=== PATIENT | female | born 1985 | race Hispanic/Latino ===

== ENCOUNTER 2022-05-10 23:03 | Emergency (ER) | payer MEDICAID ==
[~2022-05-10] VITALS: Ht 165.1 cm; Wt 64.4 kg
[2022-05-10] MEDS ORDERED: 0.9%NACL 1000ML 1,000 ML IV ONE (23:30)
[2022-05-10 23:43] LABS: BASOPHILS % (AUTO) 0.9 % (0.0-5.0); EOSINOPHILS % (AUTO) 2.5 % (0.0-8.0); HEMATOCRIT 32.8 % (36-48); MEAN CORPUSCULAR HEMOGLOBIN 28.2 pg (27.0-33.0); MEAN CORPUSCULAR HGB CONC 34.5 g/dL (32.0-36.0); MEAN CORPUSCULAR VOLUME 81.8 fL (79-99); MONOCYTES % (AUTO) 6.9 % (3.0-13.0); NEUTROPHILS % (AUTO) 70.9 % (40.0-77.0); PLATELET COUNT (AUTO) 268 K/uL (130-400); RED BLOOD CELL COUNT(AUTO) 4.01 MIL/uL (4.00-5.50); RED CELL DISTRIBUTION WIDTH 13.2 % (11.0-15.5)
[2022-05-10 23:56] LABS: POTASSIUM 3.9 mmol/L (3.5-5.1); TOTAL PROTEIN, SERUM 8.5 g/dL (6.0-8.3)
[2022-05-11 00:06] VITALS: BP 125/86
== END 2022-05-11 02:21 | disposition home or self-care (01) ==
LOC: EDH 23:03
DX: E86.0 Dehydration (principal); Z48.01 Encounter for change or removal of surgical wound dressing; E11.9 Type 2 diabetes mellitus without complications; Z88.6 Allergy status to analgesic agent; Z91.018 Allergy to other foods; Z98.890 Other specified postprocedural states
CPT/HCPCS: 99284; 80053; 85025; 86850; 86900; 86901; 87040 ×2; 83605; 36415; 51702; 96360; J7030

== ENCOUNTER 2022-05-30 22:03 | Emergency (ER) | payer MEDICAID ==
[~2022-05-30] VITALS: Ht 162.6 cm; Wt 69.4 kg
[2022-05-30] MEDS ORDERED: 0.9%NACL 1000ML 1,000 ML IV ONE (23:00)
[2022-05-30] MEDS ORDERED: INSULIN HUMULIN R 100 UNIT/ML 3ML IV ONE (23:00)
[2022-05-30 23:04] LABS: APPEARANCE,URINE TURBID (CLEAR); BILIRUBIN,URINE NEGATIVE (NEGATIVE); COLOR,URINE YELLOW (YELLOW); GLUCOSE, URINE (UA) 250 mg/dL (NEGATIVE); KETONES,URINE 5 mg/dL (NEGATIVE); LEUKOCYTE ESTERASE ,URINE SMALL (NEGATIVE); NITRATE,URINE POSITIVE (NEGATIVE); OCCULT BLOOD,URINE MODERATE (NEGATIVE); PH,URINE 5.5 (5.0-8.0); PROTEIN,URINE 100 mg/dL (NEGATIVE)
[2022-05-30 23:15] LABS: BACTERIA,URINE Moderate /HPF (None Seen); MUCUS,URINE Rare LPF (None Seen); SQUAMOUS EPITHELIAL CELL,UR Rare /HPF (0-2); YEAST,URINE BUDDING Many /HPF (None Seen)
[2022-05-30 23:16] LABS: AMORPHOUS SEDIMENT,UR Moderate /LPF (None Seen)
[2022-05-30 23:21] LABS: BASOPHILS % (AUTO) 0.9 % (0.0-5.0); EOSINOPHILS % (AUTO) 2.5 % (0.0-8.0); HEMATOCRIT 33.3 % (36-48); LYMPHOCYTES % (AUTO) 19.7 % (21.0-51.0); MEAN CORPUSCULAR HEMOGLOBIN 28.3 pg (27.0-33.0); MEAN CORPUSCULAR HGB CONC 34.8 g/dL (32.0-36.0); MEAN CORPUSCULAR VOLUME 81.2 fL (79-99); MONOCYTES % (AUTO) 6.3 % (3.0-13.0); NEUTROPHILS % (AUTO) 70.3 % (40.0-77.0); PLATELET COUNT (AUTO) 312 K/uL (130-400); WHITE BLOOD COUNT (AUTO) 9.2 K/uL (4.8-10.8)
[2022-05-30 23:29] LABS: CREATININE 1.1 mg/dL (0.5-1.5); POTASSIUM 4.2 mmol/L (3.5-5.1)
[2022-05-30] MEDS ORDERED: CEFTRIAXONE 1G VIAL IVP ONE (23:30)
[2022-05-30 23:34] LABS: ALBUMIN 2.3 g/dL (3.5-5.0); TOTAL PROTEIN, SERUM 10.3 g/dL (6.0-8.3)
[2022-05-30] MEDS ORDERED: CEPH500B PO (23:46)
[2022-05-31 00:47] VITALS: BP 120/82
== END 2022-05-31 00:48 | disposition home or self-care (01) ==
LOC: EDH 22:03
DX: T83.098A Other mechanical complication of other urinary catheter, initial encounter (principal); N39.0 Urinary tract infection, site not specified; E11.65 Type 2 diabetes mellitus with hyperglycemia; Z88.5 Allergy status to narcotic agent; Z89.511 Acquired absence of right leg below knee; Y84.8 Other medical procedures as the cause of abnormal reaction of the patient, or of later complication, without mention of misadventure at the time of the procedure; Y92.89 Other specified places as the place of occurrence of the external cause
CPT/HCPCS: 99284; 96374; 96361; 96375; 80053; 85025; 87077; 87088; 87186; 82948; 82010; 81001; 36415; J1815; J7030; J0696

== ENCOUNTER 2023-06-15 21:18 | Emergency (ER) | payer MEDICAID ==
[~2023-06-15] VITALS: Ht 162.6 cm; Wt 71.2 kg
[~2023-06-15 21:18] MED LIST: AMLO5TAB4 PO; Docusate Sodium 100 Mg Cap PO; INSLAN SQ
[2023-06-15 21:39] LABS: BASOPHILS # (AUTO) 0.14 K/uL (0.00-0.20); BASOPHILS % (AUTO) 1.4 % (0.0-5.0); EOSINOPHILS # (AUTO) 1.04 K/uL (0.00-0.70); EOSINOPHILS % (AUTO) 10.5 % (0.0-8.0); IMMATURE GRANULOCYTE ABSOLUTE 0.05 K/uL (0-1); LYMPHOCYTES # (AUTO) 2.4 K/uL (1.0-4.8); LYMPHOCYTES % (AUTO) 24.3 % (21.0-51.0); MEAN CORPUSCULAR HEMOGLOBIN 27.9 pg (27.0-33.0); MEAN CORPUSCULAR HGB CONC 34.1 g/dL (32.0-36.0); MEAN CORPUSCULAR VOLUME 81.8 fL (79-99); MONOCYTES # (AUTO) 0.6 K/uL (0.1-1.0); MONOCYTES % (AUTO) 5.5 % (3.0-13.0); NEUTROPHILS # (AUTO) 5.7 K/uL (1.8-7.7); NEUTROPHILS % (AUTO) 57.8 % (40.0-77.0); PLATELET COUNT (AUTO) 279 K/uL (130-400); RED BLOOD CELL COUNT(AUTO) 3.91 MIL/uL (4.00-5.50); RED CELL DISTRIBUTION WIDTH 13.4 % (11.0-15.5); WHITE BLOOD COUNT (AUTO) 9.9 K/uL (4.8-10.8)
[2023-06-15 21:46] LABS: CREATININE 2.5 mg/dL (0.5-1.5); POTASSIUM 4.4 mmol/L (3.5-5.1)
[2023-06-15 21:56] LABS: ALBUMIN 2.2 g/dL (3.5-5.0); BILIRUBIN,TOTAL 0.3 mg/dL (0.2-1.0); TOTAL PROTEIN, SERUM 7.3 g/dL (6.0-8.3)
[2023-06-15 22:06] LABS: HCG,QUALITATIVE URINE NEGATIVE (NEGATIVE)
[2023-06-15 22:12] LABS: AMPHET/METH SCREEN,URINE NEGATIVE (NEGATIVE); APPEARANCE,URINE CLOUDY (CLEAR); BARBITURATE SCREEN, URINE NEGATIVE (NEGATIVE); BENZODIAZEPINES SCREEN,URINE NEGATIVE (NEGATIVE); BILIRUBIN,URINE NEGATIVE (NEGATIVE); CANNABINOID SCREEN,URINE NEGATIVE (NEGATIVE); COCAINE SCREEN,URINE NEGATIVE (NEGATIVE); COLOR,URINE YELLOW (YELLOW); GLUCOSE, URINE (UA) 200 mg/dL (NEGATIVE); KETONES,URINE NEGATIVE (NEGATIVE); LEUKOCYTE ESTERASE ,URINE 75 Leu/uL (NEGATIVE); NITRATE,URINE 2+ (NEGATIVE); OCCULT BLOOD,URINE SMALL (NEGATIVE); OPIATE SCREEN,URINE NEGATIVE (NEGATIVE); PHENCYCLIDINE SCREEN,URINE NEGATIVE (NEGATIVE); PROTEIN,URINE 600 mg/dL (NEGATIVE); UROBILINOGEN,URINE 0.2 mg/dL (0.2-1.0)
[2023-06-15 22:13] LABS: ADD UA MICROSCOPIC YES; BACTERIA,URINE FEW /HPF (None Seen); MUCUS,URINE RARE LPF (None Seen); RBC,URINE 26-50 /HPF (0-1); SQUAMOUS EPITHELIAL CELL,UR MOD /HPF (0-2); WBC CLUMP FEW /HPF (0-1); WBC,URINE 26-50 /HPF (0-1); YEAST,URINE BUDDING FEW /HPF (None Seen)
[2023-06-15] MEDS ORDERED: 0.9%NACL 1000ML 1,000 ML IV ONE (22:30)
[2023-06-15 22:52] LABS: ALCOHOL, BLOOD < 3 mg/dL (0-10); CREATINE KINASE, TOTAL 73 U/L (21-232)
[2023-06-15] MEDS ORDERED: CEPH500B PO (23:27)
[2023-06-15] MEDS ORDERED: CEFTRIAXONE 2GM VIAL IVPB ONE (23:30)
[2023-06-15 23:41] VITALS: BP 132/74; PULSE 88; RESP 16; O2SAT 97
== END 2023-06-15 23:54 | disposition home or self-care (01) ==
LOC: EDH 21:18
DX: N39.0 Urinary tract infection, site not specified (principal); T67.5XXA Heat exhaustion, unspecified, initial encounter; E11.22 Type 2 diabetes mellitus with diabetic chronic kidney disease; I12.9 Hypertensive chronic kidney disease with stage 1 through stage 4 chronic kidney disease, or unspecified chronic kidney disease; N18.9 Chronic kidney disease, unspecified; M31.9 Necrotizing vasculopathy, unspecified; Z88.5 Allergy status to narcotic agent; Z91.018 Allergy to other foods; X58.XXXA Exposure to other specified factors, initial encounter; Y93.89 Activity, other specified; Y92.89 Other specified places as the place of occurrence of the external cause; Y99.8 Other external cause status
CPT/HCPCS: 99284; 96365; 96361; 82550; 84484; 80053; 80305; 84703; 85025; 87077; 87088; 87186; 83605; 81025; 36415; 93005; 81001; J7030; J0696

== ENCOUNTER 2023-07-06 13:41 | Emergency (ER) | payer MEDICAID ==
[~2023-07-06] VITALS: Ht 160 cm; Wt 71.2 kg
[~2023-07-06 13:41] MED LIST changes: +CEPH500B PO
[2023-07-06 17:36] VITALS: BP 153/92; PULSE 76; RESP 18; O2SAT 99
== END 2023-07-06 17:45 | disposition home or self-care (01) ==
LOC: EDH 13:41
DX: T83.098A Other mechanical complication of other urinary catheter, initial encounter (principal); E11.9 Type 2 diabetes mellitus without complications; I10 Essential (primary) hypertension; Z88.5 Allergy status to narcotic agent; Y83.8 Other surgical procedures as the cause of abnormal reaction of the patient, or of later complication, without mention of misadventure at the time of the procedure; Y92.89 Other specified places as the place of occurrence of the external cause
CPT/HCPCS: 51702; 99282

== ENCOUNTER 2024-09-13 07:09 | Emergency (ER) | payer SELFPAY ==
[~2024-09-13] VITALS: Ht 154.9 cm; Wt 89.8 kg
--- NOTE | 2024-09-13 07:30 | NUR ---
CHRONIC ROMANO INPLACE, BLADDER SCAN DONE, 750ML NOTED IN BLADDER, IRRIGATION WITH NS TOLERATED WELL, AFTER IRRIGATION NOTED URINE FLOWING
--- NOTE | 2024-09-13 07:44 | ERN ---
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 The catheter was last changed about one week ago at [facility]. The patient does not see a urologist but goes to the emergency department for catheter problems. She denies associated fever or chills and has not had nausea or vomiting. She is scheduled to see Dr. Fernandez this coming week for her chronic renal insufficiency. She is wheelchair-bound due to a right leg amputation. She lives at home with her brother who assists her with chronic care. She denies cigarettes, alcohol and recreational drugs Allergies: Coded Allergies: lidocaine (Unverified Allergy, Unknown, 09/13/24) morphine (Unverified Allergy, Unknown, 05/10/22) onion (Unverified Allergy, Unknown, 05/10/22) Home Meds Active Scripts Cephalexin Monohydrate (Keflex) 500 Mg Cap, 500 MG PO BID for 7 Days, #28 CAP 0 Refills Prov:PURA TOLEDO Sr., MD 06/15/23 Insulin Glargine,Hum.rec.anlog (Lantus) 100 Units/Ml Inj, 10 UNITS SQ HS, #1 VIAL 0 Refills Prov:MIL STONE 05/16/23 Amlodipine Besylate (Norvasc 5Mg Tab) 5 Mg Tablet, 5 MG PO Q24H, #30 TAB 0 Refills Prov:MIL STONE 05/16/23 [Docusate Sodium 100 Mg Cap] 100 MG CAPSULE No Conflict Check, 100 MG PO BID, #60 0 Refills Prov:MIL STONE 05/16/23 Past Medical History Past Medical History: Diabetes-Type II, Hypertension, Renal Disese Additional Past Medical Hx: 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 ENT: Negative except as documented in HPI. CARDIOVASCULAR: Negative except as documented in HPI. RESPIRATORY: Negative except as documented in HPI. GASTROINTESTINAL: Negative except as documented in HPI. GENITOURINARY: Negative except as documented in HPI. MUSCULOSKELETAL: Negative except as documented in HPI. SKIN: Negative except as documented in HPI. NEUROLOGIC: Negative except as documented in HPI. Initial Vital Sign VS Vital Signs Date Time Temp Pulse Resp B/P (MAP) Pulse Ox O2 Delivery O2 Flow Rate FiO2 09/13/24 07:11 98.2 109 18 141/96 99 Room Air 0 09/13/24 08:26 21 Physical Exam Dictation VITAL SIGNS: note is made of triage vital signs CONSTITUTIONAL: This is a moderately obese patient nontoxic appearing who is awake, alert, and appropriately interactive. HEAD: Normocephalic, Atraumatic. EYES: Periorbital areas with no swelling, redness, or edema. Lids and lashes are normal. Conjunctival injection is absent. Sclera anicteric. Pupils equal, round, reactive to light. ENT: No nasal discharge noted. Posterior pharynx is without exudate, redness, swelling, masses, or evidence of obstruction. Uvula midline. Mucous membranes moist. NECK: Trachea midline, no masses palpated, and no cervical lymphadenopathy. No swelling. Supple, full range of motion without nuchal rigidity. No vertebral point tenderness. No meningismus. CHEST/AXILLA: Normal chest wall appearance and motion. No tenderness. No crepitus. CV: Normal rate, regular rhythm. No murmur. No edema. RESPIRATORY:Respiratory rate is normal. Bilateral equal breath sounds with good airflow. Normal breath sounds are noted. No rales, rhonchi or wheezes noted. No increased work of breathing, no retractions. ABDOMEN: Inspection normal. No distention is appreciated. Bowel sounds are normal. No mass or organomegaly is appreciated. There is suprapubic tenderness. No rebound. No rigidity. No voluntary or involuntary guarding. BACK: Inspection is normal. No midline tenderness is appreciated. The patient appears comfortable when moving. : Romano catheter has some particulate matter in the drainage. There was diminished urine output initially but good return of urine after irrigation SKIN: Warm, dry, with normal turgor. Capillary refill less than 3 seconds. Normal color.No rash. No cellulitis or abscess. No evidence of acute injury. MS/Extremity: There is no calf tenderness. Baseline range of motion is noted in all 4 extremities. There is a right BKA NEURO: Awake and alert, lucid. Facies symmetric and speech is clear. Motor strength 5/5 in all extremities. Sensory grossly intact. PSYCH: Patient is appropriately attentive and cooperative without evidence of hallucination. Results (Laboratory/Radiology) Laboratory/Radiology Laboratory Tests Test 09/13/24 07:43 09/13/24 08:00 White Blood Count 8.9 K/uL (4.8-10.8) Red Blood Count 3.74 MIL/uL (4.00-5.50) L Hemoglobin 10.3 g/dL (12.0-16.0) L Hematocrit 32.8 % (36-48) L Mean Corpuscular Volume 87.7 fL (79-99) Mean Corpuscular Hemoglobin 27.5 pg (27.0-33.0) Mean Corpuscular Hemoglobin Concent 31.4 g/dL (32.0-36.0) L Red Cell Distribution Width 14.8 % (11.0-15.5) Platelet Count 224 K/uL (130-400) Mean Platelet Volume 9.0 fL (7.5-10.5) Immature Granulocyte % (Auto) 1.5 % (0-1) H Neutrophils (%) (Auto) 68.7 % (40.0-77.0) Lymphocytes (%) (Auto) 14.7 % (21.0-51.0) L Monocytes (%) (Auto) 4.5 % (3.0-13.0) Eosinophils (%) (Auto) 9.5 % (0.0-8.0) H Basophils (%) (Auto) 1.1 % (0.0-5.0) Neutrophils # (Auto) 6.1 K/uL (1.8-7.7) Lymphocytes # (Auto) 1.3 K/uL (1.0-4.8) Monocytes # (Auto) 0.4 K/uL (0.1-1.0) Eosinophils # (Auto) 0.85 K/uL (0.00-0.70) H Basophils # (Auto) 0.10 K/uL (0.00-0.20) Absolute Immature Granulocyte (auto 0.13 K/uL (0-1) Nucleated Red Blood Cells 0.0 % (0.0-0.19) Sodium Level 142 mmol/L (136-145) Potassium Level 5.4 mmol/L (3.5-5.1) H Chloride Level 108 mmol/L (101-111) Carbon Dioxide Level 25 mmol/L (21-32) Blood Urea Nitrogen 39 mg/dL (7-18) H Creatinine 4.6 mg/dL (0.5-1.0) H Glomerular Filtration Rate Calc 12 mL/min (>90) Random Glucose 224 mg/dL (70-105) H Total Calcium 8.0 mg/dL (8.5-10.1) L Urine Color YELLOW (YELLOW) Urine Appearance CLEAR (CLEAR) Urine pH 7.0 (5.0-8.0) Urine Specific [place] 1.020 (1.001-1.031) Urine Protein >=300 mg/dL (NEGATIVE) H Urine Glucose (UA) 250 mg/dL (NEGATIVE) H Urine Ketones NEGATIVE mg/dL (NEGATIVE) Urine Occult Blood SMALL (NEGATIVE) H Urine Nitrate POSITIVE (NEGATIVE) H Urine Bilirubin NEGATIVE mg/dL (NEGATIVE) Urine Urobilinogen 0.2 mg/dL (0.2-1.0) Urine Leukocyte Esterase NEGATIVE Sada/uL Urine RBC 2-5 /HPF (0-1) H Urine Red Cell Clumps None Seen /HPF (None) Urine WBC 6-10 /HPF (0-1) H Urine Squamous Epithelial Cells 2-5 /HPF (0-2) Urine Bacteria Few /HPF (None Seen) Urine Yeast Moderate /HPF (None Seen) H Urine Yeast with Hyphae Moderate /HPF (None Seen) H Labs Reviewed?: Yes Ultrasound Comment: Institution : [facility] Accession No. : [id number] Patient : CURT CHANEL Creator : Dictator : Beck Operator : [employer] Quality Technician : JAME EDUARDO Approver2 : Study : US RENAL SONOGRAM Study Date : 09/13/2024 08:17:08 Report Date : [facility] [address] [place] [address] IMAGING REPORT Signed PATIENT: DARÍO ELIAS MR#: [id number] : 1985 SEX: F AGE: 39 LOCATION: [facility] ORDER 2 STATUS: REG ER REPORT#: [id number] SERVICE REASON: pelvic pain, romano drainage problem ORDERING PHYSICIAN: GIOVANY AGUSTIN MD PROCEDURE: RENAL - US RENAL SONOGRAM ULTRASOUND RENAL COMPLETE INDICATION: Pelvic pain, Romano problems TECHNIQUE: Routine ultrasound of the kidneys and urinary bladder with grayscale and color Doppler imaging was performed in real-time, and subsequently made available for review. COMPARISON: 05/13/2023 FINDINGS: The echogenic right kidney measures 11.0 x 6.2 x 5.8 cm. No abnormal mass demonstrated. No evidence for hydronephrosis or shadowing stone. The echogenic left kidney measures 9.7 x 5.1 x 3.7 cm. No abnormal mass demonstrated. No evidence for hydronephrosis or shadowing stone. Romano catheter occupies the urinary bladder. Mild urinary bladder wall thickening. IMPRESSION: Mild urinary bladder wall thickening comment perhaps representing cystitis, and for which correlation with urine studies is recommended. Findings suggesting acute tubular necrosis or acute interstitial nephritis. DICTATED BY: JAME EDUARDO MD DATE: 09/13/2438 ELECTRONICALLY SIGNED BY: JAME EDUARDO MD DATE: 09/13/24 0843 ED Course ED Course Orders Procedure Category Date Status Time Urinalysis Profile LAB 09/13/24 Complete 07:31 Basic Metabolic Panel LAB 09/13/24 Complete 07:31 Cbc With Differential LAB 09/13/24 Complete 07:31 Acetaminophen 325 Tab PHA 09/13/24 Complete (Tylenol 325mg Tab 08:00 Us Renal Sonogram US 09/13/24 Resulted 07:40 Acetaminophen 325 Tab PHA 09/13/24 Complete (Tylenol 325mg Tab 07:44 Culture Urine SERAFIN 09/13/24 In Process 08:29 Current Medications Medications (Trade) Dose Ordered Sig/Deanna Route PRN Reason Start Time Stop Time Status Last Admin Dose Admin Acetaminophen (TYLenol 325MG TAB) 325 mg STK-MED ONCE .ROUTE 09/13/24 07:44 09/13/24 07:48 DC Acetaminophen (TYLenol 325MG TAB) 650 mg ONCE ONCE PO 09/13/24 08:00 09/13/24 08:01 DC 09/13/24 07:47 Vital Signs Date Time Temp Pulse Resp B/P (MAP) Pulse Ox O2 Delivery O2 Flow Rate FiO2 09/13/24 10:16 98 18 168/89 100 Room Air* 0 21 09/13/24 08:26 97.9 92 18 151/83 99 Room Air* 0 21 09/13/24 07:11 98.2 109 18 141/96 99 Room Air 0 Medical Decision Making MDM Initial history and physical concerning for possible obstruction of Romano catheter Contributing medical problems: Chronic indwelling Romano catheter with chronic renal insufficiency Contributing social issues: No urologist I have reviewed the triage nursing notes and vital signs. The patient is afebrile with acceptable oxygen saturation, heart rate and blood pressure. Initial plan: Irrigation of the Romano, this resulted in return of 750 cc. Patient was provided with some Tylenol for pain DATA REVIEW I have reviewed additional NN, repeat VS, and monitoring where indicated. She has remained afebrile with stable blood pressure and heart rate. Andrade diagnostic results: White count is 8.9 with no neutrophil predominance. There was mild anemia, potassium of 5.4, BUN 39 with a creatinine of 4.6 and glucose of 224. Ultrasound does not show obstruction. There is mild urinary bladder wall thickening. The urine has only a few white cells and bacteria. Without fever, vomiting or heavy white count in the urine plan is not to treat for UTI Other independent historian: none Review of external data: We had some previous laboratory evaluation a of kidney function from 2022 and the creatinine was quite a bit worse today. As result of lab abnormalities that are worsening I did discuss the case with the can stacker who follows this patient, . He is very familiar with her and stated that he saw her last week at [facility] and that her numbers are consistent. He states that so far she is refusing dialysis and then he is happy to see her in the office as planned next week. He states there was no intervention that would require admission at the present time. ED COURSE Interventions: Romano catheter was irrigated with good urine output. Patient received Tylenol for pain and feels better. Reassessment: She remains nontoxic DISPOSITION Final diagnostic impression: Urinary outlet obstruction due to particulate matter in the Romano catheter Multiple medical problems currently stable. No evidence of sepsis I discussed my findings, clinical impression and treatment recommendations with the patient. I have reviewed the social factors contributing to the patient's presentation and disposition planning. My final plan for disposition was made based upon clinical findings, response to treatment and discussion with the patient regarding management options. Hospitalization is not indicated due to low risk of short term progression, complication, morbidity or mortality related to the current diagnosis At the time of discharge, the vital signs are within acceptable limits. Repeat examination: Patient has lower abdomen is more comfortable Romano continues to drain well Patient has been able to take oral liquids. The discharge treatment plan includes a tendons at her follow up with Dr. Fernandez, with the results from today Patient is encouraged to continue her home medications and use Tylenol if needed for pain. Incidental findings discussed: none Questions were invited and answered in layman's terms. I have emphasized my follow-up recommendations and reviewed ED return precautions. I have answered any questions in layman's terms. The patient understands that they will have to arrange for out-patient follow-up for recheck of today's condition. The patient is stable and appropriate for discharge from the ED. This dictation was prepared using [employer] voice recognition software. Occasional voice recognition errors may occur. When identified, these errors have been corrected. While every attempt is made to correct errors during dictation, errors may still exist. DX & DISP Disposition: Discharge Decision to Admit Date: Sep 13, 2024 Decision to Admit Time: 09:30 Departure Impression: Primary Impression: Obstructed Romano catheter Condition: Stable Additional Instructions: Take the results from today and follow up with Dr. Fernandez as planned regarding your kidney function. Continue all your home medications and usual care. Return to the emergency department for fever, vomiting, or other worsening Referrals: MILVIA PITTS MD (PCP) Time of Disposition: 10:27 GIOVANY AGUSTIN MD Sep 13, 2024 07:44
[2024-09-13] MEDS: acetaMINOPHEN 325 MG TAB PO ONE (07:47)
[2024-09-13 07:49] LABS: BASOPHILS % (AUTO) 1.1 % (0.0-5.0); EOSINOPHILS # (AUTO) 0.85 K/uL (0.00-0.70); EOSINOPHILS % (AUTO) 9.5 % (0.0-8.0); HEMATOCRIT 32.8 % (36-48); IMMATURE GRANULOCYTE ABSOLUTE 0.13 K/uL (0-1); LYMPHOCYTES # (AUTO) 1.3 K/uL (1.0-4.8); LYMPHOCYTES % (AUTO) 14.7 % (21.0-51.0); MEAN CORPUSCULAR HEMOGLOBIN 27.5 pg (27.0-33.0); MEAN CORPUSCULAR HGB CONC 31.4 g/dL (32.0-36.0); MEAN CORPUSCULAR VOLUME 87.7 fL (79-99); MONOCYTES # (AUTO) 0.4 K/uL (0.1-1.0); MONOCYTES % (AUTO) 4.5 % (3.0-13.0); NEUTROPHILS # (AUTO) 6.1 K/uL (1.8-7.7); NEUTROPHILS % (AUTO) 68.7 % (40.0-77.0); PLATELET COUNT (AUTO) 224 K/uL (130-400); RED BLOOD CELL COUNT(AUTO) 3.74 MIL/uL (4.00-5.50); RED CELL DISTRIBUTION WIDTH 14.8 % (11.0-15.5); WHITE BLOOD COUNT (AUTO) 8.9 K/uL (4.8-10.8)
[2024-09-13 07:59] LABS: CREATININE 4.6 mg/dL (0.5-1.0); POTASSIUM 5.4 mmol/L (3.5-5.1)
--- NOTE | 2024-09-13 08:07 | NUR ---
800ML NOTED IN ROMANO BAG, PT STATES FEELING BETTER, PAIN AT 3/10
[2024-09-13] MEDS: acetaMINOPHEN 325 MG TAB ONE (08:09)
[2024-09-13 08:25] LABS: APPEARANCE,URINE CLEAR (CLEAR); BILIRUBIN,URINE NEGATIVE (NEGATIVE); COLOR,URINE YELLOW (YELLOW); GLUCOSE, URINE (UA) 250 mg/dL (NEGATIVE); KETONES,URINE NEGATIVE (NEGATIVE); LEUKOCYTE ESTERASE ,URINE NEGATIVE Leu/uL (NEGATIVE); NITRATE,URINE POSITIVE (NEGATIVE); OCCULT BLOOD,URINE SMALL (NEGATIVE); PROTEIN,URINE >=300 mg/dL (NEGATIVE); UROBILINOGEN,URINE 0.2 mg/dL (0.2-1.0)
[2024-09-13 08:26] VITALS: TEMP 97.8
[2024-09-13 08:28] LABS: ADD UA MICROSCOPIC YES
[2024-09-13 08:30] LABS: BACTERIA,URINE Few /HPF (None Seen); YEAST,URINE BUDDING Moderate /HPF (None Seen); YEAST,URINE HYPHAE Moderate /HPF (None Seen)
--- NOTE | 2024-09-13 08:43 | HMCIMG ---
ULTRASOUND RENAL COMPLETE INDICATION: Pelvic pain, Rivera problems TECHNIQUE: Routine ultrasound of the kidneys and urinary bladder with grayscale and color Doppler imaging was performed in real-time, and subsequently made available for review. COMPARISON: 05/13/2023 FINDINGS: The echogenic right kidney measures 11.0 x 6.2 x 5.8 cm. No abnormal mass demonstrated. No evidence for hydronephrosis or shadowing stone. The echogenic left kidney measures 9.7 x 5.1 x 3.7 cm. No abnormal mass demonstrated. No evidence for hydronephrosis or shadowing stone. Rivera catheter occupies the urinary bladder. Mild urinary bladder wall thickening. IMPRESSION: Mild urinary bladder wall thickening comment perhaps representing cystitis, and for which correlation with urine studies is recommended. Findings suggesting acute tubular necrosis or acute interstitial nephritis.
[2024-09-13 10:10] LABS: RED BLOOD CELL CLUMP None Seen /HPF
[2024-09-13 10:16] VITALS: BP 168/89; PULSE 98; RESP 18; O2SAT 100
== END 2024-09-13 10:55 | disposition home or self-care (01) ==
LOC: EDH 07:09
DX: T83.098A Other mechanical complication of other urinary catheter, initial encounter (principal); E11.9 Type 2 diabetes mellitus without complications; I10 Essential (primary) hypertension; Z88.5 Allergy status to narcotic agent; Z89.511 Acquired absence of right leg below knee; Y82.9 Unspecified medical devices associated with adverse incidents; Y92.89 Other specified places as the place of occurrence of the external cause
CPT/HCPCS: 36415; 76770; 80048; 81001; 85025; 87086; 99284

== ENCOUNTER 2024-11-04 23:54 | Emergency (ER) | payer SELFPAY ==
[~2024-11-04] VITALS: Ht 162.6 cm; Wt 89.8 kg
[~2024-11-04 23:54] MED LIST changes: +AMOX500C2 PO; -CEPH500B PO; -Docusate Sodium 100 Mg Cap PO; -INSLAN SQ; +SODI10PO2 PO
[2024-11-05 00:49] LABS: BASOPHILS # (AUTO) 0.08 K/uL (0.00-0.20); BASOPHILS % (AUTO) 0.8 % (0.0-5.0); EOSINOPHILS # (AUTO) 1.07 K/uL (0.00-0.70); EOSINOPHILS % (AUTO) 10.4 % (0.0-8.0); HEMATOCRIT 33.8 % (36-48); IMMATURE GRANULOCYTE ABSOLUTE 0.13 K/uL (0-1); LYMPHOCYTES # (AUTO) 1.9 K/uL (1.0-4.8); LYMPHOCYTES % (AUTO) 18.4 % (21.0-51.0); MEAN CORPUSCULAR HEMOGLOBIN 29.3 pg (27.0-33.0); MONOCYTES # (AUTO) 0.7 K/uL (0.1-1.0); MONOCYTES % (AUTO) 6.5 % (3.0-13.0); NEUTROPHILS # (AUTO) 6.5 K/uL (1.8-7.7); NEUTROPHILS % (AUTO) 62.6 % (40.0-77.0); PLATELET COUNT (AUTO) 219 K/uL (130-400); RED BLOOD CELL COUNT(AUTO) 3.93 MIL/uL (4.00-5.50); RED CELL DISTRIBUTION WIDTH 14.3 % (11.0-15.5); WHITE BLOOD COUNT (AUTO) 10.3 K/uL (4.8-10.8)
[2024-11-05 00:57] LABS: CREATININE 4.8 mg/dL (0.5-1.0); POTASSIUM 4.8 mmol/L (3.5-5.1)
[2024-11-05 01:02] LABS: BILIRUBIN,TOTAL 0.4 mg/dL (0.2-1.0); TOTAL PROTEIN, SERUM 6.4 g/dL (6.0-8.3)
[2024-11-05 01:03] LABS: HCG,QUALITATIVE URINE NEGATIVE (NEGATIVE)
[2024-11-05 01:13] LABS: APPEARANCE,URINE CLEAR (CLEAR); BILIRUBIN,URINE NEGATIVE (NEGATIVE); COLOR,URINE LIGHT-YELLOW (YELLOW); GLUCOSE, URINE (UA) 300 mg/dL (NEGATIVE); KETONES,URINE NEGATIVE (NEGATIVE); LEUKOCYTE ESTERASE ,URINE 75 Leu/uL (NEGATIVE); NITRATE,URINE NEGATIVE (NEGATIVE); OCCULT BLOOD,URINE SMALL (NEGATIVE); PH,URINE 6.5 (5.0-8.0); PROTEIN,URINE 300 mg/dL (NEGATIVE); UROBILINOGEN,URINE 0.2 mg/dL (0.2-1.0)
[2024-11-05 01:16] LABS: ADD UA MICROSCOPIC YES
[2024-11-05 01:22] LABS: BACTERIA,URINE FEW /HPF (None Seen); MUCUS,URINE RARE LPF (None Seen); SQUAMOUS EPITHELIAL CELL,UR MOD /HPF (0-2)
[2024-11-05 01:25] LABS: AMPHET/METH SCREEN,URINE NEGATIVE (NEGATIVE); BARBITURATE SCREEN, URINE NEGATIVE (NEGATIVE); BENZODIAZEPINES SCREEN,URINE NEGATIVE (NEGATIVE); CANNABINOID SCREEN,URINE NEGATIVE (NEGATIVE); COCAINE SCREEN,URINE NEGATIVE (NEGATIVE); OPIATE SCREEN,URINE NEGATIVE (NEGATIVE); PHENCYCLIDINE SCREEN,URINE NEGATIVE (NEGATIVE)
--- NOTE | 2024-11-05 01:53 | ERN ---
General Chief Complaint: Abdominal Pain Stated Complaint: LOWER ABDOMINAL PAIN, ROMANO ISSUES Time Seen by MD: 23:56 Source: patient History of Present Illness Initial Comments Patient is a 39-year-old female coming in to be evaluated for bilateral lower flank pain. Patient states that this pain began two days ago has been progressively getting worse. Patient does have a indwelling Romano that has had it for multiple months. Patient describes the pain as sharp. Allergies: Coded Allergies: lidocaine (Unverified Allergy, Unknown, 09/13/24) morphine (Unverified Allergy, Unknown, 05/10/22) onion (Unverified Allergy, Unknown, 05/10/22) Home Meds Active Scripts Amoxicillin (Amoxicillin) 500 Mg Capsule, 1 CAP PO DAILY for 4 Days, #4 CAP 0 Refills Prov:ABDIRAHMAN EDUARDO MD 10/30/24 Sodium Zirconium Cyclosilicate (Lokelma) 10 Gram Powd.pack, 1 PACKET PO DAILY for 5 Days, #5 PACKET 0 Refills Prov:ABDIRAHMAN EDUARDO MD 10/30/24 Amlodipine Besylate (Norvasc 5Mg Tab) 5 Mg Tablet, 5 MG PO Q24H, #30 TAB 0 Refills Prov:MIL STONE 05/16/23 Discontinued Scripts Insulin Glargine,Hum.rec.anlog (Lantus) 100 Units/Ml Inj, 10 UNITS SQ HS, #1 VIAL 0 Refills Prov:MIL STONE 05/16/23 [Docusate Sodium 100 Mg Cap] 100 MG CAPSULE No Conflict Check, 100 MG PO BID, #60 0 Refills Prov:MIL STONE 05/16/23 Past Medical History Past Medical History: Diabetes-Type II, Hypertension, Renal Failure Medical History Other: COMA, INTERNAL ABSCESSES Past Surgical History: Other Surgical History Other: BACK SURGERY, ABDOMINOPLASTY, ABSCESS I/D'S Family History Family History: Negative Social History Social History: Negative, Lives with family Female( History) History: Not Applicable ROS Dictation CONSTITUTIONAL: No chills, no fever, no weakness, no diaphoresis, no malaise. HEAD/FACE: No signs of trauma. EENT: No eye pain, no blurred vision, no tearing, no double vision, no ear pain, no ear discharge, no nose pain, no nasal congestion, no throat pain, no throat swelling, no mouth pain. RESPIRATORY: No cough, no orthopnea, no SOB, no stridor, no wheezing. CARDIOVASCULAR: No chest pain, no edema, no palpitations, no syncope. GASTROINTESTINAL/ABDOMINAL: abdominal pain, no constipation, no diarrhea, no nausea, no vomiting. GENITOURINARY: No abnormal discharge, no dysuria, no frequent urination, no hematuria. No complaints of pain in the genitals. MUSCULOSKELETAL: No back pain, no gout, no joint pain, no joint swelling, no muscle pain, no muscle stiffness, no neck pain. INTEGUMENTARY: No change in color, no change in hair/nails, no dryness, no lesion, no lumps, no rash. NEUROLOGICAL/PSYCH: No anxiety, not depressed, no emotional problem, no headache, no numbness, no pre-existing deficit, no history of seizures, no tremors, no weakness. HEMATOLOGIC/LYMPHATIC: Not anemic, no history of blood clots, no apparent bleeding, no bruising, glands not swollen. All Systems Negative, Except as Noted. Physical Exam Physical Exam Dictation VITAL SIGNS: Reviewed. GENERAL APPEARANCE: Alert, oriented x3, no acute distress, obese. HEAD AND FACE: Non-traumatic. EYES: PERRL, pink conjunctivas, eyelid no trauma, anterior chamber clear. EARS: Pinnas intact and no signs of trauma or erythema. Ear canals clear and no discharge. TMs no erythema. NOSE: No discharge, no bleeding. OROPHARYNX: Mouth normal, teeth no caries, tongue pink. Pharynx clear, no erythema. Tonsils no exudates, no abscesses noted. Mucous membrane moist. NECK: Supple, non-tender, no thyromegaly, no masses, no JVD, no bruits. BREAST: Deferred. CHEST: No tenderness, no crepitus, no paradoxical movement, no retractions. LUNGS: Clear, well-ventilated, symmetric, no rales, no wheezing, no rhonchi, no stridor, good breath sounds bilaterally. HEART: Regular rate, regular rhythm, no murmur, no gallops. VASCULAR: No peripheral edema. ABDOMEN: Soft, positive bowel sounds, nondistended, no guarding, suprapubic tenderness on palpation, no rebound, no masses no hepatomegaly, no splenomegaly, no Katz's sign, no hernias. RECTAL: Deferred. GENITAL: Deferred. NEUROLOGICAL: Normal speech, gross motor function intact, gross sensory function intact. MUSCULOSKELETAL: Neck nontender, full range of motion, back nontender, full range of motion. EXTREMITIES: Nontender, full range of motion. SKIN: Color pink, dry, no turgor, no rash, no lacerations, no abrasions, no contusions. LYMPHATICS: Deferred. Results Laboratory and Microbiology Lab and Micro Result Laboratory Tests Test 11/05/24 00:40 White Blood Count 10.3 K/uL (4.8-10.8) Red Blood Count 3.93 MIL/uL (4.00-5.50) L Hemoglobin 11.5 g/dL (12.0-16.0) L Hematocrit 33.8 % (36-48) L Mean Corpuscular Volume 86.0 fL (79-99) Mean Corpuscular Hemoglobin 29.3 pg (27.0-33.0) Mean Corpuscular Hemoglobin Concent 34.0 g/dL (32.0-36.0) Red Cell Distribution Width 14.3 % (11.0-15.5) Platelet Count 219 K/uL (130-400) Mean Platelet Volume 9.4 fL (7.5-10.5) Immature Granulocyte % (Auto) 1.3 % (0-1) H Neutrophils (%) (Auto) 62.6 % (40.0-77.0) Lymphocytes (%) (Auto) 18.4 % (21.0-51.0) L Monocytes (%) (Auto) 6.5 % (3.0-13.0) Eosinophils (%) (Auto) 10.4 % (0.0-8.0) H Basophils (%) (Auto) 0.8 % (0.0-5.0) Neutrophils # (Auto) 6.5 K/uL (1.8-7.7) Lymphocytes # (Auto) 1.9 K/uL (1.0-4.8) Monocytes # (Auto) 0.7 K/uL (0.1-1.0) Eosinophils # (Auto) 1.07 K/uL (0.00-0.70) H Basophils # (Auto) 0.08 K/uL (0.00-0.20) Absolute Immature Granulocyte (auto 0.13 K/uL (0-1) Nucleated Red Blood Cells 0.0 % (0.0-0.19) Urine Color LIGHT-YELLOW (YELLOW) Urine Appearance CLEAR (CLEAR) Urine pH 6.5 (5.0-8.0) Urine Specific [place] 1.009 (1.001-1.031) Urine Protein 300 mg/dL (NEGATIVE) H Urine Glucose (UA) 300 mg/dL (NEGATIVE) H Urine Ketones NEGATIVE mg/dL (NEGATIVE) Urine Occult Blood SMALL (NEGATIVE) H Urine Nitrate NEGATIVE (NEGATIVE) Urine Bilirubin NEGATIVE mg/dL (NEGATIVE) Urine Urobilinogen 0.2 mg/dL (0.2-1.0) Urine Leukocyte Esterase 75 Sada/uL (NEGATIVE) H Urine RBC 2-5 /HPF (0-1) H Urine WBC 11-25 /HPF (0-1) H Urine Squamous Epithelial Cells MOD /HPF (0-2) Urine Amorphous Crystals (Auto) RARE /LPF (None Seen) Urine Bacteria FEW /HPF (None Seen) Urine HCG, Qualitative NEGATIVE (NEGATIVE) Sodium Level 135 mmol/L (136-145) L Potassium Level 4.8 mmol/L (3.5-5.1) Chloride Level 106 mmol/L (101-111) Carbon Dioxide Level 22 mmol/L (21-32) Blood Urea Nitrogen 54 mg/dL (7-18) H Creatinine 4.8 mg/dL (0.5-1.0) H Glomerular Filtration Rate Calc 11 mL/min (>90) Random Glucose 262 mg/dL (70-105) H Total Calcium 7.4 mg/dL (8.5-10.1) L Total Bilirubin 0.4 mg/dL (0.2-1.0) Aspartate Amino Transf (AST/SGOT) 19 U/L (10-37) Alanine Aminotransferase (ALT/SGPT) 20 U/L (12-78) Alkaline Phosphatase 77 U/L (50-136) Total Creatine Kinase 127 U/L (21-232) # Total Protein 6.4 g/dL (6.0-8.3) Albumin 2.0 g/dL (3.5-5.0) L Urine Opiates Screen NEGATIVE (NEGATIVE) Urine Barbiturates Screen NEGATIVE (NEGATIVE) Urine Phencyclidine Screen NEGATIVE (NEGATIVE) Urine Amphetamines Screen NEGATIVE (NEGATIVE) Urine Benzodiazepines Screen NEGATIVE (NEGATIVE) Urine Cocaine Screen NEGATIVE (NEGATIVE) Urine Marijuana (THC) Screen NEGATIVE (NEGATIVE) Labs Reviewed?: Yes EKG/XRAY/US/CT/MRI CT Scan Comment CT abdomen and pelvis without contrast- Impression: No nephrolithiasis or obstructive uropathy, no hydronephrosis, Romano catheter terminates in the decompress urinary bladder, mild wall thickening of internal air correlates for UTI. Cholelithiasis. MDM MDM: Differential diagnosis: UTI, pyelonephritis, Patient is a 31-year-old female coming in to be evaluated for lower abdominal pain. On physical exam pain is present in the suprapubic region. Laboratory workup positive for urinary tract infection CT did not disclose acute findings. Patient will be discharged in stable condition. ED Course Orders Procedure Category Date Status Time Cbc With Differential LAB 11/05/24 Complete 00:35 Comprehensive LAB 11/05/24 Complete Metabolic Panel 00:35 ,Urine Test LAB 11/05/24 Complete 00:35 Urinalysis Profile LAB 11/05/24 Complete 00:35 Creatine Kinase, Total LAB 11/05/24 Complete 00:35 Drug Screen Urine LAB 11/05/24 Complete 00:35 Culture Urine SERAFIN 11/05/24 In Process 01:17 Ct Abdomen/Pelvis W/O CT 11/05/24 Taken Contrast 01:50 Orphenadrine Citrate PHA 11/05/24 Complete (Norflex) 02:00 Ketorolac PHA 11/05/24 Complete Tromethamine 30mg/Ml 02:00 Current Medications Medications (Trade) Dose Ordered Sig/Deanna Route PRN Reason Start Time Stop Time Status Last Admin Dose Admin Ketorolac Tromethamine (toRADol) 30 mg ONCE ONCE IM 11/05/24 02:00 11/05/24 02:01 DC 11/05/24 02:21 Orphenadrine Citrate (Norflex) 60 mg ONCE ONCE IM 11/05/24 02:00 11/05/24 02:01 DC 11/05/24 02:20 Vital Signs Date Time Temp Pulse Resp B/P (MAP) Pulse Ox O2 Delivery O2 Flow Rate FiO2 11/05/24 00:52 98.2 78 18 190/88 100 Room Air* 0 21 11/04/24 23:56 98.4 100 20 167/114 98 Room Air 0 DX & DISP Disposition: Discharge Departure Impression: Primary Impression: Acute UTI Condition: Stable Scripts Cephalexin Monohydrate (Keflex) 500 Mg Cap 1 CAP PO TID for 10 Days, #30 CAP 0 Refills Prov: WHITNEY DIAZ MD 11/05/24 Additional Instructions: FOLLOW-UP WITH PRIMARY CARE PROVIDER IN 1 TO 2 DAYS. TAKE MEDICATIONS DIRECTED HERE IN THE EMERGENCY ROOM. OKAY TO CONTINUE HOME MEDICATIONS UNLESS OTHERWISE DISCUSSED DURING YOUR VISIT IN THE EMERGENCY ROOM TODAY. RETURN TO YOUR NEAREST EMERGENCY ROOM IF SYMPTOMS WORSEN OR IF THERE IS NO IMPROVEMENT. CALL 911 IF YOU NEED IMMEDIATE ASSISTANCE. TAKE TYLENOL [id number] NEEDED AND IF NO CONTRAINDICATIONS ARE PRESENT. INCREASE ORAL HYDRATION. A WOUND CULTURE OR URINE CULTURE WAS ORDERED HERE IN THE EMERGENCY ROOM DEPARTMENT PLEASE FOLLOW-UP WITH PRIMARY CARE PROVIDER AND ADVISE THEM TO GET REPEAT PORTS FROM OUR FACILITY. IF YOU HAD ANY LOS WRAP/SPLINTS THAT WERE APPLIED HERE, PLEASE DO NOT REMOVE THEM UNTIL YOU SEE YOUR PRIMARY CARE OR SPECIALTY. Referrals: Referrals: MILVIA PITTS MD (PCP) Time of Disposition: 03:40 WHITNEY DIAZ MD Nov 05, 2024 01:53
[2024-11-05] MEDS: ORPHENADRINE 60MG/2ML IM ONE (02:20)
[2024-11-05] MEDS: ketOROlac 30MG VIAL (30MG/ML) IM ONE (02:21)
[2024-11-05] MEDS ORDERED: CEPH500B PO (03:40)
[2024-11-05 05:04] VITALS: BP 154/65; PULSE 77; RESP 18; TEMP 98.3; O2SAT 98
--- NOTE | 2024-11-05 08:27 | HMCIMG ---
CT ABDOMEN/PELVIS W/O CONTRAST REASON: lower abd pain / back pain COMPARISON: 10/26/2024 FINDINGS: Lung bases are clear. Mild hepatic steatosis.. The liver does not appear. Spleen and pancreas appear unremarkable. There are stones in an otherwise normal-appearing gallbladder. Right kidney appears unremarkable. Left kidney is smaller there is pelvicalyceal fullness. The left ureter is mildly dilated to the level of the ureterovesical junction, there is no evidence of obstructing stone. There is a Rivera catheter in a nondistended urinary bladder. The left pelvicalyceal system and ureter appearance is unchanged compared to prior study 10/26/2024. Bowel loops appear unremarkable. This includes normal appearance of the appendix There is no evidence of free fluid or intraperitoneal air. There are no focal fluid collections. Aorta and retroperitoneum appear normal as do pelvic soft tissue structures. The anterior abdominal wall is intact. Osseous structures appear unremarkable. IMPRESSION: 1. Borderline left hydronephrosis, mild left hydroureter to the urinary bladder, no evidence of stone and no obstructing etiology identified. 2. These findings are nonspecific, infection could cause this appearance, overall appearance is unchanged compared to prior study 10/26/2024. 3. Cholelithiasis without evidence of acute cholecystitis. 3. Mild hepatic steatosis. CT was performed with one or more following dose reduction techniques: automated exposure control, adjustment of the mA and kv according to patient's size, or use of a iterative reconstruction technique.
== END 2024-11-05 05:07 | disposition home or self-care (01) ==
LOC: EDH 23:54
DX: N39.0 Urinary tract infection, site not specified (principal); E11.9 Type 2 diabetes mellitus without complications; I10 Essential (primary) hypertension; Z88.5 Allergy status to narcotic agent; Z79.899 Other long term (current) drug therapy; Z98.890 Other specified postprocedural states
CPT/HCPCS: 99285; 82550; 80053; 80305; 85025; 87086 ×2; 87186; 81025; 36415; 81001; 74176; 96372 ×2; J1885; 51702; J2360

== ENCOUNTER 2024-11-27 23:37 | Emergency (ER) | payer MEDICAID, MEDICARE ==
[~2024-11-27] VITALS: Ht 162.6 cm; Wt 74.8 kg
[~2024-11-27 23:37] MED LIST changes: +CEPH500B PO
[2024-11-28 00:38] LABS: BASOPHILS # (AUTO) 0.08 K/uL (0.00-0.20); BASOPHILS % (AUTO) 1.2 % (0.0-5.0); EOSINOPHILS # (AUTO) 0.48 K/uL (0.00-0.70); EOSINOPHILS % (AUTO) 7.3 % (0.0-8.0); HEMATOCRIT 35.3 % (36-48); IMMATURE GRANULOCYTE ABSOLUTE 0.09 K/uL (0-1); LYMPHOCYTES # (AUTO) 1.8 K/uL (1.0-4.8); LYMPHOCYTES % (AUTO) 26.6 % (21.0-51.0); MEAN CORPUSCULAR HEMOGLOBIN 29.2 pg (27.0-33.0); MEAN CORPUSCULAR HGB CONC 33.4 g/dL (32.0-36.0); MEAN CORPUSCULAR VOLUME 87.4 fL (79-99); MONOCYTES # (AUTO) 0.5 K/uL (0.1-1.0); MONOCYTES % (AUTO) 7.6 % (3.0-13.0); NEUTROPHILS # (AUTO) 3.7 K/uL (1.8-7.7); NEUTROPHILS % (AUTO) 55.9 % (40.0-77.0); PLATELET COUNT (AUTO) 170 K/uL (130-400); RED BLOOD CELL COUNT(AUTO) 4.04 MIL/uL (4.00-5.50); RED CELL DISTRIBUTION WIDTH 13.6 % (11.0-15.5); WHITE BLOOD COUNT (AUTO) 6.6 K/uL (4.8-10.8)
[2024-11-28 00:39] LABS: CARBON DIOXIDE 22 mmol/L (21-32); CHLORIDE 106 mmol/L (101-111); CREATININE 5.1 mg/dL (0.5-1.0); GLOMERULAR FILTR. RATE CALC 10 mL/min (>90); GLUCOSE,RANDOM 217 mg/dL (70-105); POTASSIUM 4.6 mmol/L (3.5-5.1); SODIUM SERUM 136 mmol/L (136-145); UREA NITROGEN, BLOOD 45 mg/dL (7-18)
[2024-11-28] MEDS: ondanSETRON 4MG INJ IVP ONE (00:42)
[2024-11-28] MEDS: hydrALAZine 20MG/ML VIAL IV ONE (00:42)
[2024-11-28] MEDS: NITROGLYCERIN 1GM OINT 1 INCH/1GM TD ONE (00:42)
[2024-11-28] MEDS: PANTOPrazole 40 MG/VIAL IVP ONE (00:42)
[2024-11-28] MEDS: ASPIRIN 325MG TAB PO ONE (00:42)
[2024-11-28] MEDS: 0.9%NACL 1000ML 1,000 ML IV ONE (00:42)
[2024-11-28 00:43] LABS: ALANINE AMINOTRANSFERASE 22 U/L (12-78); ALBUMIN 2.2 g/dL (3.5-5.0); ASPARTATE AMINOTRANSFERASE 19 U/L (10-37); BILIRUBIN,DIRECT < 0.1 mg/dL (0.0-0.3); BILIRUBIN,TOTAL 0.3 mg/dL (0.2-1.0); CREATINE KINASE, TOTAL 118 U/L (21-232); TOTAL PROTEIN, SERUM 6.8 g/dL (6.0-8.3)
--- NOTE | 2024-11-28 00:46 | ERN ---
ED Note History of Present Illness Stated Complaint: BACK PAIN, CHEST TIGHTNESS Chief Complaint: Back Pain or Injury Time Seen by MD: 23:44 Time Seen by Midlevel: 23:44 Dictation: The patient is a 39-year-old female with a history of diabetes, hypertension, renal failure not on any dialysis, back surgery, chronic Rivera who presents to the emergency department with multiple complaints. Patient reports chest tightness that started around 3:00 p.m.. Reports intermediate. Patient also reports lower back pain onset 7:00 p.m.. Reports that last week she has been having upper respiratory symptoms like cough and runny nose. Reports some nausea. Patient reports she has not been taking any of her medications for over a month due to insurance problems. Allergies: Coded Allergies: lidocaine (Unverified Allergy, Unknown, 09/13/24) morphine (Unverified Allergy, Unknown, 05/10/22) onion (Unverified Allergy, Unknown, 05/10/22) Home Meds Active Scripts Cefpodoxime Proxetil (Cefpodoxime Proxetil) 100 Mg Tablet, 1 TAB PO DAILY for 7 Days, #7 TAB 0 Refills Prov:PAL CHILDS 11/28/24 Cephalexin Monohydrate (Keflex) 500 Mg Cap, 1 CAP PO TID for 10 Days, #30 CAP 0 Refills Prov:WHITNEY DIAZ MD 11/05/24 Amoxicillin (Amoxicillin) 500 Mg Capsule, 1 CAP PO DAILY for 4 Days, #4 CAP 0 Refills Prov:ABDIRAHMAN EDUARDO MD 10/30/24 Sodium Zirconium Cyclosilicate (Lokelma) 10 Gram Powd.pack, 1 PACKET PO DAILY for 5 Days, #5 PACKET 0 Refills Prov:ABDIRAHMAN EDUARDO MD 10/30/24 Amlodipine Besylate (Norvasc 5Mg Tab) 5 Mg Tablet, 5 MG PO Q24H, #30 TAB 0 Refills Prov:MIL STONE AGPCPÉREZ 05/16/23 Past Medical History Past Medical History: Diabetes-Type II, Hypertension, Renal Failure Additional Past Medical Hx: COMA, INTERNAL ABSCESSES Surgical History: Other Surgical History Other: BACK SURGERY, ABDOMINOPLASTY, ABSCESS I/D'S Family History: Negative Social History: Negative, Lives with family History: Not Applicable LMP: Nov 10, 2024 RN Note Reviewed/Agreed w/PFSH: Yes Review of System Dictation Constitutional: Negative for fever,chills, and weight loss Eyes: Negative for injury, pain,redness, and discharge ENT: Negative for injury,pain or swelling Cardiovascular: Negative for palpitations, and edema positive for chest pain Respiratory: Negative for shortness of breath, , and wheezing, positive for cough Abdomen/GI: Negative for abdominal pain, vomiting, diarrhea, and constipation positive for nausea Back: Negative for injury and pain : Negative for injury, bleeding and discharge MS/Extremity: Negative for injury and deformity positive for back pain Skin: Negative for rash, and discoloration Neuro: Negative for headache, weakness, numbness, tingling, and seizure Psych: Negative for suicide ideation, homicidal ideation, and hallucinations Initial Vital Sign VS Vital Signs Date Time Temp Pulse Resp B/P (MAP) Pulse Ox O2 Delivery O2 Flow Rate FiO2 11/27/24 23:39 98.4 104 16 210/110 100 Room Air* 0 21 Physical Exam Dictation Vital Signs reviewed General Appearance: Alert, oriented x 3, no acute distress, well developed, nourished. Head and Face: non-traumatic. Eyes: PERRL, pink conjunctivas, eyelid no trauma, anterior chamber with arcus senilis. Ears: Pinnas intact and no signs of trauma or erythema ear canals clear and no discharge TM no erythema Nose: No discharge, no bleeding. Oropharynx: Mouth normal, tongue pink. pharynx clear,no erythema, tonsils no exudates, no abscesses noted, mucous membrane moist Neck: Supple, non-tender, no thyromegaly, no masses, no JVD, no bruits Breast:Deferred Chest:No tenderness, no crepitus, no paradoxical movement, no retractions Lungs:Clear, well-ventilated, symmetric, no rales, no wheezing, no rhonchi, no stridor, good breath sounds bilaterally Heart: Regular rate, regular rhythm, no murmur, no gallops Vascular: no peripheral edema, Abdomen: Soft, positive bowel sounds, nondistended, no guarding, nontender, no rebound, no masses no hepatomegaly, no splenomegaly, no Katz's sign, no hernias. Rectal: Deferred Genital: Deferred Neurological: Normal speech, motor function intact, sensory function intact Musculoskeletal: Neck nontender, full range of motion, back nontender, full range of motion, tenderness to low back Extremities: nontender, full range of motion right below-knee amputation noted Skin: Color pink, dry, no turgor, no rash, no lacerations, no abrasions, no cont usions. Lymphatic: Deferred Results (Laboratory/Radiology) Laboratory/Radiology Laboratory Tests Test 11/28/24 00:09 11/28/24 00:20 11/28/24 00:39 11/28/24 01:45 White Blood Count 6.6 K/uL (4.8-10.8) Red Blood Count 4.04 MIL/uL (4.00-5.50) Hemoglobin 11.8 g/dL (12.0-16.0) L Hematocrit 35.3 % (36-48) L Mean Corpuscular Volume 87.4 fL (79-99) Mean Corpuscular Hemoglobin 29.2 pg (27.0-33.0) Mean Corpuscular Hemoglobin Concent 33.4 g/dL (32.0-36.0) Red Cell Distribution Width 13.6 % (11.0-15.5) Platelet Count 170 K/uL (130-400) Mean Platelet Volume 9.3 fL (7.5-10.5) Immature Granulocyte % (Auto) 1.4 % (0-1) H Neutrophils (%) (Auto) 55.9 % (40.0-77.0) Lymphocytes (%) (Auto) 26.6 % (21.0-51.0) Monocytes (%) (Auto) 7.6 % (3.0-13.0) Eosinophils (%) (Auto) 7.3 % (0.0-8.0) Basophils (%) (Auto) 1.2 % (0.0-5.0) Neutrophils # (Auto) 3.7 K/uL (1.8-7.7) Lymphocytes # (Auto) 1.8 K/uL (1.0-4.8) Monocytes # (Auto) 0.5 K/uL (0.1-1.0) Eosinophils # (Auto) 0.48 K/uL (0.00-0.70) Basophils # (Auto) 0.08 K/uL (0.00-0.20) Absolute Immature Granulocyte (auto 0.09 K/uL (0-1) Nucleated Red Blood Cells 0.0 % (0.0-0.19) Sodium Level 136 mmol/L (136-145) Potassium Level 4.6 mmol/L (3.5-5.1) Chloride Level 106 mmol/L (101-111) Carbon Dioxide Level 22 mmol/L (21-32) Blood Urea Nitrogen 45 mg/dL (7-18) H Creatinine 5.1 mg/dL (0.5-1.0) H Glomerular Filtration Rate Calc 10 mL/min (>90) Random Glucose 217 mg/dL (70-105) H Total Calcium 7.6 mg/dL (8.5-10.1) L Magnesium Level 1.70 mg/dL (1.80-2.40) L Total Bilirubin 0.3 mg/dL (0.2-1.0) Direct Bilirubin < 0.1 mg/dL (0.0-0.3) Aspartate Amino Transf (AST/SGOT) 19 U/L (10-37) Alanine Aminotransferase (ALT/SGPT) 22 U/L (12-78) Alkaline Phosphatase 103 U/L (50-136) Total Creatine Kinase 118 U/L (21-232) Troponin I High Sensitivity 29 ng/L (4-50) 29 ng/L (4-50) B-Type Natriuretic Peptide 118 pg/mL (0-100) H Total Protein 6.8 g/dL (6.0-8.3) Albumin 2.2 g/dL (3.5-5.0) L Lipase 85 U/L (16-77) H Urine Color LIGHT-ORANGE (YELLOW) Urine Appearance TURBID (CLEAR) Urine pH 7.0 (5.0-8.0) Urine Specific [place] 1.011 (1.001-1.031) Urine Protein 600 mg/dL (NEGATIVE) H Urine Glucose (UA) 200 mg/dL (NEGATIVE) H Urine Ketones 5 mg/dL (NEGATIVE) H Urine Occult Blood SMALL (NEGATIVE) H Urine Nitrate NEGATIVE (NEGATIVE) Urine Bilirubin NEGATIVE mg/dL (NEGATIVE) Urine Urobilinogen 0.2 mg/dL (0.2-1.0) Urine Leukocyte Esterase 250 Sada/uL (NEGATIVE) H Urine RBC None /HPF (0-1) Urine WBC 26-50 /HPF (0-1) H Urine WBC Clumps (Auto) MANY /HPF (0-1) Urine Squamous Epithelial Cells MOD /HPF (0-2) Urine Amorphous Crystals (Auto) RARE /LPF (None Seen) Urine Bacteria MANY /HPF (None Seen) Urine Opiates Screen NEGATIVE (NEGATIVE) Urine Barbiturates Screen NEGATIVE (NEGATIVE) Urine Phencyclidine Screen NEGATIVE (NEGATIVE) Urine Amphetamines Screen NEGATIVE (NEGATIVE) Urine Benzodiazepines Screen NEGATIVE (NEGATIVE) Urine Cocaine Screen NEGATIVE (NEGATIVE) Urine Marijuana (THC) Screen NEGATIVE (NEGATIVE) Urine HCG, Qualitative NEGATIVE (NEGATIVE) Influenza Type A Antigen Negative For Type A Influenza Type B Antigen Negative For Type B SARS-CoV-2 Antigen (Rapid) PRESUMPTIVE NEGATIVE Labs Reviewed?: Yes EKG: (+) rhythm (Sinus tachycardia) EKG Comment: Date:11/28/2024 Time:4 Ventricular rate:103 MI interval:140 QRS duration:83 QT/QTc:357 EKG interpretation: Sinus tachycardia Reviewed by ED Attending no STEMI ED Course ED Course Orders Procedure Category Date Status Time Cbc With Differential LAB 11/27/24 Complete 23:56 B-Type Natriuretic LAB 11/27/24 Complete Peptide 23:56 Chest 1vw RAD 11/27/24 Taken 23:56 12 Lead Ekg Tracing- EKG 11/27/24 Logged Technical 23:56 0.9%Nacl 1000ml (Ns PHA 11/28/24 Complete 1000ml) 00:00 Magnesium LAB 11/27/24 Complete 23:56 Creatine Kinase, Total LAB 11/27/24 Complete 23:56 Troponin I High LAB 11/27/24 Complete Sensitivity 23:56 Aspirin 325mg Tab PHA 11/28/24 Complete (Aspirin 325mg Tab) 00:00 Urinalysis Profile LAB 11/27/24 Complete 23:56 Basic Metabolic Panel LAB 11/27/24 Complete 23:56 Ondansetron 4mg Inj PHA 11/28/24 Complete (Zofran 4mg Inj) 00:00 Drug Screen Urine LAB 11/27/24 Complete 23:56 Hepatic Function Panel LAB 11/27/24 Complete 23:56 Lipase LAB 11/27/24 Complete 23:56 Covid19 (Sars Antigen LAB 11/27/24 Complete Rapid) 23:56 Influenza Type A & B, LAB 11/27/24 Complete Rapid 23:56 Pantoprazole 40mg Inj PHA 11/28/24 Complete (Protonix 40mg Inj 00:00 Nitroglycerin 1gm PHA 11/28/24 Complete Oint (Nitroglycerin 1g 00:00 ,Urine Test LAB 11/28/24 Complete 00:02 Hydralazine 20mg Inj PHA 11/28/24 Complete (Apresoline 20mg In 00:30 Troponin I High LAB 11/28/24 Complete Sensitivity 01:17 Cyclobenzaprine Hcl PHA 11/28/24 Complete (Cyclobenzaprine Hcl 02:00 Ct Abdomen/Pelvis W/O CT 11/28/24 Taken Contrast 01:46 Culture Urine SERAFIN 11/28/24 In Process 02:28 Ceftriaxone 1g Vial PHA 11/28/24 Complete (Rocephine 1g Inj) 03:30 Current Medications Medications (Trade) Dose Ordered Sig/Deanna Route PRN Reason Start Time Stop Time Status Last Admin Dose Admin Aspirin (Aspirin 325mg Tab) 325 mg ONCE ONCE PO 11/28/24 00:00 11/28/24 00:01 DC 11/28/24 00:42 Ceftriaxone Sodium (ROCEphine 1G INJ) 1 gm ONCE ONCE IVPB 11/28/24 03:30 11/28/24 03:31 DC 11/28/24 03:22 Cyclobenzaprine HCl (Cyclobenzaprine HCl) 10 mg ONCE ONCE PO 11/28/24 02:00 11/28/24 02:01 DC 11/28/24 02:05 Hydralazine HCl (APRESOLine 20MG INJ) 10 mg ONCE ONCE IV 11/28/24 00:30 11/28/24 00:31 DC 11/28/24 00:42 Nitroglycerin (Nitroglycerin 1gm Oint) 1 inch ONCE ONCE TD 11/28/24 00:00 11/28/24 00:01 DC 11/28/24 00:42 Ondansetron HCl (zoFRAN 4MG INJ) 4 mg ONCE ONCE IVP 11/28/24 00:00 11/28/24 00:01 DC 11/28/24 00:42 Pantoprazole Sodium (PROTonix 40MG INJ) 40 mg ONCE ONCE IVP 11/28/24 00:00 11/28/24 00:01 DC 11/28/24 00:42 Sodium Chloride 1,000 ml @ 125 mls/hr ONCE ONCE IV 11/28/24 00:00 11/28/24 00:55 DC 11/28/24 00:42 Vital Signs Date Time Temp Pulse Resp B/P (MAP) Pulse Ox O2 Delivery O2 Flow Rate FiO2 11/28/24 03:35 98.2 100 18 165/95 99 Room Air* 0 11/28/24 02:06 18 176/98 98 Room Air* 0 11/28/24 01:54 102 18 170/102 97 Room Air* 0 11/28/24 00:55 100 18 207/112 100 Room Air* 0 11/28/24 00:35 98.4 99 18 200/119 100 Room Air* 0 11/27/24 23:40 98.4 104 16 210/110 100 Room Air 0 11/27/24 23:39 98.4 104 16 210/110 100 Room Air* 0 21 HEART Score Response (Comments) Value History: Moderate suspicion (+1) 1 EKG: Normal 0 Age: < 45yrs (0) 0 Risk Factors: 1-2 risk factors (+1) 1 Initial Troponin: Normal limit (0) 0 Total 2 Medical Decision Making MDM The patient is a 39-year-old female with a history of diabetes, hypertension, renal failure not on any dialysis, back surgery, chronic Rivera who presents to the emergency department with multiple complaints. Patient reports chest tightness that started around 3:00 p.m.. Reports intermediate. Patient also reports lower back pain onset 7:00 p.m.. Reports that last week she has been having upper respiratory symptoms like cough and runny nose. Reports some nausea. Patient reports she has not been taking any of her medications for over a month due to insurance problems. CBC showed no leukocytosis, mild normocytic anemia, chemistry showed GFR of 10, creatinine 5.1. Patient already known to be in renal failure. Blood glucose of 217. Negative troponin x2. lipase of 85. Leukocyte esterase on urinalysis. Patient will be treated with the antibiotics. CT imaging reviewed by Dr. Umanzor with no acute pathology. Patient blood pressure improved. Continues in no distress, talking on phone. Imaging and labs discussed with the patient who agrees to be discharged. Differential diagnosis: ACS, upper respiratory infection, pneumonia, UTI, dehydration Need for hospitalization: Patient does not meet criteria for hospitalization. There are no social concerns with this patient. DX & DISP Disposition: Discharge Departure Impression: Primary Impression: UTI (urinary tract infection) Additional Impressions: Chest pain, Uncontrolled hypertension, Noncompliance with medication regimen, Uncontrolled diabetes mellitus with hyperglycemia Condition: Stable Scripts Cefpodoxime Proxetil (Cefpodoxime Proxetil) 100 Mg Tablet 1 TAB PO DAILY for 7 Days, #7 TAB 0 Refills Prov: PAL CHILDS 11/28/24 Additional Instructions: Please follow up with your primary doctor in 1-2 days. Take your medications as prescribed. Please follow up with your medical staff specialist for management of renal failure. If symptoms worsen please return to ER. FOLLOW-UP WITH PRIMARY CARE PROVIDER IN 1 TO 2 DAYS. TAKE MEDICATIONS DIRECTED HERE IN THE EMERGENCY ROOM. OKAY TO CONTINUE HOME MEDICATIONS UNLESS OTHERWISE DISCUSSED DURING YOUR VISIT IN THE EMERGENCY ROOM TODAY. RETURN TO YOUR NEAREST EMERGENCY ROOM IF SYMPTOMS WORSEN OR IF THERE IS NO IMPROVEMENT. CALL 911 IF YOU NEED IMMEDIATE ASSISTANCE. TAKE TYLENOL OR MOTRIN [id number] NEEDED AND IF NO CONTRAINDICATIONS ARE PRESENT. INCREASE ORAL HYDRATION. A WOUND CULTURE OR URINE CULTURE WAS ORDERED HERE IN THE EMERGENCY ROOM DEPARTMENT PLEASE FOLLOW-UP WITH PRIMARY CARE PROVIDER AND ADVISE THEM TO GET REPEAT PORTS FROM OUR FACILITY. IF YOU HAD ANY LOS WRAP/SPLINTS THAT WERE APPLIED HERE, PLEASE DO NOT REMOVE THEM UNTIL YOU SEE YOUR PRIMARY CARE OR SPECIALTY. Referrals: MILVIA PITTS MD (PCP) Time of Disposition: 03:16 I have reviewed the case, and I agree with, Diagnosis and Plan I performed a substantive portion of the visit. I have reviewed and personally made and approve the management plan that is documented in the notes by myself with MELINDA/resident. I acknowledged full responsibility for the patient's management plan. PAL CHILDS Nov 28, 2024 00:46 RULA UMANZOR DO Nov 28, 2024 03:47
[2024-11-28 01:05] LABS: B-TYPE NATRIURETIC PEPTIDE 118 pg/mL (0-100)
[2024-11-28 01:08] LABS: COVID19 (SARS ANTIGEN RAPID) PRESUMPTIVE NEGATIVE (NEGATIVE)
[2024-11-28 01:09] LABS: INFLUENZA TYPE A Negative For Type A (NEGATIVE); INFLUENZA TYPE B Negative For Type B (NEGATIVE)
[2024-11-28] MEDS: CYCLOBENZAPRINE HCL 10 MG TABLET PO ONE (02:05)
[2024-11-28 02:27] LABS: APPEARANCE,URINE TURBID (CLEAR); BILIRUBIN,URINE NEGATIVE (NEGATIVE); COLOR,URINE LIGHT-ORANGE (YELLOW); GLUCOSE, URINE (UA) 200 mg/dL (NEGATIVE); KETONES,URINE 5 mg/dL (NEGATIVE); LEUKOCYTE ESTERASE ,URINE 250 Leu/uL (NEGATIVE); NITRATE,URINE NEGATIVE (NEGATIVE); OCCULT BLOOD,URINE SMALL (NEGATIVE); PROTEIN,URINE 600 mg/dL (NEGATIVE); UROBILINOGEN,URINE 0.2 mg/dL (0.2-1.0)
[2024-11-28 02:28] LABS: ADD UA MICROSCOPIC YES
[2024-11-28 02:30] LABS: BACTERIA,URINE MANY /HPF (None Seen); MUCUS,URINE MANY LPF (None Seen); SQUAMOUS EPITHELIAL CELL,UR MOD /HPF (0-2); WBC CLUMP MANY /HPF (0-1); WBC,URINE 26-50 /HPF (0-1)
--- NOTE | 2024-11-28 02:49 | NUR ---
PATIENT BACK FROM CT SCAN.
[2024-11-28 03:00] LABS: AMPHET/METH SCREEN,URINE NEGATIVE (NEGATIVE); BARBITURATE SCREEN, URINE NEGATIVE (NEGATIVE); BENZODIAZEPINES SCREEN,URINE NEGATIVE (NEGATIVE); CANNABINOID SCREEN,URINE NEGATIVE (NEGATIVE); COCAINE SCREEN,URINE NEGATIVE (NEGATIVE); PHENCYCLIDINE SCREEN,URINE NEGATIVE (NEGATIVE)
[2024-11-28 03:09] LABS: OPIATE SCREEN,URINE NEGATIVE (NEGATIVE)
[2024-11-28] MEDS: cefTRIAXone 1G VIAL IVPB ONE (03:22)
[2024-11-28] MEDS ORDERED: CEFP100T9 PO (03:23)
[2024-11-28 03:35] VITALS: BP 165/95; PULSE 100; RESP 18; TEMP 98.2; O2SAT 99
--- NOTE | 2024-11-28 03:57 | NUR ---
PATIENT WAITING FOR HER RIDE, CALLING HER SISTER, DAUGHTER PRESENT AT BEDSIDE.
--- NOTE | 2024-11-28 05:28 | NUR ---
STILL WAITING ON RIDE WITH DAUGHTER AT SIDE.
--- NOTE | 2024-11-28 06:37 | EKG ---
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
--- NOTE | 2024-11-28 08:38 | HMCIMG ---
CT ABDOMEN/PELVIS W/O CONTRAST REASON: bilateralflankpain COMPARISON: 11/05/2024 FINDINGS: Lung bases are clear. There are no focal liver lesions. Liver is not enlarged.. Spleen and pancreas appear unremarkable. There are stones present in the gallbladder. There is no wall thickening or edema, the gallbladder is not distended. There is mild pelvicalyceal fullness and ureteral fullness on the left, to the level of the urinary bladder, this is unchanged compared with prior exam. There is no evidence of ureteral stone. There is a Rivera catheter in a nondistended urinary bladder. Right kidney and ureter appear unremarkable. There is no evidence of mass or stone in either kidney. Bowel loops appear unremarkable. There is no CT evidence of acute appendicitis. There is no evidence of free fluid or intraperitoneal air. There are no focal fluid collections. Aorta and retroperitoneum appear normal as do pelvic soft tissue structures. The anterior abdominal wall is intact. Osseous structures appear unremarkable. IMPRESSION: 1. Mild left hydronephrosis and hydroureter to the level of the urinary bladder, this is unchanged compared to previous exam 11/05/2024, no evidence of a ureteral stone. 2. Otherwise normal-appearing kidneys, there is a Rivera catheter in a nondistended urinary bladder. 3. Cholelithiasis without evidence of acute cholecystitis. CT was performed with one or more following dose reduction techniques: automated exposure control, adjustment of the mA and kv according to patient's size, or use of a iterative reconstruction technique.
--- NOTE | 2024-11-28 08:54 | HMCIMG ---
CHEST 1VW REASON: cp COMPARISON: 10/26/2024 FINDINGS: Single view of the chest was obtained. Lungs are clear. Heart size is normal. There is no pulmonary vascular congestion. Mediastinum and bony thorax appear unremarkable. IMPRESSION: 1. Normal single view chest x-ray.
== END 2024-11-28 06:24 | disposition home or self-care (01) ==
LOC: EDH 23:37
DX: N39.0 Urinary tract infection, site not specified (principal); R07.89 Other chest pain; E11.65 Type 2 diabetes mellitus with hyperglycemia; I10 Essential (primary) hypertension; I21.9 Acute myocardial infarction, unspecified; Z88.5 Allergy status to narcotic agent; Z91.148 Patient's other noncompliance with medication regimen for other reason; Z20.822 Contact with and (suspected) exposure to COVID-19
CPT/HCPCS: 99285; 71045; 87426; 82550; 80076; 83735; 84484 ×2; 80048; 83880; 80305; 83690; 85025; 87086; 87804 ×2; 81025; 36415; 93005; 81001; 96374; 96375; J7030; J0360; J0696; J2405; J2470

== ENCOUNTER 2024-12-03 17:25 | Inpatient (IN) | payer MEDICAID ==
[~2024-12-03] VITALS: Ht 162.6 cm; Wt 87.6 kg
[~2024-12-03 17:25] MED LIST changes: +CEFP100T9 PO
--- NOTE | 2024-12-03 17:56 | ERN ---
ED Note History of Present Illness Stated Complaint: ABD PAIN Chief Complaint: Abdominal Pain Time Seen by MD: 17:30 Time Seen by Midlevel: 17:30 Dictation: The patient is a 39-year-old female with a history of diabetes, hypertension, renal failure not on any dialysis, back surgery, chronic Rivera who presents to the emergency department with complaints of suprapubic abdominal pain radiating to lower back onset today. Patient reports nausea but no vomiting. Reports no fevers, constipation or diarrhea. Allergies: Coded Allergies: lidocaine (Unverified Allergy, Unknown, 09/13/24) morphine (Unverified Allergy, Unknown, 05/10/22) onion (Unverified Allergy, Unknown, 05/10/22) Home Meds Active Scripts Cefpodoxime Proxetil (Cefpodoxime Proxetil) 100 Mg Tablet, 1 TAB PO DAILY for 7 Days, #7 TAB 0 Refills Prov:PAL CHILDS PUBLIC SERVICES LIBRARIAN 11/28/24 Cephalexin Monohydrate (Keflex) 500 Mg Cap, 1 CAP PO TID for 10 Days, #30 CAP 0 Refills Prov:WHITNEY DIAZ MD 11/05/24 Amoxicillin (Amoxicillin) 500 Mg Capsule, 1 CAP PO DAILY for 4 Days, #4 CAP 0 Refills Prov:ABDIRAHMAN EDUARDO MD 10/30/24 Sodium Zirconium Cyclosilicate (Lokelma) 10 Gram Powd.pack, 1 PACKET PO DAILY for 5 Days, #5 PACKET 0 Refills Prov:ABDIRAHMAN EDUARDO MD 10/30/24 Amlodipine Besylate (Norvasc 5Mg Tab) 5 Mg Tablet, 5 MG PO Q24H, #30 TAB 0 Refills Prov:MIL STONE 05/16/23 Past Medical History Past Medical History: Diabetes-Type II, Hypertension, Renal Failure Additional Past Medical Hx: COMA, INTERNAL ABSCESSES Surgical History: Other Surgical History Other: BACK SURGERY, ABDOMINOPLASTY, ABSCESS I/D'S Family History: Negative Social History: Negative, Lives with family History: Not Applicable LMP: Nov 15, 2024 RN Note Reviewed/Agreed w/PFSH: Yes Review of System Dictation Constitutional: Negative for fever,chills, and weight loss Eyes: Negative for injury, pain,redness, and discharge ENT: Negative for injury,pain or swelling Cardiovascular: Negative for chest pain, palpitations, and edema Respiratory: Negative for shortness of breath, cough, and wheezing, Abdomen/GI: Negative for abdominal pain, nausea, vomiting, diarrhea, and constipation Back: Negative for injury and pain : Negative for injury, bleeding and discharge MS/Extremity: Negative for injury and deformity Skin: Negative for rash, and discoloration Neuro: Negative for headache, weakness, numbness, tingling, and seizure Psych: Negative for suicide ideation, homicidal ideation, and hallucinations Initial Vital Sign VS Vital Signs Date Time Temp Pulse Resp B/P (MAP) Pulse Ox O2 Delivery O2 Flow Rate FiO2 12/03/24 17:32 98.4 105 17 109/48 100 Room Air 12/03/24 18:54 0 21 Physical Exam Dictation Vital Signs reviewed General Appearance: Alert, oriented x 3, no acute distress, well developed, nourished. Head and Face: non-traumatic. Eyes: PERRL, pink conjunctivas, eyelid no trauma, anterior chamber with arcus senilis. Ears: Pinnas intact and no signs of trauma or erythema ear canals clear and no discharge TM no erythema Nose: No discharge, no bleeding. Oropharynx: Mouth normal, tongue pink. pharynx clear,no erythema, tonsils no exudates, no abscesses noted, mucous membrane moist Neck: Supple, non-tender, no thyromegaly, no masses, no JVD, no bruits Breast:Deferred Chest:No tenderness, no crepitus, no paradoxical movement, no retractions Lungs:Clear, well-ventilated, symmetric, no rales, no wheezing, no rhonchi, no stridor, good breath sounds bilaterally Heart: Regular rate, regular rhythm, no murmur, no gallops Vascular: no peripheral edema, Abdomen: Soft, positive bowel sounds, nondistended, no guarding, Suprapubic tenderness, no rebound, no masses no hepatomegaly, no splenomegaly, no Katz's sign, no hernias. Rectal: Deferred Genital: Deferred Neurological: Normal speech, motor function intact, sensory function intact Musculoskeletal: Neck nontender, full range of motion, back nontender, full range of motion, Extremities: nontender, full range of motion Skin: Color pink, dry, no turgor, no rash, no lacerations, no abrasions, no contusions. Lymphatic: Deferred Results (Laboratory/Radiology) Laboratory/Radiology Laboratory Tests Test 12/03/24 18:00 12/03/24 18:37 White Blood Count 9.2 K/uL (4.8-10.8) Red Blood Count 4.02 MIL/uL (4.00-5.50) Hemoglobin 11.7 g/dL (12.0-16.0) L Hematocrit 34.0 % (36-48) L Mean Corpuscular Volume 84.6 fL (79-99) Mean Corpuscular Hemoglobin 29.1 pg (27.0-33.0) Mean Corpuscular Hemoglobin Concent 34.4 g/dL (32.0-36.0) Red Cell Distribution Width 13.4 % (11.0-15.5) Platelet Count 192 K/uL (130-400) Mean Platelet Volume 9.3 fL (7.5-10.5) Immature Granulocyte % (Auto) 1.1 % (0-1) H Neutrophils (%) (Auto) 61.2 % (40.0-77.0) Lymphocytes (%) (Auto) 20.5 % (21.0-51.0) L Monocytes (%) (Auto) 5.7 % (3.0-13.0) Eosinophils (%) (Auto) 10.7 % (0.0-8.0) H Basophils (%) (Auto) 0.8 % (0.0-5.0) Neutrophils # (Auto) 5.7 K/uL (1.8-7.7) Lymphocytes # (Auto) 1.9 K/uL (1.0-4.8) Monocytes # (Auto) 0.5 K/uL (0.1-1.0) Eosinophils # (Auto) 0.99 K/uL (0.00-0.70) H Basophils # (Auto) 0.07 K/uL (0.00-0.20) Absolute Immature Granulocyte (auto 0.10 K/uL (0-1) Nucleated Red Blood Cells 0.0 % (0.0-0.19) Sodium Level 134 mmol/L (136-145) L Potassium Level 5.6 mmol/L (3.5-5.1) H Chloride Level 106 mmol/L (101-111) Carbon Dioxide Level 20 mmol/L (21-32) L Blood Urea Nitrogen 52 mg/dL (7-18) H Creatinine 5.5 mg/dL (0.5-1.0) H Glomerular Filtration Rate Calc 10 mL/min (>90) Random Glucose 190 mg/dL (70-105) H Total Calcium 7.7 mg/dL (8.5-10.1) L Troponin I High Sensitivity 34 ng/L (4-50) Serum Test, Qualitative NEGATIVE (NEGATIVE) Urine Color LIGHT-YELLOW (YELLOW) Urine Appearance CLOUDY (CLEAR) H Urine pH 6.5 (5.0-8.0) Urine Specific [place] 1.009 (1.001-1.031) Urine Protein 300 mg/dL (NEGATIVE) H Urine Glucose (UA) 500 mg/dL (NEGATIVE) H Urine Ketones NEGATIVE mg/dL (NEGATIVE) Urine Occult Blood +- (TRACE) (NEGATIVE) H Urine Nitrate NEGATIVE (NEGATIVE) Urine Bilirubin NEGATIVE mg/dL (NEGATIVE) Urine Urobilinogen 0.2 mg/dL (0.2-1.0) Urine Leukocyte Esterase NEGATIVE Sada/uL Urine RBC 26-50 /HPF (0-1) H Urine WBC 2-5 /HPF (0-1) H Urine Squamous Epithelial Cells RARE /HPF (0-2) Urine Other Crystals (Auto) 2 /HPF (None Seen) Urine Bacteria RARE /HPF (None Seen) Urine Yeast MOD /HPF (None Seen) Urine Yeast with Hyphae FEW /HPF (None Seen) REASON: lower abd pain ORDERING PHYSICIAN: PAL CHILDS PUBLIC SERVICES LIBRARIAN PROCEDURE: ABD PEL WO - CT ABDOMEN/PELVIS W/O CONTRAST CT ABDOMEN/PELVIS W/O CONTRAST HISTORY: Right lower abdominal pain COMPARISON: None TECHNIQUE: Multiple sequential axial images of the abdomen and pelvis were obtained from the dome of the diaphragm through symphysis pubis. Patient was not given contrast through intravenous route. Oral contrast was not given. FINDINGS: No pleural effusion is seen bilaterally. There is no evidence of parenchymal disease or pulmonary nodule of the visualized lower lungs. Degenerative changes of the thoracolumbar spine are present. The heart is not enlarged. Liver is enlarged with fatty changes measuring 18 cm. Gallstones are seen in the gallbladder. There are bilateral perinephric fat stranding may be related to pyelonephritis. Urinalysis correlation may be helpful. The liver, spleen, adrenal glands and pancreas are unremarkable. There is no evidence of hydronephrosis bilaterally. No evidence of renal stone is seen. Fecal material is seen in the colon. There are normal size retroperitoneal and mesenteric lymph nodes. No ascites is seen. Appendix is not well seen limiting evaluation. Clinical correlation is recommended. Pelvic sidewalls are symmetric bilaterally. Bladder is poorly distended with Rivera catheter. IMPRESSION: 1. Gallstones are seen in the gallbladder. There are bilateral perinephric fat stranding may be related to pyelonephritis. Urinalysis correlation may be helpful. CT was performed with one or more following dose reduction techniques: automated exposure control, adjustment of the mA and kv according to patient's size, or use of a iterative reconstruction technique. Labs Reviewed?: Yes EKG: (+) rhythm (Sinus tachycardia) EKG Comment: Date:12/03/2024 Time:1811 Ventricular rate:100 VT interval:138 QRS duration:85 QT/QTc:356 EKG interpretation: Sinus tachycardia Reviewed by ED Attending no STEMI ED Course ED Course Orders Procedure Category Date Status Time Cbc With Differential LAB 12/03/24 Complete 17:50 Urinalysis Profile LAB 12/03/24 Complete 17:50 Ondansetron 4mg Inj PHA 12/03/24 Complete (Zofran 4mg Inj) 18:00 Basic Metabolic Panel LAB 12/03/24 Complete 17:50 Testing, LAB 12/03/24 Complete Serum Hcg 17:50 12 Lead Ekg Tracing- EKG 12/03/24 Logged Technical 17:56 Troponin I High LAB 12/03/24 Complete Sensitivity 17:56 Hydromorphone 0.5mg PHA 12/03/24 Complete Syg (Dilaudid 0.5mg 18:00 Ct Abdomen/Pelvis W/O CT 12/03/24 Resulted Contrast 18:55 Na Zircon PHA 12/03/24 Complete Cyclosil-Lokelma 10g 19:00 Calcium Gluc 1gm PHA 12/03/24 In Process (Calcium Gluc 1gm 20:30 Current Medications Medications (Trade) Dose Ordered Sig/Deanna Route PRN Reason Start Time Stop Time Status Last Admin Dose Admin Calcium Gluconate 1 gm/Sodium Chloride 110 ml @ 110 mls/hr ONCE ONCE IV 12/03/24 20:30 12/03/24 21:29 Hydromorphone HCl (DiLAUDid 0.5MG INJ) 0.5 mg ONCE ONCE IVP 12/03/24 18:00 12/03/24 18:01 DC 12/03/24 18:10 Ondansetron HCl (zoFRAN 4MG INJ) 4 mg ONCE ONCE IVP 12/03/24 18:00 12/03/24 18:01 DC 12/03/24 18:07 Sodium Zirconium Cyclosilicate (Lokelma 10gm Powder) 10 gm ONCE ONCE PO 12/03/24 19:00 12/03/24 19:02 DC 12/03/24 19:40 Vital Signs Date Time Temp Pulse Resp B/P (MAP) Pulse Ox O2 Delivery O2 Flow Rate FiO2 12/03/24 18:54 92 16 147/96 99 Room Air* 0 21 12/03/24 17:32 98.4 105 17 109/48 100 Room Air Medical Decision Making MDM MDM: The patient is a 39-year-old female with a history of diabetes, hypertension, renal failure not on any dialysis, back surgery, chronic Rivera who presents to the emergency department with complaints of suprapubic abdominal pain radiating to lower back onset today. Patient reports nausea but no vomiting. Reports no fevers, constipation or diarrhea. CBC showed no leukocytosis, mild normocytic anemia, chemistry showed mild hypochloremia, GFR is 10, creatinine of 5.5, potassium of 5.6 patient received Lokelma and caused him gluconate, troponin 34, urinalysis negative for leukocyte esterase, negative for nitrites, CT abdomen and pelvis revealed gallstones. Patient with lower abdominal pain, bilateral pinnae pharynx fat stranding that is seen on previous CTs. Patient will be admitted for further evaluation and treatment. Differential diagnosis: Appendicitis, UTI, pyelonephritis, dehydration, Comorbidities: Stage renal disease not on dialysis, diabetes, hypertension, back surgery, chronic Rivera use Tests considered and not ordered secondary to shared decision making include: none Previous outside records reviewed: none Risk of complication and/or morbidity or mortality of patient management: The patient meets criteria for admission. Need for emergency major/minor surgery: No There are no social concerns with this patient. I independently interpreted the tests I ordered (labs, urinalysis, etc.). I discussed the case with the hospitalist for admission. [facility] who accepts admission I discussed the case with the following specialists: none. Historian: pateint. I independently interpreted imaging studies and EKGs that I ordered (US, CT, XR, EKG, etc.). External chart review: none. Medical management and examination interpretation discussions were had by me with other qualified healthcare professionals as indicated for the patient's care. DX & DISP Disposition: Inpatient Decision to Admit Date: Dec 03, 2024 Decision to Admit Time: 21:09 Departure Impression: Primary Impression: Hyperkalemia Additional Impressions: ESRD (end stage renal disease), Anemia, Hyponatremia, Abdominal pain, Cholelithiasis Condition: Stable Referrals: MILVIA PITTS MD (PCP) I have reviewed the case, and I agree with, Diagnosis and Plan PAL CHILDS Dec 03, 2024 17:56
[2024-12-03] MEDS: ondanSETRON 4MG INJ IVP ONE (18:07)
[2024-12-03] MEDS: hydroMORPHone 0.5 MG SYG (0.5MG/0.5ML) IVP ONE (18:10)
[2024-12-03 18:11] LABS: BASOPHILS # (AUTO) 0.07 K/uL (0.00-0.20); BASOPHILS % (AUTO) 0.8 % (0.0-5.0); EOSINOPHILS # (AUTO) 0.99 K/uL (0.00-0.70); EOSINOPHILS % (AUTO) 10.7 % (0.0-8.0); LYMPHOCYTES # (AUTO) 1.9 K/uL (1.0-4.8); LYMPHOCYTES % (AUTO) 20.5 % (21.0-51.0); MEAN CORPUSCULAR HEMOGLOBIN 29.1 pg (27.0-33.0); MEAN CORPUSCULAR HGB CONC 34.4 g/dL (32.0-36.0); MEAN CORPUSCULAR VOLUME 84.6 fL (79-99); MONOCYTES # (AUTO) 0.5 K/uL (0.1-1.0); MONOCYTES % (AUTO) 5.7 % (3.0-13.0); NEUTROPHILS # (AUTO) 5.7 K/uL (1.8-7.7); NEUTROPHILS % (AUTO) 61.2 % (40.0-77.0); PLATELET COUNT (AUTO) 192 K/uL (130-400); RED BLOOD CELL COUNT(AUTO) 4.02 MIL/uL (4.00-5.50); RED CELL DISTRIBUTION WIDTH 13.4 % (11.0-15.5); WHITE BLOOD COUNT (AUTO) 9.2 K/uL (4.8-10.8)
[2024-12-03 18:22] LABS: CREATININE 5.5 mg/dL (0.5-1.0); POTASSIUM 5.6 mmol/L (3.5-5.1)
--- NOTE | 2024-12-03 18:47 | NUR ---
PTS ROMANO WAS FLUSHED AND ASPIRATED, COPIOUS AMOUNTS OF SEDIMENT NOTED. PT HAS REPORTED THAT SHE FELT THOUGH SHE WAS UNABLE TO PASS URINE. STATES THE LAST TIME SHE NOTED FRESHE URINE OUT OF HER ROMANO WAS THIS MORNING. SHORTLY AFTER FLUSHING ROMANO, PT STATES RELIEF OF PAIN. PT NOW REPORTS IMPROVEMENT. URINE WAS COLLECTED FROM ROMANO AT END OF DRAINAGE
[2024-12-03 18:53] LABS: APPEARANCE,URINE CLOUDY (CLEAR); BILIRUBIN,URINE NEGATIVE (NEGATIVE); COLOR,URINE LIGHT-YELLOW (YELLOW); GLUCOSE, URINE (UA) 500 mg/dL (NEGATIVE); KETONES,URINE NEGATIVE (NEGATIVE); LEUKOCYTE ESTERASE ,URINE NEGATIVE Leu/uL (NEGATIVE); NITRATE,URINE NEGATIVE (NEGATIVE); PH,URINE 6.5 (5.0-8.0); PROTEIN,URINE 300 mg/dL (NEGATIVE); UROBILINOGEN,URINE 0.2 mg/dL (0.2-1.0)
[2024-12-03 18:54] LABS: ADD UA MICROSCOPIC YES
[2024-12-03 19:39] LABS: BACTERIA,URINE RARE /HPF (None Seen); RBC,URINE 26-50 /HPF (0-1); SQUAMOUS EPITHELIAL CELL,UR RARE /HPF (0-2); UNCLASSIFIED CRYSTAL 2 /HPF (None Seen); YEAST,URINE BUDDING MOD /HPF (None Seen); YEAST,URINE HYPHAE FEW /HPF (None Seen)
[2024-12-03] MEDS: NA ZIRCON CYCLOSIL(LOKELMA 10GM) PO ONE (19:40)
--- NOTE | 2024-12-03 20:42 | HMCIMG ---
CT ABDOMEN/PELVIS W/O CONTRAST HISTORY: Right lower abdominal pain COMPARISON: None TECHNIQUE: Multiple sequential axial images of the abdomen and pelvis were obtained from the dome of the diaphragm through symphysis pubis. Patient was not given contrast through intravenous route. Oral contrast was not given. FINDINGS: No pleural effusion is seen bilaterally. There is no evidence of parenchymal disease or pulmonary nodule of the visualized lower lungs. Degenerative changes of the thoracolumbar spine are present. The heart is not enlarged. Liver is enlarged with fatty changes measuring 18 cm. Gallstones are seen in the gallbladder. There are bilateral perinephric fat stranding may be related to pyelonephritis. Urinalysis correlation may be helpful. The liver, spleen, adrenal glands and pancreas are unremarkable. There is no evidence of hydronephrosis bilaterally. No evidence of renal stone is seen. Fecal material is seen in the colon. There are normal size retroperitoneal and mesenteric lymph nodes. No ascites is seen. Appendix is not well seen limiting evaluation. Clinical correlation is recommended. Pelvic sidewalls are symmetric bilaterally. Bladder is poorly distended with Rivera catheter. IMPRESSION: 1. Gallstones are seen in the gallbladder. There are bilateral perinephric fat stranding may be related to pyelonephritis. Urinalysis correlation may be helpful. CT was performed with one or more following dose reduction techniques: automated exposure control, adjustment of the mA and kv according to patient's size, or use of a iterative reconstruction technique.
--- NOTE | 2024-12-03 21:09 | HP ---
[facility] PHYS[facility] Date of Service: Dec 03, 2024 Time of Service: 21:09 PCP: Robert Levin HISTORY OF PRESENT ILLNESS: This is a 39-year-old female with past medical history of diabetes, neurogenic bladder requiring chronic Rivera catheter use, chronic kidney disease not on hemodialysis, UTI who was brought by EMS to the ED for complaints of suprapubic pain which radiates to her right lower back started today around 2:00 p.m. patient also reports having nausea but no vomiting. Patient states she has a c hronic Rivera catheter has been changed in this facility five days ago. Seen and examined patient in the ER awake alert and coherent appears uncomfortable. Patient denies fever, chills, vomiting, chest pain, palpitation and shortness of breaths. Latest vital signs temperature 98.4, heart rate 92, blood pressure 147/96, saturation 99% on room air. Labs: Hemoglobin 11.7, hematocrit 34 platelet count 192. Chemistry sodium 134, potassium 5.6, carbon dioxide 20, BUN 52 creatinine 5.5 GFR 10 glucose 190 total calcium 7.7 troponin 34 serum test negative. Urinalysis remarkable for protein, glucose, occult blood, urine RBC 26-50 urine WBC 2-[address] abdomen and pelvis without contrast result revealed gallstones are seen in the gallbladder. There are bilateral perinephric fat stranding may be related to pyelonephritis. . While in the ER patient received calcium gluconate, Lokelma 10 g p.o., Zofran 4 mg IV and Dilaudid 0.5 mg IV. ER called and recommended to admit the patient. REVIEW OF SYSTEMS CONSTITUTIONAL: Denies fevers, chills, or night sweats. No unintentional weight loss reported. NEUROLOGICAL: Denies headache, amaurosis fugax, motor weakness, sensory deficit, vertigo/spinning sensation, gait abnormalities, or tremors. ENT: No hearing loss, otalgia, otorrhea, rhinitis, rhinorrhea, hoarseness, or sore throat. CARDIOVASCULAR: Denies any exertional angina, dyspnea on exertion, orthopnea, paroxysmal nocturnal dyspnea, palpitations, life-threatening arrhythmias, claudication. PULMONARY: Denies any shortness of breath, cough, phlegm/sputum, hemoptysis, pleuritic chest pain. SLEEP: Denies morning headaches, daytime somnolence or napping. Denies difficulty falling asleep, staying asleep, waking from sleep. Denies knowledge of snoring. GASTROINTESTINAL: Denies any type of dysphagia to either liquids or solids. Denies nausea, vomiting, pyrosis, early satiety, abdominal pain, diarrhea, constipation, or changes in stool consistency or caliber. Denies coffee-ground emesis, hematemesis, hematochezia, or melanotic stools. GENITOURINARY: suprapubic pain which radiates to the right lower back Denies frequency, urgency, nocturia, hematuria or incontinence (Storage/Irritative symptoms.) Low urinary stream, straining to void, urinary intermittency or hesitancy, splitting of the voiding stream, terminal dribbling. ENDOCRINOLOGIC: Denies polyuria, polydipsia, polyphagia or heat/cold intolerances. HEMATOLOGIC: Denies thrombophilia/previous clots, or coagulopathy/bleeding disorders. ONCOLOGIC: Denies personal history of malignancy. DERMATOLOGIC: Denies rashes or pruritus. PSYCHIATRIC: Denies any suicidal or homicidal ideation. Denies hallucinations. PAST MEDICAL HISTORY: [Diabetes, neurogenic bladder requiring chronic Rivera catheter use, UTI, greatest vision of bilateral eyes, prolonged hospitalization in [facility] for sepsis uncomplicated cellulitis and abscess of lower abdomen/perineum in 2021 ] PAST SURGICAL HISTORY: [ Right BKA, back surgery in 2018, patient reports having surgeries in [place] during her prolonged hospitalization at [facility] in 2021 i ncluding abdominal surgeries and possible skin grafting ] PAST SOCIAL HISTORY: [Patient lives with family. Patient denies alcohol tobacco and recreational drug use ] FAMILY HISTORY: [ Noncontributory ] Coded Allergies: lidocaine (Unverified Allergy, Unknown, 09/13/24) morphine (Unverified Allergy, Unknown, 05/10/22) onion (Unverified Allergy, Unknown, 05/10/22) PHYSICAL EXAM GENERAL APPEARANCE: The patient is awake, alert, and oriented, in no acute cardiopulmonary distress. NEUROLOGICAL: Cranial nerves II-XII grossly intact. Motor is 5/5 in bilateral upper and lower extremities proximal to distal. No sensory deficits. HEENT: Face is symmetric. Pupils are equal and reactive. Extraocular movements are intact. NECK: Supple. No JVD. No thyromegaly. No submental, submandibular, pre- /postauricular, occipital or supraclavicular lymphadenopathy. CHEST: Normal chest expansion. No Telemetry. LUNGS: Absence of any rales, rhonchi or any wheezing. CARDIOVASCULAR: Regular. S1 and S2 normal. No appreciable rubs, murmurs or gallops. ABDOMEN: Soft, nontender, and nondistended. There is no rebound, voluntary guarding, or rigidity. : Deferred. +Rivera. EXTREMITIES: Right BKA Non-edematous and not cyanotic. No clubbing. Good capillary refill. SKIN: No skin breakdown. Vital Sign (Last 24 Hours) 12/03/24 12/03/24 17:32 18:54 Temp 98.4 Pulse 92 Resp 16 B/P (MAP) 147/96 Pulse Ox 99 O2 Delivery Room Air* O2 Flow Rate 0 FiO2 21 LABS: Laboratory: Test 12/03/24 18:37 12/03/24 18:00 Range/Units Urine Color LIGHT-YELLOW YELLOW Urine Appearance CLOUDY H CLEAR Urine pH 6.5 5.0-8.0 Urine Specific [place] 1.009 1.001-1.031 Urine Protein 300 H NEGATIVE mg/dL Urine Glucose (UA) 500 H NEGATIVE mg/dL Urine Ketones NEGATIVE NEGATIVE mg/dL Urine Occult Blood +- (TRACE) H NEGATIVE Urine Nitrate NEGATIVE NEGATIVE Urine Bilirubin NEGATIVE NEGATIVE mg/dL Urine Urobilinogen 0.2 0.2-1.0 mg/dL Urine Leukocyte Esterase NEGATIVE NEGATIVE Sada/uL Urine RBC 26-50 H 0-1 /HPF Urine WBC 2-5 H 0-1 /HPF Urine Squamous Epithelial Cells RARE 0-2 /HPF Urine Other Crystals (Auto) 2 None Seen /HPF Urine Bacteria RARE None Seen /HPF Urine Yeast MOD None Seen /HPF Urine Yeast with Hyphae FEW None Seen /HPF White Blood Count 9.2 4.8-10.8 K/uL Red Blood Count 4.02 4.00-5.50 MIL/uL Hemoglobin 11.7 L 12.0-16.0 g/dL Hematocrit 34.0 L 36-48 % Mean Corpuscular Volume 84.6 79-99 fL Mean Corpuscular Hemoglobin 29.1 27.0-33.0 pg Mean Corpuscular Hemoglobin Concent 34.4 32.0-36.0 g/dL Red Cell Distribution Width 13.4 11.0-15.5 % Platelet Count 192 130-400 K/uL Mean Platelet Volume 9.3 7.5-10.5 fL Immature Granulocyte % (Auto) 1.1 H 0-1 % Neutrophils (%) (Auto) 61.2 40.0-77.0 % Lymphocytes (%) (Auto) 20.5 L 21.0-51.0 % Monocytes (%) (Auto) 5.7 3.0-13.0 % Eosinophils (%) (Auto) 10.7 H 0.0-8.0 % Basophils (%) (Auto) 0.8 0.0-5.0 % Neutrophils # (Auto) 5.7 1.8-7.7 K/uL Lymphocytes # (Auto) 1.9 1.0-4.8 K/uL Monocytes # (Auto) 0.5 0.1-1.0 K/uL Eosinophils # (Auto) 0.99 H 0.00-0.70 K/uL Basophils # (Auto) 0.07 0.00-0.20 K/uL Absolute Immature Granulocyte (auto 0.10 0-1 K/uL Nucleated Red Blood Cells 0.0 0.0-0.19 % Sodium Level 134 L 136-145 mmol/L Potassium Level 5.6 H 3.5-5.1 mmol/L Chloride Level 106 101-111 mmol/L Carbon Dioxide Level 20 L 21-32 mmol/L Blood Urea Nitrogen 52 H 7-18 mg/dL Creatinine 5.5 H 0.5-1.0 mg/dL Glomerular Filtration Rate Calc 10 >90 mL/min Random Glucose 190 H 70-105 mg/dL Total Calcium 7.7 L 8.5-10.1 mg/dL Troponin I High Sensitivity 34 4-50 ng/L Serum Test, Qualitative NEGATIVE NEGATIVE DIAGNOSTICS / RADIOLOGY: [ ] ASSESSMENT: Acute pyelonephritis POA Acute on chronic kidney disease POA Hyperkalemia POA Acute normocytic normochromic anemia Hypertension POA Uncontrolled diabetes POA Chronic Rivera use POA PLAN: We will admit patient in medical telemetry We will start on renal nondialysis diet We will start patient on Rocephin 1 g IV daily for empiric coverage We will start on Famotidine 20 mg q.48h POA for GI prophylaxis We will start on insulin sliding scale AC & HS with hypoglycemia protocol We will add prn medication for fever,pain,cough, nausea and vomiting We will reconcile home meds once medlist available We will seek Nephrology consultation We will request labs in am Further orders to follow depending on above results Case discussed with attending physician and came up with above treatment and plan of care. ADVANCED CARE PLANNING 1. Which of the following were discussed? Hospice Care - No Therapeutic options - Yes Advance Directives - No Other discussions - 2. Discussed with who? Patient 3. Voluntary nature of this service was explained to the patient? Yes 4. Amount of time spent - ___22____ 5. Reviewed by Physician? (if this service was performed by NPP) Yes Patient seen and examined by me. Agree with note by DATABASE ANALYST SEE ADDITIONAL ORDERS PER CHART DISCUSSED WITH NURSING STAFF LENA FIGUEROA Dec 03, 2024 21:09
[2024-12-03] MEDS: CALCIUM GLUC 1GM 1 GM in 0.9%NACL 100ML 100 ML IV ONE (21:15)
[2024-12-03] MEDS ORDERED: acetaMINOPHEN 325 MG TAB PO PRN ×2 (21:30)
[2024-12-03] MEDS ORDERED: DEXTROSE 50%-WATER 50 ML DISP.SYRIN IV PRN (21:30)
[2024-12-03] MEDS ORDERED: GLUCAGON 1MG KIT 1 MG ML IM PRN (21:30)
[2024-12-03] MEDS: cefTRIAXone 1G VIAL IV SCH (23:11)
[2024-12-03] MEDS: FAMOTIDINE 20MG TAB PO SCH (23:11)
[2024-12-03] MEDS: HYDROcodone/APAP 5/325 1 TAB TABLET PO PRN (23:51)
--- NOTE | 2024-12-04 01:21 | NUR ---
CARE ASSUMED AT THIS TIME
[2024-12-04] MEDS: hydroMORPHone 0.5 MG SYG (0.5MG/0.5ML) IVP ONE ×2 (04:57→13:16)
[2024-12-04] MEDS: ondanSETRON 4MG INJ IV PRN (06:13)
--- NOTE | 2024-12-04 06:46 | EKG ---
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
[2024-12-04 07:54] LABS: BASOPHILS # (AUTO) 0.09 K/uL (0.00-0.20); BASOPHILS % (AUTO) 1.1 % (0.0-5.0); EOSINOPHILS # (AUTO) 1.05 K/uL (0.00-0.70); EOSINOPHILS % (AUTO) 12.3 % (0.0-8.0); HEMATOCRIT 31.9 % (36-48); IMMATURE GRANULOCYTE ABSOLUTE 0.08 K/uL (0-1); LYMPHOCYTES % (AUTO) 23.7 % (21.0-51.0); MEAN CORPUSCULAR HEMOGLOBIN 28.5 pg (27.0-33.0); MEAN CORPUSCULAR HGB CONC 32.9 g/dL (32.0-36.0); MEAN CORPUSCULAR VOLUME 86.4 fL (79-99); MONOCYTES # (AUTO) 0.6 K/uL (0.1-1.0); MONOCYTES % (AUTO) 6.9 % (3.0-13.0); NEUTROPHILS # (AUTO) 4.7 K/uL (1.8-7.7); NEUTROPHILS % (AUTO) 55.1 % (40.0-77.0); PLATELET COUNT (AUTO) 185 K/uL (130-400); RED BLOOD CELL COUNT(AUTO) 3.69 MIL/uL (4.00-5.50); RED CELL DISTRIBUTION WIDTH 13.7 % (11.0-15.5); WHITE BLOOD COUNT (AUTO) 8.6 K/uL (4.8-10.8)
[2024-12-04 08:19] LABS: BILIRUBIN,TOTAL 0.3 mg/dL (0.2-1.0); CREATININE 5.5 mg/dL (0.5-1.0); MAGNESIUM 1.6 mg/dL (1.80-2.40); THYROID STIMULATING HORMONE 5.44 uIU/mL (0.36-3.74); TOTAL PROTEIN, SERUM 6.5 g/dL (6.0-8.3)
[2024-12-04 08:22] LABS: POTASSIUM 6.5 mmol/L (3.5-5.1)
[2024-12-04 08:25] LABS: HEMOGLOBIN A1C 6.7 % (4.0-6.0)
--- NOTE | 2024-12-04 10:30 | PN ---
[facility] PROGRESS NOTE Date of Service: Dec 04, 2024 Time of Service: 10:30 SUBJECTIVE: This is a 39-year-old female with past medical history of diabetes, neurogenic bladder requiring chronic Rivera catheter use, chronic kidney disease not on hemodialysis, UTI who was brought by EMS to the ED for complaints of suprapubic pain which radiates to her right lower back started today around 2:00 p.m. patient also reports having nausea but no vomiting. Patient states she has a chronic Rivera catheter has been changed in this facility five days ago. Seen and examined patient in the ER awake alert and coherent appears uncomfortable. Patient denies fever, chills, vomiting, chest pain, palpitation and shortness of breaths. Latest vital signs temperature 98.4, heart rate 92, blood pressure 147/96, saturation 99% on room air. Labs: Hemoglobin 11.7, hematocrit 34 platelet count 192. Chemistry sodium 134, potassium 5.6, carbon dioxide 20, BUN 52 creatinine 5.5 GFR 10 glucose 190 total calcium 7.7 troponin 34 serum test negative. Urinalysis remarkable for protein, glucose, occult blood, urine RBC 26-50 urine WBC 2-[address] abdomen and pelvis without contrast result revealed gallstones are seen in the gallbladder. There are bilateral perinephric fat stranding may be related to pyelonephritis. . While in the ER patient received calcium gluconate, Lokelma 10 g p.o., Zofran 4 mg IV and Dilaudid 0.5 mg IV. ER called and recommended to admit the patient. REVIEW OF SYSTEMS CONSTITUTIONAL: Denies fevers, chills, or night sweats. No unintentional weight loss reported. NEUROLOGICAL: Denies headache, amaurosis fugax, motor weakness, sensory deficit, vertigo/spinning sensation, gait abnormalities, or tremors. ENT: No hearing loss, otalgia, otorrhea, rhinitis, rhinorrhea, hoarseness, or sore throat. CARDIOVASCULAR: Denies any exertional angina, dyspnea on exertion, orthopnea, paroxysmal nocturnal dyspnea, palpitations, life-threatening arrhythmias, claudication. PULMONARY: Denies any shortness of breath, cough, phlegm/sputum, hemoptysis, pleuritic chest pain. SLEEP: Denies morning headaches, daytime somnolence or napping. Denies difficulty falling asleep, staying asleep, waking from sleep. Denies knowledge of snoring. GASTROINTESTINAL: Denies any type of dysphagia to either liquids or solids. Denies nausea, vomiting, pyrosis, early satiety, abdominal pain, diarrhea, constipation, or changes in stool consistency or caliber. Denies coffee-ground emesis, hematemesis, hematochezia, or melanotic stools. GENITOURINARY: suprapubic pain which radiates to the right lower back Denies frequency, urgency, nocturia, hematuria or incontinence (Storage/Irritative symptoms.) Low urinary stream, straining to void, urinary intermittency or hesitancy, splitting of the voiding stream, terminal dribbling. ENDOCRINOLOGIC: Denies polyuria, polydipsia, polyphagia or heat/cold intolerances. HEMATOLOGIC: Denies thrombophilia/previous clots, or coagulopathy/bleeding disorders. ONCOLOGIC: Denies personal history of malignancy. DERMATOLOGIC: Denies rashes or pruritus. PSYCHIATRIC: Denies any suicidal or homicidal ideation. Denies hallucinations. PHYSICAL EXAM GENERAL APPEARANCE: The patient is awake, alert, and oriented, in no acute cardiopulmonary distress. NEUROLOGICAL: Cranial nerves II-XII grossly intact. Motor is 5/5 in bilateral upper and lower extremities proximal to distal. No sensory deficits. HEENT: Face is symmetric. Pupils are equal and reactive. Extraocular movements are intact. NECK: Supple. No JVD. No thyromegaly. No submental, submandibular, pre- /postauricular, occipital or supraclavicular lymphadenopathy. CHEST: Normal chest expansion. No Telemetry. LUNGS: Absence of any rales, rhonchi or any wheezing. CARDIOVASCULAR: Regular. S1 and S2 normal. No appreciable rubs, murmurs or gallops. ABDOMEN: Soft, nontender, and nondistended. There is no rebound, voluntary guarding, or rigidity. : Deferred. +Rivera. EXTREMITIES: Right BKA Non-edematous and not cyanotic. No clubbing. Good capillary refill. SKIN: No skin breakdown. Vital Signs (last 8hr) Date Time Temp Pulse Resp B/P (MAP) Pulse Ox O2 Delivery O2 Flow Rate FiO2 12/04/24 09:55 98.1 87 18 134/79 100 Room Air* 0 21 12/04/24 05:51 98.4 88 16 126/67 98 Room Air* 0 21 12/04/24 04:20 98.4 86 16 138/70 96 Room Air* 0 21 LABS: Laboratory: Test 12/04/24 07:33 12/03/24 18:37 12/03/24 18:00 Range/Units White Blood Count 8.6 4.8-10.8 K/uL Red Blood Count 3.69 L 4.00-5.50 MIL/uL Hemoglobin 10.5 L 12.0-16.0 g/dL Hematocrit 31.9 L 36-48 % Mean Corpuscular Volume 86.4 79-99 fL Mean Corpuscular Hemoglobin 28.5 27.0-33.0 pg Mean Corpuscular Hemoglobin Concent 32.9 32.0-36.0 g/dL Red Cell Distribution Width 13.7 11.0-15.5 % Platelet Count 185 130-400 K/uL Mean Platelet Volume 9.5 7.5-10.5 fL Immature Granulocyte % (Auto) 0.9 0-1 % Neutrophils (%) (Auto) 55.1 40.0-77.0 % Lymphocytes (%) (Auto) 23.7 21.0-51.0 % Monocytes (%) (Auto) 6.9 3.0-13.0 % Eosinophils (%) (Auto) 12.3 H 0.0-8.0 % Basophils (%) (Auto) 1.1 0.0-5.0 % Neutrophils # (Auto) 4.7 1.8-7.7 K/uL Lymphocytes # (Auto) 2.0 1.0-4.8 K/uL Monocytes # (Auto) 0.6 0.1-1.0 K/uL Eosinophils # (Auto) 1.05 H 0.00-0.70 K/uL Basophils # (Auto) 0.09 0.00-0.20 K/uL Absolute Immature Granulocyte (auto 0.08 0-1 K/uL Nucleated Red Blood Cells 0.0 0.0-0.19 % Sodium Level 135 L 136-145 mmol/L Potassium Level 6.5 *H 3.5-5.1 mmol/L Chloride Level 107 101-111 mmol/L Carbon Dioxide Level 22 21-32 mmol/L Blood Urea Nitrogen 52 H 7-18 mg/dL Creatinine 5.5 H 0.5-1.0 mg/dL Glomerular Filtration Rate Calc 10 >90 mL/min Random Glucose 112 H 70-105 mg/dL Hemoglobin A1c 6.7 H 4.0-6.0 % Estimated Average Glucose (eAG) 146 H 70-126 mg/dL Total Calcium 7.9 L 8.5-10.1 mg/dL Magnesium Level 1.60 L 1.80-2.40 mg/dL Iron Level 82 50-170 mcg/dL Total Iron Binding Capacity 195 L 250-450 mcg/dL Percent Iron Saturation 42.0 22-44 % Total Bilirubin 0.3 0.2-1.0 mg/dL Aspartate Amino Transf (AST/SGOT) 16 10-37 U/L Alanine Aminotransferase (ALT/SGPT) 15 12-78 U/L Alkaline Phosphatase 71 50-136 U/L Total Protein 6.5 6.0-8.3 g/dL Albumin 2.0 L 3.5-5.0 g/dL Triglycerides Level 160 30-200 mg/dL Cholesterol Level 205 H <200 mg/dL LDL Cholesterol 135 H 0-99 mg/dL HDL Cholesterol 52 35-85 mg/dL Thyroid Stimulating Hormone (TSH) 5.44 H 0.36-3.74 uIU/mL Urine Color LIGHT-YELLOW YELLOW Urine Appearance CLOUDY H CLEAR Urine pH 6.5 5.0-8.0 Urine Specific [place] 1.009 1.001-1.031 Urine Protein 300 H NEGATIVE mg/dL Urine Glucose (UA) 500 H NEGATIVE mg/dL Urine Ketones NEGATIVE NEGATIVE mg/dL Urine Occult Blood +- (TRACE) H NEGATIVE Urine Nitrate NEGATIVE NEGATIVE Urine Bilirubin NEGATIVE NEGATIVE mg/dL Urine Urobilinogen 0.2 0.2-1.0 mg/dL Urine Leukocyte Esterase NEGATIVE NEGATIVE Sada/uL Urine RBC 26-50 H 0-1 /HPF Urine WBC 2-5 H 0-1 /HPF Urine Squamous Epithelial Cells RARE 0-2 /HPF Urine Other Crystals (Auto) 2 None Seen /HPF Urine Bacteria RARE None Seen /HPF Urine Yeast MOD None Seen /HPF Urine Yeast with Hyphae FEW None Seen /HPF Troponin I High Sensitivity 34 4-50 ng/L Serum Test, Qualitative NEGATIVE NEGATIVE Current Medications Medications (Trade) Dose Ordered Sig/Deanna Route PRN Reason Start Time Stop Time Status Last Admin Dose Admin Acetaminophen (TYLenol 325MG TAB) 650 mg Q4H PRN PO MILD PAIN (1-3) 12/03/24 21:30 01/02/25 21:29 Acetaminophen (TYLenol 325MG TAB) 650 mg Q6H PRN PO TEMPERATURE GREATER THAN 101.5 12/03/24 21:30 01/02/25 21:29 Acetaminophen/ Hydrocodone Bitart (NORco 5/325MG) 1 tab Q6H PRN PO MODERATE PAIN (4-6) 12/03/24 23:30 12/08/24 23:29 12/03/24 23:51 1 TAB Ceftriaxone Sodium (ROCEphine 1G INJ) 1 gm Q24H IV 12/03/24 21:30 12/13/24 21:29 12/03/24 23:11 1 GM Dextrose (D50w) 50 ml AD PRN IV HYPOGLYCEMIA PROTOCOL 12/03/24 21:30 01/02/25 21:29 Famotidine (Pepcid 20mg Tab) 20 mg Q48H PO 12/03/24 23:00 01/02/25 22:59 12/03/24 23:11 20 MG Glucagon (Glucagon 1mg Kit) 1 mg AD PRN IM HYPOGLYCEMIA PROTOCOL 12/03/24 21:30 01/02/25 21:29 Insulin Human Regular (humuLIN R 100 UNIT/ML 3ML) INSULIN SLIDING SCAL... ACHS SQ 12/04/24 07:30 01/03/25 07:29 Ondansetron HCl (zoFRAN 4MG INJ) 4 mg Q6H PRN IV NAUSEA/VOMITING 12/03/24 21:30 01/02/25 21:29 12/04/24 06:13 4 MG DIAGNOSTICS / RADIOLOGY: [ ] CT ABDOMEN/PELVIS W/O CONTRAST HISTORY: Right lower abdominal pain COMPARISON: None TECHNIQUE: Multiple sequential axial images of the abdomen and pelvis were obtained from the dome of the diaphragm through symphysis pubis. Patient was not given contrast through intravenous route. Oral contrast was not given. FINDINGS: No pleural effusion is seen bilaterally. There is no evidence of parenchymal disease or pulmonary nodule of the visualized lower lungs. Degenerative changes of the thoracolumbar spine are present. The heart is not enlarged. Liver is enlarged with fatty changes measuring 18 cm. Gallstones are seen in the gallbladder. There are bilateral perinephric fat stranding may be related to pyelonephritis. Urinalysis correlation may be helpful. The liver, spleen, adrenal glands and pancreas are unremarkable. There is no evidence of hydronephrosis bilaterally. No evidence of renal stone is seen. Fecal material is seen in the colon. There are normal size retroperitoneal and mesenteric lymph nodes. No ascites is seen. Appendix is not well seen limiting evaluation. Clinical correlation is recommended. Pelvic sidewalls are symmetric bilaterally. Bladder is poorly distended with Rivera catheter. IMPRESSION: 1. Gallstones are seen in the gallbladder. There are bilateral perinephric fat stranding may be related to pyelonephritis. Urinalysis correlation may be helpful. ASSESSMENT: Acute pyelonephritis POA Acute on chronic kidney disease POA Hyperkalemia POA Acute normocytic normochromic anemia Hypertension POA Uncontrolled diabetes POA Chronic Rivera use POA PLAN: We will admit patient in medical telemetry We will start on renal nondialysis diet We will start patient on Rocephin 1 g IV daily for empiric coverage We will start on Famotidine 20 mg q.48h POA for GI prophylaxis We will start on insulin sliding scale AC & HS with hypoglycemia protocol We will add prn medication for fever,pain,cough, nausea and vomiting We will reconcile home meds once medlist available We will seek Nephrology consultation We will request labs in am Further orders to follow depending on above results Case discussed with attending physician and came up with above treatment and plan of care. ATTESTATION BY PHYSICIAN I have seen and examined the patient. I reviewed the documentation, medical decision making, and treatment plan as noted by the resident above. I agree with the findings and plan of care. Adria Garcia MD, RAGHAVA R MD Dec 04, 2024 10:30
[2024-12-04] MEDS: INSULIN humuLIN R 100 UNIT/ML 3ML SQ SCH (10:42)
[2024-12-04] MEDS: SODIUM ZIRCONIUM CYCLOSILICATE 5 GM POWD.PACK PO ONE ×2 (11:00→12:15)
[2024-12-04] MEDS: CALCIUM GLUC 1GM 1 GM in 0.9%NACL 100ML 100 ML IV ONE (12:16)
[2024-12-04] MEDS: NA ZIRCON CYCLOSIL(LOKELMA 10GM) PO ONE ×2 (14:22→23:50)
--- NOTE | 2024-12-04 14:49 | CONS ---
NEPHROLOGY CONSULTATION NOTE Date/Time Patient Seen: Dec 04, 2024 0995 Reason for Consultation: Suprapubic pain, nausea, renal failure HISTORY OF PRESENT ILLNESS: This is a 39-year-old female with underlying history of hypertension, CKD, type 2 diabetes mellitus, history of neurogenic bladder with history of chronic Rivera catheter placement, prior history of abdominal and perineal infection status post multiple surgeries in [place], 2021 She presented to the ER for further evaluation of significant suprapubic discomfort. Patient states that her Rivera catheter was exchanged a few days ago. In the Emergency Room, the patient was found with Hyperkalemia and worsening renal failure CT abdomen showed bilateral perinephric fat stranding may be related to pyelonephritis We have been consulted for renal failure and hyperkalemia Renal function remains elevated Electrolytes show potassium of 6.5 mmol/L. She was seen in the emergency room, in no acute distress No family at the bedside Prognosis remains guarded REVIEW OF SYSTEMS: GENERAL: Positive for suprapubic pain NEUROLOGIC: Negative for any blurry vision, blind spots, double vision, facial asymmetry, dysphagia, dysarthria, hemiparesis, hemisensory deficits, vertigo, ataxia. HEENT: Negative for any head trauma, neck trauma, neck stiffness, photophobia, phonophobia, sinusitis, rhinitis. CARDIAC: Negative for any chest pain, dyspnea on exertion, paroxysmal nocturnal dyspnea, peripheral edema. PULMONARY: Negative for any shortness of breath, wheezing, COPD, or TB exposure. GASTROINTESTINAL: Negative for any abdominal pain, nausea, vomiting, bright red blood per rectum, melena. GENITOURINARY: Negative for any dysuria, hematuria, incontinence. INTEGUMENTARY: Negative for any rashes, cuts, insect bites. RHEUMATOLOGIC: Negative for any joint pains, photosensitive rashes, history of vasculitis or kidney problems. HEMATOLOGIC: Negative for any abnormal bruising, frequent infections or bleeding. PAST MEDICAL HISTORY: Hypertension, CKD, type 2 diabetes mellitus, history of neurogenic bladder with history of chronic Rivera catheter placement, prior history of abdominal and perineal infection status post multiple surgeries in [place], 2021 PAST SURGICAL HISTORY: Right BKA, back surgery in 2018, patient reports having surgeries in [place] during her prolonged hospitalization at [facility] in 2021 including abdominal surgeries and possible skin grafting PAST SOCIAL HISTORY: Denies use of alcohol, tobacco illicit FAMILY HISTORY: Noncontributory PHYSICAL EXAM: GENERAL: Alert and oriented x 3. No acute distress. Well-nourished. EYES: EOMI. Anicteric. HENT: Moist mucous membranes. No scleral icterus. No cervical lymphadenopathy. LUNGS: Clear to auscultation bilaterally. No accessory muscle use. CARDIOVASCULAR: Regular rate and rhythm. No murmur. No JVD. ABDOMEN: Soft, non-tender and non-distended. No palpable masses. : Rivera catheter in place EXTREMITIES: No edema. Non-tender. SKIN: No rashes or lesions. Warm. NEUROLOGIC: No focal neurological deficits. CN II-XII grossly intact, but not individually tested. PSYCHIATRIC: Cooperative. Appropriate mood and affect. MEDICATIONS: [ ] Current Medications Medications (Trade) Dose Ordered Sig/Deanna Route PRN Reason Start Time Stop Time Status Last Admin Dose Admin Acetaminophen (TYLenol 325MG TAB) 650 mg Q4H PRN PO MILD PAIN (1-3) 12/03/24 21:30 01/02/25 21:29 Acetaminophen (TYLenol 325MG TAB) 650 mg Q6H PRN PO TEMPERATURE GREATER THAN 101.5 12/03/24 21:30 01/02/25 21:29 Acetaminophen/ Hydrocodone Bitart (NORco 5/325MG) 1 tab Q6H PRN PO MODERATE PAIN (4-6) 12/03/24 23:30 12/08/24 23:29 12/04/24 11:11 1 TAB Ceftriaxone Sodium (ROCEphine 1G INJ) 1 gm Q24H IV 12/03/24 21:30 12/13/24 21:29 12/03/24 23:11 1 GM Dextrose (D50w) 50 ml AD PRN IV HYPOGLYCEMIA PROTOCOL 12/03/24 21:30 01/02/25 21:29 Famotidine (Pepcid 20mg Tab) 20 mg Q48H PO 12/03/24 23:00 01/02/25 22:59 12/03/24 23:11 20 MG Glucagon (Glucagon 1mg Kit) 1 mg AD PRN IM HYPOGLYCEMIA PROTOCOL 12/03/24 21:30 01/02/25 21:29 Hydromorphone HCl (DiLAUDid 0.5MG INJ) 0.2 mg Q6H IVP 12/04/24 19:30 12/08/24 19:29 Insulin Human Regular (humuLIN R 100 UNIT/ML 3ML) INSULIN SLIDING SCAL... ACHS SQ 12/04/24 07:30 01/03/25 07:29 Ondansetron HCl (zoFRAN 4MG INJ) 4 mg Q6H PRN IV NAUSEA/VOMITING 12/03/24 21:30 01/02/25 21:29 12/04/24 12:59 4 MG Vitamin B Complex/ Vit C/Folic Acid (Nephrovite Tablet) 1 cap DAILY PO 12/05/24 09:00 01/04/25 08:59 Vital Signs (last 8hr) Date Time Temp Pulse Resp B/P (MAP) Pulse Ox O2 Delivery O2 Flow Rate FiO2 12/04/24 09:55 98.1 87 18 134/79 100 Room Air* 0 21 DIAGNOSTICS / RADIOLOGY: REASON: lower abd pain ORDERING PHYSICIAN: PAL CHILDS PROCEDURE: ABD PEL WO - CT ABDOMEN/PELVIS W/O CONTRAST CT ABDOMEN/PELVIS W/O CONTRAST HISTORY: Right lower abdominal pain COMPARISON: None TECHNIQUE: Multiple sequential axial images of the abdomen and pelvis were obtained from the dome of the diaphragm through symphysis pubis. Patient was not given contrast through intravenous route. Oral contrast was not given. FINDINGS: No pleural effusion is seen bilaterally. There is no evidence of parenchymal disease or pulmonary nodule of the visualized lower lungs. Degenerative changes of the thoracolumbar spine are present. The heart is not enlarged. Liver is enlarged with fatty changes measuring 18 cm. Gallstones are seen in the gallbladder. There are bilateral perinephric fat stranding may be related to pyelonephritis. Urinalysis correlation may be helpful. The liver, spleen, adrenal glands and pancreas are unremarkable. There is no evidence of hydronephrosis bilaterally. No evidence of renal stone is seen. Fecal material is seen in the colon. There are normal size retroperitoneal and mesenteric lymph nodes. No ascites is seen. Appendix is not well seen limiting evaluation. Clinical correlation is recommended. Pelvic sidewalls are symmetric bilaterally. Bladder is poorly distended with Rivera catheter. IMPRESSION: 1. Gallstones are seen in the gallbladder. There are bilateral perinephric fat stranding may be related to pyelonephritis. Urinalysis correlation may be helpful. CT was performed with one or more following dose reduction techniques: automated exposure control, adjustment of the mA and kv according to patient's size, or use of a iterative reconstruction technique. DICTATED BY: ZAY ZARAGOZA MD DATE: 12/03/242037 LABORATORY: [ ] Hematology Labs: Test 12/04/24 07:33 Range/Units White Blood Count 8.6 4.8-10.8 K/uL Red Blood Count 3.69 L 4.00-5.50 MIL/uL Hemoglobin 10.5 L 12.0-16.0 g/dL Hematocrit 31.9 L 36-48 % Mean Corpuscular Volume 86.4 79-99 fL Mean Corpuscular Hemoglobin 28.5 27.0-33.0 pg Mean Corpuscular Hemoglobin Concent 32.9 32.0-36.0 g/dL Red Cell Distribution Width 13.7 11.0-15.5 % Platelet Count 185 130-400 K/uL Mean Platelet Volume 9.5 7.5-10.5 fL Immature Granulocyte % (Auto) 0.9 0-1 % Neutrophils (%) (Auto) 55.1 40.0-77.0 % Lymphocytes (%) (Auto) 23.7 21.0-51.0 % Monocytes (%) (Auto) 6.9 3.0-13.0 % Eosinophils (%) (Auto) 12.3 H 0.0-8.0 % Basophils (%) (Auto) 1.1 0.0-5.0 % Neutrophils # (Auto) 4.7 1.8-7.7 K/uL Lymphocytes # (Auto) 2.0 1.0-4.8 K/uL Monocytes # (Auto) 0.6 0.1-1.0 K/uL Eosinophils # (Auto) 1.05 H 0.00-0.70 K/uL Basophils # (Auto) 0.09 0.00-0.20 K/uL Absolute Immature Granulocyte (auto 0.08 0-1 K/uL Nucleated Red Blood Cells 0.0 0.0-0.19 % Chemistry Labs: Test 12/04/24 11:14 12/04/24 07:33 12/03/24 18:00 Range/Units Whole Blood Glucose 118 H 70-110 MG/DL Sodium Level 135 L 136-145 mmol/L Potassium Level 6.5 *H 3.5-5.1 mmol/L Chloride Level 107 101-111 mmol/L Carbon Dioxide Level 22 21-32 mmol/L Blood Urea Nitrogen 52 H 7-18 mg/dL Creatinine 5.5 H 0.5-1.0 mg/dL Glomerular Filtration Rate Calc 10 >90 mL/min Random Glucose 112 H 70-105 mg/dL Hemoglobin A1c 6.7 H 4.0-6.0 % Estimated Average Glucose (eAG) 146 H 70-126 mg/dL Total Calcium 7.9 L 8.5-10.1 mg/dL Magnesium Level 1.60 L 1.80-2.40 mg/dL Iron Level 82 50-170 mcg/dL Total Iron Binding Capacity 195 L 250-450 mcg/dL Percent Iron Saturation 42.0 22-44 % Total Bilirubin 0.3 0.2-1.0 mg/dL Aspartate Amino Transf (AST/SGOT) 16 10-37 U/L Alanine Aminotransferase (ALT/SGPT) 15 12-78 U/L Alkaline Phosphatase 71 50-136 U/L Total Protein 6.5 6.0-8.3 g/dL Albumin 2.0 L 3.5-5.0 g/dL Triglycerides Level 160 30-200 mg/dL Cholesterol Level 205 H <200 mg/dL LDL Cholesterol 135 H 0-99 mg/dL HDL Cholesterol 52 35-85 mg/dL Thyroid Stimulating Hormone (TSH) 5.44 H 0.36-3.74 uIU/mL Troponin I High Sensitivity 34 4-50 ng/L Serum Test, Qualitative NEGATIVE NEGATIVE ASSESSMENT: Hyperkalemia Acute on chronic renal failure Anemia Acute pyelonephritis Uncontrolled diabetes mellitus type 2 Diabetic nephropathy. Pyelonephritis with cystitis Uncontrolled hypertension History of neurogenic bladder requiring chronic Rivera catheterization History of poor visual acuity of bilateral eyes PLAN: Labs, diagnostic, radiologic exams reviewed and interpreted by myself and supervising physician. We have reviewed external records in detail Order one dose of Lokelma 10 g p.o. Lokelma and IV calcium may be used for hyperkalemia Patient is not ready to start renal replacement therapy at this time. Require close monitoring of renal function and electrolytes Order CBC, CMP, uric acid, TSH and electrolytes in am Continue with antibiotics Start Nephro-Rachele daily Telemetry monitoring Renal diabetic diet 1.5 L fluid restriction BiPAP as necessary, for respiratory distress Monitor blood pressure adjust medication doses as needed Avoid hypotensive episodes May use Dilaudid 0.5 mg IV every 6 hours as needed for severe pain Monitor blood sugars Strict intake, output, and daily weight should be monitored Please renally adjust medications Avoid nephrotoxic and nonsteroidal drugs Avoid contrast if possible Will continue to monitor renal function, anemia, electrolytes Treatment plan discussed with patient Questions were answered We have discussed with the other team physicians in detail about the care plan We will continue to monitor the patient closely Thank you for allowing us to participate in the care of this patient ATTESTATION BY PHYSICIAN I have seen and examined the patient. I reviewed the documentation, medical decision making, and treatment plan as noted by the mid-level provider above. I agree with the findings and plan of care. GISELLE VALENTIN MD, [facility] Dec 04, 2024 14:49 GISELLE VALENTIN MD Dec 04, 2024 19:56
--- NOTE | 2024-12-04 17:50 | PN ---
[facility] PROGRESS NOTE Date of Service: Dec 04, 2024 Time of Service: 17:42 SUBJECTIVE: This is a 39-year-old female with past medical history of diabetes, neurogenic bladder requiring chronic Rivera catheter use, chronic kidney disease not on hemodialysis, UTI who was brought by EMS to the ED for complaints of suprapubic pain which radiates to her right lower back started today around 2:00 p.m. patient also reports having nausea but no vomiting. Patient states she has a chronic Rivera catheter has been changed in this facility five days ago. Seen and examined patient in the ER awake alert and coherent appears uncomfortable. Patient denies fever, chills, vomiting, chest pain, palpitation and shortness of breaths. Latest vital signs temperature 98.4, heart rate 92, blood pressure 147/96, saturation 99% on room air. Labs: Hemoglobin 11.7, hematocrit 34 platelet count 192. Chemistry sodium 134, potassium 5.6, carbon dioxide 20, BUN 52 creatinine 5.5 GFR 10 glucose 190 total calcium 7.7 troponin 34 serum test negative. Urinalysis remarkable for protein, glucose, occult blood, urine RBC 26-50 urine WBC 2-[address] abdomen and pelvis without contrast result revealed gallstones are seen in the gallbladder. There are bilateral perinephric fat stranding may be related to pyelonephritis. . While in the ER patient received calcium gluconate, Lokelma 10 g p.o., Zofran 4 mg IV and Dilaudid 0.5 mg IV. ER called and recommended to admit the patient. December 04, 2024 While in the ER, I have examined the patient at bedside. Discuss the case with RN. She found to have hyperkalemia potassium of 6.5, worsening renal failure BUN and creatinine of 5.5, and bilateral perinephric stranding on CT abdomen suggestive of pyelonephritis. Nephrology was consulted for renal failure and hyperkalemia management. Rivera catheter is now draining and is now functional after being flushed at bedside. Patient remains in significant discomfort due to back pain. Nephrology assess the patient and determined that patient is hesitant to start renal replacement therapy. Prognosis remains guarded. REVIEW OF SYSTEMS CONSTITUTIONAL: Denies fevers, chills, or night sweats. No unintentional weight loss reported. NEUROLOGICAL: Denies headache, amaurosis fugax, motor weakness, sensory deficit, vertigo/spinning sensation, gait abnormalities, or tremors. ENT: No hearing loss, otalgia, otorrhea, rhinitis, rhinorrhea, hoarseness, or sore throat. CARDIOVASCULAR: Denies any exertional angina, dyspnea on exertion, orthopnea, paroxysmal nocturnal dyspnea, palpitations, life-threatening arrhythmias, claudication. PULMONARY: Denies any shortness of breath, cough, phlegm/sputum, hemoptysis, pleuritic chest pain. SLEEP: Denies morning headaches, daytime somnolence or napping. Denies difficulty falling asleep, staying asleep, waking from sleep. Denies knowledge of snoring. GASTROINTESTINAL: Denies any type of dysphagia to either liquids or solids. Denies nausea, vomiting, pyrosis, early satiety, abdominal pain, diarrhea, constipation, or changes in stool consistency or caliber. Denies coffee-ground emesis, hematemesis, hematochezia, or melanotic stools. GENITOURINARY: suprapubic pain which radiates to the right lower back Denies frequency, urgency, nocturia, hematuria or incontinence (Storage/Irritative symptoms.) Low urinary stream, straining to void, urinary intermittency or hesitancy, splitting of the voiding stream, terminal dribbling. ENDOCRINOLOGIC: Denies polyuria, polydipsia, polyphagia or heat/cold intolerances. HEMATOLOGIC: Denies thrombophilia/previous clots, or coagulopathy/bleeding disorders. ONCOLOGIC: Denies personal history of malignancy. DERMATOLOGIC: Denies rashes or pruritus. PSYCHIATRIC: Denies any suicidal or homicidal ideation. Denies hallucinations. PHYSICAL EXAM GENERAL APPEARANCE: The patient is awake, alert, and oriented, in no acute cardiopulmonary distress. NEUROLOGICAL: Cranial nerves II-XII grossly intact. Motor is 5/5 in bilateral upper and lower extremities proximal to distal. No sensory deficits. HEENT: Face is symmetric. Pupils are equal and reactive. Extraocular movements are intact. NECK: Supple. No JVD. No thyromegaly. No submental, submandibular, pre- /postauricular, occipital or supraclavicular lymphadenopathy. CHEST: Normal chest expansion. No Telemetry. LUNGS: Absence of any rales, rhonchi or any wheezing. CARDIOVASCULAR: Regular. S1 and S2 normal. No appreciable rubs, murmurs or gallops. ABDOMEN: Soft, nontender, and nondistended. There is no rebound, voluntary guarding, or rigidity. : Deferred. +Rivera. EXTREMITIES: Right BKA Non-edematous and not cyanotic. No clubbing. Good capillary refill. SKIN: No skin breakdown. Vital Signs (last 8hr) Date Time Temp Pulse Resp B/P (MAP) Pulse Ox O2 Delivery O2 Flow Rate FiO2 12/04/24 14:44 97.5 84 17 133/86 100 Room Air* 0 21 12/04/24 09:55 98.1 87 18 134/79 100 Room Air* 0 21 LABS: Laboratory: Test 12/04/24 11:14 12/04/24 07:33 12/03/24 18:37 12/03/24 18:00 Range/Units Whole Blood Glucose 118 H 70-110 MG/DL White Blood Count 8.6 4.8-10.8 K/uL Red Blood Count 3.69 L 4.00-5.50 MIL/uL Hemoglobin 10.5 L 12.0-16.0 g/dL Hematocrit 31.9 L 36-48 % Mean Corpuscular Volume 86.4 79-99 fL Mean Corpuscular Hemoglobin 28.5 27.0-33.0 pg Mean Corpuscular Hemoglobin Concent 32.9 32.0-36.0 g/dL Red Cell Distribution Width 13.7 11.0-15.5 % Platelet Count 185 130-400 K/uL Mean Platelet Volume 9.5 7.5-10.5 fL Immature Granulocyte % (Auto) 0.9 0-1 % Neutrophils (%) (Auto) 55.1 40.0-77.0 % Lymphocytes (%) (Auto) 23.7 21.0-51.0 % Monocytes (%) (Auto) 6.9 3.0-13.0 % Eosinophils (%) (Auto) 12.3 H 0.0-8.0 % Basophils (%) (Auto) 1.1 0.0-5.0 % Neutrophils # (Auto) 4.7 1.8-7.7 K/uL Lymphocytes # (Auto) 2.0 1.0-4.8 K/uL Monocytes # (Auto) 0.6 0.1-1.0 K/uL Eosinophils # (Auto) 1.05 H 0.00-0.70 K/uL Basophils # (Auto) 0.09 0.00-0.20 K/uL Absolute Immature Granulocyte (auto 0.08 0-1 K/uL Nucleated Red Blood Cells 0.0 0.0-0.19 % Sodium Level 135 L 136-145 mmol/L Potassium Level 6.5 *H 3.5-5.1 mmol/L Chloride Level 107 101-111 mmol/L Carbon Dioxide Level 22 21-32 mmol/L Blood Urea Nitrogen 52 H 7-18 mg/dL Creatinine 5.5 H 0.5-1.0 mg/dL Glomerular Filtration Rate Calc 10 >90 mL/min Random Glucose 112 H 70-105 mg/dL Hemoglobin A1c 6.7 H 4.0-6.0 % Estimated Average Glucose (eAG) 146 H 70-126 mg/dL Total Calcium 7.9 L 8.5-10.1 mg/dL Magnesium Level 1.60 L 1.80-2.40 mg/dL Iron Level 82 50-170 mcg/dL Total Iron Binding Capacity 195 L 250-450 mcg/dL Percent Iron Saturation 42.0 22-44 % Total Bilirubin 0.3 0.2-1.0 mg/dL Aspartate Amino Transf (AST/SGOT) 16 10-37 U/L Alanine Aminotransferase (ALT/SGPT) 15 12-78 U/L Alkaline Phosphatase 71 50-136 U/L Total Protein 6.5 6.0-8.3 g/dL Albumin 2.0 L 3.5-5.0 g/dL Triglycerides Level 160 30-200 mg/dL Cholesterol Level 205 H <200 mg/dL LDL Cholesterol 135 H 0-99 mg/dL HDL Cholesterol 52 35-85 mg/dL Thyroid Stimulating Hormone (TSH) 5.44 H 0.36-3.74 uIU/mL Urine Color LIGHT-YELLOW YELLOW Urine Appearance CLOUDY H CLEAR Urine pH 6.5 5.0-8.0 Urine Specific Irene 1.009 1.001-1.031 Urine Protein 300 H NEGATIVE mg/dL Urine Glucose (UA) 500 H NEGATIVE mg/dL Urine Ketones NEGATIVE NEGATIVE mg/dL Urine Occult Blood +- (TRACE) H NEGATIVE Urine Nitrate NEGATIVE NEGATIVE Urine Bilirubin NEGATIVE NEGATIVE mg/dL Urine Urobilinogen 0.2 0.2-1.0 mg/dL Urine Leukocyte Esterase NEGATIVE NEGATIVE Sada/uL Urine RBC 26-50 H 0-1 /HPF Urine WBC 2-5 H 0-1 /HPF Urine Squamous Epithelial Cells RARE 0-2 /HPF Urine Other Crystals (Auto) 2 None Seen /HPF Urine Bacteria RARE None Seen /HPF Urine Yeast MOD None Seen /HPF Urine Yeast with Hyphae FEW None Seen /HPF Troponin I High Sensitivity 34 4-50 ng/L Serum Test, Qualitative NEGATIVE NEGATIVE Current Medications Medications (Trade) Dose Ordered Sig/Deanna Route PRN Reason Start Time Stop Time Status Last Admin Dose Admin Acetaminophen (TYLenol 325MG TAB) 650 mg Q4H PRN PO MILD PAIN (1-3) 12/03/24 21:30 01/02/25 21:29 Acetaminophen (TYLenol 325MG TAB) 650 mg Q6H PRN PO TEMPERATURE GREATER THAN 101.5 12/03/24 21:30 01/02/25 21:29 Acetaminophen/ Hydrocodone Bitart (NORco 5/325MG) 1 tab Q6H PRN PO MODERATE PAIN (4-6) 12/03/24 23:30 12/08/24 23:29 12/04/24 11:11 1 TAB Ceftriaxone Sodium (ROCEphine 1G INJ) 1 gm Q24H IV 12/03/24 21:30 12/13/24 21:29 12/03/24 23:11 1 GM Dextrose (D50w) 50 ml AD PRN IV HYPOGLYCEMIA PROTOCOL 12/03/24 21:30 01/02/25 21:29 Famotidine (Pepcid 20mg Tab) 20 mg Q48H PO 12/03/24 23:00 01/02/25 22:59 12/03/24 23:11 20 MG Glucagon (Glucagon 1mg Kit) 1 mg AD PRN IM HYPOGLYCEMIA PROTOCOL 12/03/24 21:30 01/02/25 21:29 Hydromorphone HCl (DiLAUDid 0.5MG INJ) 0.2 mg Q6H IVP 12/04/24 19:30 12/08/24 19:29 Insulin Human Regular (humuLIN R 100 UNIT/ML 3ML) INSULIN SLIDING SCAL... ACHS SQ 12/04/24 07:30 01/03/25 07:29 Ondansetron HCl (zoFRAN 4MG INJ) 4 mg Q6H PRN IV NAUSEA/VOMITING 12/03/24 21:30 01/02/25 21:29 12/04/24 12:59 4 MG Vitamin B Complex/ Vit C/Folic Acid (Nephrovite Tablet) 1 cap DAILY PO 12/05/24 09:00 01/04/25 08:59 DIAGNOSTICS / RADIOLOGY: [ ] PATIENT: DARÍO ELIAS MR#: [id number] : 1985 SEX: F AGE: 39 LOCATION: [facility] ORDER 57 STATUS: REG ER REPORT#: [id number] SERVICE 54 REASON: lower abd pain ORDERING PHYSICIAN: PAL CHILDS PROCEDURE: ABD PEL WO - CT ABDOMEN/PELVIS W/O CONTRAST CT ABDOMEN/PELVIS W/O CONTRAST HISTORY: Right lower abdominal pain COMPARISON: None TECHNIQUE: Multiple sequential axial images of the abdomen and pelvis were obtained from the dome of the diaphragm through symphysis pubis. Patient was not given contrast through intravenous route. Oral contrast was not given. FINDINGS: No pleural effusion is seen bilaterally. There is no evidence of parenchymal disease or pulmonary nodule of the visualized lower lungs. Degenerative changes of the thoracolumbar spine are present. The heart is not enlarged. Liver is enlarged with fatty changes measuring 18 cm. Gallstones are seen in the gallbladder. There are bilateral perinephric fat stranding may be related to pyelonephritis. Urinalysis correlation may be helpful. The liver, spleen, adrenal glands and pancreas are unremarkable. There is no evidence of hydronephrosis bilaterally. No evidence of renal stone is seen. Fecal material is seen in the colon. There are normal size retroperitoneal and mesenteric lymph nodes. No ascites is seen. Appendix is not well seen limiting evaluation. Clinical correlation is recommended. Pelvic sidewalls are symmetric bilaterally. Bladder is poorly distended with Rivera catheter. IMPRESSION: 1. Gallstones are seen in the gallbladder. There are bilateral perinephric fat stranding may be related to pyelonephritis. Urinalysis correlation may be helpful. CT was performed with one or more following dose reduction techniques: automated exposure control, adjustment of the mA and kv according to patient's size, or use of a iterative reconstruction technique. DICTATED BY: ZAY ZARAGOZA MD DATE: 12/03/242037 ELECTRONICALLY SIGNED BY: ZAY ZARAGOZA MD DATE: 12/03/242041 ASSESSMENT: Acute pyelonephritis POA Acute on chronic kidney disease stage 5 not on hemodialysis POA Hyperkalemia POA Acute normocytic normochromic anemia Hypertension POA Uncontrolled diabetes POA Chronic Rivera use POA PLAN: Pyelonephritis with bilateral perinephric fat stranding Continue ceftriaxone1 g IV Q 24 H. Await urine culture results. Maintain Rivera catheter care. Hydration to optimize renal function. Chronic kidney disease stage 5 not on dialysis We will admit patient in medical telemetry We will start on renal nondialysis diet Nephrology consult active Monitor renal function electrolytes daily with CBC, CMP, uric acid, TSH, electrolytes 1.5 L fluid restriction For hyperkalemia equal to greater than 6.5 Give calcium gluconate once, Lokelma 10 g p.o. once Monitor EKG for arrhythmia Strict I/O monitoring Daily weights SCDs for DVT prophylaxis. Hypertension Monitor BP closely Adjust antihypertensive therapy if needed Prophylaxis and supportive care We will start on Famotidine 20 mg q.48h POA for GI prophylaxis We will start on insulin sliding scale AC & HS with hypoglycemia protocol We will add prn medication for fever,pain,cough, nausea and vomiting We will reconcile home meds once medlist available We will request labs in am Further orders to follow depending on above results Case discussed with attending physician and came up with above treatment and plan of care. ATTESTATION BY PHYSICIAN I have seen and examined the patient. I reviewed the documentation, medical decision making, and treatment plan as noted by the resident above. I agree with the findings and plan of care. Adria Garcia MD, RAGHAVA R MD Dec 04, 2024 17:50
[2024-12-04] MEDS ORDERED: PoTASSium chloRIDE 20MEQ/100ML 100 ML IV PRN (18:00)
[2024-12-04] MEDS: MAGNESIUM 2GM PREMIX 50ML 50 ML IV ONE (18:05)
[2024-12-04] MEDS: hydroMORPHone 0.5 MG SYG (0.5MG/0.5ML) IVP SCH (19:36)
[2024-12-04 22:22] VITALS: BP 162/101; PULSE 84; RESP 16; TEMP 98.1
[2024-12-04] MEDS: hydrALAZine 20MG/ML VIAL IV PRN (23:50)
[2024-12-05] VITALS (8 sets, daily range): BP systolic 112–166; BP diastolic 63–91; PULSE 92–100; RESP 18–20; TEMP 97.9–98.5; O2SAT 97
[2024-12-05 05:30] LABS: HEMATOCRIT 26.5 % (36-48); MEAN CORPUSCULAR HEMOGLOBIN 28.8 pg (27.0-33.0); MEAN CORPUSCULAR VOLUME 84.7 fL (79-99); PLATELET COUNT (AUTO) 175 K/uL (130-400); RED BLOOD CELL COUNT(AUTO) 3.13 MIL/uL (4.00-5.50); RED CELL DISTRIBUTION WIDTH 13.8 % (11.0-15.5); WHITE BLOOD COUNT (AUTO) 8.7 K/uL (4.8-10.8)
[2024-12-05 05:47] LABS: ALBUMIN 1.8 g/dL (3.5-5.0); BILIRUBIN,TOTAL 0.3 mg/dL (0.2-1.0); CREATININE 5.8 mg/dL (0.5-1.0); MAGNESIUM 1.9 mg/dL (1.80-2.40); PHOSPHORUS 6.3 mg/dL (2.5-4.9); POTASSIUM 4.6 mmol/L (3.5-5.1); TOTAL PROTEIN, SERUM 5.7 g/dL (6.0-8.3)
[2024-12-05 06:24] LABS: BAND NEUTROPHILS % (MANUAL) 1 % (0-2); BASOPHILS % (MANUAL) 1 % (0-2); EOSINOPHILS % (MANUAL) 8 % (1-6); LYMPHOCYTES % (MANUAL) 29 % (22-44); MONOCYTES % (MANUAL) 4 % (2-9); REACTIVE LYMPHOCYTES 4 % (0-0); SEGMENTED NEUTROPHILS % 53 % (40-70); TOTAL CELLS COUNTED 100
[2024-12-05 06:25] LABS: MAN.DIFF COMMENT-IMPRESSION MANUAL DIFFERENTIAL; PLATELET MORPHOLOGY COMMENT ADEQUATE; WBC MORPHOLOGY REACTIVE LYMPHS 1+
--- NOTE | 2024-12-05 07:46 | NUR ---
DCP: HOME Pt lives in an apt with her 2 daughters and her brother Yuniel [place] [phone]. Pt reports she lost her provider services 6 months because she did not complete re certification as required. Pt working to get services re instated. Daughters assist pt as needed with ADLS, home management and meal prep. Pt uses a w/c, no HH or HD. Pt states she has not seen her PCP Izabela Jones in 6 months related to no transportation. Uses [facility] in [place] for rx. Denies dc needs and will return home with family Addendum: 12/05/24 at 0750 by NATIVIDAD GARZA Amended: Links added.
[2024-12-05] MEDS: Vitamin B Complex/Vit C/Folic Acid PO SCH (08:15)
--- NOTE | 2024-12-05 13:34 | PN ---
NEPHROLOGY PROGRESS NOTE Date/Time Patient Seen: Dec 05, 2024 SUBJECTIVE: This is a 39-year-old female with underlying history of hypertension, CKD, type 2 diabetes mellitus, history of neurogenic bladder with history of chronic Rivera catheter placement, prior history of abdominal and perineal infection status post multiple surgeries in [place], 2021 She presented to the ER for further evaluation of significant suprapubic discomfort. Patient states that her Rivera catheter was exchanged a few days ago. In the Emergency Room, the patient was found with Hyperkalemia and worsening renal failure CT abdomen showed bilateral perinephric fat stranding may be related to pyelon ephritis We have been consulted for renal failure and hyperkalemia Renal function remains elevated Electrolytes are stable. She was seen in the medical floor, in no acute distress No family at the bedside Prognosis remains guarded REVIEW OF SYSTEMS: GENERAL: Positive for suprapubic pain NEUROLOGIC: Negative for any blurry vision, blind spots, double vision, facial asymmetry, dysphagia, dysarthria, hemiparesis, hemisensory deficits, vertigo, ataxia. HEENT: Negative for any head trauma, neck trauma, neck stiffness, photophobia, phonophobia, sinusitis, rhinitis. CARDIAC: Negative for any chest pain, dyspnea on exertion, paroxysmal nocturnal dyspnea, peripheral edema. PULMONARY: Negative for any shortness of breath, wheezing, COPD, or TB exposure. GASTROINTESTINAL: Negative for any abdominal pain, nausea, vomiting, bright red blood per rectum, melena. GENITOURINARY: Negative for any dysuria, hematuria, incontinence. INTEGUMENTARY: Negative for any rashes, cuts, insect bites. RHEUMATOLOGIC: Negative for any joint pains, photosensitive rashes, history of vasculitis or kidney problems. HEMATOLOGIC: Negative for any abnormal bruising, frequent infections or bleeding. PHYSICAL EXAM: GENERAL: Alert and oriented x 3. No acute distress. Well-nourished. EYES: EOMI. Anicteric. HENT: Moist mucous membranes. No scleral icterus. No cervical lymphadenopathy. LUNGS: Clear to auscultation bilaterally. No accessory muscle use. CARDIOVASCULAR: Regular rate and rhythm. No murmur. No JVD. ABDOMEN: Soft, non-tender and non-distended. No palpable masses. : Rivera catheter in place EXTREMITIES: No edema. Non-tender. SKIN: No rashes or lesions. Warm. NEUROLOGIC: No focal neurological deficits. CN II-XII grossly intact, but not individually tested. PSYCHIATRIC: Cooperative. Appropriate mood and affect. LABORATORY: [ ] Hematology Labs: Test 12/05/24 05:18 12/04/24 07:33 Range/Units White Blood Count 8.7 4.8-10.8 K/uL Red Blood Count 3.13 L 4.00-5.50 MIL/uL Hemoglobin 9.0 L 12.0-16.0 g/dL Hematocrit 26.5 L 36-48 % Mean Corpuscular Volume 84.7 79-99 fL Mean Corpuscular Hemoglobin 28.8 27.0-33.0 pg Mean Corpuscular Hemoglobin Concent 34.0 32.0-36.0 g/dL Red Cell Distribution Width 13.8 11.0-15.5 % Platelet Count 175 130-400 K/uL Mean Platelet Volume 9.4 7.5-10.5 fL Segmented Neutrophils % 53 40-70 % Band Neutrophils % 1 0-2 % Lymphocytes % (Manual) 29 22-44 % Monocytes % (Manual) 4 2-9 % Eosinophils % (Manual) 8 H 1-6 % Basophils % (Manual) 1 0-2 % Nucleated Red Blood Cells 0.0 0.0-0.19 % Differential Comment MANUAL DIFFERENTIAL Reactive Lymphocytes 4 H 0-0 % White Cell Morphology Comment REACTIVE LYMPHS 1+ Platelet Morphology Comment ADEQUATE Red Blood Cell Morphology See comments Immature Granulocyte % (Auto) 0.9 0-1 % Neutrophils (%) (Auto) 55.1 40.0-77.0 % Lymphocytes (%) (Auto) 23.7 21.0-51.0 % Monocytes (%) (Auto) 6.9 3.0-13.0 % Eosinophils (%) (Auto) 12.3 H 0.0-8.0 % Basophils (%) (Auto) 1.1 0.0-5.0 % Neutrophils # (Auto) 4.7 1.8-7.7 K/uL Lymphocytes # (Auto) 2.0 1.0-4.8 K/uL Monocytes # (Auto) 0.6 0.1-1.0 K/uL Eosinophils # (Auto) 1.05 H 0.00-0.70 K/uL Basophils # (Auto) 0.09 0.00-0.20 K/uL Absolute Immature Granulocyte (auto 0.08 0-1 K/uL Chemistry Labs: Test 12/05/24 10:53 12/05/24 05:18 12/04/24 19:07 12/04/24 07:33 Range/Units Whole Blood Glucose 160 H 70-110 MG/DL Sodium Level 137 136-145 mmol/L Potassium Level 4.6 3.5-5.1 mmol/L Chloride Level 108 101-111 mmol/L Carbon Dioxide Level 22 21-32 mmol/L Blood Urea Nitrogen 56 H 7-18 mg/dL Creatinine 5.8 H 0.5-1.0 mg/dL Glomerular Filtration Rate Calc 9 >90 mL/min Random Glucose 136 H 70-105 mg/dL Total Calcium 7.8 L 8.5-10.1 mg/dL Phosphorus Level 6.3 H 2.5-4.9 mg/dL Magnesium Level 1.90 1.80-2.40 mg/dL Total Bilirubin 0.3 0.2-1.0 mg/dL Aspartate Amino Transf (AST/SGOT) 14 10-37 U/L Alanine Aminotransferase (ALT/SGPT) 12 12-78 U/L Alkaline Phosphatase 62 50-136 U/L Total Protein 5.7 L 6.0-8.3 g/dL Albumin 1.8 L 3.5-5.0 g/dL Free Thyroxine (T4) Direct 0.87 0.76-1.46 ng/dL Free Triiodothyronine (T3) pg/mL 1.71 L 2.18-3.98 pg/mL Hemoglobin A1c 6.7 H 4.0-6.0 % Estimated Average Glucose (eAG) 146 H 70-126 mg/dL Iron Level 82 50-170 mcg/dL Total Iron Binding Capacity 195 L 250-450 mcg/dL Percent Iron Saturation 42.0 22-44 % Triglycerides Level 160 30-200 mg/dL Cholesterol Level 205 H <200 mg/dL LDL Cholesterol 135 H 0-99 mg/dL HDL Cholesterol 52 35-85 mg/dL Thyroid Stimulating Hormone (TSH) 5.44 H 0.36-3.74 uIU/mL Test 12/03/24 18:00 Range/Units Troponin I High Sensitivity 34 4-50 ng/L Serum Test, Qualitative NEGATIVE NEGATIVE DIAGNOSTICS / RADIOLOGY: REASON: lower abd pain ORDERING PHYSICIAN: PAL CHILDS [employer]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 Patient was not given contrast through intravenous route. Oral contrast was not given. FINDINGS: No pleural effusion is seen bilaterally. There is no evidence of parenchymal disease or pulmonary nodule of the visualized lower lungs. Degenerative changes of the thoracolumbar spine are present. The heart is not enlarged. Liver is enlarged with fatty changes measuring 18 cm. Gallstones are seen in the gallbladder. There are bilateral perinephric fat stranding may be related to pyelonephritis. Urinalysis correlation may be helpful. The liver, spleen, adrenal glands and pancreas are unremarkable. There is no evidence of hydronephrosis bilaterally. No evidence of renal stone is seen. Fecal material is seen in the colon. There are normal size retroperitoneal and mesenteric lymph nodes. No ascites is seen. Appendix is not well seen limiting evaluation. Clinical correlation is recommended. Pelvic sidewalls are symmetric bilaterally. Bladder is poorly distended with Rivera catheter. IMPRESSION: 1. Gallstones are seen in the gallbladder. There are bilateral perinephric fat stranding may be related to pyelonephritis. Urinalysis correlation may be helpful. CT was performed with one or more following dose reduction techniques: automated exposure control, adjustment of the mA and kv according to patient's size, or use of a iterative reconstruction technique. DICTATED BY: ZAY ZARAGOZA MD DATE: 12/03/242037 ASSESSMENT: Hyperkalemia Acute on chronic renal failure Anemia Acute pyelonephritis Uncontrolled diabetes mellitus type 2 Diabetic nephropathy. Pyelonephritis with cystitis Uncontrolled hypertension History of neurogenic bladder requiring chronic Rivera catheterization History of poor visual acuity of bilateral eyes PLAN: Labs, diagnostic, radiologic exams reviewed and interpreted by myself and supervising physician. We have reviewed external records in detail From a renal standpoint, the function continues to decline and electrolytes remain unbalanced. The patient has remained hemodynamically stable and therefore we will recommend dialysis intervention to correct electrolytes as well as BUN and Creatinine. Risk and complications of renal replacement therapy, vascular access, and modalities were explained in great detail to the patient. Patient has questions regarding transportation to dialysis, case management consult has been ordered. Plan for PermCath placement Sunday, if renal function continues to decline Preserve nondominant arm Require close monitoring of renal function and electrolytes Order CBC, CMP, u and electrolytes in am Continue with antibiotics Renal diabetic diet 1.5 L fluid restriction BiPAP as necessary, for respiratory distress Monitor blood pressure adjust medication doses as needed Avoid hypotensive episodes May use Dilaudid 0.5 mg IV every 6 hours as needed for severe pain Monitor blood sugars Strict intake, output, and daily weight should be monitored Please renally adjust medications Avoid nephrotoxic and nonsteroidal drugs Avoid contrast if possible Will continue to monitor renal function, anemia, electrolytes Treatment plan discussed with patient Questions were answered We have discussed with the other team physicians in detail about the care plan We will continue to monitor the patient closely ATTESTATION BY PHYSICIAN I have seen and examined the patient. I reviewed the documentation, medical decision making, and treatment plan as noted by the mid-level provider above. I agree with the findings and plan of care. GISELLE VALENTIN MD, [facility] Dec 05, 2024 13:34
[2024-12-06] VITALS (7 sets, daily range): BP systolic 130–185; BP diastolic 82–108; PULSE 81–93; RESP 16–20; TEMP 97.9–98.6; O2SAT 97–98
[2024-12-06 04:19] LABS: BASOPHILS # (AUTO) 0.05 K/uL (0.00-0.20); BASOPHILS % (AUTO) 0.7 % (0.0-5.0); EOSINOPHILS # (AUTO) 0.74 K/uL (0.00-0.70); HEMATOCRIT 26.2 % (36-48); IMMATURE GRANULOCYTE ABSOLUTE 0.04 K/uL (0-1); LYMPHOCYTES # (AUTO) 1.9 K/uL (1.0-4.8); LYMPHOCYTES % (AUTO) 28.6 % (21.0-51.0); MEAN CORPUSCULAR HEMOGLOBIN 29.3 pg (27.0-33.0); MEAN CORPUSCULAR VOLUME 86.2 fL (79-99); MONOCYTES # (AUTO) 0.6 K/uL (0.1-1.0); MONOCYTES % (AUTO) 8.1 % (3.0-13.0); NEUTROPHILS # (AUTO) 3.4 K/uL (1.8-7.7); PLATELET COUNT (AUTO) 167 K/uL (130-400); RED BLOOD CELL COUNT(AUTO) 3.04 MIL/uL (4.00-5.50); RED CELL DISTRIBUTION WIDTH 13.4 % (11.0-15.5); WHITE BLOOD COUNT (AUTO) 6.8 K/uL (4.8-10.8)
[2024-12-06 04:37] LABS: ALBUMIN 1.8 g/dL (3.5-5.0); BILIRUBIN,TOTAL 0.3 mg/dL (0.2-1.0); CREATININE 6.2 mg/dL (0.5-1.0); MAGNESIUM 1.7 mg/dL (1.80-2.40); PHOSPHORUS 6.8 mg/dL (2.5-4.9); POTASSIUM 4.5 mmol/L (3.5-5.1); TOTAL PROTEIN, SERUM 5.7 g/dL (6.0-8.3)
--- NOTE | 2024-12-06 08:45 | NUR ---
Patient complaining of bladder pain unrelieved by pain medications offered. Patient requesting to have muir catheter replaced. Called Dr. Nichole Randall and obtained order to replace muir to help with pain.
[2024-12-06] MEDS: sevELAMer HCL 800 MG TABLET PO SCH (12:18)
[2024-12-06] MEDS: fluCONazole 100 MG TAB PO ONE (12:18)
[2024-12-06] MEDS ORDERED: hydroMORPHone 0.5 MG SYG (0.5MG/0.5ML) IVP SCH (13:30)
[2024-12-06] MEDS: hydroMORPHone 0.5 MG SYG (0.5MG/0.5ML) IVP SCH (14:27)
--- NOTE | 2024-12-06 16:54 | PN ---
[facility] PROGRESS NOTE Date of Service: 12/05/24 Time of Service: 16:53 SUBJECTIVE: This is a 39-year-old female with past medical history of diabetes, neurogenic bladder requiring chronic Rivera catheter use, chronic kidney disease not on hemodialysis, UTI who was brought by EMS to the ED for complaints of suprapubic pain which radiates to her right lower back started today around 2:00 p.m. patient also reports having nausea but no vomiting. Patient states she has a chronic Rivera catheter has been changed in this facility five days ago. Seen and examined patient in the ER awake alert and coherent appears uncomfortable. Patient denies fever, chills, vomiting, chest pain, palpitation and shortness of breaths. Latest vital signs temperature 98.4, heart rate 92, blood pressure 147/96, saturation 99% on room air. Labs: Hemoglobin 11.7, hematocrit 34 platelet count 192. Chemistry sodium 134, potassium 5.6, carbon dioxide 20, BUN 52 creatinine 5.5 GFR 10 glucose 190 total calcium 7.7 troponin 34 serum test negative. Urinalysis remarkable for protein, glucose, occult blood, urine RBC 26-50 urine WBC 2-[address] abdomen and pelvis without contrast result revealed gallstones are seen in the gallbladder. There are bilateral perinephric fat stranding may be related to pyelonephritis. . While in the ER patient received calcium gluconate, Lokelma 10 g p.o., Zofran 4 mg IV and Dilaudid 0.5 mg IV. ER called and recommended to admit the patient. December 04, 2024 While in the ER, I have examined the patient at bedside. Discuss the case with RN. She found to have hyperkalemia potassium of 6.5, worsening renal failure BU N and creatinine of 5.5, and bilateral perinephric stranding on CT abdomen suggestive of pyelonephritis. Nephrology was consulted for renal failure and hyperkalemia management. Rivera catheter is now draining and is now functional after being flushed at bedside. Patient remains in significant discomfort due to back pain. Nephrology assess the patient and determined that patient is hesitant to start renal replacement therapy. Prognosis remains guarded. 12/05/24 patient was seen and examined. Denies any fever or chills. She does have some mild lower abdominal pain 12/06/24 patient was seen and examined at significant bladder pain despite being on Dilaudid. Examination showed that there is a lot of sediment the Rivera. This was exchanged with significant amount of urine output and resolution of pain. She was doing better now and denies nausea vomiting fever chills REVIEW OF SYSTEMS CONSTITUTIONAL: Denies fevers, chills, or night sweats. No unintentional weight loss reported. NEUROLOGICAL: Denies headache, amaurosis fugax, motor weakness, sensory deficit, vertigo/spinning sensation, gait abnormalities, or tremors. ENT: No hearing loss, otalgia, otorrhea, rhinitis, rhinorrhea, hoarseness, or sore throat. CARDIOVASCULAR: Denies any exertional angina, dyspnea on exertion, orthopnea, paroxysmal nocturnal dyspnea, palpitations, life-threatening arrhythmias, claudication. PULMONARY: Denies any shortness of breath, cough, phlegm/sputum, hemoptysis, pleuritic chest pain. SLEEP: Denies morning headaches, daytime somnolence or napping. Denies difficulty falling asleep, staying asleep, waking from sleep. Denies knowledge of snoring. GASTROINTESTINAL: Denies any type of dysphagia to either liquids or solids. Denies nausea, vomiting, pyrosis, early satiety, abdominal pain, diarrhea, constipation, or changes in stool consistency or caliber. Denies coffee-ground emesis, hematemesis, hematochezia, or melanotic stools. GENITOURINARY: suprapubic pain which radiates to the right lower back Denies frequency, urgency, nocturia, hematuria or incontinence (Storage/Irritative symptoms.) Low urinary stream, straining to void, urinary intermittency or hesitancy, splitting of the voiding stream, terminal dribbling. ENDOCRINOLOGIC: Denies polyuria, polydipsia, polyphagia or heat/cold intolerances. HEMATOLOGIC: Denies thrombophilia/previous clots, or coagulopathy/bleeding disorders. ONCOLOGIC: Denies personal history of malignancy. DERMATOLOGIC: Denies rashes or pruritus. PSYCHIATRIC: Denies any suicidal or homicidal ideation. Denies hallucinations. PHYSICAL EXAM GENERAL APPEARANCE: The patient is awake, alert, and oriented, in no acute cardiopulmonary distress. NEUROLOGICAL: Cranial nerves II-XII grossly intact. Motor is 5/5 in bilateral upper and lower extremities proximal to distal. No sensory deficits. HEENT: Face is symmetric. Pupils are equal and reactive. Extraocular movements are intact. NECK: Supple. No JVD. No thyromegaly. No submental, submandibular, pre- /postauricular, occipital or supraclavicular lymphadenopathy. CHEST: Normal chest expansion. No Telemetry. LUNGS: Absence of any rales, rhonchi or any wheezing. CARDIOVASCULAR: Regular. S1 and S2 normal. No appreciable rubs, murmurs or gallops. ABDOMEN: Soft, nontender, and nondistended. There is no rebound, voluntary guarding, or rigidity. : Deferred. +Rivera. EXTREMITIES: Right BKA Non-edematous and not cyanotic. No clubbing. Good capillary refill. SKIN: No skin breakdown. Vital Signs (last 8hr) Date Time Temp Pulse Resp B/P (MAP) Pulse Ox O2 Delivery O2 Flow Rate FiO2 12/06/24 16:43 98.6 93 16 163/95 97 Room Air 12/06/24 12:29 98.6 91 20 160/93 99 Room Air LABS: Laboratory: Test 12/06/24 15:36 12/06/24 04:02 12/05/24 05:18 12/04/24 19:07 Range/Units Whole Blood Glucose 148 H 70-110 MG/DL Bedside Glucose Comment Notified Nurse White Blood Count 6.8 4.8-10.8 K/uL Red Blood Count 3.04 L 4.00-5.50 MIL/uL Hemoglobin 8.9 L 12.0-16.0 g/dL Hematocrit 26.2 L 36-48 % Mean Corpuscular Volume 86.2 79-99 fL Mean Corpuscular Hemoglobin 29.3 27.0-33.0 pg Mean Corpuscular Hemoglobin Concent 34.0 32.0-36.0 g/dL Red Cell Distribution Width 13.4 11.0-15.5 % Platelet Count 167 130-400 K/uL Mean Platelet Volume 9.7 7.5-10.5 fL Immature Granulocyte % (Auto) 0.6 0-1 % Neutrophils (%) (Auto) 51.0 40.0-77.0 % Lymphocytes (%) (Auto) 28.6 21.0-51.0 % Monocytes (%) (Auto) 8.1 3.0-13.0 % Eosinophils (%) (Auto) 11.0 H 0.0-8.0 % Basophils (%) (Auto) 0.7 0.0-5.0 % Neutrophils # (Auto) 3.4 1.8-7.7 K/uL Lymphocytes # (Auto) 1.9 1.0-4.8 K/uL Monocytes # (Auto) 0.6 0.1-1.0 K/uL Eosinophils # (Auto) 0.74 H 0.00-0.70 K/uL Basophils # (Auto) 0.05 0.00-0.20 K/uL Absolute Immature Granulocyte (auto 0.04 0-1 K/uL Nucleated Red Blood Cells 0.0 0.0-0.19 % Sodium Level 139 136-145 mmol/L Potassium Level 4.5 3.5-5.1 mmol/L Chloride Level 108 101-111 mmol/L Carbon Dioxide Level 21 21-32 mmol/L Blood Urea Nitrogen 56 H 7-18 mg/dL Creatinine 6.2 H 0.5-1.0 mg/dL Glomerular Filtration Rate Calc 8 >90 mL/min Random Glucose 131 H 70-105 mg/dL Total Calcium 7.3 L 8.5-10.1 mg/dL Phosphorus Level 6.8 H 2.5-4.9 mg/dL Magnesium Level 1.70 L 1.80-2.40 mg/dL Total Bilirubin 0.3 0.2-1.0 mg/dL Aspartate Amino Transf (AST/SGOT) 16 10-37 U/L Alanine Aminotransferase (ALT/SGPT) 15 # 12-78 U/L Alkaline Phosphatase 68 50-136 U/L Total Protein 5.7 L 6.0-8.3 g/dL Albumin 1.8 L 3.5-5.0 g/dL Segmented Neutrophils % 53 40-70 % Band Neutrophils % 1 0-2 % Lymphocytes % (Manual) 29 22-44 % Monocytes % (Manual) 4 2-9 % Eosinophils % (Manual) 8 H 1-6 % Basophils % (Manual) 1 0-2 % Differential Comment MANUAL DIFFERENTIAL Reactive Lymphocytes 4 H 0-0 % White Cell Morphology Comment REACTIVE LYMPHS 1+ Platelet Morphology Comment ADEQUATE Red Blood Cell Morphology See comments Free Thyroxine (T4) Direct 0.87 0.76-1.46 ng/dL Free Triiodothyronine (T3) pg/mL 1.71 L 2.18-3.98 pg/mL Current Medications Medications (Trade) Dose Ordered Sig/Deanna Route PRN Reason Start Time Stop Time Status Last Admin Dose Admin Acetaminophen (TYLenol 325MG TAB) 650 mg Q4H PRN PO MILD PAIN (1-3) 12/03/24 21:30 01/02/25 21:29 Acetaminophen (TYLenol 325MG TAB) 650 mg Q6H PRN PO TEMPERATURE GREATER THAN 101.5 12/03/24 21:30 01/02/25 21:29 Acetaminophen/ Hydrocodone Bitart (NORco 5/325MG) 1 tab Q6H PRN PO MODERATE PAIN (4-6) 12/03/24 23:30 12/08/24 23:29 12/06/24 16:38 1 TAB Ceftriaxone Sodium (ROCEphine 1G INJ) 1 gm Q24H IV 12/03/24 21:30 12/13/24 21:29 12/05/24 20:19 1 GM Dextrose (D50w) 50 ml AD PRN IV HYPOGLYCEMIA PROTOCOL 12/03/24 21:30 01/02/25 21:29 Famotidine (Pepcid 20mg Tab) 20 mg Q48H PO 12/03/24 23:00 01/02/25 22:59 12/05/24 23:25 20 MG Glucagon (Glucagon 1mg Kit) 1 mg AD PRN IM HYPOGLYCEMIA PROTOCOL 12/03/24 21:30 01/02/25 21:29 Hydralazine HCl (APRESOLine 20MG INJ) 10 mg Q6H PRN IV ADMINISTER FOR SBP > 160 12/04/24 23:30 01/03/25 23:29 12/04/24 23:50 10 MG Hydromorphone HCl (DiLAUDid 0.5MG INJ) 0.2 mg Q6H IVP 12/04/24 19:30 12/06/24 11:05 DC 12/06/24 06:43 0.2 MG Hydromorphone HCl (DiLAUDid 0.5MG INJ) 0.2 mg Q6H IVP 12/06/24 13:30 12/11/24 13:29 12/06/24 14:27 0.2 MG Hydromorphone HCl (DiLAUDid 0.5MG INJ) 0.5 mg Q6H IVP 12/06/24 13:30 12/06/24 11:15 DC Insulin Human Regular (humuLIN R 100 UNIT/ML 3ML) INSULIN SLIDING SCAL... ACHS SQ 12/04/24 07:30 01/03/25 07:29 12/06/24 12:23 2 UNIT Magnesium Sulfate 50 ml @ 0 mls/hr PROTOCOL PRN IV CKD 12/04/24 18:00 01/03/25 17:59 Ondansetron HCl (zoFRAN 4MG INJ) 4 mg Q6H PRN IV NAUSEA/VOMITING 12/03/24 21:30 01/02/25 21:29 12/04/24 12:59 4 MG Potassium Chloride 100 ml @ 50 mls/hr AD PRN IV POTASSIUM PROTOCOL 12/04/24 18:00 01/03/25 17:59 Sevelamer HCl (RENAgel 800 MG TAB) 800 mg TIDMEALS PO 12/06/24 12:00 01/05/25 11:59 12/06/24 12:18 800 MG Vitamin B Complex/ Vit C/Folic Acid (Nephrovite Tablet) 1 cap DAILY PO 12/05/24 09:00 01/04/25 08:59 12/06/24 08:27 1 CAP DIAGNOSTICS / RADIOLOGY: [ ] ASSESSMENT: Acute pyelonephritis POA Acute on chronic kidney disease stage 5 not on hemodialysis POA Hyperkalemia POA Acute normocytic normochromic anemia Hypertension POA Uncontrolled diabetes POA Chronic Rivera use POA PLAN: Pyelonephritis with bilateral perinephric fat stranding Continue ceftriaxone1 g IV Q 24 H. Await urine culture results. Maintain Rivera catheter care. Hydration to optimize renal function. Chronic kidney disease stage 5 not on dialysis We will admit patient in medical telemetry We will start on renal nondialysis diet Nephrology consult active Monitor renal function electrolytes daily with CBC, CMP, uric acid, TSH, electrolytes 1.5 L fluid restriction For hyperkalemia equal to greater than 6.5 Give calcium gluconate once, Lokelma 10 g p.o. once Monitor EKG for arrhythmia Strict I/O monitoring Daily weights SCDs for DVT prophylaxis. Hypertension Monitor BP closely Adjust antihypertensive therapy if needed Prophylaxis and supportive care We will start on Famotidine 20 mg q.48h POA for GI prophylaxis We will start on insulin sliding scale AC & HS with hypoglycemia protocol We will add prn medication for fever,pain,cough, nausea and vomiting We will reconcile home meds once medlist available We will request labs in am Further orders to follow depending on above results Case discussed with attending physician and came up with above treatment and plan of care. SHELLY HARTLEY MD Dec 06, 2024 16:54
--- NOTE | 2024-12-06 19:42 | PN ---
FOLLOWUP PROGRESS NOTE SUBJECTIVE: A 39-year-old female with a history of diabetes mellitus and hypertension. She has a history of neurogenic bladder, status post Rivera catheter placement. The patient admitted to the hospital and found to have urinary tract infection. The patient's Rivera catheter was exchanged. She does have advanced renal dysfunction with an elevated BUN and creatinine, and the patient is being seen for all the above. She remains on the antibiotics. REVIEW OF SYSTEMS: CONSTITUTIONAL: She is feeling improved since admission. HEENT: No change in vision. No change in hearing. CARDIOVASCULAR: There is no current chest pain or palpitations. PULMONARY: Denies any shortness of breath. GASTROINTESTINAL: She is tolerating a diet. MUSCULOSKELETAL: Complains of weakness. PHYSICAL EXAMINATION: VITAL SIGNS: Blood pressure is 130/98, pulse in the 80s. GENERAL: Chronically ill female, much older than appearing. HEENT: Head is atraumatic. Pupils equal, roving to light. Oropharynx is without exudate. Nares clear. NECK: There is no JVP. There is no thyromegaly, no mass. CARDIOVASCULAR: Regular. There is no S3, S4 gallop. LUNGS: Coarse with equal thoracic movement. ABDOMEN: Soft, nondistended, nontender. EXTREMITIES: Reveal no clubbing, no cyanosis. NEUROLOGIC: She is awake. She is alert. LABORATORY DATA: Sodium 139, potassium 4.5, BUN 56, creatinine 6. Hemoglobin 8.9, hematocrit 26. Urine culture is noted. IMPRESSION: * Acute on chronic renal dysfunction. * History of urinary tract infection. * Neurogenic bladder. * Hyperphosphatemia. PLAN: The patient does have advanced renal dysfunction. There is no acute need for any form of renal replacement therapy at this time. The patient will be given a one-time dose of Diflucan for the underlying yeast infection. The patient will be started on Renvela for the hyperphosphatemia. All labs can be repeated in the morning. The patient with multiple questions, all of which were answered. TID: [id number] RECEIPT: [id number]
[2024-12-07] VITALS (7 sets, daily range): BP systolic 146–179; BP diastolic 85–98; PULSE 85–93; RESP 18–20; TEMP 97.8–98.9; O2SAT 97
[2024-12-07 04:17] LABS: BASOPHILS # (AUTO) 0.07 K/uL (0.00-0.20); BASOPHILS % (AUTO) 0.8 % (0.0-5.0); EOSINOPHILS # (AUTO) 0.77 K/uL (0.00-0.70); EOSINOPHILS % (AUTO) 9.3 % (0.0-8.0); HEMATOCRIT 28.6 % (36-48); IMMATURE GRANULOCYTE ABSOLUTE 0.05 K/uL (0-1); LYMPHOCYTES % (AUTO) 23.6 % (21.0-51.0); MEAN CORPUSCULAR HEMOGLOBIN 28.5 pg (27.0-33.0); MEAN CORPUSCULAR HGB CONC 33.2 g/dL (32.0-36.0); MEAN CORPUSCULAR VOLUME 85.9 fL (79-99); MONOCYTES # (AUTO) 0.6 K/uL (0.1-1.0); MONOCYTES % (AUTO) 6.9 % (3.0-13.0); NEUTROPHILS # (AUTO) 4.9 K/uL (1.8-7.7); NEUTROPHILS % (AUTO) 58.8 % (40.0-77.0); PLATELET COUNT (AUTO) 183 K/uL (130-400); RED BLOOD CELL COUNT(AUTO) 3.33 MIL/uL (4.00-5.50); RED CELL DISTRIBUTION WIDTH 13.4 % (11.0-15.5); WHITE BLOOD COUNT (AUTO) 8.3 K/uL (4.8-10.8)
[2024-12-07 04:46] LABS: ALBUMIN 1.9 g/dL (3.5-5.0); BILIRUBIN,TOTAL 0.3 mg/dL (0.2-1.0); MAGNESIUM 1.7 mg/dL (1.80-2.40); POTASSIUM 4.5 mmol/L (3.5-5.1); TOTAL PROTEIN, SERUM 6.2 g/dL (6.0-8.3)
--- NOTE | 2024-12-07 16:10 | PN ---
[facility] PROGRESS NOTE Date of Service: Dec 07, 2024 Time of Service: 16:09 SUBJECTIVE: This is a 39-year-old female with past medical history of diabetes, neurogenic bladder requiring chronic Rivera catheter use, chronic kidney disease not on hemodialysis, UTI who was brought by EMS to the ED for complaints of suprapubic pain which radiates to her right lower back started today around 2:00 p.m. patient also reports having nausea but no vomiting. Patient states she has a chronic Rivera catheter has been changed in this facility five days ago. Seen and examined patient in the ER awake alert and coherent appears uncomfortable. Patient denies fever, chills, vomiting, chest pain, palpitation and shortness of breaths. Latest vital signs temperature 98.4, heart rate 92, blood pressure 147/96, saturation 99% on room air. Labs: Hemoglobin 11.7, hematocrit 34 platelet count 192. Chemistry sodium 134, potassium 5.6, carbon dioxide 20, BUN 52 creatinine 5.5 GFR 10 glucose 190 total calcium 7.7 troponin 34 serum test negative. Urinalysis remarkable for protein, glucose, occult blood, urine RBC 26-50 urine WBC 2-[address] abdomen and pelvis without contrast result revealed gallstones are seen in the gallbladder. There are bilateral perinephric fat stranding may be related to pyelonephritis. . While in the ER patient received calcium gluconate, Lokelma 10 g p.o., Zofran 4 mg IV and Dilaudid 0.5 mg IV. ER called and recommended to admit the patient. December 04, 2024 While in the ER, I have examined the patient at bedside. Discuss the case with RN. She found to have hyperkalemia potassium of 6.5, worsening renal failure BUN and creatinine of 5.5, and bilateral perinephric stranding on CT abdomen suggestive of pyelonephritis. Nephrology was consulted for renal failure and hyperkalemia management. Rivera catheter is now draining and is now functional after being flushed at bedside. Patient remains in significant discomfort due to back pain. Nephrology assess the patient and determined that patient is hesitant to start renal replacement therapy. Prognosis remains guarded. 12/05/24 patient was seen and examined. Denies any fever or chills. She does have some mild lower abdominal pain 12/06/24 patient was seen and examined at significant bladder pain despite being on Dilaudid. Examination showed that there is a lot of sediment the Rivera. This was exchanged with significant amount of urine output and resolution of pain. She was doing better now and denies nausea vomiting fever chills 12/07/24 patient was seen and examined. No more bladder pain. Appreciate Nephrology help. We will recheck labs in a.m. and await their final plan REVIEW OF SYSTEMS CONSTITUTIONAL: Denies fevers, chills, or night sweats. No unintentional weight loss reported. NEUROLOGICAL: Denies headache, amaurosis fugax, motor weakness, sensory deficit, vertigo/spinning sensation, gait abnormalities, or tremors. ENT: No hearing loss, otalgia, otorrhea, rhinitis, rhinorrhea, hoarseness, or sore throat. CARDIOVASCULAR: Denies any exertional angina, dyspnea on exertion, orthopnea, paroxysmal nocturnal dyspnea, palpitations, life-threatening arrhythmias, claudication. PULMONARY: Denies any shortness of breath, cough, phlegm/sputum, hemoptysis, pleuritic chest pain. SLEEP: Denies morning headaches, daytime somnolence or napping. Denies difficulty falling asleep, staying asleep, waking from sleep. Denies knowledge of snoring. GASTROINTESTINAL: Denies any type of dysphagia to either liquids or solids. Denies nausea, vomiting, pyrosis, early satiety, abdominal pain, diarrhea, constipation, or changes in stool consistency or caliber. Denies coffee-ground emesis, hematemesis, hematochezia, or melanotic stools. GENITOURINARY: suprapubic pain which radiates to the right lower back Denies frequency, urgency, nocturia, hematuria or incontinence (Storage/Irritative symptoms.) Low urinary stream, straining to void, urinary intermittency or hesitancy, splitting of the voiding stream, terminal dribbling. ENDOCRINOLOGIC: Denies polyuria, polydipsia, polyphagia or heat/cold intolerances. HEMATOLOGIC: Denies thrombophilia/previous clots, or coagulopathy/bleeding disorders. ONCOLOGIC: Denies personal history of malignancy. DERMATOLOGIC: Denies rashes or pruritus. PSYCHIATRIC: Denies any suicidal or homicidal ideation. Denies hallucinations. PHYSICAL EXAM GENERAL APPEARANCE: The patient is awake, alert, and oriented, in no acute cardiopulmonary distress. NEUROLOGICAL: Cranial nerves II-XII grossly intact. Motor is 5/5 in bilateral upper and lower extremities proximal to distal. No sensory deficits. HEENT: Face is symmetric. Pupils are equal and reactive. Extraocular movements are intact. NECK: Supple. No JVD. No thyromegaly. No submental, submandibular, pre-/postauricular, occipital or supraclavicular lymphadenopathy. CHEST: Normal chest expansion. No Telemetry. LUNGS: Absence of any rales, rhonchi or any wheezing. CARDIOVASCULAR: Regular. S1 and S2 normal. No appreciable rubs, murmurs or gallops. ABDOMEN: Soft, nontender, and nondistended. There is no rebound, voluntary guarding, or rigidity. : Deferred. +Rivera. EXTREMITIES: Right BKA Non-edematous and not cyanotic. No clubbing. Good capillary refill. SKIN: No skin breakdown. Vital Signs (last 8hr) Date Time Temp Pulse Resp B/P (MAP) Pulse Ox O2 Delivery O2 Flow Rate FiO2 12/07/24 12:00 98.8 93 18 146/85 99 Room Air LABS: Laboratory: Test 12/07/24 11:27 12/07/24 03:50 12/06/24 15:36 Range/Units Whole Blood Glucose 136 H 70-110 MG/DL White Blood Count 8.3 4.8-10.8 K/uL Red Blood Count 3.33 L 4.00-5.50 MIL/uL Hemoglobin 9.5 L 12.0-16.0 g/dL Hematocrit 28.6 L 36-48 % Mean Corpuscular Volume 85.9 79-99 fL Mean Corpuscular Hemoglobin 28.5 27.0-33.0 pg Mean Corpuscular Hemoglobin Concent 33.2 32.0-36.0 g/dL Red Cell Distribution Width 13.4 11.0-15.5 % Platelet Count 183 130-400 K/uL Mean Platelet Volume 9.8 7.5-10.5 fL Immature Granulocyte % (Auto) 0.6 0-1 % Neutrophils (%) (Auto) 58.8 40.0-77.0 % Lymphocytes (%) (Auto) 23.6 21.0-51.0 % Monocytes (%) (Auto) 6.9 3.0-13.0 % Eosinophils (%) (Auto) 9.3 H 0.0-8.0 % Basophils (%) (Auto) 0.8 0.0-5.0 % Neutrophils # (Auto) 4.9 1.8-7.7 K/uL Lymphocytes # (Auto) 2.0 1.0-4.8 K/uL Monocytes # (Auto) 0.6 0.1-1.0 K/uL Eosinophils # (Auto) 0.77 H 0.00-0.70 K/uL Basophils # (Auto) 0.07 0.00-0.20 K/uL Absolute Immature Granulocyte (auto 0.05 0-1 K/uL Nucleated Red Blood Cells 0.0 0.0-0.19 % Sodium Level 137 136-145 mmol/L Potassium Level 4.5 3.5-5.1 mmol/L Chloride Level 106 101-111 mmol/L Carbon Dioxide Level 21 21-32 mmol/L Blood Urea Nitrogen 55 H 7-18 mg/dL Creatinine 6.0 H 0.5-1.0 mg/dL Glomerular Filtration Rate Calc 9 >90 mL/min Random Glucose 109 H 70-105 mg/dL Total Calcium 7.4 L 8.5-10.1 mg/dL Phosphorus Level 6.0 H 2.5-4.9 mg/dL Magnesium Level 1.70 L 1.80-2.40 mg/dL Total Bilirubin 0.3 0.2-1.0 mg/dL Aspartate Amino Transf (AST/SGOT) 17 10-37 U/L Alanine Aminotransferase (ALT/SGPT) 14 12-78 U/L Alkaline Phosphatase 65 50-136 U/L Total Protein 6.2 6.0-8.3 g/dL Albumin 1.9 L 3.5-5.0 g/dL Bedside Glucose Comment Notified Nurse Current Medications Medications (Trade) Dose Ordered Sig/Deanna Route PRN Reason Start Time Stop Time Status Last Admin Dose Admin Acetaminophen (TYLenol 325MG TAB) 650 mg Q4H PRN PO MILD PAIN (1-3) 12/03/24 21:30 01/02/25 21:29 Acetaminophen (TYLenol 325MG TAB) 650 mg Q6H PRN PO TEMPERATURE GREATER THAN 101.5 12/03/24 21:30 01/02/25 21:29 Acetaminophen/ Hydrocodone Bitart (NORco 5/325MG) 1 tab Q6H PRN PO MODERATE PAIN (4-6) 12/03/24 23:30 12/08/24 23:29 12/07/24 13:24 1 TAB Ceftriaxone Sodium (ROCEphine 1G INJ) 1 gm Q24H IV 12/03/24 21:30 12/13/24 21:29 12/06/24 20:49 1 GM Dextrose (D50w) 50 ml AD PRN IV HYPOGLYCEMIA PROTOCOL 12/03/24 21:30 01/02/25 21:29 Famotidine (Pepcid 20mg Tab) 20 mg Q48H PO 12/03/24 23:00 01/02/25 22:59 12/05/24 23:25 20 MG Glucagon (Glucagon 1mg Kit) 1 mg AD PRN IM HYPOGLYCEMIA PROTOCOL 12/03/24 21:30 01/02/25 21:29 Hydralazine HCl (APRESOLine 20MG INJ) 10 mg Q6H PRN IV ADMINISTER FOR SBP > 160 12/04/24 23:30 01/03/25 23:29 12/06/24 20:02 10 MG Hydromorphone HCl (DiLAUDid 0.5MG INJ) 0.2 mg Q6H IVP 12/04/24 19:30 12/06/24 11:05 DC 12/06/24 06:43 0.2 MG Hydromorphone HCl (DiLAUDid 0.5MG INJ) 0.2 mg Q6H IVP 12/06/24 13:30 12/11/24 13:29 12/07/24 09:19 0.2 MG Hydromorphone HCl (DiLAUDid 0.5MG INJ) 0.5 mg Q6H IVP 12/06/24 13:30 12/06/24 11:15 DC Insulin Human Regular (humuLIN R 100 UNIT/ML 3ML) INSULIN SLIDING SCAL... ACHS SQ 12/04/24 07:30 01/03/25 07:29 12/06/24 12:23 2 UNIT Magnesium Sulfate 50 ml @ 0 mls/hr PROTOCOL PRN IV CKD 12/04/24 18:00 01/03/25 17:59 Ondansetron HCl (zoFRAN 4MG INJ) 4 mg Q6H PRN IV NAUSEA/VOMITING 12/03/24 21:30 01/02/25 21:29 12/07/24 09:29 4 MG Potassium Chloride 100 ml @ 50 mls/hr AD PRN IV POTASSIUM PROTOCOL 12/04/24 18:00 01/03/25 17:59 Sevelamer HCl (RENAgel 800 MG TAB) 800 mg TIDMEALS PO 12/06/24 12:00 01/05/25 11:59 12/07/24 13:20 800 MG Vitamin B Complex/ Vit C/Folic Acid (Nephrovite Tablet) 1 cap DAILY PO 12/05/24 09:00 01/04/25 08:59 12/07/24 09:19 1 CAP DIAGNOSTICS / RADIOLOGY: [ ] ASSESSMENT: Acute pyelonephritis POA Acute on chronic kidney disease stage 5 not on hemodialysis POA Hyperkalemia POA Acute normocytic normochromic anemia Hypertension POA Uncontrolled diabetes POA Chronic Rivera use POA PLAN: Pyelonephritis with bilateral perinephric fat stranding Continue ceftriaxone1 g IV Q 24 H. Await urine culture results. Maintain Rivera catheter care. Hydration to optimize renal function. Chronic kidney disease stage 5 not on dialysis We will admit patient in medical telemetry We will start on renal nondialysis diet Nephrology consult active Monitor renal function electrolytes daily with CBC, CMP, uric acid, TSH, electrolytes 1.5 L fluid restriction For hyperkalemia equal to greater than 6.5 Give calcium gluconate once, Lokelma 10 g p.o. once Monitor EKG for arrhythmia Strict I/O monitoring Daily weights SCDs for DVT prophylaxis. Hypertension Monitor BP closely Adjust antihypertensive therapy if needed Prophylaxis and supportive care We will start on Famotidine 20 mg q.48h POA for GI prophylaxis We will start on insulin sliding scale AC & HS with hypoglycemia protocol We will add prn medication for fever,pain,cough, nausea and vomiting We will reconcile home meds once medlist available We will request labs in am Further orders to follow depending on above results Case discussed with attending physician and came up with above treatment and plan of care. SHELLY HARTLEY MD Dec 07, 2024 16:10
--- NOTE | 2024-12-07 19:37 | PN ---
FOLLOWUP PROGRESS NOTE SUBJECTIVE: A 39-year-old female has a history of known advanced renal dysfunction. She has a history of a neurogenic bladder with a Rivera catheter in place. The patient initially presented, found to have acute on chronic renal failure, as well as urinary tract infection. The patient remains on the antibiotics. The patient's urine output did improve overnight. She is being seen as a followup visit for all of the above. REVIEW OF SYSTEMS: GENERAL: She is feeling somewhat improved. HEENT: No change in vision. No change in hearing. CARDIOVASCULAR: There is no current chest pain or palpitations. PULMONARY: There is no shortness of breath. GASTROINTESTINAL: The patient is tolerating a diet. MUSCULOSKELETAL: Complains of weakness. PHYSICAL EXAMINATION: VITAL SIGNS: Blood pressure 148/95, pulse 80s. GENERAL: Chronically ill female lying in bed on the medical floor. HEENT: Head is atraumatic. Pupils equal, roving to light. Oropharynx is without exudate. Nares clear. NECK: There is no JVP. There is no thyromegaly, no mass. CARDIOVASCULAR: Regular. There is no S3, S4 gallop. LUNGS: Coarse with equal thoracic movement. ABDOMEN: Soft, nondistended, nontender. EXTREMITIES: Reveal no clubbing, no cyanosis. NEUROLOGIC: She is awake. She is alert. LABORATORY DATA: Hemoglobin 9.5, hematocrit 28, white cell count 8000. BUN 55, creatinine 6. IMPRESSION: * Acute on chronic renal failure. * Neurogenic bladder. * Diabetes mellitus. * Hypertension. PLAN: The patient's creatinine did somewhat stabilize overnight. She does have advanced renal dysfunction. The patient remains on the antibiotics as prescribed. There is no acute need for renal replacement therapy at this time. We will continue to follow the chemistries closely. The patient with multiple questions, all of which were answered. TID: [id number] RECEIPT: [id number]
[2024-12-08] VITALS (8 sets, daily range): BP systolic 127–194; BP diastolic 77–99; PULSE 84–98; RESP 18–20; TEMP 98.3–98.8; O2SAT 96
--- NOTE | 2024-12-08 09:35 | PN ---
[facility] PROGRESS NOTE Date of Service: Dec 08, 2024 Time of Service: 09:35 SUBJECTIVE: This is a 39-year-old female with past medical history of diabetes, neurogenic bladder requiring chronic Rivera catheter use, chronic kidney disease not on hemodialysis, UTI who was brought by EMS to the ED for complaints of suprapubic pain which radiates to her right lower back started today around 2:00 p.m. patient also reports having nausea but no vomiting. Patient states she has a chronic Rivera catheter has been changed in this facility five days ago. Seen and examined patient in the ER awake alert and coherent appears uncomfortable. Patient denies fever, chills, vomiting, chest pain, palpitation and shortness of breaths. Latest vital signs temperature 98.4, heart rate 92, blood pressure 147/96, saturation 99% on room air. Labs: Hemoglobin 11.7, hematocrit 34 platelet count 192. Chemistry sodium 134, potassium 5.6, carbon dioxide 20, BUN 52 creatinine 5.5 GFR 10 glucose 190 total calcium 7.7 troponin 34 serum test negative. Urinalysis remarkable for protein, glucose, occult blood, urine RBC 26-50 urine WBC 2-[address] abdomen and pelvis without contrast result revealed gallstones are seen in the gallbladder. There are bilateral perinephric fat stranding may be related to pyelonephritis. . While in the ER patient received calcium gluconate, Lokelma 10 g p.o., Zofran 4 mg IV and Dilaudid 0.5 mg IV. ER called and recommended to admit the patient. December 04, 2024 While in the ER, I have examined the patient at bedside. Discuss the case with RN. She found to have hyperkalemia potassium of 6.5, worsening renal failure BUN and creatinine of 5.5, and bilateral perinephric stranding on CT abdomen suggestive of pyelonephritis. Nephrology was consulted for renal failure and hyperkalemia management. Rivera catheter is now draining and is now functional after being flushed at bedside. Patient remains in significant discomfort due to back pain. Nephrology assess the patient and determined that patient is hesitant to start renal replacement therapy. Prognosis remains guarded. 12/05/24 patient was seen and examined. Denies any fever or chills. She does have some mild lower abdominal pain 12/06/24 patient was seen and examined at significant bladder pain despite being on Dilaudid. Examination showed that there is a lot of sediment the Rivera. This was exchanged with significant amount of urine output and resolution of pain. She was doing better now and denies nausea vomiting fever chills 12/07/24 patient was seen and examined. No more bladder pain. Appreciate Nephrology help. We will recheck labs in a.m. and await their final plan REVIEW OF SYSTEMS CONSTITUTIONAL: Denies fevers, chills, or night sweats. No unintentional weight loss reported. NEUROLOGICAL: Denies headache, amaurosis fugax, motor weakness, sensory deficit, vertigo/spinning sensation, gait abnormalities, or tremors. ENT: No hearing loss, otalgia, otorrhea, rhinitis, rhinorrhea, hoarseness, or sore throat. CARDIOVASCULAR: Denies any exertional angina, dyspnea on exertion, orthopnea, paroxysmal nocturnal dyspnea, palpitations, life-threatening arrhythmias, claudication. PULMONARY: Denies any shortness of breath, cough, phlegm/sputum, hemoptysis, pleuritic chest pain. SLEEP: Denies morning headaches, daytime somnolence or napping. Denies difficulty falling asleep, staying asleep, waking from sleep. Denies knowledge of snoring. GASTROINTESTINAL: Denies any type of dysphagia to either liquids or solids. Denies nausea, vomiting, pyrosis, early satiety, abdominal pain, diarrhea, constipation, or changes in stool consistency or caliber. Denies coffee-ground emesis, hematemesis, hematochezia, or melanotic stools. GENITOURINARY: suprapubic pain which radiates to the right lower back Denies frequency, urgency, nocturia, hematuria or incontinence (Storage/Irritative symptoms.) Low urinary stream, straining to void, urinary intermittency or hesitancy, splitting of the voiding stream, terminal dribbling. ENDOCRINOLOGIC: Denies polyuria, polydipsia, polyphagia or heat/cold intolerances. HEMATOLOGIC: Denies thrombophilia/previous clots, or coagulopathy/bleeding disorders. ONCOLOGIC: Denies personal history of malignancy. DERMATOLOGIC: Denies rashes or pruritus. PSYCHIATRIC: Denies any suicidal or homicidal ideation. Denies hallucinations. PHYSICAL EXAM GENERAL APPEARANCE: The patient is awake, alert, and oriented, in no acute cardiopulmonary distress. NEUROLOGICAL: Cranial nerves II-XII grossly intact. Motor is 5/5 in bilateral upper and lower extremities proximal to distal. No sensory deficits. HEENT: Face is symmetric. Pupils are equal and reactive. Extraocular movements are intact. NECK: Supple. No JVD. No thyromegaly. No submental, submandibular, pre-/postauricular, occipital or supraclavicular lymphadenopathy. CHEST: Normal chest expansion. No Telemetry. LUNGS: Absence of any rales, rhonchi or any wheezing. CARDIOVASCULAR: Regular. S1 and S2 normal. No appreciable rubs, murmurs or gallops. ABDOMEN: Soft, nontender, and nondistended. There is no rebound, voluntary guarding, or rigidity. : Deferred. +Rivera. EXTREMITIES: Right BKA Non-edematous and not cyanotic. No clubbing. Good capillary refill. SKIN: No skin breakdown. Vital Signs (last 8hr) Date Time Temp Pulse Resp B/P (MAP) Pulse Ox O2 Delivery O2 Flow Rate FiO2 12/08/24 08:00 98.8 98 18 149/80 96 Room Air 12/08/24 06:23 91 152/82 12/08/24 04:00 98.8 91 18 194/99 99 Room Air 21 LABS: Laboratory: Test 12/08/24 05:43 12/07/24 03:50 12/06/24 15:36 Range/Units Whole Blood Glucose 109 70-110 MG/DL White Blood Count 8.3 4.8-10.8 K/uL Red Blood Count 3.33 L 4.00-5.50 MIL/uL Hemoglobin 9.5 L 12.0-16.0 g/dL Hematocrit 28.6 L 36-48 % Mean Corpuscular Volume 85.9 79-99 fL Mean Corpuscular Hemoglobin 28.5 27.0-33.0 pg Mean Corpuscular Hemoglobin Concent 33.2 32.0-36.0 g/dL Red Cell Distribution Width 13.4 11.0-15.5 % Platelet Count 183 130-400 K/uL Mean Platelet Volume 9.8 7.5-10.5 fL Immature Granulocyte % (Auto) 0.6 0-1 % Neutrophils (%) (Auto) 58.8 40.0-77.0 % Lymphocytes (%) (Auto) 23.6 21.0-51.0 % Monocytes (%) (Auto) 6.9 3.0-13.0 % Eosinophils (%) (Auto) 9.3 H 0.0-8.0 % Basophils (%) (Auto) 0.8 0.0-5.0 % Neutrophils # (Auto) 4.9 1.8-7.7 K/uL Lymphocytes # (Auto) 2.0 1.0-4.8 K/uL Monocytes # (Auto) 0.6 0.1-1.0 K/uL Eosinophils # (Auto) 0.77 H 0.00-0.70 K/uL Basophils # (Auto) 0.07 0.00-0.20 K/uL Absolute Immature Granulocyte (auto 0.05 0-1 K/uL Nucleated Red Blood Cells 0.0 0.0-0.19 % Sodium Level 137 136-145 mmol/L Potassium Level 4.5 3.5-5.1 mmol/L Chloride Level 106 101-111 mmol/L Carbon Dioxide Level 21 21-32 mmol/L Blood Urea Nitrogen 55 H 7-18 mg/dL Creatinine 6.0 H 0.5-1.0 mg/dL Glomerular Filtration Rate Calc 9 >90 mL/min Random Glucose 109 H 70-105 mg/dL Total Calcium 7.4 L 8.5-10.1 mg/dL Phosphorus Level 6.0 H 2.5-4.9 mg/dL Magnesium Level 1.70 L 1.80-2.40 mg/dL Total Bilirubin 0.3 0.2-1.0 mg/dL Aspartate Amino Transf (AST/SGOT) 17 10-37 U/L Alanine Aminotransferase (ALT/SGPT) 14 12-78 U/L Alkaline Phosphatase 65 50-136 U/L Total Protein 6.2 6.0-8.3 g/dL Albumin 1.9 L 3.5-5.0 g/dL Bedside Glucose Comment Notified Nurse Current Medications Medications (Trade) Dose Ordered Sig/Deanna Route PRN Reason Start Time Stop Time Status Last Admin Dose Admin Acetaminophen (TYLenol 325MG TAB) 650 mg Q4H PRN PO MILD PAIN (1-3) 12/03/24 21:30 01/02/25 21:29 Acetaminophen (TYLenol 325MG TAB) 650 mg Q6H PRN PO TEMPERATURE GREATER THAN 101.5 12/03/24 21:30 01/02/25 21:29 Acetaminophen/ Hydrocodone Bitart (NORco 5/325MG) 1 tab Q6H PRN PO MODERATE PAIN (4-6) 12/03/24 23:30 12/08/24 23:29 12/08/24 09:13 1 TAB Ceftriaxone Sodium (ROCEphine 1G INJ) 1 gm Q24H IV 12/03/24 21:30 12/13/24 21:29 12/07/24 21:00 1 GM Dextrose (D50w) 50 ml AD PRN IV HYPOGLYCEMIA PROTOCOL 12/03/24 21:30 01/02/25 21:29 Famotidine (Pepcid 20mg Tab) 20 mg Q48H PO 12/03/24 23:00 01/02/25 22:59 12/07/24 22:21 20 MG Glucagon (Glucagon 1mg Kit) 1 mg AD PRN IM HYPOGLYCEMIA PROTOCOL 12/03/24 21:30 01/02/25 21:29 Hydralazine HCl (APRESOLine 20MG INJ) 10 mg Q6H PRN IV ADMINISTER FOR SBP > 160 12/04/24 23:30 01/03/25 23:29 12/08/24 05:08 10 MG Hydromorphone HCl (DiLAUDid 0.5MG INJ) 0.2 mg Q6H IVP 12/04/24 19:30 12/06/24 11:05 DC 12/06/24 06:43 0.2 MG Hydromorphone HCl (DiLAUDid 0.5MG INJ) 0.2 mg Q6H IVP 12/06/24 13:30 12/11/24 13:29 12/08/24 03:43 0.2 MG Hydromorphone HCl (DiLAUDid 0.5MG INJ) 0.5 mg Q6H IVP 12/06/24 13:30 12/06/24 11:15 DC Insulin Human Regular (humuLIN R 100 UNIT/ML 3ML) INSULIN SLIDING SCAL... ACHS SQ 12/04/24 07:30 01/03/25 07:29 12/06/24 12:23 2 UNIT Magnesium Sulfate 50 ml @ 0 mls/hr PROTOCOL PRN IV CKD 12/04/24 18:00 01/03/25 17:59 Ondansetron HCl (zoFRAN 4MG INJ) 4 mg Q6H PRN IV NAUSEA/VOMITING 12/03/24 21:30 01/02/25 21:29 12/08/24 09:11 4 MG Potassium Chloride 100 ml @ 50 mls/hr AD PRN IV POTASSIUM PROTOCOL 12/04/24 18:00 01/03/25 17:59 Sevelamer HCl (RENAgel 800 MG TAB) 800 mg TIDMEALS PO 12/06/24 12:00 01/05/25 11:59 12/08/24 09:02 800 MG Vitamin B Complex/ Vit C/Folic Acid (Nephrovite Tablet) 1 cap DAILY PO 12/05/24 09:00 01/04/25 08:59 12/08/24 09:02 1 CAP DIAGNOSTICS / RADIOLOGY: [ ] ASSESSMENT: Acute pyelonephritis POA Acute on chronic kidney disease stage 5 not on hemodialysis POA Hyperkalemia POA Acute normocytic normochromic anemia Hypertension POA Uncontrolled diabetes POA Chronic Rivera use POA PLAN: Pyelonephritis with bilateral perinephric fat stranding Continue ceftriaxone1 g IV Q 24 H. Await urine culture results. Maintain Rivera catheter care. Hydration to optimize renal function. Chronic kidney disease stage 5 not on dialysis We will admit patient in medical telemetry We will start on renal nondialysis diet Nephrology consult active Monitor renal function electrolytes daily with CBC, CMP, uric acid, TSH, electrolytes 1.5 L fluid restriction For hyperkalemia equal to greater than 6.5 Give calcium gluconate once, Lokelma 10 g p.o. once Monitor EKG for arrhythmia Strict I/O monitoring Daily weights SCDs for DVT prophylaxis. Hypertension Monitor BP closely Adjust antihypertensive therapy if needed Prophylaxis and supportive care We will start on Famotidine 20 mg q.48h POA for GI prophylaxis We will start on insulin sliding scale AC & HS with hypoglycemia protocol We will add prn medication for fever,pain,cough, nausea and vomiting We will reconcile home meds once medlist available We will request labs in am Further orders to follow depending on above results Case discussed with attending physician and came up with above treatment and plan of care. FATOU AN MD Dec 08, 2024 09:35
[2024-12-08] MEDS ORDERED: MAGNESIUM 2GM PREMIX 50ML 50 ML IV PRN (15:30)
--- NOTE | 2024-12-08 15:34 | PN ---
[facility] PROGRESS NOTE Date of Service: Dec 08, 2024 Time of Service: 15:30 SUBJECTIVE: This is a 39-year-old female with past medical history of diabetes, neurogenic bladder requiring chronic Rivera catheter use, chronic kidney disease not on hemodialysis, UTI who was brought by EMS to the ED for complaints of suprapubic pain which radiates to her right lower back started today around 2:00 p.m. patient also reports having nausea but no vomiting. Patient states she has a chronic Rivera catheter has been changed in this facility five days ago. Seen and examined patient in the ER awake alert and coherent appears uncomfortable. Patient denies fever, chills, vomiting, chest pain, palpitation and shortness of breaths. Latest vital signs temperature 98.4, heart rate 92, blood pressure 147/96, saturation 99% on room air. Labs: Hemoglobin 11.7, hematocrit 34 platelet count 192. Chemistry sodium 134, potassium 5.6, carbon dioxide 20, BUN 52 creatinine 5.5 GFR 10 glucose 190 total calcium 7.7 troponin 34 serum test negative. Urinalysis remarkable for protein, glucose, occult blood, urine RBC 26-50 urine WBC 2-[address] abdomen and pelvis without contrast result revealed gallstones are seen in the gallbladder. There are bilateral perinephric fat stranding may be related to pyelonephritis. . While in the ER patient received calcium gluconate, Lokelma 10 g p.o., Zofran 4 mg IV and Dilaudid 0.5 mg IV. ER called and recommended to admit the patient. December 04, 2024 While in the ER, I have examined the patient at bedside. Discuss the case with RN. She found to have hyperkalemia potassium of 6.5, worsening renal failure BUN and creatinine of 5.5, and bilateral perinephric stranding on CT abdomen suggestive of pyelonephritis. Nephrology was consulted for renal failure and hyperkalemia management. Rivera catheter is now draining and is now functional after being flushed at bedside. Patient remains in significant discomfort due to back pain. Nephrology assess the patient and determined that patient is hesitant to start renal replacement therapy. Prognosis remains guarded. 12/05/24 patient was seen and examined. Denies any fever or chills. She does have some mild lower abdominal pain 12/06/24 patient was seen and examined at significant bladder pain despite being on Dilaudid. Examination showed that there is a lot of sediment the Rivera. This was exchanged with significant amount of urine output and resolution of pain. She was doing better now and denies nausea vomiting fever chills 12/07/24 patient was seen and examined. No more bladder pain. Appreciate Nephrology help. We will recheck labs in a.m. and await their final plan 12/08/24 Patient remains hospitalized for management of CKD stage 5, urinary tract infection and pending decision on hemodialysis initiation. Urine culture is positive for Enterococcus faecalis. She has spoken with Nephrology and is pending approval for hemodialysis. The plan is to initiate hemodialysis in the hospital and place an AV fistula in the left arm for long-term dialysis access. However, the patient is hesitant to start hemodialysis due to transportation concerns for outpatient sessions. Case management is working up with her insurance to arrange transport for outpatient dialysis. Other than this, she is doing well and her overall condition remained stable. REVIEW OF SYSTEMS CONSTITUTIONAL: Denies fevers, chills, or night sweats. No unintentional weight loss reported. NEUROLOGICAL: Denies headache, amaurosis fugax, motor weakness, sensory deficit, vertigo/spinning sensation, gait abnormalities, or tremors. ENT: No hearing loss, otalgia, otorrhea, rhinitis, rhinorrhea, hoarseness, or sore throat. CARDIOVASCULAR: Denies any exertional angina, dyspnea on exertion, orthopnea, paroxysmal nocturnal dyspnea, palpitations, life-threatening arrhythmias, claudication. PULMONARY: Denies any shortness of breath, cough, phlegm/sputum, hemoptysis, pleuritic chest pain. SLEEP: Denies morning headaches, daytime somnolence or napping. Denies difficulty falling asleep, staying asleep, waking from sleep. Denies knowledge of snoring. GASTROINTESTINAL: Denies any type of dysphagia to either liquids or solids. Denies nausea, vomiting, pyrosis, early satiety, abdominal pain, diarrhea, constipation, or changes in stool consistency or caliber. Denies coffee-ground emesis, hematemesis, hematochezia, or melanotic stools. GENITOURINARY: suprapubic pain which radiates to the right lower back Denies frequency, urgency, nocturia, hematuria or incontinence (Storage/Irritative symptoms.) Low urinary stream, straining to void, urinary intermittency or hesitancy, splitting of the voiding stream, terminal dribbling. ENDOCRINOLOGIC: Denies polyuria, polydipsia, polyphagia or heat/cold intolerances. HEMATOLOGIC: Denies thrombophilia/previous clots, or coagulopathy/bleeding disorders. ONCOLOGIC: Denies personal history of malignancy. DERMATOLOGIC: Denies rashes or pruritus. PSYCHIATRIC: Denies any suicidal or homicidal ideation. Denies hallucinations. PHYSICAL EXAM GENERAL APPEARANCE: The patient is awake, alert, and oriented, in no acute cardiopulmonary distress. NEUROLOGICAL: Cranial nerves II-XII grossly intact. Motor is 5/5 in bilateral upper and lower extremities proximal to distal. No sensory deficits. HEENT: Face is symmetric. Pupils are equal and reactive. Extraocular movements are intact. NECK: Supple. No JVD. No thyromegaly. No submental, submandibular, pre- /postauricular, occipital or supraclavicular lymphadenopathy. CHEST: Normal chest expansion. No Telemetry. LUNGS: Absence of any rales, rhonchi or any wheezing. CARDIOVASCULAR: Regular. S1 and S2 normal. No appreciable rubs, murmurs or gallops. ABDOMEN: Soft, nontender, and nondistended. There is no rebound, voluntary guarding, or rigidity. : Deferred. +Rivera. EXTREMITIES: Right BKA Non-edematous and not cyanotic. No clubbing. Good capillary refill. SKIN: No skin breakdown. Vital Signs (last 8hr) Date Time Temp Pulse Resp B/P (MAP) Pulse Ox O2 Delivery O2 Flow Rate FiO2 12/08/24 12:00 98.2 93 18 127/78 98 Room Air 12/08/24 08:00 98.8 98 18 149/80 96 Room Air LABS: Laboratory: Test 12/08/24 11:08 12/07/24 03:50 12/06/24 15:36 Range/Units Whole Blood Glucose 137 H 70-110 MG/DL White Blood Count 8.3 4.8-10.8 K/uL Red Blood Count 3.33 L 4.00-5.50 MIL/uL Hemoglobin 9.5 L 12.0-16.0 g/dL Hematocrit 28.6 L 36-48 % Mean Corpuscular Volume 85.9 79-99 fL Mean Corpuscular Hemoglobin 28.5 27.0-33.0 pg Mean Corpuscular Hemoglobin Concent 33.2 32.0-36.0 g/dL Red Cell Distribution Width 13.4 11.0-15.5 % Platelet Count 183 130-400 K/uL Mean Platelet Volume 9.8 7.5-10.5 fL Immature Granulocyte % (Auto) 0.6 0-1 % Neutrophils (%) (Auto) 58.8 40.0-77.0 % Lymphocytes (%) (Auto) 23.6 21.0-51.0 % Monocytes (%) (Auto) 6.9 3.0-13.0 % Eosinophils (%) (Auto) 9.3 H 0.0-8.0 % Basophils (%) (Auto) 0.8 0.0-5.0 % Neutrophils # (Auto) 4.9 1.8-7.7 K/uL Lymphocytes # (Auto) 2.0 1.0-4.8 K/uL Monocytes # (Auto) 0.6 0.1-1.0 K/uL Eosinophils # (Auto) 0.77 H 0.00-0.70 K/uL Basophils # (Auto) 0.07 0.00-0.20 K/uL Absolute Immature Granulocyte (auto 0.05 0-1 K/uL Nucleated Red Blood Cells 0.0 0.0-0.19 % Sodium Level 137 136-145 mmol/L Potassium Level 4.5 3.5-5.1 mmol/L Chloride Level 106 101-111 mmol/L Carbon Dioxide Level 21 21-32 mmol/L Blood Urea Nitrogen 55 H 7-18 mg/dL Creatinine 6.0 H 0.5-1.0 mg/dL Glomerular Filtration Rate Calc 9 >90 mL/min Random Glucose 109 H 70-105 mg/dL Total Calcium 7.4 L 8.5-10.1 mg/dL Phosphorus Level 6.0 H 2.5-4.9 mg/dL Magnesium Level 1.70 L 1.80-2.40 mg/dL Total Bilirubin 0.3 0.2-1.0 mg/dL Aspartate Amino Transf (AST/SGOT) 17 10-37 U/L Alanine Aminotransferase (ALT/SGPT) 14 12-78 U/L Alkaline Phosphatase 65 50-136 U/L Total Protein 6.2 6.0-8.3 g/dL Albumin 1.9 L 3.5-5.0 g/dL Bedside Glucose Comment Notified Nurse Current Medications Medications (Trade) Dose Ordered Sig/Deanna Route PRN Reason Start Time Stop Time Status Last Admin Dose Admin Acetaminophen (TYLenol 325MG TAB) 650 mg Q4H PRN PO MILD PAIN (1-3) 12/03/24 21:30 01/02/25 21:29 Acetaminophen (TYLenol 325MG TAB) 650 mg Q6H PRN PO TEMPERATURE GREATER THAN 101.5 12/03/24 21:30 01/02/25 21:29 Acetaminophen/ Hydrocodone Bitart (NORco 5/325MG) 1 tab Q6H PRN PO MODERATE PAIN (4-6) 12/03/24 23:30 12/08/24 23:12/08/24 09:13 1 TAB Ceftriaxone Sodium (ROCEphine 1G INJ) 1 gm Q24H IV 12/03/24 21:30 12/13/24 21:29 12/07/24 21:00 1 GM Dextrose (D50w) 50 ml AD PRN IV HYPOGLYCEMIA PROTOCOL 12/03/24 21:30 01/02/25 21:29 Famotidine (Pepcid 20mg Tab) 20 mg Q48H PO 12/03/24 23:00 01/02/25 22:59 12/07/24 22:21 20 MG Glucagon (Glucagon 1mg Kit) 1 mg AD PRN IM HYPOGLYCEMIA PROTOCOL 12/03/24 21:30 01/02/25 21:29 Hydralazine HCl (APRESOLine 20MG INJ) 10 mg Q6H PRN IV ADMINISTER FOR SBP > 160 12/04/24 23:30 01/03/25 23:29 12/08/24 05:08 10 MG Hydromorphone HCl (DiLAUDid 0.5MG INJ) 0.2 mg Q6H IVP 12/04/24 19:30 12/06/24 11:05 DC 12/06/24 06:43 0.2 MG Hydromorphone HCl (DiLAUDid 0.5MG INJ) 0.2 mg Q6H IVP 12/06/24 13:30 12/11/24 13:29 12/08/24 14:11 0.2 MG Hydromorphone HCl (DiLAUDid 0.5MG INJ) 0.5 mg Q6H IVP 12/06/24 13:30 12/06/24 11:15 DC Insulin Human Regular (humuLIN R 100 UNIT/ML 3ML) INSULIN SLIDING SCAL... ACHS SQ 12/04/24 07:30 01/03/25 07:29 12/06/24 12:23 2 UNIT Magnesium Sulfate 50 ml @ 0 mls/hr PROTOCOL PRN IV CKD 12/04/24 18:00 01/03/25 17:59 Ondansetron HCl (zoFRAN 4MG INJ) 4 mg Q6H PRN IV NAUSEA/VOMITING 12/03/24 21:30 01/02/25 21:29 12/08/24 09:11 4 MG Potassium Chloride 100 ml @ 50 mls/hr AD PRN IV POTASSIUM PROTOCOL 12/04/24 18:00 01/03/25 17:59 Sevelamer HCl (RENAgel 800 MG TAB) 800 mg TIDMEALS PO 12/06/24 12:00 01/05/25 11:59 12/08/24 11:56 800 MG Vitamin B Complex/ Vit C/Folic Acid (Nephrovite Tablet) 1 cap DAILY PO 12/05/24 09:00 01/04/25 08:59 12/08/24 09:02 1 CAP DIAGNOSTICS / RADIOLOGY: [ ] PATIENT: DARÍO ELIAS MR#: [id number] : 1985 SEX: F AGE: 39 LOCATION: ED ORDER 57 STATUS: [facility] REPORT#: [id number] SERVICE 54 REASON: lower abd pain ORDERING PHYSICIAN: PAL CHILDS PROCEDURE: ABD PEL WO - CT ABDOMEN/PELVIS W/O CONTRAST CT ABDOMEN/PELVIS W/O CONTRAST HISTORY: Right lower abdominal pain COMPARISON: None TECHNIQUE: Multiple sequential axial images of the abdomen and pelvis were obtained from the dome of the diaphragm through symphysis pubis. Patient was not given contrast through intravenous route. Oral contrast was not given. FINDINGS: No pleural effusion is seen bilaterally. There is no evidence of parenchymal disease or pulmonary nodule of the visualized lower lungs. Degenerative changes of the thoracolumbar spine are present. The heart is not enlarged. Liver is enlarged with fatty changes measuring 18 cm. Gallstones are seen in the gallbladder. There are bilateral perinephric fat stranding may be related to pyelonephritis. Urinalysis correlation may be helpful. The liver, spleen, adrenal glands and pancreas are unremarkable. There is no evidence of hydronephrosis bilaterally. No evidence of renal stone is seen. Fecal material is seen in the colon. There are normal size retroperitoneal and mesenteric lymph nodes. No ascites is seen. Appendix is not well seen limiting evaluation. Clinical correlation is recommended. Pelvic sidewalls are symmetric bilaterally. Bladder is poorly distended with Rivera catheter. IMPRESSION: 1. Gallstones are seen in the gallbladder. There are bilateral perinephric fat stranding may be related to pyelonephritis. Urinalysis correlation may be helpful. CT was performed with one or more following dose reduction techniques: automated exposure control, adjustment of the mA and kv according to patient's size, or use of a iterative reconstruction technique. DICTATED BY: ZAY ZARAGOZA MD DATE: 12/03/242037 ELECTRONICALLY SIGNED BY: ZAY ZARAGOZA MD DATE: 12/03/242041 ASSESSMENT: Acute pyelonephritis POA Acute on chronic kidney disease stage 5 not on hemodialysis POA Hyperkalemia POA UTI, POA Acute normocytic normochromic anemia Hypertension POA Uncontrolled diabetes POA Chronic Rivera use POA PLAN: Pyelonephritis with bilateral perinephric fat stranding Continue ceftriaxone1 g IV Q 24 H. Await urine culture results. Maintain Rivera catheter care. Hydration to optimize renal function. Chronic kidney disease stage 5 not on dialysis We will admit patient in medical telemetry We will start on renal nondialysis diet Nephrology consult active Monitor renal function electrolytes daily with CBC, CMP, uric acid, TSH, electrolytes 1.5 L fluid restriction For hyperkalemia equal to greater than 6.5 Give calcium gluconate once, Lokelma 10 g p.o. once Monitor EKG for arrhythmia Strict I/O monitoring Daily weights SEVELAMER 800 MG POTASSIUM protocol Condition protocol Vitamin-B, C, folic acid complex SCDs for DVT prophylaxis. Hypertension Monitor BP closely Adjust antihypertensive therapy if needed Prophylaxis and supportive care We will start on Famotidine 20 mg q.48h POA for GI prophylaxis We will start on insulin sliding scale AC & HS with hypoglycemia protocol We will add prn medication for fever,pain,cough, nausea and vomiting We will reconcile home meds once medlist available We will request labs in am DVT prophylaxis with SCDs in place Further orders to follow depending on above results Case discussed with attending physician and came up with above treatment and plan of care. ATTESTATION BY PHYSICIAN I have seen and examined the patient. I reviewed the documentation, medical decision making, and treatment plan as noted by the resident above. I agree with the findings and plan of care. Adria Garcia MD, RAGHAVA R MD Dec 08, 2024 15:34
[2024-12-08] MEDS: amLODIPine 5 MG TAB PO SCH (16:12)
--- NOTE | 2024-12-08 16:19 | PN ---
NEPHROLOGY PROGRESS NOTE Date/Time Patient Seen: Dec 08, 2024 Reason for Consultation: 16:17 SUBJECTIVE: This is a 39-year-old female with underlying history of hypertension, CKD, type 2 diabetes mellitus, history of neurogenic bladder with history of chronic Rivera catheter placement, prior history of abdominal and perineal infection status post multiple surgeries in [place], 2021 She presented to the ER for further evaluation of significant suprapubic discomfort. Patient states that her Rivera catheter was exchanged a few days ago. In the Emergency Room, the patient was found with Hyperkalemia and worsening renal failure CT abdomen showed bilateral perinephric fat stranding may be related to pyelonephritis We have been consulted for renal failure and hyperkalemia Renal function remains elevated Electrolytes are stable. Patient still undecided regarding dialysis She was seen in the medical floor, in no acute distress No family at the bedside Prognosis remains guarded REVIEW OF SYSTEMS: GENERAL: Positive for suprapubic pain NEUROLOGIC: Negative for any blurry vision, blind spots, double vision, facial asymmetry, dysphagia, dysarthria, hemiparesis, hemisensory deficits, vertigo, ataxia. HEENT: Negative for any head trauma, neck trauma, neck stiffness, photophobia, phonophobia, sinusitis, rhinitis. CARDIAC: Negative for any chest pain, dyspnea on exertion, paroxysmal nocturnal dyspnea, peripheral edema. PULMONARY: Negative for any shortness of breath, wheezing, COPD, or TB exposure. GASTROINTESTINAL: Negative for any abdominal pain, nausea, vomiting, bright red blood per rectum, melena. GENITOURINARY: Negative for any dysuria, hematuria, incontinence. INTEGUMENTARY: Negative for any rashes, cuts, insect bites. RHEUMATOLOGIC: Negative for any joint pains, photosensitive rashes, history of vasculitis or kidney problems. HEMATOLOGIC: Negative for any abnormal bruising, frequent infections or bleeding. PHYSICAL EXAM: GENERAL: Alert and oriented x 3. No acute distress. Well-nourished. EYES: EOMI. Anicteric. HENT: Moist mucous membranes. No scleral icterus. No cervical lymphadenopathy. LUNGS: Clear to auscultation bilaterally. No accessory muscle use. CARDIOVASCULAR: Regular rate and rhythm. No murmur. No JVD. ABDOMEN: Soft, non-tender and non-distended. No palpable masses. : Rivera catheter in place EXTREMITIES: No edema. Non-tender. SKIN: No rashes or lesions. Warm. NEUROLOGIC: No focal neurological deficits. CN II-XII grossly intact, but not individually tested. PSYCHIATRIC: Cooperative. Appropriate mood and affect. LABORATORY: [ ] Hematology Labs: Test 12/07/24 03:50 Range/Units White Blood Count 8.3 4.8-10.8 K/uL Red Blood Count 3.33 L 4.00-5.50 MIL/uL Hemoglobin 9.5 L 12.0-16.0 g/dL Hematocrit 28.6 L 36-48 % Mean Corpuscular Volume 85.9 79-99 fL Mean Corpuscular Hemoglobin 28.5 27.0-33.0 pg Mean Corpuscular Hemoglobin Concent 33.2 32.0-36.0 g/dL Red Cell Distribution Width 13.4 11.0-15.5 % Platelet Count 183 130-400 K/uL Mean Platelet Volume 9.8 7.5-10.5 fL Immature Granulocyte % (Auto) 0.6 0-1 % Neutrophils (%) (Auto) 58.8 40.0-77.0 % Lymphocytes (%) (Auto) 23.6 21.0-51.0 % Monocytes (%) (Auto) 6.9 3.0-13.0 % Eosinophils (%) (Auto) 9.3 H 0.0-8.0 % Basophils (%) (Auto) 0.8 0.0-5.0 % Neutrophils # (Auto) 4.9 1.8-7.7 K/uL Lymphocytes # (Auto) 2.0 1.0-4.8 K/uL Monocytes # (Auto) 0.6 0.1-1.0 K/uL Eosinophils # (Auto) 0.77 H 0.00-0.70 K/uL Basophils # (Auto) 0.07 0.00-0.20 K/uL Absolute Immature Granulocyte (auto 0.05 0-1 K/uL Nucleated Red Blood Cells 0.0 0.0-0.19 % Chemistry Labs: Test 12/08/24 15:31 12/07/24 03:50 Range/Units Whole Blood Glucose 117 H 70-110 MG/DL Sodium Level 137 136-145 mmol/L Potassium Level 4.5 3.5-5.1 mmol/L Chloride Level 106 101-111 mmol/L Carbon Dioxide Level 21 21-32 mmol/L Blood Urea Nitrogen 55 H 7-18 mg/dL Creatinine 6.0 H 0.5-1.0 mg/dL Glomerular Filtration Rate Calc 9 >90 mL/min Random Glucose 109 H 70-105 mg/dL Total Calcium 7.4 L 8.5-10.1 mg/dL Phosphorus Level 6.0 H 2.5-4.9 mg/dL Magnesium Level 1.70 L 1.80-2.40 mg/dL Total Bilirubin 0.3 0.2-1.0 mg/dL Aspartate Amino Transf (AST/SGOT) 17 10-37 U/L Alanine Aminotransferase (ALT/SGPT) 14 12-78 U/L Alkaline Phosphatase 65 50-136 U/L Total Protein 6.2 6.0-8.3 g/dL Albumin 1.9 L 3.5-5.0 g/dL DIAGNOSTICS / RADIOLOGY: REASON: lower abd pain ORDERING PHYSICIAN: PAL CHILDS PROCEDURE: ABD PEL WO - CT ABDOMEN/PELVIS W/O CONTRAST CT ABDOMEN/PELVIS W/O CONTRAST HISTORY: Right lower abdominal pain COMPARISON: None TECHNIQUE: Multiple sequential axial images of the abdomen and pelvis were obtained from the dome of the diaphragm through symphysis pubis. Patient was not given contrast through intravenous route. Oral contrast was not given. FINDINGS: No pleural effusion is seen bilaterally. There is no evidence of parenchymal disease or pulmonary nodule of the visualized lower lungs. Degenerative changes of the thoracolumbar spine are present. The heart is not enlarged. Liver is enlarged with fatty changes measuring 18 cm. Gallstones are seen in the gallbladder. There are bilateral perinephric fat stranding may be related to pyelonephritis. Urinalysis correlation may be helpful. The liver, spleen, adrenal glands and pancreas are unremarkable. There is no evidence of hydronephrosis bilaterally. No evidence of renal stone is seen. Fecal material is seen in the colon. There are normal size retroperitoneal and mesenteric lymph nodes. No ascites is seen. Appendix is not well seen limiting evaluation. Clinical correlation is recommended. Pelvic sidewalls are symmetric bilaterally. Bladder is poorly distended with Rivera catheter. IMPRESSION: 1. Gallstones are seen in the gallbladder. There are bilateral perinephric fat stranding may be related to pyelonephritis. Urinalysis correlation may be helpful. CT was performed with one or more following dose reduction techniques: automated exposure control, adjustment of the mA and kv according to patient's size, or use of a iterative reconstruction technique. DICTATED BY: ZAY ZARAGOZA MD DATE: 12/03/242037 ASSESSMENT: Hyperkalemia Acute on chronic renal failure Anemia Acute pyelonephritis Uncontrolled diabetes mellitus type 2 Diabetic nephropathy. Pyelonephritis with cystitis Uncontrolled hypertension History of neurogenic bladder requiring chronic Rivera catheterization History of poor visual acuity of bilateral eyes PLAN: Labs, diagnostic, radiologic exams reviewed and interpreted by myself and supervising physician. We have reviewed external records in detail Patient would like to speak to social insurance analyst regarding transportation in order to make final decision regarding dialysis Preserve nondominant arm Require close monitoring of renal function and electrolytes Order CBC, CMP, u and electrolytes in am Continue with antibiotics Renal diabetic diet 1.5 L fluid restriction BiPAP as necessary, for respiratory distress Monitor blood pressure adjust medication doses as needed Avoid hypotensive episodes May use Dilaudid 0.5 mg IV every 6 hours as needed for severe pain Monitor blood sugars Strict intake, output, and daily weight should be monitored Please renally adjust medications Avoid nephrotoxic and nonsteroidal drugs Avoid contrast if possible Will continue to monitor renal function, anemia, electrolytes Treatment plan discussed with patient Questions were answered We have discussed with the other team physicians in detail about the care plan We will continue to monitor the patient closely ATTESTATION BY PHYSICIAN I have seen and examined the patient. I reviewed the documentation, medical decision making, and treatment plan as noted by the mid-level provider above. I agree with the findings and plan of care. GISELLE VALENTIN MD, [facility] Dec 08, 2024 16:19
[2024-12-09] VITALS (7 sets, daily range): BP systolic 136–164; BP diastolic 68–100; PULSE 81–96; RESP 18–20; TEMP 97.8–98.4; O2SAT 96–97
[2024-12-09 06:00] LABS: BASOPHILS # (AUTO) 0.07 K/uL (0.00-0.20); BASOPHILS % (AUTO) 0.9 % (0.0-5.0); EOSINOPHILS # (AUTO) 0.74 K/uL (0.00-0.70); EOSINOPHILS % (AUTO) 9.4 % (0.0-8.0); HEMATOCRIT 28.5 % (36-48); IMMATURE GRANULOCYTE ABSOLUTE 0.03 K/uL (0-1); LYMPHOCYTES # (AUTO) 1.8 K/uL (1.0-4.8); LYMPHOCYTES % (AUTO) 22.9 % (21.0-51.0); MEAN CORPUSCULAR HEMOGLOBIN 28.8 pg (27.0-33.0); MEAN CORPUSCULAR HGB CONC 33.3 g/dL (32.0-36.0); MEAN CORPUSCULAR VOLUME 86.4 fL (79-99); MONOCYTES # (AUTO) 0.6 K/uL (0.1-1.0); NEUTROPHILS # (AUTO) 4.6 K/uL (1.8-7.7); NEUTROPHILS % (AUTO) 58.4 % (40.0-77.0); PLATELET COUNT (AUTO) 186 K/uL (130-400); RED CELL DISTRIBUTION WIDTH 13.3 % (11.0-15.5); WHITE BLOOD COUNT (AUTO) 7.9 K/uL (4.8-10.8)
[2024-12-09 06:15] LABS: INR <= 0.93 (0.85-1.15); PROTHROMBIN TIME 9.9 SEC (9.6-11.6)
[2024-12-09 06:16] LABS: PARTIAL THROMBOPLASTIN TIME 27.1 SEC (26.3-35.5)
[2024-12-09 06:29] LABS: BILIRUBIN,TOTAL 0.2 mg/dL (0.2-1.0); CREATININE 6.2 mg/dL (0.5-1.0); MAGNESIUM 1.6 mg/dL (1.80-2.40); PHOSPHORUS 5.4 mg/dL (2.5-4.9); POTASSIUM 4.6 mmol/L (3.5-5.1); TOTAL PROTEIN, SERUM 6.2 g/dL (6.0-8.3)
[2024-12-09] MEDS: MAGNESIUM 2GM PREMIX 50ML 50 ML IV PRN (06:36)
--- NOTE | 2024-12-09 13:42 | NUR ---
CM NOTE: POC CM MET WITH PT, DISCUSSED REQUESTING REGARDING TRANSPORTATION ASSISTANCE. PT MADE AWARE TO CALL MEDICAID FOR MED TRANSPORT ASSISTANCE TO OUTPATIENT HD AND MD APPOINTMENTS, NUMBER GIVEN TO PT. ALSO INFORMED PT THIS CM WILL GIVE DESMOND Kinsey/ROHINIT AGING A HEADS UP REGARDING TRANSPORTATION AND PROVIDER ASSISTANCE TO SEE IF REP CAN ASSIST SOONER. DISCUSSED POSSIBLE OUTPATIENT HD, PT AGREEABLE, BUT WILL TALK TO [facility], CONSENT SIGNED JAMES FOR ANY IN NETWORK HD FOR NOW. PENDING NEPHRO RECS AND ORDER. DCP STILL HOME. CM TO CONTINUE TO FOLLOW UP.
--- NOTE | 2024-12-09 14:32 | PN ---
NEPHROLOGY PROGRESS NOTE Date/Time Patient Seen: Dec 09, 2024 SUBJECTIVE: This is a 39-year-old female with underlying history of hypertension, CKD, type 2 diabetes mellitus, history of neurogenic bladder with history of chronic Rivera catheter placement, prior history of abdominal and perineal infection status post multiple surgeries in [place], 2021 She presented to the ER for further evaluation of significant suprapubic discomfort. Patient states that her Rivera catheter was exchanged a few days ago. In the Emergency Room, the patient was found with Hyperkalemia and worsening renal failure CT abdomen showed bilateral perinephric fat stranding may be related to pyelone phritis We have been consulted for renal failure and hyperkalemia Renal function remains elevated Electrolytes are stable. Patient still undecided regarding dialysis, states she needs to speak with sister regarding transportation She was seen in the medical floor, in no acute distress No family at the bedside Prognosis remains guarded REVIEW OF SYSTEMS: GENERAL: Positive for suprapubic pain NEUROLOGIC: Negative for any blurry vision, blind spots, double vision, facial asymmetry, dysphagia, dysarthria, hemiparesis, hemisensory deficits, vertigo, ataxia. HEENT: Negative for any head trauma, neck trauma, neck stiffness, photophobia, phonophobia, sinusitis, rhinitis. CARDIAC: Negative for any chest pain, dyspnea on exertion, paroxysmal nocturnal dyspnea, peripheral edema. PULMONARY: Negative for any shortness of breath, wheezing, COPD, or TB exposure. GASTROINTESTINAL: Negative for any abdominal pain, nausea, vomiting, bright red blood per rectum, melena. GENITOURINARY: Negative for any dysuria, hematuria, incontinence. INTEGUMENTARY: Negative for any rashes, cuts, insect bites. RHEUMATOLOGIC: Negative for any joint pains, photosensitive rashes, history of vasculitis or kidney problems. HEMATOLOGIC: Negative for any abnormal bruising, frequent infections or bleeding. PHYSICAL EXAM: GENERAL: Alert and oriented x 3. No acute distress. Well-nourished. EYES: EOMI. Anicteric. HENT: Moist mucous membranes. No scleral icterus. No cervical lymphadenopathy. LUNGS: Clear to auscultation bilaterally. No accessory muscle use. CARDIOVASCULAR: Regular rate and rhythm. No murmur. No JVD. ABDOMEN: Soft, non-tender and non-distended. No palpable masses. : Rivera catheter in place EXTREMITIES: No edema. Non-tender. SKIN: No rashes or lesions. Warm. NEUROLOGIC: No focal neurological deficits. CN II-XII grossly intact, but not individually tested. PSYCHIATRIC: Cooperative. Appropriate mood and affect. LABORATORY: [ ] Hematology Labs: Test 12/09/24 05:43 Range/Units White Blood Count 7.9 4.8-10.8 K/uL Red Blood Count 3.30 L 4.00-5.50 MIL/uL Hemoglobin 9.5 L 12.0-16.0 g/dL Hematocrit 28.5 L 36-48 % Mean Corpuscular Volume 86.4 79-99 fL Mean Corpuscular Hemoglobin 28.8 27.0-33.0 pg Mean Corpuscular Hemoglobin Concent 33.3 32.0-36.0 g/dL Red Cell Distribution Width 13.3 11.0-15.5 % Platelet Count 186 130-400 K/uL Mean Platelet Volume 9.4 7.5-10.5 fL Immature Granulocyte % (Auto) 0.4 0-1 % Neutrophils (%) (Auto) 58.4 40.0-77.0 % Lymphocytes (%) (Auto) 22.9 21.0-51.0 % Monocytes (%) (Auto) 8.0 3.0-13.0 % Eosinophils (%) (Auto) 9.4 H 0.0-8.0 % Basophils (%) (Auto) 0.9 0.0-5.0 % Neutrophils # (Auto) 4.6 1.8-7.7 K/uL Lymphocytes # (Auto) 1.8 1.0-4.8 K/uL Monocytes # (Auto) 0.6 0.1-1.0 K/uL Eosinophils # (Auto) 0.74 H 0.00-0.70 K/uL Basophils # (Auto) 0.07 0.00-0.20 K/uL Absolute Immature Granulocyte (auto 0.03 0-1 K/uL Nucleated Red Blood Cells 0.0 0.0-0.19 % Chemistry Labs: Test 12/09/24 11:50 12/09/24 05:43 Range/Units Whole Blood Glucose 108 70-110 MG/DL Sodium Level 137 136-145 mmol/L Potassium Level 4.6 3.5-5.1 mmol/L Chloride Level 106 101-111 mmol/L Carbon Dioxide Level 22 21-32 mmol/L Blood Urea Nitrogen 53 H 7-18 mg/dL Creatinine 6.2 H 0.5-1.0 mg/dL Glomerular Filtration Rate Calc 8 >90 mL/min Random Glucose 110 H 70-105 mg/dL Total Calcium 7.5 L 8.5-10.1 mg/dL Phosphorus Level 5.4 H 2.5-4.9 mg/dL Magnesium Level 1.60 L 1.80-2.40 mg/dL Total Bilirubin 0.2 0.2-1.0 mg/dL Aspartate Amino Transf (AST/SGOT) 26 10-37 U/L Alanine Aminotransferase (ALT/SGPT) 17 12-78 U/L Alkaline Phosphatase 73 50-136 U/L Total Protein 6.2 6.0-8.3 g/dL Albumin 2.0 L 3.5-5.0 g/dL Coagulation Labs: Test 12/09/24 05:43 Range/Units Prothrombin Time 9.9 9.6-11.6 SEC Prothromb Time International Ratio <= 0.93 0.85-1.15 Activated Partial Thromboplast Time 27.1 26.3-35.5 SEC DIAGNOSTICS / RADIOLOGY: REASON: lower abd pain ORDERING PHYSICIAN: [employer] PROCEDURE: ABD PEL WO - CT ABDOMEN/PELVIS W/O CONTRAST CT ABDOMEN/PELVIS W/O CONTRAST HISTORY: Right lower abdominal pain COMPARISON: None TECHNIQUE: Multiple sequential axial images of the abdomen and pelvis were obtained from the dome of the diaphragm through symphysis pubis. Patient was not given contrast through intravenous route. Oral contrast was not given. FINDINGS: No pleural effusion is seen bilaterally. There is no evidence of parenchymal disease or pulmonary nodule of the visualized lower lungs. Degenerative changes of the thoracolumbar spine are present. The heart is not enlarged. Liver is enlarged with fatty changes measuring 18 cm. Gallstones are seen in the gallbladder. There are bilateral perinephric fat stranding may be related to pyelonephritis. Urinalysis correlation may be helpful. The liver, spleen, adrenal glands and pancreas are unremarkable. There is no evidence of hydronephrosis bilaterally. No evidence of renal stone is seen. Fecal material is seen in the colon. There are normal size retroperitoneal and mesenteric lymph nodes. No ascites is seen. Appendix is not well seen limiting evaluation. Clinical correlation is recommended. Pelvic sidewalls are symmetric bilaterally. Bladder is poorly distended with Rivera catheter. IMPRESSION: 1. Gallstones are seen in the gallbladder. There are bilateral perinephric fat stranding may be related to pyelonephritis. Urinalysis correlation may be helpful. CT was performed with one or more following dose reduction techniques: automated exposure control, adjustment of the mA and kv according to patient's size, or use of a iterative reconstruction technique. DICTATED BY: ZAY ZARAGOZA MD DATE: 12/03/242037 ASSESSMENT: Hyperkalemia Acute on chronic renal failure Anemia Acute pyelonephritis Uncontrolled diabetes mellitus type 2 Diabetic nephropathy. Pyelonephritis with cystitis Uncontrolled hypertension History of neurogenic bladder requiring chronic Rivera catheterization History of poor visual acuity of bilateral eyes PLAN: Labs, diagnostic, radiologic exams reviewed and interpreted by myself and supervising physician. We have reviewed external records in detail Patient would like to speak with family before making decision Preserve nondominant arm Require close monitoring of renal function and electrolytes Order CBC, CMP, and electrolytes in am Continue with antibiotics Renal diabetic diet 1.5 L fluid restriction BiPAP as necessary, for respiratory distress Monitor blood pressure adjust medication doses as needed Avoid hypotensive episodes May use Dilaudid 0.5 mg IV every 6 hours as needed for severe pain Monitor blood sugars Strict intake, output, and daily weight should be monitored Please renally adjust medications Avoid nephrotoxic and nonsteroidal drugs Avoid contrast if possible Will continue to monitor renal function, anemia, electrolytes Treatment plan discussed with patient Questions were answered We have discussed with the other team physicians in detail about the care plan We will continue to monitor the patient closely ATTESTATION BY PHYSICIAN I have seen and examined the patient. I reviewed the documentation, medical decision making, and treatment plan as noted by the mid-level provider above. I agree with the findings and plan of care. GISELLE VALENTIN MD, [facility] Dec 09, 2024 14:31
[2024-12-09] MEDS: HYDROcodone/APAP 5/325 1 TAB TABLET PO PRN (15:50)
--- NOTE | 2024-12-09 16:10 | PN ---
[facility] PROGRESS NOTE Date of Service: Dec 09, 2024 Time of Service: 16:07 SUBJECTIVE: This is a 39-year-old female with past medical history of diabetes, neurogenic bladder requiring chronic Rivera catheter use, chronic kidney disease not on hemodialysis, UTI who was brought by EMS to the ED for complaints of suprapubic pain which radiates to her right lower back started today around 2:00 p.m. patient also reports having nausea but no vomiting. Patient states she has a chronic Rivera catheter has been changed in this facility five days ago. Seen and examined patient in the ER awake alert and coherent appears uncomfortable. Patient denies fever, chills, vomiting, chest pain, palpitation and shortness of breaths. Latest vital signs temperature 98.4, heart rate 92, blood pressure 147/96, saturation 99% on room air. Labs: Hemoglobin 11.7, hematocrit 34 platelet count 192. Chemistry sodium 134, potassium 5.6, carbon dioxide 20, BUN 52 creatinine 5.5 GFR 10 glucose 190 total calcium 7.7 troponin 34 serum test negative. Urinalysis remarkable for protein, glucose, occult blood, urine RBC 26-50 urine WBC 2-[address] abdomen and pelvis without contrast result revealed gallstones are seen in the gallbladder. There are bilateral perinephric fat stranding may be related to pyelonephritis. . While in the ER patient received calcium gluconate, Lokelma 10 g p.o., Zofran 4 mg IV and Dilaudid 0.5 mg IV. ER called and recommended to admit the patient. December 04, 2024 While in the ER, I have examined the patient at bedside. Discuss the case with RN. She found to have hyperkalemia potassium of 6.5, worsening renal failure BUN and creatinine of 5.5, and bilateral perinephric stranding on CT abdomen suggestive of pyelonephritis. Nephrology was consulted for renal failure and hyperkalemia management. Rivera catheter is now draining and is now functional after being flushed at bedside. Patient remains in significant discomfort due to back pain. Nephrology assess the patient and determined that patient is hesitant to start renal replacement therapy. Prognosis remains guarded. 12/05/24 patient was seen and examined. Denies any fever or chills. She does have some mild lower abdominal pain 12/06/24 patient was seen and examined at significant bladder pain despite being on Dilaudid. Examination showed that there is a lot of sediment the Rivera. This was exchanged with significant amount of urine output and resolution of pain. She was doing better now and denies nausea vomiting fever chills 12/07/24 patient was seen and examined. No more bladder pain. Appreciate Nephrology help. We will recheck labs in a.m. and await their final plan 12/08/24 Patient remains hospitalized for management of CKD stage 5, urinary tract infection and pending decision on hemodialysis initiation. Urine culture is positive for Enterococcus faecalis. She has spoken with Nephrology and is pending approval for hemodialysis. The plan is to initiate hemodialysis in the hospital and place an AV fistula in the left arm for long-term dialysis access. However, the patient is hesitant to start hemodialysis due to transportation concerns for outpatient sessions. Case management is working up with her insurance to arrange transport for outpatient dialysis. Other than this, she is doing well and her overall condition remained stable. 12/09/24 The patient remains hospitalized for management of CKD, UTI and pending decision on dialysis initiation. Nephrology as recommended in hospital initiation of hemodialysis for3 sessions before transitioning to outpatient hemodialysis. Patient is still undecided and wants to consult with her sister regarding transportation arrangements for outpatient hemodialysis. 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 No family present at this time. REVIEW OF SYSTEMS CONSTITUTIONAL: Denies fevers, chills, or night sweats. No unintentional weight loss reported. NEUROLOGICAL: Denies headache, amaurosis fugax, motor weakness, sensory deficit, vertigo/spinning sensation, gait abnormalities, or tremors. ENT: No hearing loss, otalgia, otorrhea, rhinitis, rhinorrhea, hoarseness, or sore throat. CARDIOVASCULAR: Denies any exertional angina, dyspnea on exertion, orthopnea, paroxysmal nocturnal dyspnea, palpitations, life-threatening arrhythmias, claudication. PULMONARY: Denies any shortness of breath, cough, phlegm/sputum, hemoptysis, pl euritic chest pain. SLEEP: Denies morning headaches, daytime somnolence or napping. Denies difficulty falling asleep, staying asleep, waking from sleep. Denies knowledge of snoring. GASTROINTESTINAL: Denies any type of dysphagia to either liquids or solids. Denies nausea, vomiting, pyrosis, early satiety, abdominal pain, diarrhea, constipation, or changes in stool consistency or caliber. Denies coffee-ground emesis, hematemesis, hematochezia, or melanotic stools. GENITOURINARY: suprapubic pain which radiates to the right lower back Denies frequency, urgency, nocturia, hematuria or incontinence (Storage/Irritative symptoms.) Low urinary stream, straining to void, urinary intermittency or hesitancy, splitting of the voiding stream, terminal dribbling. ENDOCRINOLOGIC: Denies polyuria, polydipsia, polyphagia or heat/cold intolerances. HEMATOLOGIC: Denies thrombophilia/previous clots, or coagulopathy/bleeding disorders. ONCOLOGIC: Denies personal history of malignancy. DERMATOLOGIC: Denies rashes or pruritus. PSYCHIATRIC: Denies any suicidal or homicidal ideation. Denies hallucinations. PHYSICAL EXAM GENERAL APPEARANCE: The patient is awake, alert, and oriented, in no acute cardiopulmonary distress. NEUROLOGICAL: Cranial nerves II-XII grossly intact. Motor is 5/5 in bilateral upper and lower extremities proximal to distal. No sensory deficits. HEENT: Face is symmetric. Pupils are equal and reactive. Extraocular movements are intact. NECK: Supple. No JVD. No thyromegaly. No submental, submandibular, pre- /postauricular, occipital or supraclavicular lymphadenopathy. CHEST: Normal chest expansion. No Telemetry. LUNGS: Absence of any rales, rhonchi or any wheezing. CARDIOVASCULAR: Regular. S1 and S2 normal. No appreciable rubs, murmurs or gallops. ABDOMEN: Soft, nontender, and nondistended. There is no rebound, voluntary guarding, or rigidity. : Deferred. +Rivera. EXTREMITIES: Right BKA Non-edematous and not cyanotic. No clubbing. Good capillary refill. SKIN: No skin breakdown. Vital Signs (last 8hr) Date Time Temp Pulse Resp B/P (MAP) Pulse Ox O2 Delivery O2 Flow Rate FiO2 12/09/24 12:00 98.2 87 18 146/96 98 Room Air LABS: Laboratory: Test 12/09/24 14:57 12/09/24 05:43 Range/Units Whole Blood Glucose 167 #H 70-110 MG/DL White Blood Count 7.9 4.8-10.8 K/uL Red Blood Count 3.30 L 4.00-5.50 MIL/uL Hemoglobin 9.5 L 12.0-16.0 g/dL Hematocrit 28.5 L 36-48 % Mean Corpuscular Volume 86.4 79-99 fL Mean Corpuscular Hemoglobin 28.8 27.0-33.0 pg Mean Corpuscular Hemoglobin Concent 33.3 32.0-36.0 g/dL Red Cell Distribution Width 13.3 11.0-15.5 % Platelet Count 186 130-400 K/uL Mean Platelet Volume 9.4 7.5-10.5 fL Immature Granulocyte % (Auto) 0.4 0-1 % Neutrophils (%) (Auto) 58.4 40.0-77.0 % Lymphocytes (%) (Auto) 22.9 21.0-51.0 % Monocytes (%) (Auto) 8.0 3.0-13.0 % Eosinophils (%) (Auto) 9.4 H 0.0-8.0 % Basophils (%) (Auto) 0.9 0.0-5.0 % Neutrophils # (Auto) 4.6 1.8-7.7 K/uL Lymphocytes # (Auto) 1.8 1.0-4.8 K/uL Monocytes # (Auto) 0.6 0.1-1.0 K/uL Eosinophils # (Auto) 0.74 H 0.00-0.70 K/uL Basophils # (Auto) 0.07 0.00-0.20 K/uL Absolute Immature Granulocyte (auto 0.03 0-1 K/uL Nucleated Red Blood Cells 0.0 0.0-0.19 % Prothrombin Time 9.9 9.6-11.6 SEC Prothromb Time International Ratio <= 0.93 0.85-1.15 Activated Partial Thromboplast Time 27.1 26.3-35.5 SEC Sodium Level 137 136-145 mmol/L Potassium Level 4.6 3.5-5.1 mmol/L Chloride Level 106 101-111 mmol/L Carbon Dioxide Level 22 21-32 mmol/L Blood Urea Nitrogen 53 H 7-18 mg/dL Creatinine 6.2 H 0.5-1.0 mg/dL Glomerular Filtration Rate Calc 8 >90 mL/min Random Glucose 110 H 70-105 mg/dL Total Calcium 7.5 L 8.5-10.1 mg/dL Phosphorus Level 5.4 H 2.5-4.9 mg/dL Magnesium Level 1.60 L 1.80-2.40 mg/dL Total Bilirubin 0.2 0.2-1.0 mg/dL Aspartate Amino Transf (AST/SGOT) 26 10-37 U/L Alanine Aminotransferase (ALT/SGPT) 17 12-78 U/L Alkaline Phosphatase 73 50-136 U/L Total Protein 6.2 6.0-8.3 g/dL Albumin 2.0 L 3.5-5.0 g/dL Current Medications Medications (Trade) Dose Ordered Sig/Deanna Route PRN Reason Start Time Stop Time Status Last Admin Dose Admin Acetaminophen (TYLenol 325MG TAB) 650 mg Q4H PRN PO MILD PAIN (1-3) 12/03/24 21:30 01/02/25 21:29 Acetaminophen (TYLenol 325MG TAB) 650 mg Q6H PRN PO TEMPERATURE GREATER THAN 101.5 12/03/24 21:30 01/02/25 21:29 Acetaminophen/ Hydrocodone Bitart (NORco 5/325MG) 1 tab Q6H PRN PO MODERATE PAIN (4-6) 12/03/24 23:30 12/08/24 23:29 DC 12/08/24 21:13 1 TAB Acetaminophen/ Hydrocodone Bitart (NORco 5/325MG) 1 tab Q6H PRN PO MODERATE PAIN (4-6) 12/09/24 01:00 12/14/24 00:59 12/09/24 15:50 1 TAB Amlodipine Besylate (NorvASC 5MG TAB) 5 mg Q24H PO 12/08/24 16:00 01/07/25 15:59 12/08/24 16:12 5 MG Ceftriaxone Sodium (ROCEphine 1G INJ) 1 gm Q24H IV 12/03/24 21:30 12/13/24 21:29 12/08/24 20:52 1 GM Dextrose (D50w) 50 ml AD PRN IV HYPOGLYCEMIA PROTOCOL 12/03/24 21:30 01/02/25 21:29 Famotidine (Pepcid 20mg Tab) 20 mg Q48H PO 12/03/24 23:00 01/02/25 22:59 12/07/24 22:21 20 MG Glucagon (Glucagon 1mg Kit) 1 mg AD PRN IM HYPOGLYCEMIA PROTOCOL 12/03/24 21:30 01/02/25 21:29 Hydralazine HCl (APRESOLine 20MG INJ) 10 mg Q6H PRN IV ADMINISTER FOR SBP > 160 12/04/24 23:30 01/03/25 23:29 12/08/24 05:08 10 MG Hydromorphone HCl (DiLAUDid 0.5MG INJ) 0.2 mg Q6H IVP 12/04/24 19:30 12/06/24 11:05 DC 12/06/24 06:43 0.2 MG Hydromorphone HCl (DiLAUDid 0.5MG INJ) 0.2 mg Q6H IVP 12/06/24 13:30 12/09/24 00:55 DC 12/08/24 14:11 0.2 MG Hydromorphone HCl (DiLAUDid 0.5MG INJ) 0.2 mg Q6H PRN IVP PAIN LEVEL 7 TO 10 12/09/24 01:00 12/11/24 13:29 Hydromorphone HCl (DiLAUDid 0.5MG INJ) 0.5 mg Q6H IVP 12/06/24 13:30 12/06/24 11:15 DC Insulin Human Regular (humuLIN R 100 UNIT/ML 3ML) INSULIN SLIDING SCAL... ACHS SQ 12/04/24 07:30 01/03/25 07:29 12/06/24 12:23 2 UNIT Magnesium Sulfate 50 ml @ 0 mls/hr PROTOCOL PRN IV CKD 12/04/24 18:00 01/03/25 17:59 12/09/24 06:36 25 MLS/HR Magnesium Sulfate 50 ml @ 0 mls/hr PROTOCOL PRN IV electrolyte abnormality 12/08/24 15:30 01/07/25 15:29 Ondansetron HCl (zoFRAN 4MG INJ) 4 mg Q6H PRN IV NAUSEA/VOMITING 12/03/24 21:30 01/02/25 21:29 12/09/24 08:40 4 MG Potassium Chloride 100 ml @ 50 mls/hr AD PRN IV POTASSIUM PROTOCOL 12/04/24 18:00 01/03/25 17:59 Sevelamer HCl (RENAgel 800 MG TAB) 800 mg TIDMEALS PO 12/06/24 12:00 01/05/25 11:59 12/09/24 14:49 800 MG Vitamin B Complex/ Vit C/Folic Acid (Nephrovite Tablet) 1 cap DAILY PO 12/05/24 09:00 01/04/25 08:59 12/09/24 08:40 1 CAP DIAGNOSTICS / RADIOLOGY: RUN DATE: 12/06/24 [facility] PAGE 1 RUN TIME: 1814 [address] [address], [place] [address] Department of Laboratories CLIA # [id number] Lacing String Cutter: Lisbet Carmichael DO Specimen Report PATIENT: DARÍO ELIAS ACCT: [id number] LOC: [facility] U: [id number] AGE/SX: 39/F ROOM: 411 RE12/03/[address]: DELFINO PARTICK MD : 1985 BED: 1 DIS: STATUS: ADM IN TLOC: SPEC: [id number] LINDSEY: 12/03/24 STATUS: COMP REQ: [id number] RECD: 12/05/24 [facility] DR: LENA FIGUEROA SOURCE: O ENTR: 12/05/24 [facility] DR: GISELLE VALENTIN MD [facility]: DELFINO MOTTA MD,MILVIA SALCIDO MD, MD ORDERED: AERO ID & SENS Procedure Result Shira Date-Time AEROBIC ID & SENSITIVITIES Final 12/06/24-645 [facility] COLONY DESCRIPTION: DAY 1: ISOLATE #1: COLONY COUNT: >100,000 CFU/ML GRAM POSITIVE COCCI IN CHAINS POSSIBLE ENTEROCOCCUS SPECIES IDENTIFICATION AND SENSITIVITY TO FOLLOW ISOLATE #2: COLONY COUNT: >100,000 CFU/ML YEAST ; ISOLATION IN PROGRESS DAY 2: YEAST SPECIES; NOT FLORENCIO ALBICANS NO FURTHER WORK-UP DONE ENTEROCOCCUS FAECALIS YEAST SPECIES E FAECALIS M.I.C. RX --------- ---- AMPICILLIN <=2 S VANCOMYCIN 1 S NITROFURANTOIN <=32 S GENTAMICIN Synergy Screen <=500 S PENICILLIN 2 S ENTEROCOCCUS FAECALIS: POSITIVE COMBO 34 Gentamicin Synergy Screen S @ [facility] Test Performed at: [facility] [address], [place], [place] Medical Metal Ceiling Builder: Willie Frausto D.O. PATIENT: DARÍO ELIAS MR#: [id number] : 1985 SEX: F AGE: 39 LOCATION: [facility] ORDER 57 STATUS: REG ER REPORT#: [id number] SERVICE 54 REASON: lower abd pain ORDERING PHYSICIAN: PAL CHILDS CALENDER SUPERVISOR PROCEDURE: ABD PEL WO - CT ABDOMEN/PELVIS W/O CONTRAST CT ABDOMEN/PELVIS W/O CONTRAST HISTORY: Right lower abdominal pain COMPARISON: None TECHNIQUE: Multiple sequential axial images of the abdomen and pelvis were obtained from the dome of the diaphragm through symphysis pubis. Patient was not given contrast through intravenous route. Oral contrast was not given. FINDINGS: No pleural effusion is seen bilaterally. There is no evidence of parenchymal disease or pulmonary nodule of the visualized lower lungs. Degenerative changes of the thoracolumbar spine are present. The heart is not enlarged. Liver is enlarged with fatty changes measuring 18 cm. Gallstones are seen in the gallbladder. There are bilateral perinephric fat stranding may be related to pyelonephritis. Urinalysis correlation may be helpful. The liver, spleen, adrenal glands and pancreas are unremarkable. There is no evidence of hydronephrosis bilaterally. No evidence of renal stone is seen. Fecal material is seen in the colon. There are normal size retroperitoneal and mesenteric lymph nodes. No ascites is seen. Appendix is not well seen limiting evaluation. Clinical correlation is recommended. Pelvic sidewalls are symmetric bilaterally. Bladder is poorly distended with Rivera catheter. IMPRESSION: 1. Gallstones are seen in the gallbladder. There are bilateral perinephric fat stranding may be related to pyelonephritis. Urinalysis correlation may be helpful. CT was performed with one or more following dose reduction techniques: automated exposure control, adjustment of the mA and kv according to patient's size, or use of a iterative reconstruction technique. DICTATED BY: ZAY ZARAGOZA MD DATE: 12/03/242037 ELECTRONICALLY SIGNED BY: ZAY ZARAGOZA MD DATE: 12/03/242041 ASSESSMENT: Acute pyelonephritis POA Acute on chronic kidney disease stage 5 not on hemodialysis POA Hyperkalemia POA UTI, POA Acute normocytic normochromic anemia Hypertension POA Uncontrolled diabetes POA Chronic Rivera use POA PLAN: Pyelonephritis with bilateral perinephric fat stranding Continue ampicillin 2 g IV q.6h for 10 days. Discontinue Rocephin Await urine culture results. Maintain Rivera catheter care. Hydration to optimize renal function. Chronic kidney disease stage 5 not on dialysis Nephrology recommends initiating in-hospital hemodialysis for3 sessions followed by outpatient dialysis. Patient is undecided and needs to consult her sister regarding transportation logistics for outpatient dialysis. Preserved nondominant arm for AV fistula placement. We will admit patient in medical telemetry We will start on renal nondialysis diet Nephrology consult active Monitor renal function electrolytes daily with CBC, CMP, uric acid, TSH, electrolytes 1.5 L fluid restriction For hyperkalemia equal to greater than 6.5 Give calcium gluconate once, Lokelma 10 g p.o. once Monitor EKG for arrhythmia Strict I/O monitoring Daily weights SEVELAMER 800 MG POTASSIUM protocol Condition protocol Vitamin-B, C, folic acid complex SCDs for DVT prophylaxis. Hypertension Monitor BP closely Adjust antihypertensive therapy if needed Prophylaxis and supportive care We will start on Famotidine 20 mg q.48h POA for GI prophylaxis We will start on insulin sliding scale AC & HS with hypoglycemia protocol We will add prn medication for fever,pain,cough, nausea and vomiting We will reconcile home meds once medlist available We will request labs in am DVT prophylaxis with SCDs in place Further orders to follow depending on above results Case discussed with attending physician and came up with above treatment and plan of care. ATTESTATION BY PHYSICIAN I have seen and examined the patient. I reviewed the documentation, medical decision making, and treatment plan as noted by the resident above. I agree with the findings and plan of care. Adria Garcia MD, RAGHAVA R MD Dec 09, 2024 16:10
[2024-12-09] MEDS: AMPICILLIN 2GM VIAL IV SCH (18:02)
[2024-12-09] MEDS: hydroMORPHone 0.5 MG SYG (0.5MG/0.5ML) IVP PRN (23:25)
[2024-12-10] VITALS: BP 132/82; PULSE 89; RESP 18; TEMP 98.1
[2024-12-10] MEDS: BisaCODYL 5 MG TABLET.DR PO PRN ×2 (02:33→09:21)
[2024-12-10 03:55] VITALS: BP 144/80; PULSE 78; RESP 19; TEMP 98
[2024-12-10 06:03] LABS: HEMATOCRIT 28.8 % (36-48)
[2024-12-10 06:26] LABS: CREATININE 6.3 mg/dL (0.5-1.0); MAGNESIUM 2.1 mg/dL (1.80-2.40); POTASSIUM 4.9 mmol/L (3.5-5.1)
[2024-12-10 08:00] VITALS: O2SAT 99
[2024-12-10 08:07] VITALS: BP 157/104; PULSE 82; RESP 19; TEMP 97.9
--- NOTE | 2024-12-10 11:30 | NUR ---
BLOOD GLUCOSE 133. NO INSULIN COVERAGE NEEDED AT THIS TIME.
[2024-12-10 12:01] VITALS: BP 115/95; PULSE 101; RESP 18; TEMP 98.4
--- NOTE | 2024-12-10 15:00 | DS ---
Discharge Summary Hospital Course Summary: Patient was admitted for CKD stage 5 with worsening renal function. Initially creatinine was 5.5 with GFR of 10. Nephrology was consulted, and inpatient dialysis was recommended. The patient declined initiation of hemodialysis at this time and wants to follow up with outpatient Nephrology to plan for dialysis initiation in an outpatient setting. Renal function remained elevated but stable throughout the hospitalization. Strict fluid restriction of 1.5 L per day was maintained. And nephrotoxic medications were avoided. Rivera catheter associated UTI: The patient's urine culture was positive for Enterococcus faecalis and E suspicious. Initial empiric antibiotics ceftriaxone1 g IV Q 24 H was initiated. Converted to ampicillin2 g IV q.6h after culture sensitivity results. The patient clinically improved on IV ampicillin. And now converting to per oral ampicillin at discharge. No fever or worsening symptoms noted. Follow up with urine cultures we will obtain outpatient if symptoms persist. BP remained stable throughout admission with controlled values around 140 x 90. Amlodipine5 mg p.o. daily and hydralazine 10 mg p.r.n. were continued. Blood glucose levels were managed with an insulin sliding scale. No episodes of severe hyperglycemia or hypoglycemia noted. Hemoglobin was 9.5 and hematocrit At 28.5 throughout hospitalization. No signs of acute Blood loss. The patient did not meet The criteria for transfusion. Oral iron supplementation and vitamin complex were continued. Pain control with hydromorphone Dilaudid 0.5 mg IV p.r.n. Hackberry 5/325 mg p.r.n.. Patient had initial hyperkalemia of 6.5 Millimoles per L of potassium. Managed with Lokelma 10 g p.o. twice Calcium gluconate IV twice. Potassium remained stable throughout hospitalization. Patient stable for discharge. No signs of active infection. Renal function remains elevated but stable. Pain well controlled with oral medication. Loan Operations Manager(s): Nephrology Procedure(s): PATIENT: DARÍO ELIAS MR#: [id number] : 1985 SEX: F AGE: 39 [facility]ATION[facility] ORDER 57 STATUS: REG ER REPORT#: [id number] SERVICE 54 REASON: lower abd pain ORDERING PHYSICIAN: PAL CHILDS WORKFORCE MANAGER PROCEDURE: ABD PEL WO - CT ABDOMEN/PELVIS W/O CONTRAST CT ABDOMEN/PELVIS W/O CONTRAST HISTORY: Right lower abdominal pain COMPARISON: None TECHNIQUE: Multiple sequential axial images of the abdomen and pelvis were obtained from the dome of the diaphragm through symphysis pubis. Patient was not given contrast through intravenous route. Oral contrast was not given. FINDINGS: No pleural effusion is seen bilaterally. There is no evidence of parenchymal disease or pulmonary nodule of the visualized lower lungs. Degenerative changes of the thoracolumbar spine are present. The heart is not enlarged. Liver is enlarged with fatty changes measuring 18 cm. Gallstones are seen in the gallbladder. There are bilateral perinephric fat stranding may be related to pyelonephritis. Urinalysis correlation may be helpful. The liver, spleen, adrenal glands and pancreas are unremarkable. There is no evidence of hydronephrosis bilaterally. No evidence of renal stone is seen. Fecal material is seen in the colon. There are normal size retroperitoneal and mesenteric lymph nodes. No ascites is seen. Appendix is not well seen limiting evaluation. Clinical correlation is recommended. Pelvic sidewalls are symmetric bilaterally. Bladder is poorly distended with Rivera catheter. IMPRESSION: 1. Gallstones are seen in the gallbladder. There are bilateral perinephric fat stranding may be related to pyelonephritis. Urinalysis correlation may be helpful. CT was performed with one or more following dose reduction techniques: automated exposure control, adjustment of the mA and kv according to patient's size, or use of a iterative reconstruction technique. DICTATED BY: ZAY ZARAGOZA MD DATE: 12/03/242037 ELECTRONICALLY SIGNED BY: ZAY ZARAGOZA MD DATE: 12/03/242041 Assessment/Plan: ASSESSMENT: Acute pyelonephritis POA Acute on chronic kidney disease stage 5 not on hemodialysis POA Hyperkalemia POA UTI, POA Acute normocytic normochromic anemia Hypertension POA Uncontrolled diabetes POA Chronic Rivera use POA Discharge Instructions: ADMISSION DATE : DISCHARGE DATE : DISPOSITION : Home CONDITION : Stable CAR AND YARD SUPERVISOR(S) : Nephrology Primary care physician : Ollie Jones MD Admitting : Ashwin Arredondo MD Attending : Adria Garcia MD FOLLOW UP APPOINTMENT(s): Follow-up with nephrology within7 days by December 16, 2024. Not Delay this at any cost Follow-up appointment with primary care physician within 1 week by December 16/2025 Urology follow-up appointment in 10 days if urinary symptoms return. IMAGING(S) : Reports attached to summary. MICROBIOLOGY : Reports attached to summary. ACTIVITY :AD ASHOK HOME MEDICATION : Continued TEACHING : Reinforced the importance of medication compliance and follow-up appointments. Home Medications: Active Scripts Cefpodoxime Proxetil (Cefpodoxime Proxetil) 100 Mg Tablet, 1 TAB PO DAILY for 7 Days, #7 TAB 0 Refills Prov:PAL CHILDS WORKFORCE MANAGER 11/28/24 Amlodipine Besylate (Norvasc 5Mg Tab) 5 Mg Tablet, 5 MG PO Q24H, #30 TAB 0 Refills Prov:MIL STONE AGPCNP 05/16/23 Discontinued Scripts Cephalexin Monohydrate (Keflex) 500 Mg Cap, 1 CAP PO TID for 10 Days, #30 CAP 0 Refills Prov:WHITNEY DIAZ MD 11/05/24 Amoxicillin (Amoxicillin) 500 Mg Capsule, 1 CAP PO DAILY for 4 Days, #4 CAP 0 Refills Prov:ABDIRAHMAN EDUARDO MD 10/30/24 Sodium Zirconium Cyclosilicate (Lokelma) 10 Gram Powd.pack, 1 PACKET PO DAILY for 5 Days, #5 PACKET 0 Refills Prov:ABDIRAHMAN EDUARDO MD 10/30/24 New Medications: Ampicillin Trihydrate (Ampicillin Trihydrate) 500 Mg Capsule 500 MG PO QID for UTI for 10 Days, #40 CAP Bisacodyl (Bisacodyl) 5 Mg Tablet.dr 5 MG PO BID PRN for CONSTIPATION for 15 Days, #30 TAB [Folic Acid/Vitamin B Comp W-C] () 1 CAP TAB 1 CAP PO DAILY for 30 Days, #30 - 0 Refills [sevELAMer HCL 800 MG TAB] () 800 MG/TAB TABLET 800 MG PO TIDMEALS for 20 Days, #60 - 0 Refills Continued Medications: Amlodipine Besylate (Norvasc 5Mg Tab) 5 Mg Tablet 5 MG PO Q24H, #30 TAB 0 Refills Discontinued Medications: Cefpodoxime Proxetil (Cefpodoxime Proxetil) 100 Mg Tablet 1 TAB PO DAILY for 7 Days, #7 TAB 0 Refills Time spent arranging discharge: 31-60 minutes ATTESTATION BY PHYSICIAN I have seen and examined the patient. I reviewed the documentation, medical decision making, and treatment plan as noted by the resident above. I agree with the findings and plan of care. Adria aGrcia MD, RAGHAVA R MD Dec 10, 2024 15:00
[2024-12-10] MEDS ORDERED: Folic Acid/Vitamin B Comp W-C PO (15:22)
[2024-12-10] MEDS ORDERED: sevELAMer HCL 800 MG TAB PO (15:22)
[2024-12-10] MEDS ORDERED: BISA-151 PO (15:22)
[2024-12-10] MEDS ORDERED: AMPI500C12 PO (15:22)
--- NOTE | 2024-12-10 15:25 | NUR ---
DISCONTINUED IV ACCESS. EDUCATED PATIENT ON ROMANO CATHETER CARE. PATIENT VERBALIZED UNDERSTANDING.
--- NOTE | 2024-12-10 15:30 | NUR ---
PATIENT WITH DISCHARGE ORDERS. DISCUSSED PLAN OF CARE, HOME MEDICATIONS AND FOLLOW UP APPOINTMENTS. PATIENT VERBALIZED UNDERSTANDING. STATED THAT SHE WILL CALL TOMORROW AND MAKE A APPOINTMENT WITH DR. VALENTIN FOR 1 WEEK. DISCONTINUE IV ACCESS AND TELEMETRY.
--- NOTE | 2024-12-10 16:38 | NUR ---
PATIENT WAS WHEELED DOWNSTAIRS AND LEFT WITH FAMILY MEMBERS VIA PRIVATE CAR.
[2024-12-10] MEDS ORDERED: AMPICILLIN 2GM+NS 100ML 100 ML IV SCH (17:00)
--- NOTE | 2024-12-10 17:24 | PN ---
NEPHROLOGY PROGRESS NOTE Date/Time Patient Seen: Dec 10, 2024 Reason for Consultation: 17:22 SUBJECTIVE: This is a 39-year-old female with underlying history of hypertension, CKD, type 2 diabetes mellitus, history of neurogenic bladder with history of chronic Rivera catheter placement, prior history of abdominal and perineal infection status post multiple surgeries in [place], 2021 She presented to the ER for further evaluation of significant suprapubic discomfort. Patient states that her Rivera catheter was exchanged a few days ago. In the Emergency Room, the patient was found with Hyperkalemia and worsening renal failure CT abdomen showed bilateral perinephric fat stranding may be related to pyelonephritis We have been consulted for renal failure and hyperkalemia Renal function remains elevated Electrolytes are stable. Patient still undecided regarding dialysis, states she needs to speak with anthony white regarding transportation She was seen in the medical floor, in no acute distress No family at the bedside Prognosis remains guarded REVIEW OF SYSTEMS: GENERAL: Positive for suprapubic pain NEUROLOGIC: Negative for any blurry vision, blind spots, double vision, facial asymmetry, dysphagia, dysarthria, hemiparesis, hemisensory deficits, vertigo, ataxia. HEENT: Negative for any head trauma, neck trauma, neck stiffness, photophobia, phonophobia, sinusitis, rhinitis. CARDIAC: Negative for any chest pain, dyspnea on exertion, paroxysmal nocturnal dyspnea, peripheral edema. PULMONARY: Negative for any shortness of breath, wheezing, COPD, or TB exposure. GASTROINTESTINAL: Negative for any abdominal pain, nausea, vomiting, bright red blood per rectum, melena. GENITOURINARY: Negative for any dysuria, hematuria, incontinence. INTEGUMENTARY: Negative for any rashes, cuts, insect bites. RHEUMATOLOGIC: Negative for any joint pains, photosensitive rashes, history of vasculitis or kidney problems. HEMATOLOGIC: Negative for any abnormal bruising, frequent infections or bleeding. PHYSICAL EXAM: GENERAL: Alert and oriented x 3. No acute distress. Well-nourished. EYES: EOMI. Anicteric. HENT: Moist mucous membranes. No scleral icterus. No cervical lymphadenopathy. LUNGS: Clear to auscultation bilaterally. No accessory muscle use. CARDIOVASCULAR: Regular rate and rhythm. No murmur. No JVD. ABDOMEN: Soft, non-tender and non-distended. No palpable masses. : Rivera catheter in place EXTREMITIES: No edema. Non-tender. SKIN: No rashes or lesions. Warm. NEUROLOGIC: No focal neurological deficits. CN II-XII grossly intact, but not individually tested. PSYCHIATRIC: Cooperative. Appropriate mood and affect. LABORATORY: [ ] Hematology Labs: Test 12/10/24 05:50 12/09/24 05:43 Range/Units Hemoglobin 9.4 L 12.0-16.0 g/dL Hematocrit 28.8 L 36-48 % White Blood Count 7.9 4.8-10.8 K/uL Red Blood Count 3.30 L 4.00-5.50 MIL/uL Mean Corpuscular Volume 86.4 79-99 fL Mean Corpuscular Hemoglobin 28.8 27.0-33.0 pg Mean Corpuscular Hemoglobin Concent 33.3 32.0-36.0 g/dL Red Cell Distribution Width 13.3 11.0-15.5 % Platelet Count 186 130-400 K/uL Mean Platelet Volume 9.4 7.5-10.5 fL Immature Granulocyte % (Auto) 0.4 0-1 % Neutrophils (%) (Auto) 58.4 40.0-77.0 % Lymphocytes (%) (Auto) 22.9 21.0-51.0 % Monocytes (%) (Auto) 8.0 3.0-13.0 % Eosinophils (%) (Auto) 9.4 H 0.0-8.0 % Basophils (%) (Auto) 0.9 0.0-5.0 % Neutrophils # (Auto) 4.6 1.8-7.7 K/uL Lymphocytes # (Auto) 1.8 1.0-4.8 K/uL Monocytes # (Auto) 0.6 0.1-1.0 K/uL Eosinophils # (Auto) 0.74 H 0.00-0.70 K/uL Basophils # (Auto) 0.07 0.00-0.20 K/uL Absolute Immature Granulocyte (auto 0.03 0-1 K/uL Nucleated Red Blood Cells 0.0 0.0-0.19 % Chemistry Labs: Test 12/10/24 11:45 12/10/24 05:50 12/09/24 05:43 Range/Units Whole Blood Glucose 133 H 70-110 MG/DL Sodium Level 136 136-145 mmol/L Potassium Level 4.9 3.5-5.1 mmol/L Chloride Level 105 101-111 mmol/L Carbon Dioxide Level 19 L 21-32 mmol/L Blood Urea Nitrogen 54 H 7-18 mg/dL Creatinine 6.3 H 0.5-1.0 mg/dL Glomerular Filtration Rate Calc 8 >90 mL/min Random Glucose 118 H 70-105 mg/dL Total Calcium 7.8 L 8.5-10.1 mg/dL Magnesium Level 2.10 1.80-2.40 mg/dL Phosphorus Level 5.4 H 2.5-4.9 mg/dL Total Bilirubin 0.2 0.2-1.0 mg/dL Aspartate Amino Transf (AST/SGOT) 26 10-37 U/L Alanine Aminotransferase (ALT/SGPT) 17 12-78 U/L Alkaline Phosphatase 73 50-136 U/L Total Protein 6.2 6.0-8.3 g/dL Albumin 2.0 L 3.5-5.0 g/dL Coagulation Labs: Test 12/09/24 05:43 Range/Units Prothrombin Time 9.9 9.6-11.6 SEC Prothromb Time International Ratio <= 0.93 0.85-1.15 Activated Partial Thromboplast Time 27.1 26.3-35.5 SEC DIAGNOSTICS / RADIOLOGY: REASON: lower abd pain ORDERING PHYSICIAN: PAL CHILDS PROCEDURE: ABD PEL WO - CT ABDOMEN/PELVIS W/O CONTRAST CT ABDOMEN/PELVIS W/O CONTRAST HISTORY: Right lower abdominal pain COMPARISON: None TECHNIQUE: Multiple sequential axial images of the abdomen and pelvis were obtained from the dome of the diaphragm through symphysis pubis. Patient was not given contrast through intravenous route. Oral contrast was not given. FINDINGS: No pleural effusion is seen bilaterally. There is no evidence of parenchymal disease or pulmonary nodule of the visualized lower lungs. Degenerative changes of the thoracolumbar spine are present. The heart is not enlarged. Liver is enlarged with fatty changes measuring 18 cm. Gallstones are seen in the gallbladder. There are bilateral perinephric fat stranding may be related to pyelonephritis. Urinalysis correlation may be helpful. The liver, spleen, adrenal glands and pancreas are unremarkable. There is no evidence of hydronephrosis bilaterally. No evidence of renal stone is seen. Fecal material is seen in the colon. There are normal size retroperitoneal and mesenteric lymph nodes. No ascites is seen. Appendix is not well seen limiting evaluation. Clinical correlation is recommended. Pelvic sidewalls are symmetric bilaterally. Bladder is poorly distended with Rivera catheter. IMPRESSION: 1. Gallstones are seen in the gallbladder. There are bilateral perinephric fat stranding may be related to pyelonephritis. Urinalysis correlation may be helpful. CT was performed with one or more following dose reduction techniques: automated exposure control, adjustment of the mA and kv according to patient's size, or use of a iterative reconstruction technique. DICTATED BY: ZAY ZARAGOZA MD DATE: 12/03/242037 ASSESSMENT: Hyperkalemia Acute on chronic renal failure Anemia Acute pyelonephritis Uncontrolled diabetes mellitus type 2 Diabetic nephropathy. Pyelonephritis with cystitis Uncontrolled hypertension History of neurogenic bladder requiring chronic Rivera catheterization History of poor visual acuity of bilateral eyes PLAN: Labs, diagnostic, radiologic exams reviewed and interpreted by myself and supervising physician. We have reviewed external records in detail Patient not sure about starting dialysis due to transportation issues. Case management to speak to patient regarding resources If she is not ready to start dialysis, patient may be discharged. Preserve nondominant arm Require close monitoring of renal function and electrolytes Order CBC, CMP, and electrolytes in am Continue with antibiotics Renal diabetic diet 1.5 L fluid restriction BiPAP as necessary, for respiratory distress Monitor blood pressure adjust medication doses as needed Avoid hypotensive episodes May use Dilaudid 0.5 mg IV every 6 hours as needed for severe pain Monitor blood sugars Strict intake, output, and daily weight should be monitored Please renally adjust medications Avoid nephrotoxic and nonsteroidal drugs Avoid contrast if possible Will continue to monitor renal function, anemia, electrolytes Treatment plan discussed with patient Questions were answered We have discussed with the other team physicians in detail about the care plan We will continue to monitor the patient closely ATTESTATION BY PHYSICIAN I have seen and examined the patient. I reviewed the documentation, medical decision making, and treatment plan as noted by the mid-level provider above. I agree with the findings and plan of care. Patient has been seen several times we have discussed in detail total time spent was 45 minutes GISELLE VALENTIN MD, ELIZABETH FNP Dec 10, 2024 17:24 GISELLE VALENTIN MD Dec 10, 2024 20:20
== END 2024-12-10 16:15 | disposition home or self-care (01) | DRG 466 ==
LOC: EDH 17:25 → EDHIP 17:26 → 4BH 12-04 21:36
PROVIDERS: ADMIT Internal Medicine; ATTEND Internal Medicine
DX: T83.511A Infection and inflammatory reaction due to indwelling urethral catheter, initial encounter (principal); N17.9 Acute kidney failure, unspecified; I12.0 Hypertensive chronic kidney disease with stage 5 chronic kidney disease or end stage renal disease; E87.1 Hypo-osmolality and hyponatremia; E83.39 Other disorders of phosphorus metabolism; E11.22 Type 2 diabetes mellitus with diabetic chronic kidney disease; B95.2 Enterococcus as the cause of diseases classified elsewhere; N18.6 End stage renal disease; N10 Acute pyelonephritis; E11.65 Type 2 diabetes mellitus with hyperglycemia; D64.9 Anemia, unspecified; E87.5 Hyperkalemia; Z79.899 Other long term (current) drug therapy; K80.20 Calculus of gallbladder without cholecystitis without obstruction; Z89.511 Acquired absence of right leg below knee; Z87.440 Personal history of urinary (tract) infections; Y84.8 Other medical procedures as the cause of abnormal reaction of the patient, or of later complication, without mention of misadventure at the time of the procedure; Y92.89 Other specified places as the place of occurrence of the external cause
CPT/HCPCS: 36415; 74176; 80048; 80053; 80061; 81001; 82948; 83036; 83540; 83550; 83735; 84100; 84132; 84439; 84443; 84481; 84484; 84703; 85014; 85018; 85025; 85610; 85730; 87086; 87186; 93005; 96365; 96366; 96375; 99285; G0378; J0290; J0360; J0612; J0696; J1171; J1815; J2405; J3475

== ENCOUNTER 2025-01-24 16:06 | Emergency (ER) | payer MEDICAID ==
[~2025-01-24] VITALS: Ht 162.6 cm; Wt 80.7 kg
[~2025-01-24 16:06] MED LIST changes: -AMLO5TAB4 PO; -AMOX500C2 PO; +ASPI-1443 PO; +ATOR20TA65 PO; -CEFP100T9 PO; -CEPH500B PO; +FOLI0.8T53 PO; +METO25 PO; -SODI10PO2 PO
--- NOTE | 2025-01-24 17:50 | NUR ---
LEAKING ROMANO BAG CHANGED PER MD REQUEST
[2025-01-24 17:51] VITALS: BP 120/70; PULSE 85; RESP 16; TEMP 98.3; O2SAT 98
[2025-01-24] MEDS: hydroMORPHone 0.5 MG SYG (0.5MG/0.5ML) IM ONE (18:03)
--- NOTE | 2025-01-24 18:04 | ERN ---
General Chief Complaint: Low Back Pain/Injury Stated Complaint: BACK PAIN/ ROMNAO BAG CHANGED Time Seen by MD: 16:39 Time Seen by Midlevel: 16:39 Source: patient History of Present Illness Initial Comments 31-year-old female with a past medical history of end-stage renal disease on hemodialysis presenting to the emergency department for evaluation of low back pain. Patient states she was at her dialysis center when shortly after she finish she developed pain to her mid lower back. Denies any direct injury or trauma. Denies any fall. Additionally, she reports her Romano bag ripped so she wanted to come in to get a replaced. On arrival she specifically denies any numbness or tingling. She states the only thing that helps her with the pain is Dilaudid. Allergies: Coded Allergies: lidocaine (Unverified Allergy, Unknown, 09/13/24) morphine (Unverified Allergy, Unknown, 05/10/22) onion (Unverified Allergy, Unknown, 05/10/22) Home Meds Active Scripts Atorvastatin Calcium (Atorvastatin Calcium) 20 Mg Tablet, 1 TAB PO DAILY for 30 Days, #30 TAB 1 Refill Prov:DELFINO PATRICK MD 01/15/25 Folic Acid/Vit B Complex and C (Nephro Vitamins Tablet) 0.8 Mg Tablet, 0.8 MG PO DAILY, #30 TAB 1 Refill Prov:DELFINO PATRICK MD 01/15/25 Aspirin (Aspirin EC) 81 Mg Tablet.dr, 1 TAB PO DAILY for 30 Days, #30 TAB 1 Refill Prov:DELFINO PATRICK MD 01/15/25 Metoprolol Tartrate (Lopressor) 25 Mg Tab, 25 MG PO BID for 30 Days, #60 TAB 1 Refill Prov:DELFINO PATRICK MD 01/15/25 Past Medical History Past Medical History: Diabetes-Type II, Renal Failure Medical History Other: COMA, INTERNAL ABSCESSES Past Surgical History: Surgical History Other: PORT A CATH, BACK SX, ABD SX MULTIPLE, RT BKN, Family History Family History: Negative Social History Social History: Negative, Lives with family Female( History) History: Not Applicable ROS Dictation CONSTITUTIONAL: Negative except for HPI HEAD/FACE: Negative except for HPI EENT: Negative except for HPI RESPIRATORY: Negative except for HPI GASTROINTESTINAL/ABDOMINAL: Negative except for HPI GENITOURINARY: Negative except for HPI MUSCULOSKELETAL: Negative except for HPI INTEGUMENTARY: Negative except for HPI NEUROLOGICAL/PSYCH: Negative except for HPI HEMATOLOGIC/LYMPHATIC: Negative except for HPI All Systems Negative, Except as noted above. 13 point review of systems assessed and all negative except for above. Physical Exam Physical Exam Dictation PHYSICAL EXAM: GENERAL: alert,, awake oriented x 3 HEENT: EOMI, Sclera non icteric, moist mucosa NECK: Supple, no JVD, trachea midline LUNGS: Clear breath sounds bilaterally. No wheezes HEART: Regular rate and rhythm. Normal S1 and S2, without murmurs ABD: Abdomen soft, nontender. Bowel sounds present EXT: No clubbing or cyanosis, Back: Paraspinal muscle tenderness of the lumbar region, no midline tenderness, no signs of external trauma, lower extremities are neurovascularly intact NEURO: Alert and oriented to person, follows commands MDM MDM: Differential diagnosis: Muscle strain, fracture, contusion, drug-seeking behavior There are no social concerns with this patient. Prescription drug management Prescriptions will include: None Medical management and examination interpretation discussions were had by ar wi th other qualified healthcare professionals as indicated for the patient's care. ED Course Orders Procedure Category Date Status Time Hydromorphone 0.5mg PHA 01/24/25 Complete Syg (Dilaudid 0.5mg 18:00 Current Medications Medications (Trade) Dose Ordered Sig/Deanna Route PRN Reason Start Time Stop Time Status Last Admin Dose Admin Hydromorphone HCl (DiLAUDid 0.5MG INJ) 0.5 mg ONCE ONCE IM 01/24/25 18:00 01/24/25 18:01 Vital Signs Date Time Temp Pulse Resp B/P (MAP) Pulse Ox O2 Delivery O2 Flow Rate FiO2 01/24/25 17:51 98.2 85 16 120/70 98 Room Air* 0 21 01/24/25 16:09 98.4 86 16 122/72 100 Room Air 0 DX & DISP Disposition: Discharge Departure Impression: Primary Impression: Low back pain Condition: Stable Referrals: MILVIA PITTS MD (PCP) Time of Disposition: 18:03 I have reviewed the case, and I agree with, Diagnosis and Plan I performed the substantive portion of the visit. I have reviewed and personally made and approve the management plan that is documented in the note by myself or the MELINDA. I acknowledge for responsibility for the patient's management plan. DRE PITTS Jan 24, 2025 18:04
== END 2025-01-24 18:10 | disposition home or self-care (01) ==
LOC: EDH 16:06
DX: M54.50 Low back pain, unspecified (principal); E11.22 Type 2 diabetes mellitus with diabetic chronic kidney disease; N18.6 End stage renal disease; Z79.82 Long term (current) use of aspirin; Z79.899 Other long term (current) drug therapy; Z88.4 Allergy status to anesthetic agent; Z88.5 Allergy status to narcotic agent; Z99.2 Dependence on renal dialysis
CPT/HCPCS: 99283; 96372; J1171

== ENCOUNTER 2025-02-01 22:12 | Emergency (ER) | payer MEDICAID ==
[~2025-02-01] VITALS: Ht 162.6 cm; Wt 81.2 kg
[2025-02-01 22:55] LABS: APPEARANCE,URINE TURBID (CLEAR); BILIRUBIN,URINE NEGATIVE (NEGATIVE); COLOR,URINE LIGHT-ORANGE (YELLOW); GLUCOSE, URINE (UA) >=1000 mg/dL (NEGATIVE); KETONES,URINE NEGATIVE (NEGATIVE); LEUKOCYTE ESTERASE ,URINE 25 Leu/uL (NEGATIVE); NITRATE,URINE NEGATIVE (NEGATIVE); OCCULT BLOOD,URINE MODERATE (NEGATIVE); PROTEIN,URINE 300 mg/dL (NEGATIVE); UROBILINOGEN,URINE 0.2 mg/dL (0.2-1.0)
[2025-02-01 22:56] LABS: ADD UA MICROSCOPIC YES
[2025-02-01 23:00] LABS: BACTERIA,URINE FEW /HPF (None Seen); MUCUS,URINE RARE LPF (None Seen); SQUAMOUS EPITHELIAL CELL,UR RARE /HPF (0-2)
[2025-02-01] MEDS: hydroMORPHone 0.5 MG SYG (0.5MG/0.5ML) IVP ONE (23:02)
--- NOTE | 2025-02-02 01:03 | HMCIMG ---
CT ABDOMEN/PELVIS W/O CONTRAST HISTORY: Ureteral stone COMPARISON: April 02, 2025 TECHNIQUE: Multiple sequential axial images of the abdomen and pelvis were obtained from the dome of the diaphragm through symphysis pubis. Patient was not given contrast through intravenous route. Oral contrast was not given. FINDINGS: No pleural effusion is seen bilaterally. There is no evidence of parenchymal disease or pulmonary nodule of the visualized lower lungs. Degenerative changes of the thoracolumbar spine are present. The heart is not enlarged. Liver is enlarged measuring 18 cm. Gallstones are seen in a contracted gallbladder. There is left renal atrophy. The liver, spleen, adrenal glands and pancreas are unremarkable. No hydronephrosis is seen on the right. Minimal left hydronephrosis is seen with left hydroureter. No evidence of renal stone is seen. Fecal material is seen in the colon. There are normal size retroperitoneal and mesenteric lymph nodes. No ascites is seen. Atherosclerotic changes are present. Pelvic sidewalls are symmetric bilaterally. The latter is poorly distended with Rivera catheter and wall thickening. There is paravertebral hernia with fat content and fat stranding. IMPRESSION: 1. Colostomy in the contracted gallbladder. 2. Left renal atrophy with minimal left hydronephrosis and hydroureter. No CT evidence of renal stone is seen however. The bladder is poorly distended with Rivera catheter and wall thickening. If there is clinical suspicion for pyelonephritis or cystitis, urinalysis correlation with helpful. CT was performed with one or more following dose reduction techniques: automated exposure control, adjustment of the mA and kv according to patient's size, or use of a iterative reconstruction technique.
[2025-02-02] MEDS ORDERED: CEPH500B PO (01:27)
--- NOTE | 2025-02-02 01:28 | ERN ---
General Chief Complaint: Abdominal Pain Stated Complaint: LOWER ABDOMINAL PAIN ONSET 1999 Time Seen by MD: 22:51 Time Seen by Midlevel: 22:51 Source: patient History of Present Illness Initial Comments 39-year-old female with a past medical history of end-stage renal disease on hemodialysis presenting to the emergency department with suprapubic abdominal p ain. Denies any fever, chills, or any other symptoms at this time. Patient reports significant amount of pain and states the only medication that works is Dilaudid. Allergies: Coded Allergies: lidocaine (Unverified Allergy, Unknown, 09/13/24) morphine (Unverified Allergy, Unknown, 05/10/22) onion (Unverified Allergy, Unknown, 05/10/22) Home Meds Active Scripts Atorvastatin Calcium (Atorvastatin Calcium) 20 Mg Tablet, 1 TAB PO DAILY for 30 Days, #30 TAB 1 Refill Prov:DELFINO PATRICK MD 01/15/25 Folic Acid/Vit B Complex and C (Nephro Vitamins Tablet) 0.8 Mg Tablet, 0.8 MG PO DAILY, #30 TAB 1 Refill Prov:DELFINO PATRICK MD 01/15/25 Aspirin (Aspirin EC) 81 Mg Tablet.dr, 1 TAB PO DAILY for 30 Days, #30 TAB 1 Refill Prov:DELFINO PATRICK MD 01/15/25 Metoprolol Tartrate (Lopressor) 25 Mg Tab, 25 MG PO BID for 30 Days, #60 TAB 1 Refill Prov:DELFINO PATRICK MD 01/15/25 Past Medical History Past Medical History: No Pertinent History, Diabetes-Type II, Renal Failure Medical History Other: COMA, INTERNAL ABSCESSES Past Surgical History: Surgical History Other: PORT A CATH, BACK SX, ABD SX MULTIPLE, RT BKN, Family History Family History: Negative Social History Social History: Negative, Lives with family Female( History) History: Not Applicable ROS Dictation CONSTITUTIONAL: Negative except for HPI HEAD/FACE: Negative except for HPI EENT: Negative except for HPI RESPIRATORY: Negative except for HPI GASTROINTESTINAL/ABDOMINAL: Negative except for HPI GENITOURINARY: Negative except for HPI MUSCULOSKELETAL: Negative except for HPI INTEGUMENTARY: Negative except for HPI NEUROLOGICAL/PSYCH: Negative except for HPI HEMATOLOGIC/LYMPHATIC: Negative except for HPI All Systems Negative, Except as noted above. 13 point review of systems assessed and all negative except for above. Physical Exam Physical Exam Dictation Vital Signs reviewed General Appearance: Alert, oriented x 3, no acute distress, well developed, nourished. Head and Face: non-traumatic. Eyes: PERRL, pink conjunctivas, eyelid no trauma, anterior chamber with arcus senilis. Ears: Pinnas intact and no signs of trauma or erythema ear canals clear and no discharge TM no erythema Nose: No discharge, no bleeding. Oropharynx: Mouth normal, tongue pink, pharynx clear,no erythema, tonsils no exudates, no abscesses noted, mucous membrane moist Neck: Supple, non-tender, no thyromegaly, no masses, no JVD, no bruits Breast:Deferred Chest:No tenderness, no crepitus, no paradoxical movement, no retractions Lungs:Clear, well-ventilated, symmetric, no rales, no wheezing, no rhonchi, no stridor, good breath sounds bilaterally Heart: Regular rate, regular rhythm, no murmur, no gallops Vascular: no peripheral edema, Abdomen: Soft, positive bowel sounds, nondistended, no guarding, nontender, no rebound, no masses no hepatomegaly, no splenomegaly, no Katz's sign, no hernias. Rectal: Deferred Genital: Deferred Neurological: Normal speech, motor function intact, sensory function intact Musculoskeletal: Neck nontender, full range of motion, back nontender, full range of motion, Extremities: nontender, full range of motion Skin: Color pink, dry, no turgor, no rash, no lacerations, no abrasions, no contusions. Lymphatic: Deferred Results Laboratory and Microbiology Lab and Micro Result Laboratory Tests Test 02/01/25 22:48 Urine Color LIGHT-ORANGE (YELLOW) Urine Appearance TURBID (CLEAR) Urine pH 6.0 (5.0-8.0) Urine Specific [place] 1.017 (1.001-1.031) Urine Protein 300 mg/dL (NEGATIVE) H Urine Glucose (UA) >=1000 mg/dL (NEGATIVE) H Urine Ketones NEGATIVE mg/dL (NEGATIVE) Urine Occult Blood MODERATE (NEGATIVE) H Urine Nitrate NEGATIVE (NEGATIVE) Urine Bilirubin NEGATIVE mg/dL (NEGATIVE) Urine Urobilinogen 0.2 mg/dL (0.2-1.0) Urine Leukocyte Esterase 25 Sada/uL (NEGATIVE) H Urine RBC 11-25 /HPF (0-1) H Urine WBC None /HPF (0-1) Urine Squamous Epithelial Cells RARE /HPF (0-2) Urine Amorphous Crystals (Auto) RARE /LPF (None Seen) Urine Bacteria FEW /HPF (None Seen) Urine HCG, Qualitative NEGATIVE (NEGATIVE) Labs Reviewed?: Yes MDM MDM: Differential diagnosis: Indwelling Rivera catheter, urinary tract infection, pyelonephritis There are no social concerns with this patient. Prescription drug management Prescriptions will include: Keflex Medical management and examination interpretation discussions were had by me with other qualified healthcare professionals as indicated for the patient's car e. ED Course Orders Procedure Category Date Status Time Urinalysis Profile LAB 02/01/25 Complete 22:33 Hydromorphone 0.5mg PHA 02/01/25 Complete Syg (Dilaudid 0.5mg 23:00 Nurse Driven Rivera ARMANDO 02/01/25 In Process Removal Pro 22:55 Aerobic Culture SERAFIN 02/01/25 In Process 23:51 Ct Abdomen/Pelvis W/O CT 02/02/25 Resulted Contrast 00:00 ,Urine Test LAB 02/02/25 Complete 00:09 Current Medications Medications (Trade) Dose Ordered Sig/Deanna Route PRN Reason Start Time Stop Time Status Last Admin Dose Admin Hydromorphone HCl (DiLAUDid 0.5MG INJ) 0.5 mg ONCE ONCE IVP 02/01/25 23:00 02/01/25 23:01 DC 02/01/25 23:02 Vital Signs Date Time Temp Pulse Resp B/P (MAP) Pulse Ox O2 Delivery O2 Flow Rate FiO2 02/01/25 23:35 97.2 98 20 148/98 98 Room Air* 0 21 02/01/25 22:24 97.0 102 20 168/110 98 Room Air* 0 21 02/01/25 22:15 97.9 90 16 159/98 97 Room Air 0 [place] [id number] [address] IMAGING REPORT Signed PATIENT: DARÍO ELIAS MR#: [id number] : 1985 SEX: F AGE: 39 LOCATION: [facility] ORDER 0001 STATUS: REG ER REPORT#: [id number] SERVICE 0000 REASON: r/o ureter stone ORDERING PHYSICIAN: DRE PITTS PROCEDURE: ABD PEL WO - CT ABDOMEN/PELVIS W/O CONTRAST CT ABDOMEN/PELVIS W/O CONTRAST HISTORY: Ureteral stone COMPARISON: April 02, 2025 TECHNIQUE: Multiple sequential axial images of the abdomen and pelvis were obtained from the dome of the diaphragm through symphysis pubis. Patient was not given contrast through intravenous route. Oral contrast was not given. FINDINGS: No pleural effusion is seen bilaterally. There is no evidence of parenchymal disease or pulmonary nodule of the visualized lower lungs. Degenerative changes of the thoracolumbar spine are present. The heart is not enlarged. Liver is enlarged measuring 18 cm. Gallstones are seen in a contracted gallbladder. There is left renal atrophy. The liver, spleen, adrenal glands and pancreas are unremarkable. No hydronephrosis is seen on the right. Minimal left hydronephrosis is seen with left hydroureter. No evidence of renal stone is seen. Fecal material is seen in the colon. There are normal size retroperitoneal and mesenteric lymph nodes. No ascites is seen. Atherosclerotic changes are present. Pelvic sidewalls are symmetric bilaterally. The latter is poorly distended with Rivera catheter and wall thickening. There is paravertebral hernia with fat content and fat stranding. IMPRESSION: 1. Colostomy in the contracted gallbladder. 2. Left renal atrophy with minimal left hydronephrosis and hydroureter. No CT evidence of renal stone is seen however. The bladder is poorly distended with Rivera catheter and wall thickening. If there is clinical suspicion for pyelonephritis or cystitis, urinalysis correlation with helpful. CT was performed with one or more following dose reduction techniques: automated exposure control, adjustment of the mA and kv according to patient's size, or use of a iterative reconstruction technique. DICTATED BY: ZAY ZARAGOZA MD DATE: 02/02/2556 ELECTRONICALLY SIGNED BY: ZAY ZARAGOZA MD DATE: 02/02/25102 DX & DISP Disposition: Discharge Departure Impression: Primary Impression: Acute UTI Additional Impression: Encounter for assessment of Rivera catheter Condition: Stable Scripts Cephalexin Monohydrate (Keflex) 500 Mg Cap 500 MG PO QID for 7 Days, #28 CAP Prov: DRE PITTS 02/02/25 Additional Instructions: Your urinalysis shows evidence of infection. Your Rivera catheter was replaced. You need to follow up with your primary care doctor in 2-3 days for repeat evaluation. I have provided you with a prescription for oral antibiotics for outpatient management. Referrals: MILVIA PITTS MD (PCP) Time of Disposition: 01:26 I have reviewed the case, and I agree with, Diagnosis and Plan I performed the substantive portion of the visit. I have reviewed and personally made and approve the management plan that is documented in the note by myself or the MELINDA. I acknowledge for responsibility for the patient's management plan. DRE PITTS Feb 02, 2025 01:28
[2025-02-02 02:01] VITALS: BP 142/85; PULSE 90; RESP 16; TEMP 97.6; O2SAT 97
== END 2025-02-02 02:03 | disposition home or self-care (01) ==
LOC: EDH 22:12
DX: N39.0 Urinary tract infection, site not specified (principal); E11.22 Type 2 diabetes mellitus with diabetic chronic kidney disease; E11.69 Type 2 diabetes mellitus with other specified complication; N18.6 End stage renal disease; Z79.82 Long term (current) use of aspirin; Z79.899 Other long term (current) drug therapy; Z88.5 Allergy status to narcotic agent; Z99.2 Dependence on renal dialysis; Z93.3 Colostomy status
CPT/HCPCS: 99285; 96374; 87086 ×3; 87186 ×3; 81001; 81025; 51702; 87070; 74176; J1171

== ENCOUNTER 2025-02-08 00:07 | Inpatient (IN) | payer MEDICAID ==
[~2025-02-08] VITALS: Ht 162.6 cm; Wt 86.3 kg
[~2025-02-08 00:07] MED LIST changes: +CEPH500B PO
--- NOTE | 2025-02-08 01:11 | ERN ---
General Chief Complaint: Back Pain or Injury Stated Complaint: LOWER BACK PAIN X 2 DAYS, PAIN AT DIALYSIS ACCESS Time Seen by MD: 00:22 Source: patient History of Present Illness Initial Comments Patient has two chief complaints is some low back pain that is across her entire lower back and started since her dialysis session yesterday. Her 2nd chief complaint is pain at her left IJ dialysis catheter entry site site.\, which also started after her dialysis session yesterday. Patient has no constitutional symptoms no upper respiratory tract infections no fevers no chills no nausea no vomiting no diarrhea no difficulty urinating. Timing/Duration: 24 hours Severity: mild Allergies: Coded Allergies: lidocaine (Unverified Allergy, Unknown, 09/13/24) morphine (Unverified Allergy, Unknown, 05/10/22) onion (Unverified Allergy, Unknown, 05/10/22) Home Meds Active Scripts Cephalexin Monohydrate (Keflex) 500 Mg Cap, 500 MG PO QID for 7 Days, #28 CAP Prov:DRE PITTS 02/02/25 Atorvastatin Calcium (Atorvastatin Calcium) 20 Mg Tablet, 1 TAB PO DAILY for 30 Days, #30 TAB 1 Refill Prov:DELFINO PATRICK MD 01/15/25 Folic Acid/Vit B Complex and C (Nephro Vitamins Tablet) 0.8 Mg Tablet, 0.8 MG PO DAILY, #30 TAB 1 Refill Prov:DELFINO PATRICK MD 01/15/25 Aspirin (Aspirin EC) 81 Mg Tablet.dr, 1 TAB PO DAILY for 30 Days, #30 TAB 1 Refill Prov:DELFINO PATRICK MD 01/15/25 Metoprolol Tartrate (Lopressor) 25 Mg Tab, 25 MG PO BID for 30 Days, #60 TAB 1 Refill Prov:DELFINO PATRICK MD 01/15/25 Past Medical History Past Medical History: Diabetes-Type II, Renal Failure Medical History Other: COMA, INTERNAL ABSCESSES, Founier's Gangrene Past Surgical History: Surgical History Other: PORT A CATH, BACK SX, ABD SX MULTIPLE, RT BKA, Family History Family History: Negative Social History Social History: Negative, Lives with family Female( History) History: Not Applicable Constitutional: (-) chills, (-) diaphoresis, (-) fever, (-) malaise, (-) weakness, (-) other documentation EENTM: (-) eye pain, (-) blurred vision, (-) tearing, (-) double vision, (-) ear pain, (-) ear discharge, (-) nose pain, (-) nose congestion, (-) throat pain, (-) Throat swelling, (-) mouth pain, (-) tooth pain, (-) mouth swelling, (-) other documentation Respiratory: (-) cough, (-) orthopnea, (-) short of breath, (-) stridor, (-) wheezing, (-) other documentation Cardiovascular: (-) chest pain, (-) edema, (-) palpitations, (-) syncope, (-) dyspnea on exertion, (-) other documentation Gastrointestinal/Abdominal: (-) nausea, (-) vomiting, (-) diarrhea, (-) abdominal pain, (-) abdominal distention, (-) constipation, (-) rectal bleeding, (-) dark stool/melena, (-) other documentation Genitourinary: (-) vaginal discharge, (-) vaginal bleeding, (-) dysuria, (-) frequency, (-) hematuria, (-) pain, (-) other documentation Musculoskeletal: (-) Neck pain, (-) back pain, (-) Flank Pain, (-) joint pain, (-) joint swelling, (-) muscle pain, (-) muscle stiffness, (-) gout, (-) other documentation Skin: (-) laceration, (-) contusion, (-) abrasion, (-) abscess, (-) rash, (-) change in color, (-) change in hair, (-) change in nails, (-) diaphoresis, (-) dryness, (-) other documentation Neuro: (-) altered mental status, (-) headache, (-) syncope, (-) paralysis, (-) numbness, (-) seizure, (-) pre-existing deficit, (-) tremors, (-) weakness, (-) dizziness, (-) slurred speech, (-) vertigo, (-) other documentation Physical Exam General Appearance: (+) mild distress Orientation: (+) alert Head/Face Trauma: No Eye: bilateral eye normal inspection, bilateral eye PERRL, bilateral eye EOMI Ear, Nose, Throat: (+) hearing grossly normal, (+) normal ENT inspection, (+) moist mucous membraine Neck: (+) normal inspection, (+) supple, (+) full range of motion, (+) no JVD Respiratory: (+) chest non-tender, (+) lungs clear, (+) well ventilated Heart: (+) regular, (+) no gallop Vascular: (+) no edema, (+) normal peripheral pulse, (+) no JVD Gastrointestinal: (+) soft, (+) non-tender, (+) no organomegaly, (+) bowel sound present Back: (+) no CVA tenderness, (+) no vertebral tenderness, (+) muscle spasm Skin Comment The Port-A-Cath site is absolutely 100% benign with no tenderness no erythema no discharge no signs of infection no swelling no subcutaneous masses. Results Laboratory and Microbiology Lab and Micro Result Laboratory Tests Test 02/08/25 02:10 02/08/25 02:12 Urine Color LIGHT-ORANGE (YELLOW) Urine Appearance TURBID (CLEAR) Urine pH 7.0 (5.0-8.0) Urine Specific [place] 1.014 (1.001-1.031) Urine Protein 600 mg/dL (NEGATIVE) H Urine Glucose (UA) >=1000 mg/dL (NEGATIVE) H Urine Ketones NEGATIVE mg/dL (NEGATIVE) Urine Occult Blood SMALL (NEGATIVE) H Urine Nitrate NEGATIVE (NEGATIVE) Urine Bilirubin NEGATIVE mg/dL (NEGATIVE) Urine Urobilinogen 0.2 mg/dL (0.2-1.0) Urine Leukocyte Esterase 250 Sada/uL (NEGATIVE) H Urine RBC 51-100 /HPF (0-1) H Urine WBC 51-100 /HPF (0-1) H Urine Squamous Epithelial Cells RARE /HPF (0-2) Urine Amorphous Crystals (Auto) FEW /LPF (None Seen) Urine Bacteria MANY /HPF (None Seen) Urine Yeast MANY /HPF (None Seen) Urine HCG, Qualitative NEGATIVE (NEGATIVE) White Blood Count 6.6 K/uL (4.8-10.8) Red Blood Count 3.87 MIL/uL (4.00-5.50) L Hemoglobin 12.3 g/dL (12.0-16.0) Hematocrit 36.3 % (36-48) Mean Corpuscular Volume 93.8 fL (79-99) Mean Corpuscular Hemoglobin 31.8 pg (27.0-33.0) Mean Corpuscular Hemoglobin Concent 33.9 g/dL (32.0-36.0) Red Cell Distribution Width 14.5 % (11.0-15.5) Platelet Count 201 K/uL (130-400) Mean Platelet Volume 10.3 fL (7.5-10.5) Immature Granulocyte % (Auto) 0.8 % (0-1) Neutrophils (%) (Auto) 61.0 % (40.0-77.0) Lymphocytes (%) (Auto) 21.5 % (21.0-51.0) Monocytes (%) (Auto) 7.9 % (3.0-13.0) Eosinophils (%) (Auto) 7.0 % (0.0-8.0) Basophils (%) (Auto) 1.8 % (0.0-5.0) Neutrophils # (Auto) 4.0 K/uL (1.8-7.7) Lymphocytes # (Auto) 1.4 K/uL (1.0-4.8) Monocytes # (Auto) 0.5 K/uL (0.1-1.0) Eosinophils # (Auto) 0.46 K/uL (0.00-0.70) Basophils # (Auto) 0.12 K/uL (0.00-0.20) Absolute Immature Granulocyte (auto 0.05 K/uL (0-1) Nucleated Red Blood Cells 0.3 % (0.0-0.19) H Sodium Level 127 mmol/L (136-145) L Potassium Level 3.9 mmol/L (3.5-5.1) Chloride Level 94 mmol/L (101-111) L Carbon Dioxide Level 25 mmol/L (21-32) Blood Urea Nitrogen 12 mg/dL (7-18) Creatinine 3.1 mg/dL (0.5-1.0) H Glomerular Filtration Rate Calc 19 mL/min (>90) Random Glucose 640 mg/dL (70-105) *H Total Calcium 7.8 mg/dL (8.5-10.1) L MDM I have no explanation for the patient's right IJ dialysis catheter site pain. There is no infection there was no bleeding there was no discharge no mass the skin is normal color with no bruising or erythema. The exam is so benign there is no point in even imaging it or examining it with ultrasound. Patient's low back pain I think is musculoskeletal I will start with some oral muscle relaxant and some Toradol. Patient's laboratory analysis of come back her blood glucose is greater than 600 and she has a hypochloremia and a fictitious hyponatremia. Also her urine is positive for leukocyte esterase activity. I have called the hospitalist to admit her for high per glycemia with a urinary tract infection and they have accepted her. ED Course Orders Procedure Category Date Status Time Cyclobenzaprine Hcl PHA 02/08/25 Complete (Cyclobenzaprine Hcl 01:30 Basic Metabolic Panel LAB 02/08/25 Complete 01:12 Urinalysis Profile LAB 02/08/25 Complete 01:12 ,Urine Test LAB 02/08/25 Complete 01:12 Cbc With Differential LAB 02/08/25 Complete 01:12 Culture Urine SERAFIN 02/08/25 In Process 02:16 Ketorolac PHA 02/08/25 Complete Tromethamine 30mg/Ml 02:30 Cyclobenzaprine Hcl PHA 02/08/25 Complete (Cyclobenzaprine Hcl 02:30 Current Medications Medications (Trade) Dose Ordered Sig/Deanna Route PRN Reason Start Time Stop Time Status Last Admin Dose Admin Cyclobenzaprine HCl (Cyclobenzaprine HCl) 10 mg ONCE ONCE PO 02/08/25 01:30 02/08/25 01:31 DC 02/08/25 01:58 Cyclobenzaprine HCl (Cyclobenzaprine HCl) 10 mg ONCE ONCE PO 02/08/25 02:30 02/08/25 02:32 DC 02/08/25 02:46 Ketorolac Tromethamine (toRADol) 30 mg ONCE ONCE IVP 02/08/25 02:30 02/08/25 02:36 DC Vital Signs Date Time Temp Pulse Resp B/P (MAP) Pulse Ox O2 Delivery O2 Flow Rate FiO2 02/08/25 02:07 84 16 166/84 97 Room Air* 0 02/08/25 00:48 98.1 89 18 181/87 97 Room Air* 0 02/08/25 00:11 97.3 95 16 191/87 99 Room Air 0 DX & DISP Disposition: Inpatient Departure Impression: Primary Impression: Acute UTI Additional Impression: Uncontrolled diabetes mellitus with hyperglycemia Condition: Stable Referrals: MILVIA PITTS MD (PCP) HEIDE MALONEY MD February 08, 2025 01:11
[2025-02-08] MEDS: CYCLOBENZAPRINE HCL 10 MG TABLET PO ONE ×2 (01:58→02:46)
[2025-02-08 02:15] LABS: APPEARANCE,URINE TURBID (CLEAR); BILIRUBIN,URINE NEGATIVE (NEGATIVE); COLOR,URINE LIGHT-ORANGE (YELLOW); GLUCOSE, URINE (UA) >=1000 mg/dL (NEGATIVE); KETONES,URINE NEGATIVE (NEGATIVE); LEUKOCYTE ESTERASE ,URINE 250 Leu/uL (NEGATIVE); NITRATE,URINE NEGATIVE (NEGATIVE); OCCULT BLOOD,URINE SMALL (NEGATIVE); PROTEIN,URINE 600 mg/dL (NEGATIVE); UROBILINOGEN,URINE 0.2 mg/dL (0.2-1.0)
[2025-02-08 02:16] LABS: ADD UA MICROSCOPIC YES
[2025-02-08 02:18] LABS: BACTERIA,URINE MANY /HPF (None Seen); MUCUS,URINE MOD LPF (None Seen); RBC,URINE 51-100 /HPF (0-1); SQUAMOUS EPITHELIAL CELL,UR RARE /HPF (0-2); WBC,URINE 51-100 /HPF (0-1); YEAST,URINE BUDDING MANY /HPF (None Seen)
[2025-02-08 02:19] LABS: HCG,QUALITATIVE URINE NEGATIVE (NEGATIVE)
[2025-02-08 02:21] LABS: BASOPHILS # (AUTO) 0.12 K/uL (0.00-0.20); BASOPHILS % (AUTO) 1.8 % (0.0-5.0); EOSINOPHILS # (AUTO) 0.46 K/uL (0.00-0.70); HEMATOCRIT 36.3 % (36-48); IMMATURE GRANULOCYTE ABSOLUTE 0.05 K/uL (0-1); LYMPHOCYTES # (AUTO) 1.4 K/uL (1.0-4.8); LYMPHOCYTES % (AUTO) 21.5 % (21.0-51.0); MEAN CORPUSCULAR HEMOGLOBIN 31.8 pg (27.0-33.0); MEAN CORPUSCULAR HGB CONC 33.9 g/dL (32.0-36.0); MEAN CORPUSCULAR VOLUME 93.8 fL (79-99); MONOCYTES # (AUTO) 0.5 K/uL (0.1-1.0); MONOCYTES % (AUTO) 7.9 % (3.0-13.0); NUCLEATED RED BLOOD CELLS 0.3 % (0.0-0.19); PLATELET COUNT (AUTO) 201 K/uL (130-400); RED BLOOD CELL COUNT(AUTO) 3.87 MIL/uL (4.00-5.50); RED CELL DISTRIBUTION WIDTH 14.5 % (11.0-15.5); WHITE BLOOD COUNT (AUTO) 6.6 K/uL (4.8-10.8)
[2025-02-08] MEDS ORDERED: ketOROlac 30MG VIAL (30MG/ML) IVP ONE (02:30)
[2025-02-08 02:37] LABS: CREATININE 3.1 mg/dL (0.5-1.0); POTASSIUM 3.9 mmol/L (3.5-5.1)
[2025-02-08] MEDS ORDERED: INSULIN REGULAR, HUMAN 3ML 100 UNIT in 0.9%NACL 100ML 99 ML IV PRN (03:00)
[2025-02-08] MEDS ORDERED: acetaMINOPHEN 325 MG TAB PO PRN (03:00)
--- NOTE | 2025-02-08 03:00 | HP ---
History of Present Illness Reason for Visit: back pain History of Present Illness Ms. Carrasco is a 39-year-old female that was seen and examined today on 02/08/2025. Patient is a good historian of personal health patient states she came to the emergency department with a chief complaint of back pain. onset 2 days ago. location lower back. duration is constant. symptoms are usually alleviated with dilaudid. symptoms are aggrivated with movement patient denies any shortness of breath or chest pain. Today in the emergency department CBC unremarkable, glucose 640 mg/dL, urinalys is positive for leukocyte esterase and WBCs 51-100 per high-powered microscopy field, creatinine is 3.1. Emergency room physician recommended that patient be admitted with a diagnosis of ESRD and uncontrolled Diabetes mellitius type2 Past Medical History ADDITIONAL PAST MEDICAL HISTORY: [Diabetes mellitius type2, hypertension, ESRD on H/D SOCIAL HISTORY: [] Negative for smoking, alcohol use, drug use. Patient lives with her brother heriberto carrasco. Patient requires assistance with her ADLs. Patient denies difficulty paying her bills. Patient is unemployed. Patient has not access to health care through her insurance. 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 Dyspnea, Edema, Lt Headedness, Other Gastrointestinal: No: Nausea, Vomiting, Abdominal Pain, Diarrhea, Constipation, Melena, Hematochezia, Other Genitourinary: No Dysuria, No Frequency, No Incontinence, No Hematuria, No Retention, No Other Musculoskeletal: back pain; No: other, neck pain, shoulder pain, arm pain, hand pain, leg pain, foot pain Skin: No Urticaria, No Rash, No Other Neurological: No: Weakness, Numbness, Incoordination, Change in speech, Confusion, Seizures, Other Allergies: Coded Allergies: lidocaine (Unverified Allergy, Unknown, 09/13/24) morphine (Unverified Allergy, Unknown, 05/10/22) onion (Unverified Allergy, Unknown, 05/10/22) Scheduled Aspirin (Aspirin EC), 1 TAB PO DAILY Atorvastatin Calcium (Atorvastatin Calcium), 1 TAB PO DAILY Cephalexin Monohydrate (Keflex), 500 MG PO QID Folic Acid/Vit B Complex and C (Nephro Vitamins Tablet), 0.8 MG PO DAILY Metoprolol Tartrate (Lopressor), 25 MG PO BID Exam Vital Signs Vital Signs Date Time Temp Pulse Resp B/P (MAP) Pulse Ox O2 Delivery O2 Flow Rate FiO2 02/08/25 02:07 84 16 166/84 97 Room Air* 0 21 02/08/25 00:48 98.1 General Appearance: Alert, Oriented X3, Cooperative, No acute distress HEENT: Atraumatic, EOMI Respiratory: Clear to auscultation, Normal air movement, NL respiratory effort Cardiovascular: Regular rate, Regular rhythm, Normal S1, Normal S2 Abdominal: Normal bowel sounds, No tenderness Extremities: No edema Skin: No significant lesion Neuro: Normal speech, Strength at 5/5 X4 ext, Sensation intact, Cranial nerves 3-12 NL Psych/Mental Status: Mental status NL, Mood NL, Thoughts/Content NL Assessment/Plan ASSESSMENT: [ ESRD on HD , POA Urinary tract infection , POA Uncontrolled Diabetes mellitius type2, POA Hypertension PLAN: [ Admit patient to medical floor as inpatient status. ESRD on HD: Consult patient's commercial finance analyst, Dr. Fernandez Monitor intake and output every shift Weight patient daily 1500 mL daily fluid restriction Renally dose all medications when possible Avoid nephrotoxic agents when possible Hemodialysis per Nephrology recommendations Urinary tract infection: Check urine culture, follow up with the results Empiric antibiotic therapy with Rocephin Reviewed urine culture from November 2024 which was pansensitive Diabetes mellitus type 2: Check hemoglobin A1c in a.m. Glucometer checks a.c. and HS 1800 ADA diet Humulin R sliding scale Hypertension: Consider resuming home medications once they have been reconciled. For now, Hydralazine 10 mg IV every 4 hours for systolic blood pressure greater than 160 mmHg GI prophylaxis, Protonix DVT prophylaxis ,heparin ADVANCED CARE PLANNING 1. Which of the following were discussed? Hospice Care - Yes Therapeutic options - Yes Advance Directives - Yes -patient states that she does not have any advance directives in place at this time, however her brother can make decisions for her if she becomes unable. Other discussions - patient wishes to remain a full code at this time 2. Discussed with who? Patient 3. Voluntary nature of this service was explained to the patient? Yes 4. Amount of time spent - ____ 17 minutes ___ 5. Reviewed by Physician? (if this service was performed by NPP) Yes This document was generated in part using voice recognition software, occasional wrong word or sound alike substitutions may have occurred due to the inherent limitations of voice recognition software. Read the chart carefully and recognize using context, where the substitutions have occurred. Although every effort was made to edit the content, design consultant and typing errors may occur ADDENDUM: - Start glargine 15U q24h ATTENDING PHYSICIAN ATTESTATION: I have reviewed the midlevel's plan. I have independently seen, reviewed the chart and made my own assessment of the patient. See my addendum for updates to the midlevel's medical plan MD MADELINE Chery [facility] February 08, 2025 03:00 TACO CHRISTIE MD February 08, 2025 19:02
--- NOTE | 2025-02-08 03:03 | NUR ---
PT CARE ASSUMED AT THIS TIME
--- NOTE | 2025-02-08 03:10 | NUR ---
PRMACATH DRESSING CHANGED AT THIS TIME. PT REPORTS NO PAIN WHILE DRESSING CHANGE. SITE IS SLIGHTLY RED WITH NO DISCHARGE.
--- NOTE | 2025-02-08 03:11 | NUR ---
MADELINE UNDER WATER ASSISTANT AT BEDSIDE AT THIS TIME
--- NOTE | 2025-02-08 03:34 | NUR ---
PROVIDER PAGED AT THIS TIME REGAURDING MEDICATION CLARIFICATION. PENDING CALL BACK.
[2025-02-08] MEDS: cefTRIAXone 1G VIAL IVPB SCH (03:46)
--- NOTE | 2025-02-08 03:53 | NUR ---
PROVIDER EDVIN ORTEZ NOTIFIED ABOUT BEDSIDE BLOOD SUGAR.
--- NOTE | 2025-02-08 03:53 | NUR ---
PER ED MD FRYE INSULIN DRIP CAN BE D/C.
--- NOTE | 2025-02-08 03:53 | NUR ---
PER EMERGENCY MEDICINE PHYSICIAN ASSISTANT EDVIN CORREA INSULIN DRIP IS NOT NEEDED. NO FURTHER ORDERS FOR BLOOD SUGAR AT THIS TIME.
[2025-02-08] MEDS: hydrALAZine 20MG/ML VIAL IV PRN (04:04)
--- NOTE | 2025-02-08 04:21 | NUR ---
REPORT GIVEN TO MAXI VARMA AT THIS TIME
[2025-02-08] MEDS: hydroMORPHone 0.5 MG SYG (0.5MG/0.5ML) IVP PRN (04:27)
[2025-02-08] MEDS: INSULIN humuLIN R 100 UNIT/ML 3ML SQ ONE (04:41)
[2025-02-08 04:54] VITALS: BP 158/101; PULSE 98; RESP 20; TEMP 98.1
--- NOTE | 2025-02-08 05:30 | NUR ---
ADMIT Patient admitted from ER. Vitals stable. Denies pain. Chronic muir in place patient states she has had since 2021 and exchanged on 02/01/2025. Denies nausea. Denies shortness of breath. Right chest permacath in place. Left arm precautions. Pending to bring medications, pt states family member will bring later on today. Educated on fall risk precautions and use of call light, verbalized understanding. Call light within reach. Bed alarm on.
[2025-02-08] MEDS: INSULIN humuLIN R 100 UNIT/ML 3ML SQ SCH (06:16)
[2025-02-08 08:00] VITALS: BP 178/96; PULSE 92; RESP 18; TEMP 98.2
[2025-02-08] MEDS: PANTOPrazole 40 MG TAB DR PO SCH (08:25)
[2025-02-08] MEDS: HEParin 5,000 UNIT VIAL SQ SCH (08:31)
[2025-02-08] MEDS ORDERED: VANCOMYCIN PROTOCOL PER PHARMACY IV SCH (09:30)
[2025-02-08] MEDS ORDERED: miDODRine HCL 5 MG TABLET PO ONE (10:00)
[2025-02-08] MEDS: nifeDIPine ER 30 MG TAB PO SCH (10:45)
[2025-02-08] MEDS: LoSARTan 50 MG TABLET PO SCH (10:45)
[2025-02-08] MEDS: INSULIN GLARgine 100 UNITS/ML 10 ML VIAL SQ SCH (10:49)
[2025-02-08 12:00] VITALS: BP 168/94; PULSE 96; RESP 18; TEMP 98
--- NOTE | 2025-02-08 12:03 | HMCIMG ---
LUMBAR SPINE 2-3VWS HISTORY: Low back pain COMPARISON: None FINDINGS: 3 images of the lumbar spine were obtained. Vascular calcifications are seen. Fecal material is seen in the colon. There is straightening of normal lordotic curvature which may be related to muscle spasm or positioning. No loss of vertebral height is seen. No fracture or dislocation is seen. Degenerative changes are seen. Angulation of coccyx is seen. IMPRESSION: 1. No fracture is seen.
[2025-02-08] MEDS: ondanSETRON 4MG INJ IV PRN (12:37)
--- NOTE | 2025-02-08 13:38 | CONS ---
NEPHROLOGY CONSULTATION NOTE Date/Time Patient Seen: February 08, 2025 1300 Reason for Consultation: End-stage renal disease, back pain HISTORY OF PRESENT ILLNESS: This is a 39-year-old female with underlying history of hypertension, end-stage renal disease on hemodialysis Sunday, type 2 diabetes mellitus, history of neurogenic bladder with history of chronic Rivera catheter placement, prior history of abdominal and perineal infection status post multiple surgeries in [place], 2021 She presented to the ER for further evaluation of back pain. Lumbar spine x-ray showed no fracture. She has been compliant with hemodialysis, last session was done yesterday. PermCath in place Electrolytes are stable. She denies any chest pain, shortness of breath or lower extremity edema She was seen in the medical floor, in no acute distress Continues to complain of lower back pain No family at the bedside Prognosis remains guarded REVIEW OF SYSTEMS: GENERAL: Positive for back pain. NEUROLOGIC: Negative for any blurry vision, blind spots, double vision, facial asymmetry, dysphagia, dysarthria, hemiparesis, hemisensory deficits, vertigo, ataxia. HEENT: Negative for any head trauma, neck trauma, neck stiffness, photophobia, phonophobia, sinusitis, rhinitis. CARDIAC: Negative for any chest pain, dyspnea on exertion, paroxysmal nocturnal dyspnea, peripheral edema. PULMONARY: Negative for any shortness of breath, wheezing, COPD, or TB exposure. GASTROINTESTINAL: Negative for any abdominal pain, nausea, vomiting, bright red blood per rectum, melena. GENITOURINARY: Negative for any dysuria, hematuria, incontinence. INTEGUMENTARY: Negative for any rashes, cuts, insect bites. RHEUMATOLOGIC: Negative for any joint pains, photosensitive rashes, history of vasculitis or kidney problems. HEMATOLOGIC: Negative for any abnormal bruising, frequent infections or bleeding. PAST MEDICAL HISTORY: Hypertension, end-stage renal disease, type 2 diabetes mellitus, history of neurogenic bladder with history of chronic Rivera catheter placement, prior history of abdominal and perineal infection status post multiple surgeries in [place]2021 PAST SURGICAL HISTORY: Left brachiocephalic AV fistula., Right BKA, back surgery in 2018, patient reports having surgeries in [place] during her prolonged hospitalization at [facility] in 2021 including abdominal surgeries and possible skin grafting PAST SOCIAL HISTORY: Denies use of alcohol, tobacco illicit FAMILY HISTORY: Noncontributory PHYSICAL EXAM: GENERAL: Alert and oriented x 3. No acute distress. Well-nourished. EYES: EOMI. Anicteric. HENT: Moist mucous membranes. No scleral icterus. No cervical lymphadenopathy. LUNGS: Clear to auscultation bilaterally. No accessory muscle use. CARDIOVASCULAR: Regular rate and rhythm. No murmur. No JVD. ABDOMEN: Soft, non-tender and non-distended. No palpable masses. EXTREMITIES: No edema. Non-tender. Right BKA SKIN: No rashes or lesions. Warm. NEUROLOGIC: No focal neurological deficits. CN II-XII grossly intact, but not individually tested. PSYCHIATRIC: Cooperative. Appropriate mood and affect. MEDICATIONS: [ ] Current Medications Medications (Trade) Dose Ordered Sig/Deanna Route PRN Reason Start Time Stop Time Status Last Admin Dose Admin Acetaminophen (TYLenol 325MG TAB) 650 mg Q6H PRN PO TEMPERATURE GREATER THAN 101.5 02/08/25 03:00 03/10/25 02:59 Aspirin (Aspirin 81mg Ec Tab) 81 mg DAILY PO 02/09/25 09:00 03/11/25 08:59 Atorvastatin Calcium (LIPItor 20MG) 20 mg HS PO 02/08/25 21:00 03/10/25 20:59 Ceftriaxone Sodium (ROCEphine 1G INJ) 1 gm Q24H IVPB 02/08/25 03:00 02/18/25 02:59 02/08/25 03:46 1 GM Heparin Sodium (Porcine) (HEParin 5,000 UNIT VIAL) 5,000 unit BID SQ 02/08/25 09:00 03/10/25 08:59 02/08/25 08:31 5,000 UNIT Hydralazine HCl (APRESOLine 20MG INJ) 10 mg Q6H PRN IV For:SBP above 160;DBP above 90 02/08/25 03:00 03/10/25 02:59 02/08/25 04:04 10 MG Hydromorphone HCl (DiLAUDid 0.5MG INJ) 0.2 mg Q4H PRN IVP SEVERE PAIN (7-10) 02/08/25 03:30 02/13/25 03:29 02/08/25 12:36 0.2 MG Insulin Glargine (LANtus 100 UNITS/ML 10 ML VIAL) 15 units BID@0730,2100 SQ 02/08/25 09:30 02/08/25 11:55 DC 02/08/25 10:49 15 UNITS Insulin Glargine (LANtus 100 UNITS/ML 10 ML VIAL) 15 units DAILY SQ 02/09/25 09:00 03/10/25 09:29 Insulin Human Regular (humuLIN R 100 UNIT/ML 3ML) INSULIN SLIDING SCAL... ACHS SQ 02/08/25 07:30 03/10/25 07:29 02/08/25 06:16 16 UNIT Insulin Human Regular 100 unit/ Sodium Chloride 100 ml @ 0 mls/hr AD PRN IV HYPERGLYCEMIA PROTOCOL 02/08/25 03:00 02/08/25 04:03 DC Losartan Potassium (CozAAR 50 mg TAB) 50 mg BID PO 02/08/25 09:30 03/10/25 09:29 02/08/25 10:45 50 MG Metoprolol Tartrate (loprESSOR) 25 mg BID PO 02/08/25 21:00 03/10/25 20:59 Nifedipine (adALAT 30MG) 30 mg BID PO 02/08/25 09:30 03/10/25 09:29 02/08/25 10:45 30 MG Ondansetron HCl (zoFRAN 4MG INJ) 4 mg Q6H PRN IV NAUSEA/VOMITING 02/08/25 03:00 03/10/25 02:59 02/08/25 12:37 4 MG Pantoprazole Sodium (PROTonix 40MG TAB) 40 mg DAILY PO 02/08/25 09:00 03/10/25 08:59 02/08/25 08:25 40 MG Vancomycin HCl (Vancomycin Protocol) 1 each AD IV 02/08/25 09:30 02/08/25 09:29 DC Vital Signs (last 8hr) Date Time Temp Pulse Resp B/P (MAP) Pulse Ox O2 Delivery O2 Flow Rate FiO2 02/08/25 12:00 98.1 96 18 168/94 99 Room Air 02/08/25 08:00 98.2 92 18 178/96 99 Room Air DIAGNOSTICS / RADIOLOGY: REASON: lower back pain ORDERING PHYSICIAN: TACO CHRISTIE MD PROCEDURE: LUMB 2 3VW - LUMBAR SPINE 2-3VWS LUMBAR SPINE 2-3VWS HISTORY: Low back pain COMPARISON: None FINDINGS: 3 images of the lumbar spine were obtained. Vascular calcifications are seen. Fecal material is seen in the colon. There is straightening of normal lordotic curvature which may be related to muscle spasm or positioning. No loss of vertebral height is seen. No fracture or dislocation is seen. Degenerative changes are seen. Angulation of coccyx is seen. IMPRESSION: 1. No fracture is seen. DICTATED BY: ZAY ZARAGOZA MD DATE: 02/08/25 1200 LABORATORY: [ ] Hematology Labs: Test 02/08/25 02:12 Range/Units White Blood Count 6.6 4.8-10.8 K/uL Red Blood Count 3.87 L 4.00-5.50 MIL/uL Hemoglobin 12.3 12.0-16.0 g/dL Hematocrit 36.3 36-48 % Mean Corpuscular Volume 93.8 79-99 fL Mean Corpuscular Hemoglobin 31.8 27.0-33.0 pg Mean Corpuscular Hemoglobin Concent 33.9 32.0-36.0 g/dL Red Cell Distribution Width 14.5 11.0-15.5 % Platelet Count 201 130-400 K/uL Mean Platelet Volume 10.3 7.5-10.5 fL Immature Granulocyte % (Auto) 0.8 0-1 % Neutrophils (%) (Auto) 61.0 40.0-77.0 % Lymphocytes (%) (Auto) 21.5 21.0-51.0 % Monocytes (%) (Auto) 7.9 3.0-13.0 % Eosinophils (%) (Auto) 7.0 0.0-8.0 % Basophils (%) (Auto) 1.8 0.0-5.0 % Neutrophils # (Auto) 4.0 1.8-7.7 K/uL Lymphocytes # (Auto) 1.4 1.0-4.8 K/uL Monocytes # (Auto) 0.5 0.1-1.0 K/uL Eosinophils # (Auto) 0.46 0.00-0.70 K/uL Basophils # (Auto) 0.12 0.00-0.20 K/uL Absolute Immature Granulocyte (auto 0.05 0-1 K/uL Nucleated Red Blood Cells 0.3 H 0.0-0.19 % Chemistry Labs: Test 02/08/25 11:29 02/08/25 09:52 5/4/25 03:26 02/08/25 02:12 Range/Units Whole Blood Glucose 132 H 70-110 MG/DL Lactic Acid Level 2.2 0.8-2.5 mmol/L Bedside Glucose Comment Notified Nurse Sodium Level 127 L 136-145 mmol/L Potassium Level 3.9 3.5-5.1 mmol/L Chloride Level 94 L 101-111 mmol/L Carbon Dioxide Level 25 21-32 mmol/L Blood Urea Nitrogen 12 7-18 mg/dL Creatinine 3.1 H 0.5-1.0 mg/dL Glomerular Filtration Rate Calc 19 >90 mL/min Random Glucose 640 *H 70-105 mg/dL Total Calcium 7.8 L 8.5-10.1 mg/dL ASSESSMENT: End stage renal disease Urinary tract infection Uncontrolled diabetes mellitus type 2 Diabetic nephropathy. Uncontrolled hypertension History of neurogenic bladder requiring chronic Rivera catheterization History of poor visual acuity of bilateral eyes PLAN: Labs and Diagnostics/ Radiology personally reviewed and interpreted by myself and supervising physician We have reviewed dialysis and external records in detail Continue dialysis schedule Sunday Resume home medications Order UA, urine culture Start Nephro-Rachele daily 1.5 L fluid restriction Continue to monitor H&H Epogen on dialysis days, as needed Continue with frequent monitoring of renal function, anemia, and electrolytes Order CBC, BMP, and electrolytes in the morning May use Dilaudid 0.5 mg IV every 6 hours as needed for severe pain Monitor blood pressure adjust medication doses as needed Maintain normotensive state Strict intake, output, and daily weight should be monitored Please renally adjust medications. Avoid nephrotoxics and nonsteroidal drugs. We will continue to monitor the patient closely We have discussed with the other team physicians in detail about the care plan Thank you for allowing us to participate in the care of this patient ATTESTATION BY PHYSICIAN I have seen and examined the patient. I reviewed the documentation, medical decision making, and treatment plan as noted by the mid-level provider above. I agree with the findings and plan of care. Patient has been seen several times today condition guarded total time spent was more than 60 minutes GISELLE VALENTIN MD, [facility] February 08, 2025 13:38 GISELLE VALENTIN MD February 08, 2025 20:05
[2025-02-08 16:00] VITALS: BP 127/69; PULSE 99; RESP 19; TEMP 98.1
--- NOTE | 2025-02-08 16:14 | NUR ---
D/C PLAN CM spoke to patient regarding d/c planning. Patient reports she is independent with ADL's. States she lives with her brother and two daughters. Denies having any home services. States she has a wheelchair. She attends [facility] @ 1015 AM. states she utilizes [employer] transportation benefits for HD treatments. Plan is to return home to same setting. CM to f/u. Addendum: 02/08/25 at 1616 by POLINA VEGAS CM Amended: Links added.
[2025-02-08 20:00] VITALS: BP 142/72; PULSE 92; RESP 20; TEMP 98.2
[2025-02-08] MEDS: metoPROLOL tartRATE 25 MG TAB PO SCH (21:14)
[2025-02-08] MEDS: atorVAStatin 20 MG TABLET PO SCH (21:14)
[2025-02-09] VITALS (9 sets, daily range): BP systolic 102–147; BP diastolic 53–86; PULSE 54–89; RESP 16–21; TEMP 97.9–98.3; O2SAT 16–96
[2025-02-09 01:59] LABS: HEMOGLOBIN A1C 6.8 % (4.0-6.0)
[2025-02-09 05:50] LABS: BASOPHILS # (AUTO) 0.11 K/uL (0.00-0.20); BASOPHILS % (AUTO) 1.6 % (0.0-5.0); EOSINOPHILS # (AUTO) 0.65 K/uL (0.00-0.70); EOSINOPHILS % (AUTO) 9.3 % (0.0-8.0); HEMATOCRIT 33.7 % (36-48); IMMATURE GRANULOCYTE ABSOLUTE 0.03 K/uL (0-1); LYMPHOCYTES # (AUTO) 1.9 K/uL (1.0-4.8); LYMPHOCYTES % (AUTO) 27.2 % (21.0-51.0); MEAN CORPUSCULAR HEMOGLOBIN 29.8 pg (27.0-33.0); MEAN CORPUSCULAR VOLUME 93.1 fL (79-99); MONOCYTES # (AUTO) 0.5 K/uL (0.1-1.0); NEUTROPHILS # (AUTO) 3.8 K/uL (1.8-7.7); NEUTROPHILS % (AUTO) 54.5 % (40.0-77.0); PLATELET COUNT (AUTO) 195 K/uL (130-400); RED BLOOD CELL COUNT(AUTO) 3.62 MIL/uL (4.00-5.50); RED CELL DISTRIBUTION WIDTH 14.6 % (11.0-15.5)
[2025-02-09 06:05] LABS: CREATININE 4.7 mg/dL (0.5-1.0); PHOSPHORUS 4.6 mg/dL (2.5-4.9)
[2025-02-09 06:22] LABS: POTASSIUM 2.8 mmol/L (3.5-5.1)
--- NOTE | 2025-02-09 06:50 | NUR ---
GREYSON Galo notified @ this time regarding pt.'s potassium level of 2.8, brief report on pt. given, no potassium protocol ordered; stated to notify pt.'s sas analyst to see if they would order anything.
[2025-02-09] MEDS ORDERED: PoTASSium chl 10% ELIXIR 20MEQ 20 MEQ/15 ML UDCUP PO PRN (09:30)
[2025-02-09] MEDS: ASPIRIN 81 MG EC TAB PO SCH (10:12)
[2025-02-09] MEDS: Vitamin B Complex/Vit C/Folic Acid PO SCH (10:13)
[2025-02-09] MEDS: INSULIN GLARgine 100 UNITS/ML 10 ML VIAL SQ SCH (10:18)
[2025-02-09] MEDS: PoTASSium chloRIDE 10MEQ/100ML 100 ML IV PRN (10:41)
--- NOTE | 2025-02-09 11:59 | HMCIMG ---
Exam Type: CT LUMBAR SPINE W/O CONTRAST, CT THORACIC SPINE W/O CONTRAST, CT CERVICAL SPINE W/O CONTRAST Clinical Information: back pain Comparison: None Technique: Spiral axial images were performed from base of skull to the L1 level. Both sagittal and coronal reconstructions were performed. CT Dose Index (CTDI): 87.85 mGy Dose Length Product (DLP): 2176.7 total Findings: There is normal alignment of the vertebral bodies. There is straightening of the cervical spine consistent with spasm. There is osteopenia. There are no fractures. No facet hypertrophy. There is osteopenia. Multiple Schmorl's nodes of the mid to lower dorsal spine as well as the upper to mid lumbar spine are seen. Consolidation, ill-defined, right upper lobe consistent with pneumonia. The prevertebral soft tissues are otherwise normal. There are no disc herniations or bulges. IMPRESSION: No acute fractures or dislocations. Osteopenia. Straightening of the cervical spine consistent with spasm. Right upper lobe pneumonia as an incidental finding.
--- NOTE | 2025-02-09 13:35 | PN ---
NEPHROLOGY PROGRESS NOTE Date/Time Patient Seen: February 09, 2025 SUBJECTIVE: This is a 39-year-old female with underlying history of hypertension, end-stage renal disease on hemodialysis Sunday, type 2 diabetes mellitus, history of neurogenic bladder with history of chronic Rivera catheter placement, prior history of abdominal and perineal infection status post multiple surgeries in [place], 2021 She presented to the ER for further evaluation of back pain. Lumbar spine x-ray showed no fracture. She has been compliant with hemodialysis PermCath in place Electrolytes are noted. She denies any chest pain, shortness of breath or lower extremity edema She was seen in the medical floor, in no acute distress No family at the bedside Prognosis remains guarded REVIEW OF SYSTEMS: GENERAL: Positive for back pain. NEUROLOGIC: Negative for any blurry vision, blind spots, double vision, facial asymmetry, dysphagia, dysarthria, hemiparesis, hemisensory deficits, vertigo, ataxia. HEENT: Negative for any head trauma, neck trauma, neck stiffness, photophobia, phonophobia, sinusitis, rhinitis. CARDIAC: Negative for any chest pain, dyspnea on exertion, paroxysmal nocturnal dyspnea, peripheral edema. PULMONARY: Negative for any shortness of breath, wheezing, COPD, or TB exposure. GASTROINTESTINAL: Negative for any abdominal pain, nausea, vomiting, bright red blood per rectum, melena. GENITOURINARY: Negative for any dysuria, hematuria, incontinence. INTEGUMENTARY: Negative for any rashes, cuts, insect bites. RHEUMATOLOGIC: Negative for any joint pains, photosensitive rashes, history of vasculitis or kidney problems. HEMATOLOGIC: Negative for any abnormal bruising, frequent infections or bleeding. PHYSICAL EXAM: GENERAL: Alert and oriented x 3. No acute distress. Well-nourished. EYES: EOMI. Anicteric. HENT: Moist mucous membranes. No scleral icterus. No cervical lymphadenopathy. LUNGS: Clear to auscultation bilaterally. No accessory muscle use. CARDIOVASCULAR: Regular rate and rhythm. No murmur. No JVD. ABDOMEN: Soft, non-tender and non-distended. No palpable masses. EXTREMITIES: No edema. Non-tender. Right BKA SKIN: No rashes or lesions. Warm. NEUROLOGIC: No focal neurological deficits. CN II-XII grossly intact, but not individually tested. PSYCHIATRIC: Cooperative. Appropriate mood and affect. LABORATORY: [ ] Hematology Labs: Test 02/09/25 05:35 Range/Units White Blood Count 7.0 4.8-10.8 K/uL Red Blood Count 3.62 L 4.00-5.50 MIL/uL Hemoglobin 10.8 L 12.0-16.0 g/dL Hematocrit 33.7 L 36-48 % Mean Corpuscular Volume 93.1 79-99 fL Mean Corpuscular Hemoglobin 29.8 27.0-33.0 pg Mean Corpuscular Hemoglobin Concent 32.0 32.0-36.0 g/dL Red Cell Distribution Width 14.6 11.0-15.5 % Platelet Count 195 130-400 K/uL Mean Platelet Volume 9.8 7.5-10.5 fL Immature Granulocyte % (Auto) 0.4 0-1 % Neutrophils (%) (Auto) 54.5 40.0-77.0 % Lymphocytes (%) (Auto) 27.2 21.0-51.0 % Monocytes (%) (Auto) 7.0 3.0-13.0 % Eosinophils (%) (Auto) 9.3 H 0.0-8.0 % Basophils (%) (Auto) 1.6 0.0-5.0 % Neutrophils # (Auto) 3.8 1.8-7.7 K/uL Lymphocytes # (Auto) 1.9 1.0-4.8 K/uL Monocytes # (Auto) 0.5 0.1-1.0 K/uL Eosinophils # (Auto) 0.65 0.00-0.70 K/uL Basophils # (Auto) 0.11 0.00-0.20 K/uL Absolute Immature Granulocyte (auto 0.03 0-1 K/uL Nucleated Red Blood Cells 0.0 0.0-0.19 % Chemistry Labs: Test 02/09/25 11:19 02/09/25 05:35 02/08/25 14:00 02/08/25 03:26 Range/Units Whole Blood Glucose 174 H 70-110 MG/DL Sodium Level 138 136-145 mmol/L Potassium Level 2.8 *L 3.5-5.1 mmol/L Chloride Level 101 101-111 mmol/L Carbon Dioxide Level 31 21-32 mmol/L Blood Urea Nitrogen 20 H 7-18 mg/dL Creatinine 4.7 H 0.5-1.0 mg/dL Glomerular Filtration Rate Calc 12 >90 mL/min Random Glucose 198 H 70-105 mg/dL Total Calcium 7.8 L 8.5-10.1 mg/dL Phosphorus Level 4.6 2.5-4.9 mg/dL Magnesium Level 2.00 1.80-2.40 mg/dL Lactic Acid Level 2.5 0.8-2.5 mmol/L Bedside Glucose Comment Notified Nurse Test 02/08/25 02:12 Range/Units Hemoglobin A1c 6.8 H 4.0-6.0 % Estimated Average Glucose (eAG) 148 H 70-126 mg/dL DIAGNOSTICS / RADIOLOGY: REASON: back pain ORDERING PHYSICIAN: ALBERTO JAQUEZ APRN PROCEDURE: T SPINE WO - CT THORACIC SPINE W/O CONTRAST Exam Type: CT LUMBAR SPINE W/O CONTRAST, CT THORACIC SPINE W/O CONTRAST, CT CERVICAL SPINE W/O CONTRAST Clinical Information: back pain Comparison: None Technique: Spiral axial images were performed from base of skull to the L1 level. Both sagittal and coronal reconstructions were performed. CT Dose Index (CTDI): 87.85 mGy Dose Length Product (DLP): 2176.7 total Findings: There is normal alignment of the vertebral bodies. There is straightening of the cervical spine consistent with spasm. There is osteopenia. There are no fractures. No facet hypertrophy. There is osteopenia. Multiple Schmorl's nodes of the mid to lower dorsal spine as well as the upper to mid lumbar spine are seen. Consolidation, ill-defined, right upper lobe consistent with pneumonia. The prevertebral soft tissues are otherwise normal. There are no disc herniations or bulges. IMPRESSION: No acute fractures or dislocations. Osteopenia. Straightening of the cervical spine consistent with spasm. Right upper lobe pneumonia as an incidental finding. DICTATED BY: ROSETTA VILLEDA MD DATE: 02/09/25 1153 REASON: back pain ORDERING PHYSICIAN: ALBERTO JAQUEZ PROFESSOR OF CHEMISTRY PROCEDURE: L SPIN WO - CT LUMBAR SPINE W/O CONTRAST Exam Type: CT LUMBAR SPINE W/O CONTRAST, CT THORACIC SPINE W/O CONTRAST, CT CERVICAL SPINE W/O CONTRAST Clinical Information: back pain Comparison: None Technique: Spiral axial images were performed from base of skull to the L1 level. Both sagittal and coronal reconstructions were performed. CT Dose Index (CTDI): 87.85 mGy Dose Length Product (DLP): 2176.7 total Findings: There is normal alignment of the vertebral bodies. There is straightening of the cervical spine consistent with spasm. There is osteopenia. There are no fractures. No facet hypertrophy. There is osteopenia. Multiple Schmorl's nodes of the mid to lower dorsal spine as well as the upper to mid lumbar spine are seen. Consolidation, ill-defined, right upper lobe consistent with pneumonia. The prevertebral soft tissues are otherwise normal. There are no disc herniations or bulges. IMPRESSION: No acute fractures or dislocations. Osteopenia. Straightening of the cervical spine consistent with spasm. Right upper lobe pneumonia as an incidental finding. DICTATED BY: ROSETTA VILLEDA MD DATE: 02/09/251152 REASON: back pain ORDERING PHYSICIAN: ALBERTO JAQUEZ APRN PROCEDURE: C SPIN WO - CT CERVICAL SPINE W/O CONTRAST Exam Type: CT LUMBAR SPINE W/O CONTRAST, CT THORACIC SPINE W/O CONTRAST, CT CERVICAL SPINE W/O CONTRAST Clinical Information: back pain Comparison: None Technique: Spiral axial images were performed from base of skull to the L1 level. Both sagittal and coronal reconstructions were performed. CT Dose Index (CTDI): 87.85 mGy Dose Length Product (DLP): 2176.7 total Findings: There is normal alignment of the vertebral bodies. There is straightening of the cervical spine consistent with spasm. There is osteopenia. There are no fractures. No facet hypertrophy. There is osteopenia. Multiple Schmorl's nodes of the mid to lower dorsal spine as well as the upper to mid lumbar spine are seen. Consolidation, ill-defined, right upper lobe consistent with pneumonia. The prevertebral soft tissues are otherwise normal. There are no disc herniations or bulges. IMPRESSION: No acute fractures or dislocations. Osteopenia. Straightening of the cervical spine consistent with spasm. Right upper lobe pneumonia as an incidental finding. DICTATED BY: ROSETTA VILLEDA MD DATE: 02/09/251152 REASON: lower back pain ORDERING PHYSICIAN: TACO CHRISTIE MD PROCEDURE: LUMB 2 3VW - LUMBAR SPINE 2-3VWS LUMBAR SPINE 2-3VWS HISTORY: Low back pain COMPARISON: None FINDINGS: 3 images of the lumbar spine were obtained. Vascular calcifications are seen. Fecal material is seen in the colon. There is straightening of normal lordotic curvature which may be related to muscle spasm or positioning. No loss of vertebral height is seen. No fracture or dislocation is seen. Degenerative changes are seen. Angulation of coccyx is seen. IMPRESSION: 1. No fracture is seen. DICTATED BY: ZAY ZARAGOZA MD DATE: 02/08/25 1200 ASSESSMENT: End stage renal disease Urinary tract infection Uncontrolled diabetes mellitus type 2 Diabetic nephropathy. Uncontrolled hypertension History of neurogenic bladder requiring chronic Rivera catheterization History of poor visual acuity of bilateral eyes PLAN: Labs and Diagnostics/ Radiology personally reviewed and interpreted by myself and supervising physician We have reviewed dialysis and external records in detail Continue dialysis schedule Sunday Potassium replacement has been ordered. 1.5 L fluid restriction Continue to monitor H&H Epogen on dialysis days, as needed Continue with frequent monitoring of renal function, anemia, and electrolytes Order CBC, BMP, and electrolytes in the morning May use Dilaudid 0.5 mg IV every 6 hours as needed for severe pain Monitor blood pressure adjust medication doses as needed Maintain normotensive state Strict intake, output, and daily weight should be monitored Please renally adjust medications. Avoid nephrotoxics and nonsteroidal drugs. We will continue to monitor the patient closely We have discussed with the other team physicians in detail about the care plan ATTESTATION BY PHYSICIAN I have seen and examined the patient. I reviewed the documentation, medical decision making, and treatment plan as noted by the mid-level provider above. I agree with the findings and plan of care. GISELLE VALENTIN MD, [facility] February 09, 2025 13:35
--- NOTE | 2025-02-09 13:49 | PN ---
[facility] PROGRESS NOTE Date of Service: February 09, 2025 Time of Service: 13:[address] Arredondo SUBJECTIVE: [ ] 02/08/25 Ms. Dover is a 39-year-old female that was seen and examined today on 02/08/2025. Patient is a good historian of personal health patient states she came to the emergency department with a chief complaint of back pain. onset 2 days ago. location lower back. duration is constant. symptoms are usually alleviated with dilaudid. symptoms are aggrivated with movement patient denies any shortness of breath or chest pain. Today in the emergency department CBC unremarkable, glucose 640 mg/dL, urinalysis positive for leukocyte esterase and WBCs 51-100 per high-powered microscopy field, creatinine is 3.1. Emergency room physician recommended that patient be admitted with a diagnosis of ESRD and uncontrolled Diabetes mellitius type2 02/09 patient was seen by nurse practitioner and physician in room for 404. Patient is potassium today is 2.8. Patient is ESRD dialysis with a Dr. Fernandez. As per machine sign writer patient will receive 10 mEq of potassium and also patient is pending dialysis. Patient's UA was positive for leukocytosis on admission. Pending urine and blood culture at this moment. WBC 7. Patient was placed on Rocephin antibiotics in the meantime. Patient is still complaining of the back pain CT lumbar, CT thoracic, CT cervical was ordered and showed osteopenia. Spasm accidental finding of right upper lobe pneumonia. Patient was put on cyclobenzaprine 10 mg b.i.d. case we will continue to monitor patient in the meantime. A.m. labs REVIEW OF SYSTEMS CONSTITUTIONAL: Denies fevers, chills, or night sweats. No unintentional weight loss reported. NEUROLOGICAL: Denies headache, amaurosis fugax, motor weakness, sensory deficit, vertigo/spinning sensation, gait abnormalities, or tremors. Complains of back pain ENT: No hearing loss, otalgia, otorrhea, rhinitis, rhinorrhea, hoarseness, or sore throat. CARDIOVASCULAR: Denies any exertional angina, dyspnea on exertion, orthopnea, paroxysmal nocturnal dyspnea, palpitations, life-threatening arrhythmias, claudication. PULMONARY: Denies any shortness of breath, cough, phlegm/sputum, hemoptysis, pleuritic chest pain. SLEEP: Denies morning headaches, daytime somnolence or napping. Denies difficulty falling asleep, staying asleep, waking from sleep. Denies knowledge of snoring. GASTROINTESTINAL: Denies any type of dysphagia to either liquids or solids. Denies nausea, vomiting, pyrosis, early satiety, abdominal pain, diarrhea, constipation, or changes in stool consistency or caliber. Denies coffee-ground emesis, hematemesis, hematochezia, or melanotic stools. GENITOURINARY: Denies frequency, urgency, nocturia, hematuria or incontinence (Storage/Irritative symptoms.) Low urinary stream, straining to void, urinary intermittency or hesitancy, splitting of the voiding stream, terminal dribbling. ENDOCRINOLOGIC: Denies polyuria, polydipsia, polyphagia or heat/cold intolerances. HEMATOLOGIC: Denies thrombophilia/previous clots, or coagulopathy/bleeding disorders. ONCOLOGIC: Denies personal history of malignancy. DERMATOLOGIC: Denies rashes or pruritus. PSYCHIATRIC: Denies any suicidal or homicidal ideation. Denies hallucinations. PHYSICAL EXAM GENERAL APPEARANCE: The patient is awake, alert, and oriented, in no acute cardiopulmonary distress. NEUROLOGICAL: Cranial nerves II-XII grossly intact. Motor is 5/5 in bilateral upper and lower extremities proximal to distal. No sensory deficits. Complains of back pain HEENT: Face is symmetric. Pupils are equal and reactive. Extraocular movements are intact. NECK: Supple. No JVD. No thyromegaly. No submental, submandibular, pre- /postauricular, occipital or supraclavicular lymphadenopathy. CHEST: Normal chest expansion. No Telemetry. LUNGS: Absence of any rales, rhonchi or any wheezing. CARDIOVASCULAR: Regular. S1 and S2 normal. No appreciable rubs, murmurs or gallops. ABDOMEN: Soft, nontender, and nondistended. There is no rebound, voluntary guarding, or rigidity. : Deferred. No Rivera. EXTREMITIES: Non-edematous and not cyanotic. No clubbing. Good capillary refill. SKIN: No skin breakdown. Vital Signs (last 8hr) Date Time Temp Pulse Resp B/P (MAP) Pulse Ox O2 Delivery O2 Flow Rate FiO2 02/09/25 11:52 98.2 81 16 108/53 96 02/09/25 10:00 16 Room Air* 0 21 02/09/25 08:09 97.9 78 16 102/69 92 LABS: Laboratory: Test 02/09/25 11:19 02/09/25 05:35 02/08/25 14:00 02/08/25 03:26 Range/Units Whole Blood Glucose 174 H 70-110 MG/DL White Blood Count 7.0 4.8-10.8 K/uL Red Blood Count 3.62 L 4.00-5.50 MIL/uL Hemoglobin 10.8 L 12.0-16.0 g/dL Hematocrit 33.7 L 36-48 % Mean Corpuscular Volume 93.1 79-99 fL Mean Corpuscular Hemoglobin 29.8 27.0-33.0 pg Mean Corpuscular Hemoglobin Concent 32.0 32.0-36.0 g/dL Red Cell Distribution Width 14.6 11.0-15.5 % Platelet Count 195 130-400 K/uL Mean Platelet Volume 9.8 7.5-10.5 fL Immature Granulocyte % (Auto) 0.4 0-1 % Neutrophils (%) (Auto) 54.5 40.0-77.0 % Lymphocytes (%) (Auto) 27.2 21.0-51.0 % Monocytes (%) (Auto) 7.0 3.0-13.0 % Eosinophils (%) (Auto) 9.3 H 0.0-8.0 % Basophils (%) (Auto) 1.6 0.0-5.0 % Neutrophils # (Auto) 3.8 1.8-7.7 K/uL Lymphocytes # (Auto) 1.9 1.0-4.8 K/uL Monocytes # (Auto) 0.5 0.1-1.0 K/uL Eosinophils # (Auto) 0.65 0.00-0.70 K/uL Basophils # (Auto) 0.11 0.00-0.20 K/uL Absolute Immature Granulocyte (auto 0.03 0-1 K/uL Nucleated Red Blood Cells 0.0 0.0-0.19 % Sodium Level 138 136-145 mmol/L Potassium Level 2.8 *L 3.5-5.1 mmol/L Chloride Level 101 101-111 mmol/L Carbon Dioxide Level 31 21-32 mmol/L Blood Urea Nitrogen 20 H 7-18 mg/dL Creatinine 4.7 H 0.5-1.0 mg/dL Glomerular Filtration Rate Calc 12 >90 mL/min Random Glucose 198 H 70-105 mg/dL Total Calcium 7.8 L 8.5-10.1 mg/dL Phosphorus Level 4.6 2.5-4.9 mg/dL Magnesium Level 2.00 1.80-2.40 mg/dL Lactic Acid Level 2.5 0.8-2.5 mmol/L Bedside Glucose Comment Notified Nurse Test 02/08/25 02:12 02/08/25 02:10 Range/Units Hemoglobin A1c 6.8 H 4.0-6.0 % Estimated Average Glucose (eAG) 148 H 70-126 mg/dL Urine Color LIGHT-ORANGE YELLOW Urine Appearance TURBID CLEAR Urine pH 7.0 5.0-8.0 Urine Specific [place] 1.014 1.001-1.031 Urine Protein 600 H NEGATIVE mg/dL Urine Glucose (UA) >=1000 H NEGATIVE mg/dL Urine Ketones NEGATIVE NEGATIVE mg/dL Urine Occult Blood SMALL H NEGATIVE Urine Nitrate NEGATIVE NEGATIVE Urine Bilirubin NEGATIVE NEGATIVE mg/dL Urine Urobilinogen 0.2 0.2-1.0 mg/dL Urine Leukocyte Esterase 250 H NEGATIVE Sada/uL Urine RBC 51-100 H 0-1 /HPF Urine WBC 51-100 H 0-1 /HPF Urine Squamous Epithelial Cells RARE 0-2 /HPF Urine Amorphous Crystals (Auto) FEW None Seen /LPF Urine Bacteria MANY None Seen /HPF Urine Yeast MANY None Seen /HPF Urine HCG, Qualitative NEGATIVE NEGATIVE Current Medications Medications (Trade) Dose Ordered Sig/Deanna Route PRN Reason Start Time Stop Time Status Last Admin Dose Admin Acetaminophen (TYLenol 325MG TAB) 650 mg Q6H PRN PO TEMPERATURE GREATER THAN 101.5 02/08/25 03:00 03/10/25 02:59 Aspirin (Aspirin 81mg Ec Tab) 81 mg DAILY PO 02/09/25 09:00 03/11/25 08:59 02/09/25 10:12 81 MG Atorvastatin Calcium (LIPItor 20MG) 20 mg HS PO 02/08/25 21:00 03/10/25 20:59 02/08/25 21:14 20 MG Ceftriaxone Sodium (ROCEphine 1G INJ) 1 gm Q24H IVPB 02/08/25 03:00 02/18/25 02:59 02/09/25 03:25 1 GM Cyclobenzaprine HCl (Cyclobenzaprine HCl) 10 mg BID PO 02/09/25 21:00 03/11/25 20:59 UNV Heparin Sodium (Porcine) (HEParin 5,000 UNIT VIAL) 5,000 unit BID SQ 02/08/25 09:00 03/10/25 08:59 02/09/25 10:17 5,000 UNIT Hydralazine HCl (APRESOLine 20MG INJ) 10 mg Q6H PRN IV For:SBP above 160;DBP above 90 02/08/25 03:00 03/10/25 02:59 02/08/25 04:04 10 MG Hydromorphone HCl (DiLAUDid 0.5MG INJ) 0.2 mg Q4H PRN IVP SEVERE PAIN (7-10) 02/08/25 03:30 02/13/25 03:29 02/09/25 06:58 0.2 MG Insulin Glargine (LANtus 100 UNITS/ML 10 ML VIAL) 15 units BID@0730,2100 SQ 02/08/25 09:30 02/08/25 11:55 DC 02/08/25 10:49 15 UNITS Insulin Glargine (LANtus 100 UNITS/ML 10 ML VIAL) 15 units DAILY SQ 02/09/25 09:00 03/10/25 09:29 02/09/25 10:18 15 UNITS Insulin Human Regular (humuLIN R 100 UNIT/ML 3ML) INSULIN SLIDING SCAL... ACHS SQ 02/08/25 07:30 03/10/25 07:29 02/09/25 07:05 4 UNIT Insulin Human Regular 100 unit/ Sodium Chloride 100 ml @ 0 mls/hr AD PRN IV HYPERGLYCEMIA PROTOCOL 02/08/25 03:00 02/08/25 04:03 DC Losartan Potassium (CozAAR 50 mg TAB) 50 mg BID PO 02/08/25 09:30 03/10/25 09:29 02/09/25 10:12 50 MG Metoprolol Tartrate (loprESSOR) 25 mg BID PO 02/08/25 21:00 03/10/25 20:59 02/09/25 10:12 25 MG Miscellaneous Medication (Folic Acid/Vit B Complex and C (Nephro Vitamins Tablet)) 0.8 mg DAILY PO 02/10/25 09:00 02/09/25 13:36 DC Nifedipine (adALAT 30MG) 30 mg BID PO 02/08/25 09:30 03/10/25 09:29 02/09/25 10:12 30 MG Ondansetron HCl (zoFRAN 4MG INJ) 4 mg Q6H PRN IV NAUSEA/VOMITING 02/08/25 03:00 03/10/25 02:59 02/08/25 21:59 4 MG Pantoprazole Sodium (PROTonix 40MG TAB) 40 mg DAILY PO 02/08/25 09:00 03/10/25 08:59 02/09/25 10:12 40 MG Potassium Chloride 100 ml @ 100 mls/hr AD PRN IV POTASSIUM PROTOCOL 02/09/25 09:30 03/11/25 09:29 02/09/25 10:41 100 MLS/HR Potassium Chloride (K-Dur 10meq Sr Tab) 10 meq AD PRN PO POTASSIUM PROTOCOL 02/09/25 09:30 03/11/25 09:29 Potassium Chloride (KCl 10% Elixir 20meq/15ml) 10 meq AD PRN PO POTASSIUM PROTOCOL 02/09/25 09:30 03/11/25 09:29 Vancomycin HCl (Vancomycin Protocol) 1 each AD IV 02/08/25 09:30 02/08/25 09:29 DC Vitamin B Complex/ Vit C/Folic Acid (Nephrovite Tablet) 1 cap DAILY PO 02/09/25 09:00 03/11/25 08:59 02/09/25 10:13 1 CAP DIAGNOSTICS / RADIOLOGY: [ ] ASSESSMENT: [ Severe back pain POA ESRD on HD eating dialysis , POA Community-acquired pneumonia POA Acute complicated cystitis, POA Uncontrolled Diabetes mellitius type2 with hyperglycemia, POA Uncontrolled Hypertension POA Electrolyte imbalance hypokalemia 2.8 POA Multifactorial anemia POA Osteopenia per CT cervical/CT thoracic/CD lumbar Cervical spine straightening consistent with spasm per CT lumbar/CT thoracic/CT cervical spine POA] PLAN: [ Admit patient to medical floor as inpatient status. Back pain CT lumbar osteopenia. Spasm, right upper lobe pneumonia CT thoracic osteopenia. Spasm, right upper lobe pneumonia CT cervical osteopenia. 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 Glucometer checks a.c. and HS 1800 ADA diet Humulin R sliding scale Hypertension: Consider resuming home medications once they have been reconciled. For now, Hydralazine 10 mg IV every 4 hours for systolic blood pressure greater than 160 mmHg GI prophylaxis, Protonix DVT prophylaxis ,heparin] ATTESTATION BY PHYSICIAN I have seen and examined the patient. I reviewed the documentation, medical decision making, and treatment plan as noted by the mid-level provider above. I agree with the findings and plan of care. DELFINO ARREDONDO MD, KATARZYNA B LEAD WAREHOUSE ASSOCIATE February 09, 2025 13:49
[2025-02-09] MEDS: CYCLOBENZAPRINE HCL 10 MG TABLET PO SCH (22:58)
[2025-02-10] VITALS (21 sets, daily range): BP systolic 100–145; BP diastolic 46–90; PULSE 73–88; RESP 16–18; TEMP 97.8–98.6; O2SAT 95
[2025-02-10 05:17] LABS: BASOPHILS # (AUTO) 0.11 K/uL (0.00-0.20); BASOPHILS % (AUTO) 1.7 % (0.0-5.0); EOSINOPHILS # (AUTO) 0.66 K/uL (0.00-0.70); EOSINOPHILS % (AUTO) 9.9 % (0.0-8.0); HEMATOCRIT 31.5 % (36-48); IMMATURE GRANULOCYTE ABSOLUTE 0.03 K/uL (0-1); LYMPHOCYTES # (AUTO) 1.7 K/uL (1.0-4.8); LYMPHOCYTES % (AUTO) 26.2 % (21.0-51.0); MEAN CORPUSCULAR HEMOGLOBIN 30.1 pg (27.0-33.0); MEAN CORPUSCULAR HGB CONC 32.1 g/dL (32.0-36.0); MEAN CORPUSCULAR VOLUME 93.8 fL (79-99); MONOCYTES # (AUTO) 0.7 K/uL (0.1-1.0); MONOCYTES % (AUTO) 9.8 % (3.0-13.0); NEUTROPHILS # (AUTO) 3.5 K/uL (1.8-7.7); NEUTROPHILS % (AUTO) 51.9 % (40.0-77.0); PLATELET COUNT (AUTO) 183 K/uL (130-400); RED BLOOD CELL COUNT(AUTO) 3.36 MIL/uL (4.00-5.50); RED CELL DISTRIBUTION WIDTH 14.3 % (11.0-15.5); WHITE BLOOD COUNT (AUTO) 6.6 K/uL (4.8-10.8)
[2025-02-10 05:45] LABS: ALBUMIN 2.2 g/dL (3.5-5.0); BILIRUBIN,TOTAL 0.4 mg/dL (0.2-1.0); MAGNESIUM 2.2 mg/dL (1.80-2.40); PHOSPHORUS 5.5 mg/dL (2.5-4.9); POTASSIUM 3.3 mmol/L (3.5-5.1); TOTAL PROTEIN, SERUM 6.4 g/dL (6.0-8.3)
[2025-02-10] MEDS: PoTASSium chloRIDE 10MEQ SR 10 MEQ/TAB TAB.SR.24H PO PRN (08:46)
[2025-02-10] MEDS ORDERED: FOLIC ACID PO SCH (09:00)
[2025-02-10] MEDS ORDERED: [UNRECOGNIZED DRUG - OTHER] PO SCH (09:00)
[2025-02-10] MEDS ORDERED: VIT B COMPLEX AND C PO SCH (09:00)
[2025-02-10] MEDS: 0.9%NACL 1000ML 1,000 ML IV SCH (10:48)
[2025-02-10] MEDS: HEParin 5,000 UNIT VIAL IRRIG SCH (10:50)
[2025-02-10] MEDS ORDERED: 0.9%NACL 50ML IV SCH (11:00)
[2025-02-10] MEDS: ZOSYN 3.375GM +NS 50ML IVPB SCH (12:50)
--- NOTE | 2025-02-10 13:15 | PN ---
[facility] PROGRESS NOTE Date of Service: February 10, 2025 Time of Service: 13:[address] Arredondo SUBJECTIVE: [ ] 02/08/25 Ms. Dover is a 39-year-old female that was seen and examined today on 02/08/2025. Patient is a good historian of personal health patient states she came to the emergency department with a chief complaint of back pain. onset 2 days ago. location lower back. duration is constant. symptoms are usually alleviated with dilaudid. symptoms are aggrivated with movement patient denies any shortness of breath or chest pain. Today in the emergency department CBC unremarkable, glucose 640 mg/dL, urinalysis positive for leukocyte esterase and WBCs 51-100 per high-powered microscopy field, creatinine is 3.1. Emergency room physician recommended that patient be admitted with a diagnosis of ESRD and uncontrolled Diabetes mellitius type2 02/09 patient was seen by nurse practitioner and physician in room for 404. Patient is potassium today is 2.8. Patient is ESRD dialysis with a Dr. Fernandez. 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 Patient's UA was positive for leukocytosis on admission. Pending urine and blood culture at this moment. WBC 7. Patient was placed on Rocephin antibiotics in the meantime. Patient is still complaining of the back pain CT lumbar, CT thoracic, CT cervical was ordered and showed osteopenia. Spasm accidental finding of right upper lobe pneumonia. Patient was put on cyclobenzaprine 10 mg b.i.d. case we will continue to monitor patient in the meantime. A.m. labs 02/10 patient was seen by IDENTIFICATION OFFICER and physician during rounding. Urine culture is gr owing E coli, Pseudomonas aeruginosa and Jasmyne albicans. Patient was placed on Zosyn. We will discontinue Dilaudid for the pain and we will order tramadol 50 mg q.8 hours p.r.n. pain. At this moment we are pending final blood culture and urine nephrology consulted for the dialysis ESRD. We will continue to monitor patient in the meantime. A.m. labs REVIEW OF SYSTEMS CONSTITUTIONAL: Denies fevers, chills, or night sweats. No unintentional weight loss reported. NEUROLOGICAL: Denies headache, amaurosis fugax, motor weakness, sensory deficit, vertigo/spinning sensation, gait abnormalities, or tremors. Complains of back pain ENT: No hearing loss, otalgia, otorrhea, rhinitis, rhinorrhea, hoarseness, or sore throat. CARDIOVASCULAR: Denies any exertional angina, dyspnea on exertion, orthopnea, paroxysmal nocturnal dyspnea, palpitations, life-threatening arrhythmias, claudication. PULMONARY: Denies any shortness of breath, cough, phlegm/sputum, hemoptysis, pleuritic chest pain. SLEEP: Denies morning headaches, daytime somnolence or napping. Denies difficulty falling asleep, staying asleep, waking from sleep. Denies knowledge of snoring. GASTROINTESTINAL: Denies any type of dysphagia to either liquids or solids. Denies nausea, vomiting, pyrosis, early satiety, abdominal pain, diarrhea, c onstipation, or changes in stool consistency or caliber. Denies coffee-ground emesis, hematemesis, hematochezia, or melanotic stools. GENITOURINARY: Denies frequency, urgency, nocturia, hematuria or incontinence (Storage/Irritative symptoms.) Low urinary stream, straining to void, urinary intermittency or hesitancy, splitting of the voiding stream, terminal dribbling. ENDOCRINOLOGIC: Denies polyuria, polydipsia, polyphagia or heat/cold intolerances. HEMATOLOGIC: Denies thrombophilia/previous clots, or coagulopathy/bleeding disorders. ONCOLOGIC: Denies personal history of malignancy. DERMATOLOGIC: Denies rashes or pruritus. PSYCHIATRIC: Denies any suicidal or homicidal ideation. Denies hallucinations. PHYSICAL EXAM GENERAL APPEARANCE: The patient is awake, alert, and oriented, in no acute ca rdiopulmonary distress. NEUROLOGICAL: Cranial nerves II-XII grossly intact. Motor is 5/5 in bilateral upper and lower extremities proximal to distal. No sensory deficits. Complains of back pain HEENT: Face is symmetric. Pupils are equal and reactive. Extraocular movements are intact. NECK: Supple. No JVD. No thyromegaly. No submental, submandibular, pre- /postauricular, occipital or supraclavicular lymphadenopathy. CHEST: Normal chest expansion. No Telemetry. LUNGS: Absence of any rales, rhonchi or any wheezing. CARDIOVASCULAR: Regular. S1 and S2 normal. No appreciable rubs, murmurs or gallops. ABDOMEN: Soft, nontender, and nondistended. There is no rebound, voluntary guarding, or rigidity. : Deferred. No Rivera. EXTREMITIES: Non-edematous and not cyanotic. No clubbing. Good capillary refill. SKIN: No skin breakdown. Vital Signs (last 8hr) Date Time Temp Pulse Resp B/P (MAP) Pulse Ox O2 Delivery O2 Flow Rate FiO2 02/10/25 12:54 97.9 73 18 107/69 96 02/10/25 12:37 97.9 77 16 114/77 Room Air 02/10/25 12:15 85 16 100/67 Room Air 02/10/25 12:00 85 16 102/66 Room Air 02/10/25 11:45 85 16 107/69 Room Air 02/10/25 11:30 85 16 105/71 Room Air 02/10/25 11:15 85 16 118/72 Room Air 02/10/25 11:00 85 16 121/69 Room Air 02/10/25 10:45 85 16 125/72 Room Air 02/10/25 10:30 87 16 116/66 Room Air 02/10/25 10:15 86 16 138/85 Room Air 02/10/25 10:00 80 16 145/90 Room Air 02/10/25 09:45 85 16 136/89 Room Air 02/10/25 09:30 97.9 87 16 123/79 Room Air 02/10/25 09:00 97.9 88 16 132/82 Room Air 02/10/25 08:12 98.1 81 16 129/72 98 LABS: Laboratory: Test 02/10/25 11:45 02/10/25 04:57 02/08/25 14:00 Range/Units Whole Blood Glucose 187 H 70-110 MG/DL White Blood Count 6.6 4.8-10.8 K/uL Red Blood Count 3.36 L 4.00-5.50 MIL/uL Hemoglobin 10.1 L 12.0-16.0 g/dL Hematocrit 31.5 L 36-48 % Mean Corpuscular Volume 93.8 79-99 fL Mean Corpuscular Hemoglobin 30.1 27.0-33.0 pg Mean Corpuscular Hemoglobin Concent 32.1 32.0-36.0 g/dL Red Cell Distribution Width 14.3 11.0-15.5 % Platelet Count 183 130-400 K/uL Mean Platelet Volume 9.7 7.5-10.5 fL Immature Granulocyte % (Auto) 0.5 0-1 % Neutrophils (%) (Auto) 51.9 40.0-77.0 % Lymphocytes (%) (Auto) 26.2 21.0-51.0 % Monocytes (%) (Auto) 9.8 3.0-13.0 % Eosinophils (%) (Auto) 9.9 H 0.0-8.0 % Basophils (%) (Auto) 1.7 0.0-5.0 % Neutrophils # (Auto) 3.5 1.8-7.7 K/uL Lymphocytes # (Auto) 1.7 1.0-4.8 K/uL Monocytes # (Auto) 0.7 0.1-1.0 K/uL Eosinophils # (Auto) 0.66 0.00-0.70 K/uL Basophils # (Auto) 0.11 0.00-0.20 K/uL Absolute Immature Granulocyte (auto 0.03 0-1 K/uL Nucleated Red Blood Cells 0.0 0.0-0.19 % Sodium Level 140 136-145 mmol/L Potassium Level 3.3 L 3.5-5.1 mmol/L Chloride Level 102 101-111 mmol/L Carbon Dioxide Level 27 21-32 mmol/L Blood Urea Nitrogen 29 H 7-18 mg/dL Creatinine 6.0 H 0.5-1.0 mg/dL Glomerular Filtration Rate Calc 9 >90 mL/min Random Glucose 252 H 70-105 mg/dL Total Calcium 7.3 L 8.5-10.1 mg/dL Phosphorus Level 5.5 H 2.5-4.9 mg/dL Magnesium Level 2.20 1.80-2.40 mg/dL Total Bilirubin 0.4 0.2-1.0 mg/dL Aspartate Amino Transf (AST/SGOT) 19 10-37 U/L Alanine Aminotransferase (ALT/SGPT) 18 12-78 U/L Alkaline Phosphatase 77 50-136 U/L Total Creatine Kinase 51 # 21-232 U/L B-Type Natriuretic Peptide 93 0-100 pg/mL Total Protein 6.4 6.0-8.3 g/dL Albumin 2.2 L 3.5-5.0 g/dL Lactic Acid Level 2.5 0.8-2.5 mmol/L Current Medications Medications (Trade) Dose Ordered Sig/Deanna Route PRN Reason Start Time Stop Time Status Last Admin Dose Admin Acetaminophen (TYLenol 325MG TAB) 650 mg Q6H PRN PO TEMPERATURE GREATER THAN 101.5 02/08/25 03:00 03/10/25 02:59 Aspirin (Aspirin 81mg Ec Tab) 81 mg DAILY PO 02/09/25 09:00 03/11/25 08:59 02/10/25 08:45 81 MG Atorvastatin Calcium (LIPItor 20MG) 20 mg HS PO 02/08/25 21:00 03/10/25 20:59 02/09/25 22:58 20 MG Ceftriaxone Sodium (ROCEphine 1G INJ) 1 gm Q24H IVPB 02/08/25 03:00 02/10/25 10:06 DC 02/10/25 03:59 1 GM Cyclobenzaprine HCl (Cyclobenzaprine HCl) 10 mg BID PO 02/09/25 21:00 03/11/25 20:59 02/10/25 08:46 10 MG Heparin Sodium (Porcine) (HEParin 5,000 UNIT VIAL) 5,000 unit BID SQ 02/08/25 09:00 03/10/25 08:59 02/10/25 08:53 5,000 UNIT Heparin Sodium (Porcine) (HEParin 5,000 UNIT VIAL) 10,000 unit AD IRRIG 02/10/25 10:00 03/12/25 09:59 02/10/25 10:50 10,000 UNIT Hydralazine HCl (APRESOLine 20MG INJ) 10 mg Q6H PRN IV For:SBP above 160;DBP above 90 02/08/25 03:00 03/10/25 02:59 02/08/25 04:04 10 MG Hydromorphone HCl (DiLAUDid 0.5MG INJ) 0.2 mg Q4H PRN IVP SEVERE PAIN (7-10) 02/08/25 03:30 02/10/25 13:10 DC 02/10/25 08:48 0.2 MG Insulin Glargine (LANtus 100 UNITS/ML 10 ML VIAL) 15 units BID@0730,2100 SQ 02/08/25 09:30 02/08/25 11:55 DC 02/08/25 10:49 15 UNITS Insulin Glargine (LANtus 100 UNITS/ML 10 ML VIAL) 15 units DAILY SQ 02/09/25 09:00 03/10/25 09:29 02/10/25 08:54 15 UNITS Insulin Human Regular (humuLIN R 100 UNIT/ML 3ML) INSULIN SLIDING SCAL... ACHS SQ 02/08/25 07:30 03/10/25 07:29 02/10/25 12:59 4 UNIT Insulin Human Regular 100 unit/ Sodium Chloride 100 ml @ 0 mls/hr AD PRN IV HYPERGLYCEMIA PROTOCOL 02/08/25 03:00 02/08/25 04:03 DC Losartan Potassium (CozAAR 50 mg TAB) 50 mg BID PO 02/08/25 09:30 03/10/25 09:29 02/10/25 08:47 50 MG Metoprolol Tartrate (loprESSOR) 25 mg BID PO 02/08/25 21:00 03/10/25 20:59 02/10/25 08:48 25 MG Miscellaneous Medication (Folic Acid/Vit B Complex and C (Nephro Vitamins Tablet)) 0.8 mg DAILY PO 02/10/25 09:00 02/09/25 13:36 DC Nifedipine (adALAT 30MG) 30 mg BID PO 02/08/25 09:30 03/10/25 09:29 02/10/25 08:47 30 MG Ondansetron HCl (zoFRAN 4MG INJ) 4 mg Q6H PRN IV NAUSEA/VOMITING 02/08/25 03:00 03/10/25 02:59 02/08/25 21:59 4 MG Pantoprazole Sodium (PROTonix 40MG TAB) 40 mg DAILY PO 02/08/25 09:00 03/10/25 08:59 02/10/25 08:45 40 MG Piperacillin Sod/ Tazobactam Sod (Zosyn 3.375gm+NS 50ml) 3.375 gm Q12H IVPB 02/10/25 11:00 02/20/25 10:59 02/10/25 12:50 3.375 GM Potassium Chloride 100 ml @ 100 mls/hr AD PRN IV POTASSIUM PROTOCOL 02/09/25 09:30 03/11/25 09:29 02/09/25 15:41 100 MLS/HR Potassium Chloride (K-Dur 10meq Sr Tab) 10 meq AD PRN PO POTASSIUM PROTOCOL 02/09/25 09:30 03/11/25 09:29 02/10/25 12:51 10 MEQ Potassium Chloride (KCl 10% Elixir 20meq/15ml) 10 meq AD PRN PO POTASSIUM PROTOCOL 02/09/25 09:30 03/11/25 09:29 Sodium Chloride 1,000 ml @ 0 mls/hr ONCE IV 02/10/25 10:00 03/12/25 09:59 02/10/25 10:48 1,000 MLS/HR Sodium Chloride (NS 50ml) 50 ml AD IV 02/10/25 11:00 03/12/25 10:59 Tramadol HCl (UltRAM) 50 mg Q6H PRN PO MODERATE PAIN (4-6) 02/10/25 13:30 02/15/25 13:29 UNV Vancomycin HCl (Vancomycin Protocol) 1 each AD IV 02/08/25 09:30 02/08/25 09:29 DC Vitamin B Complex/ Vit C/Folic Acid (Nephrovite Tablet) 1 cap DAILY PO 02/09/25 09:00 03/11/25 08:59 02/10/25 08:45 1 CAP DIAGNOSTICS / RADIOLOGY: [ ] ASSESSMENT: [ Severe back pain POA ESRD on HD eating dialysis , POA Community-acquired pneumonia POA Urine culture growing E coli, Pseudomonas aeruginosa and Jasmyne albicans POA Acute complicated cystitis, POA Uncontrolled Diabetes mellitius type2 with hyperglycemia, POA Uncontrolled Hypertension POA Electrolyte imbalance hypokalemia 2.8 POA Multifactorial anemia POA Osteopenia per CT cervical/CT thoracic/CD lumbar Cervical spine straightening consistent with spasm per CT lumbar/CT thoracic/CT cervical spine POA] PLAN: [ Admit patient to medical floor as inpatient status. Back pain CT lumbar osteopenia. Spasm, right upper lobe pneumonia CT thoracic osteopenia. Spasm, right upper lobe pneumonia CT cervical osteopenia. 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 Glucometer checks a.c. and HS 1800 ADA diet Humulin R sliding scale Hypertension: Consider resuming home medications once they have been reconciled. For now, Hydralazine 10 mg IV every 4 hours for systolic blood pressure greater than 160 mmHg GI prophylaxis, Protonix DVT prophylaxis ,heparin] ATTESTATION BY PHYSICIAN I have seen and examined the patient. I reviewed the documentation, medical decision making, and treatment plan as noted by the mid-level provider above. I agree with the findings and plan of care. DELFINO ARREDONDO MD, KATARZYNA B TRANSPORTATION ENGINEER February 10, 2025 13:15
[2025-02-10] MEDS: traMADol HCL 50 MG TABLET PO PRN (14:28)
--- NOTE | 2025-02-10 20:57 | PN ---
NEPHROLOGY NOTE SUBJECTIVE: This patient has been seen several times. This patient has renal failure, UTI, diabetes, hypertension. The patient has been evaluated several times today on dialysis. REVIEW OF SYSTEMS: CONSTITUTIONAL: No fever, chills, or rigors. RESPIRATORY: No cough, expectoration, or hemoptysis. CARDIOVASCULAR: No chest pain. No orthopnea or PND. GASTROINTESTINAL: No abdominal pain, no nausea or vomiting. GENITOURINARY: No joint swelling, redness, or inflammation. Other systemic review is unchanged. PHYSICAL EXAMINATION: GENERAL: Pale. No other distress or deformities. Lying in bed. VITAL SIGNS: Blood pressure is 107/69, pulse 73, respiratory rate is 18, afebrile. HEENT: Head is atraumatic. Pupils are round and reactive. Sclerae are anicteric. Conjunctivae not pale. Oral mucosa is not dry. NECK: Supple. No masses or bruits. Thyroid is palpable. Neck has no bruits. CHEST: Shows equal thoracic percussion note being resonant in all areas. CARDIAC: Regular rhythm. No rub, no S3, S4. No parasternal heave. ABDOMEN: With no guarding or tenderness. Bowel sounds are normoactive. No free fluid. EXTREMITIES: With no edema and no cyanosis or clubbing. BACK: No tenderness or back deformities. IMAGING STUDIES: Personally reviewed. LABORATORY DATA: We have reviewed available labs in detail. Labs have shown hemoglobin and hematocrit have been low. Old records have been reviewed. PROBLEMS: Renal failure, anemia, relatively low blood pressure, UTIs, underlying urinary retention, hypokalemia, and diabetes. PLAN: Will be continued dialysis support. Continue monitoring of renal function. Seen for dialysis and seen on dialysis multiple times. We will follow up closely. Condition is guarded. Seen several times. Sugars and overall studies will be monitored. We have spent almost 50 minutes on this patient's care today. Thank you for this patient. TID: [id number] RECEIPT: [id number]
--- NOTE | 2025-02-10 21:07 | PN ---
SUBJECTIVE: This patient has been evaluated several times. The patient has renal failure, anemia, underlying diabetic nephropathy, hypertension, urinary retention, UTI and noncompliance. The patient has been evaluated and seen several times. No fevers, chills or rigors. No cough, expectoration or hemoptysis. No abdominal pain. PHYSICAL EXAMINATION: GENERAL: Pale, sick looking, lying in bed. VITAL SIGNS: Blood pressure /67, pulse 85 and respiratory rate is 20. HEENT: Head is atraumatic and normocephalic. Pupils are round and reactive. Sclerae are anicteric. Conjunctivae not pale. Oral mucosa is not dry. NECK: Without masses or bruits. Thyroid is palpable. Neck has no bruits. CHEST: Shows equal thoracic percussion note being resonant in all areas. CARDIAC: Regular rhythm. No rub, no S3, S4. No parasternal heave. ABDOMEN: No guarding or tenderness. Bowel sounds present. LABORATORY DATA: We have reviewed the labs in detail with low hemoglobin 10, hematocrit is 31. Imaging studies are reviewed. White cell count is normal. Imaging studies are personally reviewed. PROBLEMS: Renal failure, anemia, electrolyte problem. The patient is hypotensive. PLAN: Continue dialysis support. Continue monitoring of renal function. Continue monitoring of electrolyte. All the CT scans were personally reviewed. The patient will be monitored closely. Overall condition is guarded. The patient was evaluated and seen for dialysis and seen multiple times. Thank you for this patient. TID: [id number] RECEIPT: [id number]
[2025-02-10 21:11] LABS: HEPATITIS B SURFACE ANTIBODY Negative (Reactive)
[2025-02-11] VITALS: BP 95/55; PULSE 81; RESP 18; TEMP 98.4
[2025-02-11 00:26] LABS: HEPATITIS B CORE AB TOTAL Non-Reactive (Nonreactive); HEPATITIS B SURFACE ANTIGEN Non-Reactive (Nonreactive)
--- NOTE | 2025-02-11 00:28 | NUR ---
0016 PAGED HOSPITALIST NURSE INFORMATICIST JONATHAN RENE NP. UPON CALL BACK AT 0028 INFORMED HER OF BP 95/55 HR 81. EXPLAINED THAT HELD HS BP MED NIFEDIPINE AND LOSARTAN BECAUSE AT THAT TIME SHE HAD BP 103/58 HR 82. SHE ASKED FOR MAP FOR CURRENT BP WHICH IS 68. SAID TO HOLD BP MEDS FOR NOW AND KEEP MAP GREATER THAN 65.
[2025-02-11 04:00] VITALS: BP 105/59; PULSE 76; RESP 17; TEMP 98.4
[2025-02-11 04:25] LABS: BASOPHILS % (AUTO) 1.6 % (0.0-5.0); EOSINOPHILS # (AUTO) 0.74 K/uL (0.00-0.70); EOSINOPHILS % (AUTO) 11.9 % (0.0-8.0); IMMATURE GRANULOCYTE ABSOLUTE 0.03 K/uL (0-1); LYMPHOCYTES % (AUTO) 16.6 % (21.0-51.0); MEAN CORPUSCULAR HEMOGLOBIN 30.3 pg (27.0-33.0); MEAN CORPUSCULAR HGB CONC 31.5 g/dL (32.0-36.0); MEAN CORPUSCULAR VOLUME 96.2 fL (79-99); MONOCYTES # (AUTO) 0.5 K/uL (0.1-1.0); MONOCYTES % (AUTO) 7.7 % (3.0-13.0); NEUTROPHILS # (AUTO) 3.8 K/uL (1.8-7.7); NEUTROPHILS % (AUTO) 61.7 % (40.0-77.0); PLATELET COUNT (AUTO) 199 K/uL (130-400); RED BLOOD CELL COUNT(AUTO) 3.43 MIL/uL (4.00-5.50); RED CELL DISTRIBUTION WIDTH 14.2 % (11.0-15.5); WHITE BLOOD COUNT (AUTO) 6.2 K/uL (4.8-10.8)
[2025-02-11 04:51] LABS: ALBUMIN 2.2 g/dL (3.5-5.0); BILIRUBIN,TOTAL 0.5 mg/dL (0.2-1.0); CREATININE 5.4 mg/dL (0.5-1.0); MAGNESIUM 2.1 mg/dL (1.80-2.40); POTASSIUM 3.7 mmol/L (3.5-5.1); TOTAL PROTEIN, SERUM 6.5 g/dL (6.0-8.3)
[2025-02-11 08:00] VITALS: BP 111/58; PULSE 52; RESP 16; TEMP 98.5; O2SAT 94
[2025-02-11] MEDS: fluCONazole 200 MG/NS 100 ML 100 ML IV SCH (08:45)
[2025-02-11] MEDS ORDERED: INSLAN SQ (09:05)
[2025-02-11] MEDS ORDERED: NIFE-40 PO (09:05)
[2025-02-11] MEDS ORDERED: LOSA-418 PO (09:05)
[2025-02-11] MEDS ORDERED: PANT40TA PO (09:05)
[2025-02-11] MEDS ORDERED: CYCL-309 PO (09:05)
[2025-02-11] MEDS ORDERED: LEVO-70 PO (09:05)
[2025-02-11] MEDS ORDERED: FLUC200T96 PO (09:06)
--- NOTE | 2025-02-11 09:11 | DS ---
Discharge Summary Hospital Course Summary: DATE OF ADMISSION:[02/08/2025] DATE OF DISCHARGE:[02/11/2025] DISPOSITION:[Home] CONDITION:[Medically cleared] CONSULTANTS:[Production Troubleshooter] FOLLOW UP APPOINTMENTS:[PCP 2 to 3 days. Production Troubleshooter as scheduled for dialysis 02/12/2025, neurosurgeon within one week] PROCEDURES:[None] IMAGING: report attached to summary MICROBIOLOGY: report attached to summary ACTIVITY:[Independent] HOME MEDICATIONS: see [facility] NEW MEDICATIONS:[Written prescription for tramadol and folic acid with vitamin- B, medications sent to the patient's pharmacy cyclobenzaprine, fluconazole, glargine, levofloxacin, losartan, nifedipine, pantoprazole] EMERGENCY INSTRUCTIONS: The patient was instructed to present to the nearest Emergency departmentr or call 911 once their symptoms will return or worsen Software Test Automation Engineer(s): Patient is 39 years old female who came to emergency department with a complaint of the back pain. CT lumbar, CT thoracic, CT cervical was performed and showed osteopenia. Spasm and right upper lobe pneumonia. Lumbar spine x-ray was negative. Urine culture was obtained and grew E coli, Pseudomonas aeruginosa and Jasmyne albicans. Blood culture negative. Patient was placed on levof loxacin and fluconazole. As for back spasm patient received tramadol and cyclobenzaprine. Today patient is cleared to be discharged home. Follow up with PCP in 2 to 3 days. Follow up with recreational aide as scheduled for dialysis 02/12/2025. The last dialysis was performed 02/10/2025 and 2.5 L was removed. Also patient was instructed to follow up outpatient with neurosurgeon of her choice within one week. Procedure(s): REVIEW OF SYSTEMS CONSTITUTIONAL: Denies fevers, chills, or night sweats. No unintentional weight loss reported. NEUROLOGICAL: Denies headache, amaurosis fugax, motor weakness, sensory deficit, vertigo/spinning sensation, gait abnormalities, or tremors. Complains of back pain ENT: No hearing loss, otalgia, otorrhea, rhinitis, rhinorrhea, hoarseness, or sore throat. CARDIOVASCULAR: Denies any exertional angina, dyspnea on exertion, orthopnea, paroxysmal nocturnal dyspnea, palpitations, life-threatening arrhythmias, claudication. PULMONARY: Denies any shortness of breath, cough, phlegm/sputum, hemoptysis, pleuritic chest pain. SLEEP: Denies morning headaches, daytime somnolence or napping. Denies difficulty falling asleep, staying asleep, waking from sleep. Denies knowledge of snoring. GASTROINTESTINAL: Denies any type of dysphagia to either liquids or solids. Denies nausea, vomiting, pyrosis, early satiety, abdominal pain, diarrhea, constipation, or changes in stool consistency or caliber. Denies coffee-ground emesis, hematemesis, hematochezia, or melanotic stools. GENITOURINARY: Denies frequency, urgency, nocturia, hematuria or incontinence (Storage/Irritative symptoms.) Low urinary stream, straining to void, urinary intermittency or hesitancy, splitting of the voiding stream, terminal dribbling. ENDOCRINOLOGIC: Denies polyuria, polydipsia, polyphagia or heat/cold intolerances. HEMATOLOGIC: Denies thrombophilia/previous clots, or coagulopathy/bleeding disorders. ONCOLOGIC: Denies personal history of malignancy. DERMATOLOGIC: Denies rashes or pruritus. PSYCHIATRIC: Denies any suicidal or homicidal ideation. Denies hallucinations. PHYSICAL EXAM GENERAL APPEARANCE: The patient is awake, alert, and oriented, in no acute cardiopulmonary distress. NEUROLOGICAL: Cranial nerves II-XII grossly intact. Motor is 5/5 in bilateral upper and lower extremities proximal to distal. No sensory deficits. Complains of back pain which has improved since the admission HEENT: Face is symmetric. Pupils are equal and reactive. Extraocular movements are intact. NECK: Supple. No JVD. No thyromegaly. No submental, submandibular, pre- /postauricular, occipital or supraclavicular lymphadenopathy. CHEST: Normal chest expansion. No Telemetry. LUNGS: Absence of any rales, rhonchi or any wheezing. CARDIOVASCULAR: Regular. S1 and S2 normal. No appreciable rubs, murmurs or gallops. ABDOMEN: Soft, nontender, and nondistended. There is no rebound, voluntary guarding, or rigidity. : Deferred. No Rivera. EXTREMITIES: Non-edematous and not cyanotic. No clubbing. Good capillary refill. SKIN: No skin breakdown. Assessment/Plan: ASSESSMENT: [ Severe back pain POA ESRD on HD eating dialysis , POA Community-acquired pneumonia POA Urine culture growing E coli, Pseudomonas aeruginosa and Jasmyne albicans POA Acute complicated cystitis, POA Uncontrolled Diabetes mellitius type2 with hyperglycemia, POA Uncontrolled Hypertension POA Electrolyte imbalance hypokalemia 2.8 POA Multifactorial anemia POA Osteopenia per CT cervical/CT thoracic/CD lumbar Cervical spine straightening consistent with spasm per CT lumbar/CT thoracic/CT cervical spine POA] Home Medications: Active Scripts Atorvastatin Calcium (Atorvastatin Calcium) 20 Mg Tablet, 1 TAB PO DAILY for 30 Days, #30 TAB 1 Refill Prov:DELFINO PATRICK MD 01/15/25 Folic Acid/Vit B Complex and C (Nephro Vitamins Tablet) 0.8 Mg Tablet, 0.8 MG PO DAILY, #30 TAB 1 Refill Prov:DELFINO PATRICK MD 01/15/25 Aspirin (Aspirin EC) 81 Mg Tablet.dr, 1 TAB PO DAILY for 30 Days, #30 TAB 1 Refill Prov:DELFINO PATRICK MD 01/15/25 Metoprolol Tartrate (Lopressor) 25 Mg Tab, 25 MG PO BID for 30 Days, #60 TAB 1 Refill Prov:DELFINO PATRICK MD 01/15/25 Discontinued Scripts Cephalexin Monohydrate (Keflex) 500 Mg Cap, 500 MG PO QID for 7 Days, #28 CAP Prov:DRE PITTS 02/02/25 Time spent arranging discharge: 31-60 minutes ATTESTATION BY PHYSICIAN I have seen and examined the patient. I reviewed the documentation, medical decision making, and treatment plan as noted by the mid-level provider above. I agree with the findings and plan of care. DELFINO PATRICK MD, KATARZYNA B JUNIOR WEB DEVELOPER February 11, 2025 09:11
--- NOTE | 2025-02-11 12:11 | NUR ---
PT DISCHARGED, WAITING FOR FAMILY MEMBER TO PICK HER UP. PT STATED SHE DOES NOT HAVE MONEY FOR AN UBER AND NEITHER DOES HER FAMILY.
--- NOTE | 2025-02-11 13:16 | PN ---
NEPHROLOGY PROGRESS NOTE Date/Time Patient Seen: February 11, 2025 SUBJECTIVE: This is a 39-year-old female with underlying history of hypertension, end-stage renal disease on hemodialysis Sunday, type 2 diabetes mellitus, history of neurogenic bladder with history of chronic Rivera catheter placement, prior history of abdominal and perineal infection status post multiple surgeries in [place], 2021 She presented to the ER for further evaluation of back pain. Lumbar spine x-ray showed no fracture. PermCath in place Electrolytes are noted. She continues to tolerated dialysis without difficulty She was seen in the medical floor, in no acute distress Pending discharge disposition later today. REVIEW OF SYSTEMS: GENERAL: Positive for back pain. NEUROLOGIC: Negative for any blurry vision, blind spots, double vision, facial asymmetry, dysphagia, dysarthria, hemiparesis, hemisensory deficits, vertigo, ataxia. HEENT: Negative for any head trauma, neck trauma, neck stiffness, photophobia, phonophobia, sinusitis, rhinitis. CARDIAC: Negative for any chest pain, dyspnea on exertion, paroxysmal nocturnal dyspnea, peripheral edema. PULMONARY: Negative for any shortness of breath, wheezing, COPD, or TB exposure. GASTROINTESTINAL: Negative for any abdominal pain, nausea, vomiting, bright red blood per rectum, melena. GENITOURINARY: Negative for any dysuria, hematuria, incontinence. INTEGUMENTARY: Negative for any rashes, cuts, insect bites. RHEUMATOLOGIC: Negative for any joint pains, photosensitive rashes, history of vasculitis or kidney problems. HEMATOLOGIC: Negative for any abnormal bruising, frequent infections or bleeding. PHYSICAL EXAM: GENERAL: Alert and oriented x 3. No acute distress. Well-nourished. EYES: EOMI. Anicteric. HENT: Moist mucous membranes. No scleral icterus. No cervical lymphadenopathy. LUNGS: Clear to auscultation bilaterally. No accessory muscle use. CARDIOVASCULAR: Regular rate and rhythm. No murmur. No JVD. ABDOMEN: Soft, non-tender and non-distended. No palpable masses. EXTREMITIES: No edema. Non-tender. Right BKA SKIN: No rashes or lesions. Warm. NEUROLOGIC: No focal neurological deficits. CN II-XII grossly intact, but not individually tested. PSYCHIATRIC: Cooperative. Appropriate mood and affect. LABORATORY: [ ] Hematology Labs: Test 02/11/25 03:48 Range/Units White Blood Count 6.2 4.8-10.8 K/uL Red Blood Count 3.43 L 4.00-5.50 MIL/uL Hemoglobin 10.4 L 12.0-16.0 g/dL Hematocrit 33.0 L 36-48 % Mean Corpuscular Volume 96.2 79-99 fL Mean Corpuscular Hemoglobin 30.3 27.0-33.0 pg Mean Corpuscular Hemoglobin Concent 31.5 L 32.0-36.0 g/dL Red Cell Distribution Width 14.2 11.0-15.5 % Platelet Count 199 130-400 K/uL Mean Platelet Volume 9.9 7.5-10.5 fL Immature Granulocyte % (Auto) 0.5 0-1 % Neutrophils (%) (Auto) 61.7 40.0-77.0 % Lymphocytes (%) (Auto) 16.6 L 21.0-51.0 % Monocytes (%) (Auto) 7.7 3.0-13.0 % Eosinophils (%) (Auto) 11.9 H 0.0-8.0 % Basophils (%) (Auto) 1.6 0.0-5.0 % Neutrophils # (Auto) 3.8 1.8-7.7 K/uL Lymphocytes # (Auto) 1.0 1.0-4.8 K/uL Monocytes # (Auto) 0.5 0.1-1.0 K/uL Eosinophils # (Auto) 0.74 H 0.00-0.70 K/uL Basophils # (Auto) 0.10 0.00-0.20 K/uL Absolute Immature Granulocyte (auto 0.03 0-1 K/uL Nucleated Red Blood Cells 0.0 0.0-0.19 % Chemistry Labs: Test 02/11/25 05:22 02/11/25 03:48 02/10/25 04:57 Range/Units Whole Blood Glucose 233 H 70-110 MG/DL Sodium Level 139 136-145 mmol/L Potassium Level 3.7 3.5-5.1 mmol/L Chloride Level 102 101-111 mmol/L Carbon Dioxide Level 30 21-32 mmol/L Blood Urea Nitrogen 23 H 7-18 mg/dL Creatinine 5.4 H 0.5-1.0 mg/dL Glomerular Filtration Rate Calc 10 >90 mL/min Random Glucose 207 H 70-105 mg/dL Lactic Acid Level 1.7 0.8-2.5 mmol/L Total Calcium 7.5 L 8.5-10.1 mg/dL Magnesium Level 2.10 1.80-2.40 mg/dL Total Bilirubin 0.5 # 0.2-1.0 mg/dL Aspartate Amino Transf (AST/SGOT) 26 10-37 U/L Alanine Aminotransferase (ALT/SGPT) 18 12-78 U/L Alkaline Phosphatase 90 50-136 U/L Total Protein 6.5 6.0-8.3 g/dL Albumin 2.2 L 3.5-5.0 g/dL Phosphorus Level 5.5 H 2.5-4.9 mg/dL Total Creatine Kinase 51 # 21-232 U/L B-Type Natriuretic Peptide 93 0-100 pg/mL DIAGNOSTICS / RADIOLOGY: REASON: back pain ORDERING PHYSICIAN: ALBERTO JAQUEZ LICENSED PESTICIDE APPLICATOR PROCEDURE: T SPINE WO - CT THORACIC SPINE W/O CONTRAST Exam Type: CT LUMBAR SPINE W/O CONTRAST, CT THORACIC SPINE W/O CONTRAST, CT CERVICAL SPINE W/O CONTRAST Clinical Information: back pain Comparison: None Technique: Spiral axial images were performed from base of skull to the L1 level. Both sagittal and coronal reconstructions were performed. CT Dose Index (CTDI): 87.85 mGy Dose Length Product (DLP): 2176.7 total Findings: There is normal alignment of the vertebral bodies. There is straightening of the cervical spine consistent with spasm. There is osteopenia. There are no fractures. No facet hypertrophy. There is osteopenia. Multiple Schmorl's nodes of the mid to lower dorsal spine as well as the upper to mid lumbar spine are seen. Consolidation, ill-defined, right upper lobe consistent with pneumonia. The prevertebral soft tissues are otherwise normal. There are no disc herniations or bulges. IMPRESSION: No acute fractures or dislocations. Osteopenia. Straightening of the cervical spine consistent with spasm. Right upper lobe pneumonia as an incidental finding. DICTATED BY: ROSETTA VILLEDA MD DATE: 02/09/25 1153 REASON: back pain ORDERING PHYSICIAN: ALBERTO JAQUEZ LICENSED PESTICIDE APPLICATOR PROCEDURE: L SPIN WO - CT LUMBAR SPINE W/O CONTRAST Exam Type: CT LUMBAR SPINE W/O CONTRAST, CT THORACIC SPINE W/O CONTRAST, CT CERVICAL SPINE W/O CONTRAST Clinical Information: back pain Comparison: None Technique: Spiral axial images were performed from base of skull to the L1 level. Both sagittal and coronal reconstructions were performed. CT Dose Index (CTDI): 87.85 mGy Dose Length Product (DLP): 2176.7 total Findings: There is normal alignment of the vertebral bodies. There is straightening of the cervical spine consistent with spasm. There is osteopenia. There are no fractures. No facet hypertrophy. There is osteopenia. Multiple Schmorl's nodes of the mid to lower dorsal spine as well as the upper to mid lumbar spine are seen. Consolidation, ill-defined, right upper lobe consistent with pneumonia. The prevertebral soft tissues are otherwise normal. There are no disc herniations or bulges. IMPRESSION: No acute fractures or dislocations. Osteopenia. Straightening of the cervical spine consistent with spasm. Right upper lobe pneumonia as an incidental finding. DICTATED BY: ROSETTA VILLEDA MD DATE: 02/09/25 115 REASON: back pain ORDERING PHYSICIAN: ALBERTO JAQUEZ APRN PROCEDURE: C SPIN WO - CT CERVICAL SPINE W/O CONTRAST Exam Type: CT LUMBAR SPINE W/O CONTRAST, CT THORACIC SPINE W/O CONTRAST, CT CERVICAL SPINE W/O CONTRAST Clinical Information: back pain Comparison: None Technique: Spiral axial images were performed from base of skull to the L1 level. Both sagittal and coronal reconstructions were performed. CT Dose Index (CTDI): 87.85 mGy Dose Length Product (DLP): 2176.7 total Findings: There is normal alignment of the vertebral bodies. There is straightening of the cervical spine consistent with spasm. There is osteopenia. There are no fractures. No facet hypertrophy. There is osteopenia. Multiple Schmorl's nodes of the mid to lower dorsal spine as well as the upper to mid lumbar spine are seen. Consolidation, ill-defined, right upper lobe consistent with pneumonia. The prevertebral soft tissues are otherwise normal. There are no disc herniations or bulges. IMPRESSION: No acute fractures or dislocations. Osteopenia. Straightening of the cervical spine consistent with spasm. Right upper lobe pneumonia as an incidental finding. DICTATED BY: ROSETTA VILLEDA MD DATE: 02/09/25 1159 REASON: lower back pain ORDERING PHYSICIAN: TACO CHRISTIE MD PROCEDURE: LUMB 2 3VW - LUMBAR SPINE 2-3VWS LUMBAR SPINE 2-3VWS HISTORY: Low back pain COMPARISON: None FINDINGS: 3 images of the lumbar spine were obtained. Vascular calcifications are seen. Fecal material is seen in the colon. There is straightening of normal lordotic curvature which may be related to muscle spasm or positioning. No loss of vertebral height is seen. No fracture or dislocation is seen. Degenerative changes are seen. Angulation of coccyx is seen. IMPRESSION: 1. No fracture is seen. DICTATED BY: ZAY ZARAGOZA MD DATE: 02/08/25 1200 ASSESSMENT: End stage renal disease Urinary tract infection Uncontrolled diabetes mellitus type 2 Diabetic nephropathy. Uncontrolled hypertension History of neurogenic bladder requiring chronic Rivera catheterization History of poor visual acuity of bilateral eyes PLAN: Labs and Diagnostics/ Radiology personally reviewed and interpreted by myself and supervising physician We have reviewed dialysis and external records in detail Pending discharge disposition later today Continue dialysis schedule Sunday Potassium replacement has been ordered. 1.5 L fluid restriction Continue to monitor H&H Epogen on dialysis days, as needed Continue with frequent monitoring of renal function, anemia, and electrolytes Order CBC, BMP, and electrolytes in the morning May use Dilaudid 0.5 mg IV every 6 hours as needed for severe pain Monitor blood pressure adjust medication doses as needed Maintain normotensive state Strict intake, output, and daily weight should be monitored Please renally adjust medications. Avoid nephrotoxics and nonsteroidal drugs. We will continue to monitor the patient closely We have discussed with the other team physicians in detail about the care plan ATTESTATION BY PHYSICIAN I have seen and examined the patient. I reviewed the documentation, medical decision making, and treatment plan as noted by the mid-level provider above. I agree with the findings and plan of care. GISELLE VALENTIN MD, ELIZABETH FNP February 11, 2025 13:16
--- NOTE | 2025-02-13 17:21 | NUR ---
Transitional Phone Call 02/12/2025 Attempted to call twice, spoke with daughter and she stated patient is "doing good" and will have patient return the call. No return call.
== END 2025-02-11 13:00 | disposition home or self-care (01) | DRG 137 ==
LOC: EDH 00:07 → EDHIP 00:08 → 4AH 04:30
PROVIDERS: ADMIT Internal Medicine; ATTEND Internal Medicine
PROC: 5A1D70Z Performance of Urinary Filtration, Intermittent, Less than 6 Hours Per Day (ICD-10-PCS; principal; 2025-02-08)
DX: J15.69 Pneumonia due to other Gram-negative bacteria (principal); I12.0 Hypertensive chronic kidney disease with stage 5 chronic kidney disease or end stage renal disease; N30.00 Acute cystitis without hematuria; N18.6 End stage renal disease; I95.9 Hypotension, unspecified; E11.22 Type 2 diabetes mellitus with diabetic chronic kidney disease; B96.20 Unspecified Escherichia coli [E. coli] as the cause of diseases classified elsewhere; B96.5 Pseudomonas (aeruginosa) (mallei) (pseudomallei) as the cause of diseases classified elsewhere; B96.89 Other specified bacterial agents as the cause of diseases classified elsewhere; E11.65 Type 2 diabetes mellitus with hyperglycemia; D64.9 Anemia, unspecified; E87.6 Hypokalemia; Z99.2 Dependence on renal dialysis; Z98.891 History of uterine scar from previous surgery; Z91.199 Patient's noncompliance with other medical treatment and regimen due to unspecified reason; Z89.511 Acquired absence of right leg below knee; Z79.82 Long term (current) use of aspirin
CPT/HCPCS: 36415; 72100; 72125; 72128; 72131; 80048; 80053; 81001; 81025; 82550; 82948; 83036; 83605; 83735; 83880; 84100; 84132; 85025; 86704; 86706; 87040; 87086; 87186; 87340; 90935; 99285; G0378; J0360; J0696; J1171; J1450; J1644; J1815; J2405; J2543; J3480

== ENCOUNTER 2025-02-16 05:37 | Emergency (ER) | payer MEDICAID ==
[~2025-02-16] VITALS: Ht 162.6 cm; Wt 77.1 kg
[~2025-02-16 05:37] MED LIST changes: -CEPH500B PO; +CYCL-309 PO; +FLUC200T96 PO; +INSLAN SQ; +LEVO-70 PO; +LOSA-418 PO; +NIFE-40 PO; +PANT40TA PO
--- NOTE | 2025-02-16 05:58 | NUR ---
BLADDER SCAN COMPLETED AT THIS TIME RESULTING WITH A TOTAL OF 314 MLS OF URINE IN THE BLADDER, ROMANO CATHETER POA IS PATENT AND DRAINING WELL. ANGELA CHILDRESS AWARE./KARRI
--- NOTE | 2025-02-16 06:20 | ERN ---
ED Note History of Present Illness Stated Complaint: PAINFUL URINATION Chief Complaint: Urinary Retention Time Seen by MD: 05:58 Dictation: This is a 39-year-old female with multiple medical problems including a chronic indwelling Rivera catheter was just evaluated for obstructed Rivera catheter and presents again with a similar complaint patient apparently was trained to flush the Rivera but apparently did not work when she did it She has chronic pain but otherwise no fever chills or rigors. Vital signs reviewed Allergies: Coded Allergies: lidocaine (Unverified Allergy, Unknown, 09/13/24) morphine (Unverified Allergy, Unknown, 05/10/22) onion (Unverified Allergy, Unknown, 05/10/22) Home Meds Active Scripts Fluconazole (Fluconazole) 200 Mg Tablet, 1 TAB PO DAILY for 7 Days, #7 TAB 0 Refills Prov:ALBERTO JAQUEZ TELEPHONE ORDER CLERK ROOM SERVICE 02/11/25 Levofloxacin (Levofloxacin) 500 Mg Tablet, 1 TAB PO DAILY for 10 Days, #10 TAB 0 Refills Prov:ALBERTO JAQUEZ B TELEPHONE ORDER CLERK ROOM SERVICE 02/11/25 Pantoprazole Sodium (Protonix) 40 Mg Tablet.dr, 40 MG PO DAILY, #60 TAB Prov:ALBERTO JAQUEZ B TELEPHONE ORDER CLERK ROOM SERVICE 02/11/25 Nifedipine (Nifedipine ER) 30 Mg Tab.er.24, 30 MG PO BID, #60 CAP Prov:ALBERTO JAQUEZ B TELEPHONE ORDER CLERK ROOM SERVICE 02/11/25 Losartan Potassium (Cozaar) 50 Mg Tablet, 50 MG PO BID, #60 TAB Prov:ALBERTO JAQUEZ TELEPHONE ORDER CLERK ROOM SERVICE 02/11/25 Insulin Glargine,Hum.rec.anlog (Lantus) 100 Unit/Ml Inj, 15 UNITS SQ DAILY, #10 ML Prov:ALBERTO JAQUEZ TELEPHONE ORDER CLERK ROOM SERVICE 02/11/25 Cyclobenzaprine HCl (Cyclobenzaprine HCl) 10 Mg Tablet, 10 MG PO BID, #60 TAB Prov:ALBERTO JAQUEZ B TELEPHONE ORDER CLERK ROOM SERVICE 02/11/25 Atorvastatin Calcium (Atorvastatin Calcium) 20 Mg Tablet, 1 TAB PO DAILY for 30 Days, #30 TAB 1 Refill Prov:DELFINO PATRICK MD 01/15/25 Folic Acid/Vit B Complex and C (Nephro Vitamins Tablet) 0.8 Mg Tablet, 0.8 MG PO DAILY, #30 TAB 1 Refill Prov:DELFINO PATRICK MD 01/15/25 Aspirin (Aspirin EC) 81 Mg Tablet.dr, 1 TAB PO DAILY for 30 Days, #30 TAB 1 Refill Prov:DELFINO PATRIKC MD 01/15/25 Metoprolol Tartrate (Lopressor) 25 Mg Tab, 25 MG PO BID for 30 Days, #60 TAB 1 Refill Prov:DELFINO PATRICK MD 01/15/25 Discontinued Scripts Cephalexin Monohydrate (Keflex) 500 Mg Cap, 500 MG PO QID for 7 Days, #28 CAP Prov:DRE PITTS 02/02/25 Past Medical History Past Medical History: Diabetes-Type II, Renal Failure Additional Past Medical Hx: COMA, INTERNAL ABSCESSES, Founier's Gangrene, ESBL Surgical History: Surgical History Other: PORT A CATH, BACK SX, ABD SX MULTIPLE, RT BKA, Family History: Negative Social History: Negative, Lives with family History: Not Applicable RN Note Reviewed/Agreed w/PFSH: Yes Review of System Dictation Constitutional: Negative for fever,chills, and weight loss Eyes: Negative for injury, pain,redness, and discharge ENT: Negative for injury,pain or swelling Cardiovascular: Negative for chest pain, palpitations, and edema Respiratory: Negative for shortness of breath, cough, and wheezing, Abdomen/GI: Negative for abdominal pain, nausea, vomiting, diarrhea, and constipation Back: Negative for injury and pain : Negative for injury, bleeding and discharge as described in the history of present illness MS/Extremity: Negative for injury and deformity Skin: Negative for rash, and discoloration Neuro: Negative for headache, weakness, numbness, tingling, and seizure Psych: Negative for suicide ideation, homicidal ideation, and hallucinations Initial Vital Sign VS Vital Signs Date Time Temp Pulse Resp B/P (MAP) Pulse Ox O2 Delivery O2 Flow Rate FiO2 02/16/25 05:39 98.2 93 20 179/98 98 Room Air Physical Exam Dictation General: awake, alert, NAD Head/Face: Normocephalic, atraumatic Eyes: PERRL, EOMI, vision at baseline ENT: oral cavity clear, TMs clear, no signs of infection Neck: Trachea midline, supple, no nuchal rigidity Cardiovascular: RRR, normal S1/S2, No MRGs, no JVD Respiratory: CTAB, no respiratory distress, No rales or wheezes Abdomen: Soft, non-tender, morbidly obese, normal bowel sounds, no guarding or rebound. Indwelling Rivera catheter in place Skin: Warm, dry, normal turgor, no rash MS/Extremity: Pulses equal, no cyanosis, neurovascular intact, FROM status post right BKA Neuro: COAx4, GCS 15, strength 5/5, CN 2-12 intact, normal cerebellar exam, normal gait, Psych: Normal behavior, mood, and affect normal Extremities-trace edema without any palpable cords, Homans sign is negative Results (Laboratory/Radiology) Labs Reviewed?: Yes ED Course ED Course Orders Procedure Category Date Status Time Urinalysis LAB 02/16/25 Logged W/Microscopic 05:58 Vital Signs Date Time Temp Pulse Resp B/P (MAP) Pulse Ox O2 Delivery O2 Flow Rate FiO2 02/16/25 05:39 98.2 93 20 179/98 98 Room Air Bladder scan was done and there was approximately 400 cc of urine in the Irvera catheter was flushed with 20 cc of saline with a extrusion of sediments and patient felt immediately relief of pain and discomfort in the lower abdomen. Rivera catheter is draining very well without any issues. Discharge to follow up with her primary care physician Medical Decision Making MDM MDM: Differential diagnosis: Recurrent UTI, Rivera catheter obstruction from sediment, displacement of the Rivera catheter Rationale: Tests considered and ordered secondary to shared decision making include: Previous outside records reviewed: Old ER visits. Risk of complication and/or morbidity or mortality of patient management: None Medications-Per medication reconciliation Need for hospitalization: Patient does not meet criteria for hospitalization. Need for emergency major/minor surgery: No There are no social concerns with this patient. Prescription drug management Prescriptions will include symptomatic care Patient's prior external medical records from other ER visits were reviewed by me as indicated. Prior testing and results from previous visits were reviewed. Prior tests were taken into account with medical decision making and resource utilization, independent historian/historians were used to obtain complete medical history. I independently interpreted the test that were performed, results were reviewed by me and considered findings on radiology if ordered. Medical management and examination interpretation discussions were had by me with other qualified healthcare professionals as indicated for the patient's care. Problem List Problem List: (1) Rivera catheter problem (2) Encounter for assessment of Rivera catheter DX & DISP Disposition: Discharge Departure Impression: Primary Impression: Obstructed Rivera catheter Additional Impression: Encounter for assessment of Rivera catheter Condition: Stable Additional Instructions: Patient and the caregiver have been informed of all the diagnostic tests and the imaging conducted during the today's visit to the emergency room and has verbalized understanding of the results I have personally reviewed and interpreted all diagnostic exams performed here in the ER today as well as the vital signs documented by the nursing staff. The patient is now being discharged to home and should follow up with the primary care physician or the specialist as directed by the ER staff. Follow-up with primary care provider in 1 to 2 days. Take medications as directed here in the emergency room. Okay to continue home medications unless otherwise discussed during your visit in the emergency room today. Return to your nearest emergency room if symptoms worsen or if there is no improvement. Call 911 if you need immediate assistance. Take Tylenol or Motrin over-the- counter as needed and if no contraindications are present. Increase oral hydration. A wound culture or urine culture was ordered here in the emergency room department please follow-up with primary care provider and advise them to get repeat ports from our facility. If you had any Morgan wrap/splints that were applied here, please do not remove them until you see your primary care or specialty. Referrals: MILVIA PITTS MD (PCP) PIA GONZALEZ MD February 16, 2025 06:20
[2025-02-16 06:32] VITALS: BP 163/89; PULSE 87; RESP 20; TEMP 98.1; O2SAT 98
[2025-02-16 07:17] LABS: APPEARANCE,URINE CLOUDY (CLEAR); BACTERIA,URINE RARE /HPF (None Seen); BILIRUBIN,URINE NEGATIVE (NEGATIVE); COLOR,URINE YELLOW (YELLOW); GLUCOSE, URINE (UA) >=1000 mg/dL (NEGATIVE); KETONES,URINE NEGATIVE (NEGATIVE); LEUKOCYTE ESTERASE ,URINE 75 Leu/uL (NEGATIVE); NITRATE,URINE NEGATIVE (NEGATIVE); OCCULT BLOOD,URINE SMALL (NEGATIVE); PH,URINE 7.5 (5.0-8.0); PROTEIN,URINE 600 mg/dL (NEGATIVE); SQUAMOUS EPITHELIAL CELL,UR RARE /HPF (0-2); UROBILINOGEN,URINE 0.2 mg/dL (0.2-1.0); WBC CLUMP FEW /HPF (0-1); WBC,URINE 26-50 /HPF (0-1); YEAST,URINE BUDDING RARE /HPF (None Seen)
== END 2025-02-16 06:36 | disposition home or self-care (01) ==
LOC: EDH 05:37
DX: T83.091A Other mechanical complication of indwelling urethral catheter, initial encounter (principal); E11.9 Type 2 diabetes mellitus without complications; Z79.4 Long term (current) use of insulin; Z79.82 Long term (current) use of aspirin; Z79.899 Other long term (current) drug therapy; Z88.5 Allergy status to narcotic agent; Z89.511 Acquired absence of right leg below knee; Y84.6 Urinary catheterization as the cause of abnormal reaction of the patient, or of later complication, without mention of misadventure at the time of the procedure
CPT/HCPCS: 81001; 87086; 87186; 99284

== ENCOUNTER 2025-05-28 11:01 | Inpatient (IN) | payer MEDICAID ==
[2025-05-28] VITALS (14 sets, daily range): BP systolic 86–147; BP diastolic 53–95; PULSE 68–78; RESP 16; TEMP 97.2
[~2025-05-28] VITALS: Ht 162.6 cm; Wt 80.3 kg
[~2025-05-28 11:01] MED LIST changes: -ASPI-1443 PO; -CYCL-309 PO; -FLUC200T96 PO; -FOLI0.8T53 PO; -INSLAN SQ; -LEVO-70 PO; -LOSA-418 PO; +LOSA50TA64 PO; -NIFE-40 PO; -PANT40TA PO; +PANT40TA54 PO; +SULF1TAB42 PO
--- NOTE | 2025-05-28 11:08 | ERN ---
ED Note History of Present Illness Stated Complaint: ABDOMINAL PAIN Chief Complaint: Abdominal Pain Time Seen by MD: 11:05 Dictation: PATIENT IS A 39-YEAR-OLD FEMALE COMING IN TO THE EMERGENCY ROOM VIA EMS WITH COMPLAINTS OF HAVING BILATERAL FLANK PAIN THAT RADIATES TO HER BILATERAL LOWER QUADRANTS SHE DOES HAVE A ROMANO CATHETER IN PLACE AND STATES SHE HAS BEEN FEELING WEAK FOR THE LAST SEVERAL DAYS. SHE DENIES FEVER CHILLS NAUSEA VOMITING. SHE DOES HAVE A CHRONIC ROMANO CATHETER SINCE 2021, ALSO GOES TO HEMODIALYSIS [facility]. SHE STATES SHE MISSED TODAY BECAUSE OF FEELING WEAK AND WAS COMING TO THE EMERGENCY ROOM. Allergies: Coded Allergies: piperacillin (Verified Allergy, Intermediate, 04/04/25) tazobactam (Verified Allergy, Intermediate, 04/04/25) vancomycin (Verified Allergy, Intermediate, 04/04/25) lidocaine (Unverified Allergy, Unknown, 09/13/24) morphine (Unverified Allergy, Unknown, 05/10/22) onion (Unverified Allergy, Unknown, 05/10/22) Home Meds Active Scripts Sulfamethoxazole/Trimethoprim (Bactrim Ds Tablet) 800 Mg-160 Mg Tablet, 1 TAB PO BID for 10 Days, #20 TAB 0 Refills Prov:WHITNEY DIAZ MD 04/14/25 Reported Medications Metoprolol Tartrate (Lopressor) 25 Mg Tab, 1 TAB PO BID 04/04/25 Pantoprazole Sodium (Pantoprazole Sodium) 40 Mg Tablet.dr, 1 TAB PO DAILY 04/04/25 Losartan Potassium (Losartan Potassium) 50 Mg Tablet, 1 TAB PO BID 04/04/25 Atorvastatin Calcium (Atorvastatin Calcium) 20 Mg Tablet, 1 TAB PO DAILY, TAB 0 Refills 03/01/25 Past Medical History Past Medical History: Anxiety, Diabetes-Type II, High Cholesterol, Hypertension, Renal Disese Additional Past Medical Hx: COMA, INTERNAL ABSCESSES, berta Gangrene, ESBL chronic pain syndrome Surgical History: Other, LAVA Surgical History Other: R CHEST PERMACATHETER Family History: Negative Social History: Negative, Lives with family History: Not Applicable RN Note Reviewed/Agreed w/PFSH: Yes Review of System Dictation CONSTITUTIONAL: NEGATIVE EXCEPT FOR HPI WEAKNESS HEAD/FACE: NEGATIVE EXCEPT FOR HPI EENT: NEGATIVE EXCEPT FOR HPI RESPIRATORY: NEGATIVE EXCEPT FOR HPI GASTROINTESTINAL/ABDOMINAL: NEGATIVE EXCEPT FOR HPI BILATERAL FLANK PAIN GENITOURINARY: NEGATIVE EXCEPT FOR HPI MUSCULOSKELETAL: NEGATIVE EXCEPT FOR HPI INTEGUMENTARY: NEGATIVE EXCEPT FOR HPI NEUROLOGICAL/PSYCH: NEGATIVE EXCEPT FOR HPI HEMATOLOGIC/LYMPHATIC: NEGATIVE EXCEPT FOR HPI ALL SYSTEMS NEGATIVE, EXCEPT NOTED ABOVE. 13 POINT REVIEW OF SYSTEMS ASSESSED AND ALL NEGATIVE EXCEPT FOR ABOVE. Initial Vital Sign VS Vital Signs Date Time Temp Pulse Resp B/P (MAP) Pulse Ox O2 Delivery O2 Flow Rate FiO2 05/28/25 11:16 97.9 82 18 134/65 98 Room Air 0 05/28/25 12:12 21 Physical Exam Dictation VITAL SIGNS REVIEWED GENERAL APPEARANCE: ALERT, ORIENTED X 3, MILD ACUTE DISTRESS, WELL DEVELOPED, NOURISHED. HEAD AND FACE: NON-TRAUMATIC. EYES: PERRL, PINK CONJUNCTIVAS, EYELID NO TRAUMA, ANTERIOR CHAMBER WITH ARCUS SENILIS. EARS: PINNAS INTACT AND NO SIGNS OF TRAUMA OR ERYTHEMA EAR CANALS CLEAR AND NO DISCHARGE TM NO ERYTHEMA NOSE: NO DISCHARGE, NO BLEEDING. OROPHARYNX: MOUTH NORMAL, TONGUE PINK, PHARYNX CLEAR,NO ERYTHEMA, TONSILS NO EXUDATES, NO ABSCESSES NOTED, MUCOUS MEMBRANE MOIST NECK: SUPPLE, NON-TENDER, NO THYROMEGALY, NO MASSES, NO JVD, NO BRUITS BREAST:DEFERRED CHEST:NO TENDERNESS, NO CREPITUS, NO PARADOXICAL MOVEMENT, NO RETRACTIONS LUNGS:CLEAR, WELL-VENTILATED, SYMMETRIC, NO RALES, NO WHEEZING, NO RHONCHI, NO STRIDOR, GOOD BREATH SOUNDS BILATERALLY HEART: REGULAR RATE, REGULAR RHYTHM, NO MURMUR, NO GALLOPS VASCULAR: NO PERIPHERAL EDEMA, ABDOMEN: SOFT, POSITIVE BOWEL SOUNDS, NONDISTENDED, NO GUARDING, NONTENDER, NO REBOUND, NO MASSES NO HEPATOMEGALY, NO SPLENOMEGALY, NO ZACARIAS'S SIGN, NO HERNIAS. NEGATIVE CVAT RECTAL: DEFERRED GENITAL: DEFERRED ROMANO CATHETER IN PLACE NEUROLOGICAL: NORMAL SPEECH, MOTOR FUNCTION INTACT, SENSORY FUNCTION INTACT MUSCULOSKELETAL: NECK NONTENDER, FULL RANGE OF MOTION, BACK NONTENDER, FULL RANGE OF MOTION, EXTREMITIES: NONTENDER, FULL RANGE OF MOTION SKIN: COLOR PINK, DRY, NO TURGOR, NO RASH, NO LACERATIONS, NO ABRASIONS, NO CONTUSIONS. LYMPHATIC: DEFERRED Results (Laboratory/Radiology) Laboratory/Radiology Laboratory Tests Test 05/28/25 11:24 05/28/25 12:30 White Blood Count 7.0 K/uL (4.8-10.8) Red Blood Count 3.78 MIL/uL (4.00-5.50) L Hemoglobin 11.9 g/dL (12.0-16.0) L Hematocrit 33.8 % (36-48) L Mean Corpuscular Volume 89.4 fL (79-99) Mean Corpuscular Hemoglobin 31.5 pg (27.0-33.0) Mean Corpuscular Hemoglobin Concent 35.2 g/dL (32.0-36.0) Red Cell Distribution Width 13.7 % (11.0-15.5) Platelet Count 174 K/uL (130-400) Mean Platelet Volume 9.1 fL (7.5-10.5) Immature Granulocyte % (Auto) 0.4 % (0-1) Neutrophils (%) (Auto) 56.9 % (40.0-77.0) Lymphocytes (%) (Auto) 25.3 % (21.0-51.0) Monocytes (%) (Auto) 7.1 % (3.0-13.0) Eosinophils (%) (Auto) 9.0 % (0.0-8.0) H Basophils (%) (Auto) 1.3 % (0.0-5.0) Neutrophils # (Auto) 4.0 K/uL (1.8-7.7) Lymphocytes # (Auto) 1.8 K/uL (1.0-4.8) Monocytes # (Auto) 0.5 K/uL (0.1-1.0) Eosinophils # (Auto) 0.63 K/uL (0.00-0.70) Basophils # (Auto) 0.09 K/uL (0.00-0.20) Absolute Immature Granulocyte (auto 0.03 K/uL (0-1) Nucleated Red Blood Cells 0.0 % (0.0-0.19) Sodium Level 139 mmol/L (136-145) Potassium Level 3.4 mmol/L (3.5-5.1) L Chloride Level 99 mmol/L (101-111) L Carbon Dioxide Level 31 mmol/L (21-32) Blood Urea Nitrogen 35 mg/dL (7-18) H Creatinine 6.2 mg/dL (0.5-1.0) H Glomerular Filtration Rate Calc 8 mL/min (>90) Random Glucose 159 mg/dL (70-105) H Lactic Acid Level 1.8 mmol/L (0.8-2.5) Total Calcium 7.8 mg/dL (8.5-10.1) L Lipase 28 U/L (16-77) Urine Color LIGHT-ORANGE (YELLOW) Urine Appearance TURBID (CLEAR) Urine pH 8.0 (5.0-8.0) Urine Specific [place] 1.016 (1.001-1.031) Urine Protein 300 mg/dL (NEGATIVE) H Urine Glucose (UA) NEGATIVE mg/dL (NEGATIVE) Urine Ketones NEGATIVE mg/dL (NEGATIVE) Urine Occult Blood NEGATIVE (NEGATIVE) Urine Nitrate NEGATIVE (NEGATIVE) Urine Bilirubin NEGATIVE mg/dL (NEGATIVE) Urine Urobilinogen 2.0 mg/dL (0.2-1.0) H Urine Leukocyte Esterase 500 Sada/uL (NEGATIVE) H Urine RBC 2-5 /HPF (0-1) H Urine WBC 11-25 /HPF (0-1) H Urine WBC Clumps (Auto) FEW /HPF (0-1) Urine Squamous Epithelial Cells Rare /HPF (0-2) Urine Calcium Oxalate Crystals RARE /LPF (None Seen) Urine Triple Phosphate Crystals MANY /LPF (None Seen) Urine Other Crystals (Auto) 8 /HPF (None Seen) Urine Bacteria MANY /HPF (None Seen) Urine Yeast Few /HPF (None Seen) H Urine HCG, Qualitative NEGATIVE (NEGATIVE) Labs Reviewed?: Yes EKG Comment: EKG SINUS RHYTHM/HEART RATE 83/0 CHANGES ANTERIOR LEADS. QT INTERVAL ED Course ED Course Orders Procedure Category Date Status Time Blood Cult SERAFIN 05/28/25 In Process 11:05 Lactic Acid LAB 05/28/25 Complete 11:05 Cbc With Differential LAB 05/28/25 Complete 11:05 ,Urine Test LAB 05/28/25 Complete 11:05 Urinalysis Profile LAB 05/28/25 Complete 11:05 12 Lead Ekg Tracing- EKG 05/28/25 Complete Technical 11:05 Ondansetron 4mg Inj PHA 05/28/25 Complete (Zofran 4mg Inj) 11:30 Lipase LAB 05/28/25 Complete 11:05 Basic Metabolic Panel LAB 05/28/25 Complete 11:05 Culture Urine SERAFIN 05/28/25 In Process 12:57 Hydromorphone 1 Mg PHA 05/28/25 Complete Inj (Dilaudid 1mg Inj 13:30 Ct Abdomen/Pelvis W/O CT 05/28/25 Resulted Contrast 13:07 Ceftriaxone 2gm Vial PHA 05/28/25 Complete (Rocephin 2gm Inj) 13:30 Furosemide 100mg Vial PHA 05/28/25 Complete (Lasix 100mg Vial) 13:30 Nurse Driven Romano ARMANDO 05/28/25 In Process Removal Pro 13:58 Cbc W Manual Diff LAB 05/29/25 Verified 04:00 Comprehensive LAB 05/29/25 Verified Metabolic Panel 04:00 Phosphorus LAB 05/29/25 Verified 04:00 Strict I&O CPOE 05/28/25 Transmitted 14:53 Daily Weights CPOE 05/28/25 Transmitted 14:53 Daily Fluid Intake CPOE 05/28/25 Transmitted Restriction 14:53 Dialysis-Inpatient DIAL 05/28/25 Transmitted 14:52 Nephrology Consult CONPHYSVC 05/28/25 Transmitted 14:52 Current Medications Medications (Trade) Dose Ordered Sig/Deanna Route PRN Reason Start Time Stop Time Status Last Admin Dose Admin Ceftriaxone Sodium (Rocephin 2gm Inj) 2 gm ONCE ONCE IVPB 05/28/25 13:30 05/28/25 13:31 DC 05/28/25 13:34 Furosemide (LASix 100MG VIAL) 80 mg ONCE ONCE IVP 05/28/25 13:30 05/28/25 13:51 DC Hydromorphone HCl (DiLAUDid 1MG INJ) 1 mg ONCE ONCE IVP 05/28/25 13:30 05/28/25 13:31 DC 05/28/25 13:35 Ondansetron HCl (zoFRAN 4MG INJ) 4 mg ONCE ONCE IVP 05/28/25 11:30 05/28/25 11:31 DC 05/28/25 12:12 Vital Signs Date Time Temp Pulse Resp B/P (MAP) Pulse Ox O2 Delivery O2 Flow Rate FiO2 05/28/25 12:12 98.1 79 18 140/102 99 Room Air* 0 21 05/28/25 11:16 97.9 82 18 134/65 98 Room Air 0 1450/DR. VALENTINROUNDING IN THE EMERGENCY ROOM AND WAS MADE AWARE OF PATIENT AND HER NEED FOR HEMODIALYSIS. HE SAID CONSULT HIM AT ADMIT PATIENT FOR HEMODIALYSIS TODAY.1510/ SPOKE WITH DR COVINGTON, AWARE OF MY DISCUSSION WITH THE NEPHROLOGISTS AND FOR HEMODIALYSIS DAY DISCUSSED LABS AND EKG HE AGREED TO ADMIT PATIENT. Medical Decision Making MDM MDM: DIFFERENTIAL DIAGNOSIS: UROLITHIASIS/PYELONEPHRITIS/ESRD NEEDING HEMODIALYSIS/LIVE LOW OVERLOAD/PULMONARY EDEMA/ELECTROLYTE IMBALANCE RATIONALE: TESTS CONSIDERED AND ORDERED SECONDARY TO SHARED DECISION MAKING INCLUDE: LABS, ECG AND RADIOLOGY PREVIOUS OUTSIDE RECORDS REVIEWED: OLD ER VISITS. RISK OF COMPLICATION AND/OR MORBIDITY OR MORTALITY OF PATIENT MANAGEMENT: NONE MEDICATIONS-PER MEDICATION RECONCILIATION NEED FOR HOSPITALIZATION: PATIENT DOES MEET CRITERIA FOR HOSPITALIZATION. HEMODIALYSIS, MANAGEMENT OF HER URINARY TRACT INFECTION NEED FOR EMERGENCY MAJOR/MINOR SURGERY: NO THERE ARE NO SOCIAL CONCERNS WITH THIS PATIENT. PRESCRIPTION DRUG MANAGEMENT PRESCRIPTIONS WILL INCLUDE SYMPTOMATIC CARE PATIENT'S PRIOR EXTERNAL MEDICAL RECORDS FROM OTHER ER VISITS WERE REVIEWED BY ME INDICATED. PRIOR TESTING AND RESULTS FROM PREVIOUS VISITS WERE REVIEWED. PRIOR TESTS WERE TAKEN INTO ACCOUNT WITH MEDICAL DECISION MAKING AND RESOURCE UTILIZATION, INDEPENDENT HISTORIAN/HISTORIANS WERE USED TO OBTAIN COMPLETE M EDICAL HISTORY. I INDEPENDENTLY INTERPRETED THE TEST THAT WERE PERFORMED, RESULTS WERE REVIEWED BY ME AND CONSIDERED FINDINGS ON RADIOLOGY IF ORDERED. MEDICAL MANAGEMENT AND EXAMINATION INTERPRETATION DISCUSSIONS WERE HAD BY ME WITH OTHER QUALIFIED HEALTHCARE PROFESSIONALS INDICATED FOR THE PATIENT'S CARE. 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
[2025-05-28 11:35] LABS: IMMATURE GRANULOCYTE ABSOLUTE 0.03 K/uL (0-1); NUCLEATED RED BLOOD CELLS 0.0 % (0.0-0.19); PLATELET COUNT (AUTO) 174 K/uL (130-400); RED BLOOD CELL COUNT(AUTO) 3.78 MIL/uL (4.00-5.50); RED CELL DISTRIBUTION WIDTH 13.7 % (11.0-15.5); WHITE BLOOD COUNT (AUTO) 7.0 K/uL (4.8-10.8)
[2025-05-28 11:45] LABS: CREATININE 6.2 mg/dL (0.5-1.0); GLOMERULAR FILTR. RATE CALC 8.0 mL/min (>90); GLUCOSE,RANDOM 159.0 mg/dL (70-105); SODIUM SERUM 139.0 mmol/L (136-145); UREA NITROGEN, BLOOD 35.0 mg/dL (7-18)
--- NOTE | 2025-05-28 12:05 | EKG ---
[facility] Test Date: 2025-05-28 Test Time: 11:22:34 Pat Name: DARÍO ELIAS Department: [facility] Room: 317 Gender: F Surgery Consultant: [id number] : 1985 Requested By: TENNILLE BEVERLY Order Number: [id number] Reading MD: Chaitanya Parker Measurements Intervals [place] Rate: 83 P: 11 NM: 143 QRS: 9 QRSD: 100 T: 33 QT: 400 QTc: Interpretive Statements Sinus rhythm Poor R wave progression Electronically Signed On 05-29-2025 12:25:25 CDT by Chaitanya Parker Please click the below link to view image of tracing.
[2025-05-28 12:52] LABS: APPEARANCE,URINE TURBID (CLEAR); GLUCOSE, URINE (UA) NEGATIVE (NEGATIVE); HCG,QUALITATIVE URINE NEGATIVE (NEGATIVE); LEUKOCYTE ESTERASE ,URINE 500 Leu/uL (NEGATIVE); NITRATE,URINE NEGATIVE (NEGATIVE); OCCULT BLOOD,URINE NEGATIVE (NEGATIVE)
[2025-05-28 12:57] LABS: ADD UA MICROSCOPIC YES
[2025-05-28 13:02] LABS: CALCIUM OXALATE CRYSTALS,UR RARE /LPF (None Seen); TRIPLE PHOSPHATE CRYSTAL,UR MANY /LPF (None Seen); UNCLASSIFIED CRYSTAL 8 /HPF (None Seen); WBC CLUMP FEW /HPF (0-1)
[2025-05-28 13:04] LABS: SQUAMOUS EPITHELIAL CELL,UR Rare /HPF (0-2); YEAST,URINE BUDDING Few /HPF (None Seen)
[2025-05-28] MEDS: furoSEMIDE 100MG VIAL 10 MG/ML VIAL IVP ONE (13:34)
--- NOTE | 2025-05-28 14:03 | HMCIMG ---
CT ABDOMEN/PELVIS W/O CONTRAST REASON: BILATERAL FLANK PAIN THAT RADIATES TO BILATERAL LOWER QUADRANTS COMPARISON: None. FINDINGS: Lung bases are clear. There are no focal liver lesions. There are normal-appearing kidneys.. Spleen and pancreas appear unremarkable. The gallbladder surgically absent with clips in the gallbladder fossa. Bowel loops appear unremarkable. There is occasional diverticulosis with no evidence of diverticulitis. This includes normal appearance of the appendix there is a small umbilical hernia. There is no evidence of free fluid or intraperitoneal air. There are no focal fluid collections. Aorta and retroperitoneum appear normal as do pelvic soft tissue structures. The anterior abdominal wall is intact. Osseous structures appear unremarkable. There is mild disc disease most the lower thoracic upper lumbar spine. The uterus is mildly deviated to the left side. There is a small left adnexal cyst measuring 2.6 cm. IMPRESSION: 1. No acute process seen a CT of abdomen and pelvis without intravenous contrast Occasional diverticulosis Left adnexal cyst. I would recommend pelvic sonogram for further correlation. CT was performed with one or more following dose reduction techniques: automated exposure control, adjustment of the mA and kv according to patient's size, or use of a iterative reconstruction technique.
--- NOTE | 2025-05-28 14:53 | CONS ---
NEPHROLOGY CONSULTATION NOTE Date/Time Patient Seen: May 28, 2025 1430 HISTORY OF PRESENT ILLNESS: This is a 39-year-old female with underlying history of hypertension, end-stage renal disease on hemodialysis Sunday, type 2 diabetes mellitus, history of neurogenic bladder with history of chronic Rivera catheter placement, prior history of abdominal and perineal infection status post multiple surgeries in [place], 2021 She presents to the emergency room via EMS complaints of bilateral flank pain, nausea and vomiting. She is due for dialysis today Imaging studies were noted No family at the bedside Prognosis remains guarded REVIEW OF SYSTEMS: GENERAL: Positive for nausea, vomiting and chills NEUROLOGIC: Negative for any blurry vision, blind spots, double vision, facial asymmetry, dysphagia, dysarthria, hemiparesis, hemisensory deficits, vertigo, ataxia. HEENT: Negative for any head trauma, neck trauma, neck stiffness, photophobia, phonophobia, sinusitis, rhinitis. CARDIAC: Negative for any chest pain, dyspnea on exertion, paroxysmal nocturnal dyspnea, peripheral edema. PULMONARY: Negative for any shortness of breath, wheezing, COPD, or TB exposure. GASTROINTESTINAL: Negative for any abdominal pain, nausea, vomiting, bright red blood per rectum, melena. GENITOURINARY: Negative for any dysuria, hematuria, incontinence. INTEGUMENTARY: Negative for any rashes, cuts, insect bites. RHEUMATOLOGIC: Negative for any joint pains, photosensitive rashes, history of vasculitis or kidney problems. HEMATOLOGIC: Negative for any abnormal bruising, frequent infections or bleeding. PAST MEDICAL HISTORY: Hypertension, end-stage renal disease, type 2 diabetes mellitus, history of neurogenic bladder with history of chronic Rivera catheter placement, prior history of abdominal and perineal infection status post multiple surgeries in [place]2021 PAST SURGICAL HISTORY: Left brachiocephalic AV fistula., Right BKA, back surgery in 2018, patient reports having surgeries in [place] during her prolonged hospitalization at [facility] in 2021 including abdominal surgeries and possible skin grafting PAST SOCIAL HISTORY: Denies use of alcohol, tobacco illicit FAMILY HISTORY: Noncontributory PHYSICAL EXAM: GENERAL: Alert and oriented x 3. No acute distress. Well-nourished. EYES: EOMI. Anicteric. HENT: Moist mucous membranes. No scleral icterus. No cervical lymphadenopathy. LUNGS: Clear to auscultation bilaterally. No accessory muscle use. CARDIOVASCULAR: Regular rate and rhythm. No murmur. No JVD. ABDOMEN: Soft, non-tender and non-distended. No palpable masses. EXTREMITIES: No edema. Non-tender.?SKIN: No rashes or lesions. Warm. NEUROLOGIC: No focal neurological deficits. CN II-XII grossly intact, but not individually tested. PSYCHIATRIC: Cooperative. Appropriate mood and affect. MEDICATIONS: [ ] Vital Signs (last 8hr) Date Time Temp Pulse Resp B/P (MAP) Pulse Ox O2 Delivery O2 Flow Rate FiO2 05/28/25 12:12 98.1 79 18 140/102 99 Room Air* 0 21 05/28/25 11:16 97.9 82 18 134/65 98 Room Air 0 DIAGNOSTICS / RADIOLOGY: [place] [id number] [address] IMAGING REPORT Signed PATIENT: DARÍO ELIAS MR#: [id number] : 1985 SEX: F AGE: 39 LOCATION: ED ORDER [id number] STATUS: [facility] REPORT#: [id number] SERVICE 1307 REASON: BILATERAL FLANK PAIN THAT RADIATES TO BILATERAL LOWER QUADRANTS ORDERING PHYSICIAN: TENNILLE BEVERLY NP PROCEDURE: ABD PEL WO - CT ABDOMEN/PELVIS W/O CONTRAST CT ABDOMEN/PELVIS W/O CONTRAST REASON: BILATERAL FLANK PAIN THAT RADIATES TO BILATERAL LOWER QUADRANTS COMPARISON: None. FINDINGS: Lung bases are clear. There are no focal liver lesions. There are normal-appearing kidneys.. Spleen and pancreas appear unremarkable. The gallbladder surgically absent with clips in the gallbladder fossa. Bowel loops appear unremarkable. There is occasional diverticulosis with no evidence of diverticulitis. This includes normal appearance of the appendix there is a small umbilical hernia. There is no evidence of free fluid or intraperitoneal air. There are no focal fluid collections. Aorta and retroperitoneum appear normal as do pelvic soft tissue structures. The anterior abdominal wall is intact. Osseous structures appear unremarkable. There is mild disc disease most the lower thoracic upper lumbar spine. The uterus is mildly deviated to the left side. There is a small left adnexal cyst measuring 2.6 cm. IMPRESSION: 1. No acute process seen a CT of abdomen and pelvis without intravenous contrast Occasional diverticulosis Left adnexal cyst. I would recommend pelvic sonogram for further correlation. CT was performed with one or more following dose reduction techniques: automated exposure control, adjustment of the mA and kv according to patient's size, or use of a iterative reconstruction technique. DICTATED BY: BRITTANY SILVA MD DATE: 05/28/25 0393 ELECTRONICALLY SIGNED BY: BRITTANY SILVA MD DATE: 05/28/25 0790 LABORATORY: [ ] Hematology Labs: Test 05/28/25 11:24 Range/Units White Blood Count 7.0 4.8-10.8 K/uL Red Blood Count 3.78 L 4.00-5.50 MIL/uL Hemoglobin 11.9 L 12.0-16.0 g/dL Hematocrit 33.8 L 36-48 % Mean Corpuscular Volume 89.4 79-99 fL Mean Corpuscular Hemoglobin 31.5 27.0-33.0 pg Mean Corpuscular Hemoglobin Concent 35.2 32.0-36.0 g/dL Red Cell Distribution Width 13.7 11.0-15.5 % Platelet Count 174 130-400 K/uL Mean Platelet Volume 9.1 7.5-10.5 fL Immature Granulocyte % (Auto) 0.4 0-1 % Neutrophils (%) (Auto) 56.9 40.0-77.0 % Lymphocytes (%) (Auto) 25.3 21.0-51.0 % Monocytes (%) (Auto) 7.1 3.0-13.0 % Eosinophils (%) (Auto) 9.0 H 0.0-8.0 % Basophils (%) (Auto) 1.3 0.0-5.0 % Neutrophils # (Auto) 4.0 1.8-7.7 K/uL Lymphocytes # (Auto) 1.8 1.0-4.8 K/uL Monocytes # (Auto) 0.5 0.1-1.0 K/uL Eosinophils # (Auto) 0.63 0.00-0.70 K/uL Basophils # (Auto) 0.09 0.00-0.20 K/uL Absolute Immature Granulocyte (auto 0.03 0-1 K/uL Nucleated Red Blood Cells 0.0 0.0-0.19 % Chemistry Labs: Test 05/28/25 11:24 Range/Units Sodium Level 139 136-145 mmol/L Potassium Level 3.4 L 3.5-5.1 mmol/L Chloride Level 99 L 101-111 mmol/L Carbon Dioxide Level 31 21-32 mmol/L Blood Urea Nitrogen 35 H 7-18 mg/dL Creatinine 6.2 H 0.5-1.0 mg/dL Glomerular Filtration Rate Calc 8 >90 mL/min Random Glucose 159 H 70-105 mg/dL Lactic Acid Level 1.8 0.8-2.5 mmol/L Total Calcium 7.8 L 8.5-10.1 mg/dL Lipase 28 16-77 U/L ASSESSMENT: Patient has hypertensive urgency with noncompliance End stage renal disease Uncontrolled diabetes mellitus type 2 Diabetic nephropathy. Uncontrolled hypertension History of neurogenic bladder requiring chronic Rivera catheterization History of poor visual acuity of bilateral eyes PLAN: Labs and Diagnostics/ Radiology personally reviewed and interpreted by myself and supervising physician We have reviewed dialysis and external records in detail Continue dialysis schedule Sunday 1.5 L fluid restriction Continue to monitor H&H Epogen on dialysis days, as needed Continue with frequent monitoring of renal function, anemia, and electrolytes Order CBC, BMP, and electrolytes in the morning May use Dilaudid 0.5 mg IV every 6 hours as needed for severe pain Monitor blood pressure adjust medication doses as needed Maintain normotensive state Strict intake, output, and daily weight should be monitored Please renally adjust medications. Avoid nephrotoxics and nonsteroidal drugs. We will continue to monitor the patient closely We have discussed with the other team physicians in detail about the care plan Thank you for allowing us to participate in the care of this patient ATTESTATION BY PHYSICIAN I have seen and examined the patient. I reviewed the documentation, medical decision making, and treatment plan as noted by the mid-level provider above. I agree with the findings and plan of care. Patient was seen several times today will be receiving and seen on dialysis also total time spent was more than 75 minutes GISELLE VALENTIN MD, [facility] May 28, 2025 14:53 GISELLE VALENTIN MD May 28, 2025 22:28
--- NOTE | 2025-05-28 16:22 | HMCIMG ---
EXAM: US PELVIC NON-OB COMP 05/28/2025 3:32 PM MDT Presented for interpretation on: 05/28/2025 3:16 PM MDT INDICATION: Left adnexal cyst LMP: LMP COMPARISON: None FINDINGS: Grayscale and color Doppler sonographic images transabdominally and transvaginally the latter to better define uterine and adnexal structures. The anteverted uterus appears normal. Uterus measures 9.2 x 4.2 x 5.9 cm..The endometrium is normal in thickness measuring 0.8 cm.. The right ovary measures 2.7 x 1.5 x 2.7 cm. The left ovary measures 2.4 x 3.0 x 2.4 cm. There is normal color-flow Doppler both ovaries with normal echotexture. The left ovary has one follicle identified measuring 1.7 x 2.0 x 1.6 cm..There is no adnexal mass. The bladder appears normal. There is no pelvic free fluid. IMPRESSION: Left ovary has a follicular cyst measuring 1.6 x 2.0 x 1.6 cm The remaining pelvic sonogram demonstrate no other abnormality..
--- NOTE | 2025-05-28 16:25 | HP ---
[facility] HISTORY AND PHYSICAL Date of Service: May 28, 2025 Time of Service: 16:24 HISTORY OF PRESENT ILLNESS: 39-year-old female with past medical history of hypertension, diabetes mellitus type 2, ESRD, on hemodialysis who presented to the hospital secondary to pain in the bilateral right and left lower quadrant, flank pain. Patient states she noted that she was having pain which started today. Pain is located in the right and left lower quadrant. Her pain would radiate towards her left flank area. She has a history of chronic Rivera catheter placement which was placed in 2021. Her last Rivera was exchanged in March. She still produces minimal amount of urine. She noted that her Rivera catheter was showing cloudy urine. She drains the bag once a day. She sees Dr. Fernandez as outpatient and is on hemodialysis. She denied any fever but complains of chills at home. She denied any hematuria, changes in her menstrual periods. Denied any falls, syncopal episode, nausea, vomiting, constipation, diarrhea, chest pain. She has not seen a urologist as outpatient. Labs were notable for white count of 7.0, hemoglobin was 11.9, platelet count was 174 K, sodium was 139, potassium was 3.4, creatinine was 6.2 Her UA showed positive leuks history is with pyuria noted. She also was found to have some yeast. REVIEW OF SYSTEMS CONSTITUTIONAL: Denies fevers, or night sweats. No unintentional weight loss reported. Positive for chills, malaise NEUROLOGICAL: Denies headache, amaurosis fugax, motor weakness, sensory deficit, vertigo/spinning sensation, gait abnormalities, or tremors. ENT: No hearing loss, otalgia, otorrhea, rhinitis, rhinorrhea, hoarseness, or sore throat. CARDIOVASCULAR: Denies any exertional angina, dyspnea on exertion, orthopnea, paroxysmal nocturnal dyspnea, palpitations, life-threatening arrhythmias, claudication. PULMONARY: Denies any shortness of breath, cough, phlegm/sputum, hemoptysis, pleuritic chest pain. SLEEP: Denies morning headaches, daytime somnolence or napping. Denies difficulty falling asleep, staying asleep, waking from sleep. Denies knowledge of snoring. GASTROINTESTINAL: Positive for abdominal pain. Denied any nausea, vomiting, diarrhea, constipation GENITOURINARY: Denies frequency, urgency, nocturia, hematuria or incontinence (Storage/Irritative symptoms.) Low urinary stream, straining to void, urinary intermittency or hesitancy, splitting of the voiding stream, terminal dribbling. ENDOCRINOLOGIC: Denies polyuria, polydipsia, polyphagia or heat/cold intolerances. HEMATOLOGIC: Denies thrombophilia/previous clots, or coagulopathy/bleeding disorders. ONCOLOGIC: Denies personal history of malignancy. DERMATOLOGIC: Denies rashes or pruritus. PSYCHIATRIC: Denies any suicidal or homicidal ideation. Denies hallucinations. PAST MEDICAL HISTORY: ESRD, diabetes mellitus type 2, hypertension, history of neurogenic bladder status post Rivera catheter placement, PAST SURGICAL HISTORY: History of PermCath placement, history of AV fistula placement, cholecystectomy, right below-knee amputation, history of , history of perineal infection needing prolonged hospitalization with history of skin grafting, history of a mputation of left 4th and 5th toe PAST SOCIAL HISTORY: Denied any smoking, alcohol, drug use FAMILY HISTORY: Denied any pertinent family history Coded Allergies: piperacillin (Verified Allergy, Intermediate, 04/04/25) tazobactam (Verified Allergy, Intermediate, 04/04/25) vancomycin (Verified Allergy, Intermediate, 04/04/25) lidocaine (Unverified Allergy, Unknown, 09/13/24) morphine (Unverified Allergy, Unknown, 05/10/22) onion (Unverified Allergy, Unknown, 05/10/22) PHYSICAL EXAM GENERAL APPEARANCE: The patient is awake, alert, and oriented, in no acute cardiopulmonary distress. NEUROLOGICAL: Cranial nerves II-XII grossly intact. Motor is 5/5 in bilateral upper and lower extremities proximal to distal. No sensory deficits. HEENT: Face is symmetric. Pupils are equal and reactive. Extraocular movements are intact. NECK: Supple. No JVD. No thyromegaly. No submental, submandibular, pre- /postauricular, occipital or supraclavicular lymphadenopathy. CHEST: Normal chest expansion. No Telemetry. LUNGS: Absence of any rales, rhonchi or any wheezing. CARDIOVASCULAR: Regular. S1 and S2 normal. No appreciable rubs, murmurs or gallops. ABDOMEN: Soft, mild tenderness to palpation in the right lower quadrant, no g uarding, no rebound present : Deferred. No Rivera. EXTREMITIES: Non-edematous and not cyanotic. No clubbing. Good capillary refill. SKIN: No skin breakdown. Vital Sign (Last 24 Hours) 05/28/25 12:12 Temp 98.1 Pulse 79 Resp 18 B/P (MAP) 140/102 Pulse Ox 99 O2 Delivery Room Air* O2 Flow Rate 0 FiO2 21 LABS: Laboratory: Test 05/28/25 12:30 05/28/25 11:24 Range/Units Urine Color LIGHT-ORANGE YELLOW Urine Appearance TURBID CLEAR Urine pH 8.0 5.0-8.0 Urine Specific [place] 1.016 1.001-1.031 Urine Protein 300 H NEGATIVE mg/dL Urine Glucose (UA) NEGATIVE NEGATIVE mg/dL Urine Ketones NEGATIVE NEGATIVE mg/dL Urine Occult Blood NEGATIVE NEGATIVE Urine Nitrate NEGATIVE NEGATIVE Urine Bilirubin NEGATIVE NEGATIVE mg/dL Urine Urobilinogen 2.0 H 0.2-1.0 mg/dL Urine Leukocyte Esterase 500 H NEGATIVE Sada/uL Urine RBC 2-5 H 0-1 /HPF Urine WBC 11-25 H 0-1 /HPF Urine WBC Clumps (Auto) FEW 0-1 /HPF Urine Squamous Epithelial Cells Rare 0-2 /HPF Urine Calcium Oxalate Crystals RARE None Seen /LPF Urine Triple Phosphate Crystals MANY None Seen /LPF Urine Other Crystals (Auto) 8 None Seen /HPF Urine Bacteria MANY None Seen /HPF Urine Yeast Few H None Seen /HPF Urine HCG, Qualitative NEGATIVE NEGATIVE White Blood Count 7.0 4.8-10.8 K/uL Red Blood Count 3.78 L 4.00-5.50 MIL/uL Hemoglobin 11.9 L 12.0-16.0 g/dL Hematocrit 33.8 L 36-48 % Mean Corpuscular Volume 89.4 79-99 fL Mean Corpuscular Hemoglobin 31.5 27.0-33.0 pg Mean Corpuscular Hemoglobin Concent 35.2 32.0-36.0 g/dL Red Cell Distribution Width 13.7 11.0-15.5 % Platelet Count 174 130-400 K/uL Mean Platelet Volume 9.1 7.5-10.5 fL Immature Granulocyte % (Auto) 0.4 0-1 % Neutrophils (%) (Auto) 56.9 40.0-77.0 % Lymphocytes (%) (Auto) 25.3 21.0-51.0 % Monocytes (%) (Auto) 7.1 3.0-13.0 % Eosinophils (%) (Auto) 9.0 H 0.0-8.0 % Basophils (%) (Auto) 1.3 0.0-5.0 % Neutrophils # (Auto) 4.0 1.8-7.7 K/uL Lymphocytes # (Auto) 1.8 1.0-4.8 K/uL Monocytes # (Auto) 0.5 0.1-1.0 K/uL Eosinophils # (Auto) 0.63 0.00-0.70 K/uL Basophils # (Auto) 0.09 0.00-0.20 K/uL Absolute Immature Granulocyte (auto 0.03 0-1 K/uL Nucleated Red Blood Cells 0.0 0.0-0.19 % Sodium Level 139 136-145 mmol/L Potassium Level 3.4 L 3.5-5.1 mmol/L Chloride Level 99 L 101-111 mmol/L Carbon Dioxide Level 31 21-32 mmol/L Blood Urea Nitrogen 35 H 7-18 mg/dL Creatinine 6.2 H 0.5-1.0 mg/dL Glomerular Filtration Rate Calc 8 >90 mL/min Random Glucose 159 H 70-105 mg/dL Lactic Acid Level 1.8 0.8-2.5 mmol/L Total Calcium 7.8 L 8.5-10.1 mg/dL Lipase 28 16-77 U/L Current Medications Medications (Trade) Dose Ordered Sig/Deanna Route PRN Reason Start Time Stop Time Status Last Admin Dose Admin Acetaminophen (TYLenol 500MG TAB) 500 mg Q6H PRN PO MILD PAIN (1-3) 05/28/25 16:00 06/27/25 15:59 Ceftriaxone Sodium (Rocephin 2gm Inj) 2 gm Q24H IVPB 05/29/25 16:00 06/08/25 15:59 Hydralazine HCl (APRESOLine 20MG INJ) 10 mg Q6H PRN IV ADMINISTER FOR SBP > 180 05/28/25 16:00 06/27/25 15:59 Hydromorphone HCl (DiLAUDid 0.5MG INJ) 0.2 mg Q6H PRN IVP SEVERE PAIN (7-10) 05/28/25 19:00 06/02/25 18:59 Insulin Human Regular (humuLIN R 100 UNIT/ML 3ML) INSULIN SLIDING SCAL... ACHS SQ 05/28/25 16:30 06/27/25 16:29 Ondansetron HCl (zoFRAN 4MG INJ) 4 mg Q6H PRN IVP NAUSEA/VOMITING 05/28/25 16:00 06/27/25 15:59 DIAGNOSTICS / RADIOLOGY: [ ] ASSESSMENT: Complicated UTI POA History of neurogenic bladder status post Rivera catheter placement ESRD on dialysis Hypertension Hyperlipidemia Diabetes mellitus type 2 Abdominal pain likely in setting of UTI Left adnexal cyst PLAN: - patient to be admitted to medical-surgical unit with telemetry -in reference to complicated UTI. Patient's Rivera catheter will be exchanged. She will need follow up with the urologist for close monitoring. The patient will continue on Rocephin. Follow up on urine culture for antibiotic deescalation. -obtain home medications which will be reconciled once available -obtain a pelvic ultrasound -check TSH, A1c -further orders per hospitalization course Advanced Care Planning Which of the following were discussed: Hospice care: Yes __ No __x Therapeutic options: Yes __ No __ Advance directives: Yes __ No __ Other discussions: Discussed with who?: patient (Patient, family or surrogates) Voluntary nature of this service was explained to the patient? Yes __ No __ Amount of time spent: 25 minutes DYLAN Ingram MD, MD May 28, 2025 16:24
--- NOTE | 2025-05-28 18:42 | NUR ---
ROMANO CATHETER CHANGED OUT IN ED DEPT. TO A 18F.
--- NOTE | 2025-05-28 21:01 | NUR ---
DIALYSIS NURSE AT BEDSIDE SETTING UP FOR DIALYSIS.
--- NOTE | 2025-05-28 22:55 | NUR ---
PATIENT CONTINUES DIALYSIS.
[2025-05-29] VITALS (10 sets, daily range): BP systolic 91–143; BP diastolic 51–80; PULSE 67–80; RESP 16–20; TEMP 97.2–98.3; O2SAT 80–98
--- NOTE | 2025-05-29 00:23 | NUR ---
DIALYSIS NURSE STATED 1.5 LITER TAKEN OUT.
[2025-05-29] MEDS: 0.9%NACL 1000ML 1,000 ML IV SCH (00:24)
[2025-05-29 01:26] LABS: HEPATITIS B CORE AB TOTAL Non-Reactive (Nonreactive); HEPATITIS B SURFACE ANTIBODY Positive (Reactive)
[2025-05-29 05:30] LABS: IMMATURE GRANULOCYTE ABSOLUTE 0.05 K/uL (0-1); NUCLEATED RED BLOOD CELLS 0.0 % (0.0-0.19); PLATELET COUNT (AUTO) 151 K/uL (130-400); RED BLOOD CELL COUNT(AUTO) 3.95 MIL/uL (4.00-5.50); RED CELL DISTRIBUTION WIDTH 13.6 % (11.0-15.5); WHITE BLOOD COUNT (AUTO) 6.8 K/uL (4.8-10.8)
[2025-05-29 05:54] LABS: ASPARTATE AMINOTRANSFERASE 27.0 U/L (10-37); CREATININE 4.5 mg/dL (0.5-1.0); GLOMERULAR FILTR. RATE CALC 12.0 mL/min (>90); GLUCOSE,RANDOM 193.0 mg/dL (70-105); PHOSPHORUS 4.1 mg/dL (2.5-4.9); SODIUM SERUM 132.0 mmol/L (136-145); TOTAL PROTEIN, SERUM 7.1 g/dL (6.0-8.3); UREA NITROGEN, BLOOD 25.0 mg/dL (7-18)
--- NOTE | 2025-05-29 09:13 | NUR ---
ASKED PATIENT IF SHE HAS MEDICATION THAT SHE TAKES AT HOME. PATIENT STATES THAT SHE DOES TAKE HOME MEDICATION BUT DID NOT BRING THEM WITH HER NOR DOES SHE HAVE ANY OUTSIDE SOURCE TO BRING THEM IN FOR HER.
--- NOTE | 2025-05-29 10:44 | PN ---
NEPHROLOGY NOTE SUBJECTIVE: The patient has been evaluated and seen for dialysis, seen multiple times. This patient came with severe diabetes, hypertension, severe neurogenic bladder, anemia and severe weakness, and multiple other comorbidities. The patient has no fever, chills or rigors. No cough, expectoration or hemoptysis. No abdominal pain. No nausea or vomiting. No chest pain or orthopnea. PHYSICAL EXAMINATION: GENERAL: Shows pale, in no other distress. VITAL SIGNS: Blood pressure has been fluctuating and is around 137/75, pulse 68, respiratory rate is 16. HEENT: Head is atraumatic, normocephalic. Pupils are round and reactive to light. Sclerae are anicteric. Conjunctivae not pale. Oral mucosa is not dry. NECK: Supple. No masses or bruits. Thyroid is palpable. LABORATORY DATA: Labs have been reviewed. Old records reviewed. IMAGING STUDIES: Imaging studies are personally reviewed. PLAN: Dialysis in ICU. Continue monitoring. Follow up on renal function. Follow up on electrolytes, sugars, blood pressure, Epogen as needed. The patient was evaluated and seen for dialysis and seen multiple times. Today was time spent more than 75 minutes. Thank you for this patient. TID: [id number] RECEIPT: [id number]
--- NOTE | 2025-05-29 11:28 | NUR ---
DCP:HOME Pt currently lives at [address] [place] with her bother. Pt receives $761 in SNAP. Pt stats that she uses a wheelchair to ambulate at home. pt does not have a provider or home health. Pt does require assist with ADLs and bother and dgts have been the ones to assist her. Pt goes to [facility]. PCP is Dr. Ollie Jones and uses [facility] for any RX needs. At [place] pt will want to return home however states that will need assistance with transportation. Addendum: 05/29/25 at 1131 by KELVIN DUQUE SS Amended: Links added.
--- NOTE | 2025-05-29 11:36 | PN ---
NEPHROLOGY PROGRESS NOTE Date/Time Patient Seen: May 29, 2025 SUBJECTIVE: This is a 39-year-old female with underlying history of hypertension, end-stage renal disease on hemodialysis Sunday, type 2 diabetes mellitus, history of neurogenic bladder with history of chronic Rivera catheter placement, prior history of abdominal and perineal infection status post multiple surgeries in [place], 2021 She presents to the emergency room via EMS complaints of bilateral flank pain, nausea and vomiting. She was admitted further evaluation management of complicated UTI. She has been started on antibiotics Urine culture was positive She tolerated dialysis without difficulty yesterday She was seen in the medical floor, in no acute distress No family at the bedside Prognosis remains guarded REVIEW OF SYSTEMS: GENERAL: Positive for nausea, vomiting and chills NEUROLOGIC: Negative for any blurry vision, blind spots, double vision, facial asymmetry, dysphagia, dysarthria, hemiparesis, hemisensory deficits, vertigo, ataxia. HEENT: Negative for any head trauma, neck trauma, neck stiffness, photophobia, phonophobia, sinusitis, rhinitis. CARDIAC: Negative for any chest pain, dyspnea on exertion, paroxysmal nocturnal dyspnea, peripheral edema. PULMONARY: Negative for any shortness of breath, wheezing, COPD, or TB exposure. GASTROINTESTINAL: Negative for any abdominal pain, nausea, vomiting, bright red blood per rectum, melena. GENITOURINARY: Negative for any dysuria, hematuria, incontinence. INTEGUMENTARY: Negative for any rashes, cuts, insect bites. RHEUMATOLOGIC: Negative for any joint pains, photosensitive rashes, history of vasculitis or kidney problems. HEMATOLOGIC: Negative for any abnormal bruising, frequent infections or bleeding. PHYSICAL EXAM: GENERAL: Alert and oriented x 3. No acute distress. Well-nourished. EYES: EOMI. Anicteric. HENT: Moist mucous membranes. No scleral icterus. No cervical lymphadenopathy. LUNGS: Clear to auscultation bilaterally. No accessory muscle use. CARDIOVASCULAR: Regular rate and rhythm. No murmur. No JVD. ABDOMEN: Soft, non-tender and non-distended. No palpable masses. EXTREMITIES: No edema. Non-tender. SKIN: No rashes or lesions. Warm. NEUROLOGIC: No focal neurological deficits. CN II-XII grossly intact, but not individually tested. PSYCHIATRIC: Cooperative. Appropriate mood and affect. LABORATORY: [ ] Hematology Labs: Test 05/29/25 05:16 Range/Units White Blood Count 6.8 4.8-10.8 K/uL Red Blood Count 3.95 L 4.00-5.50 MIL/uL Hemoglobin 12.5 12.0-16.0 g/dL Hematocrit 35.4 L 36-48 % Mean Corpuscular Volume 89.6 79-99 fL Mean Corpuscular Hemoglobin 31.6 27.0-33.0 pg Mean Corpuscular Hemoglobin Concent 35.3 32.0-36.0 g/dL Red Cell Distribution Width 13.6 11.0-15.5 % Platelet Count 151 130-400 K/uL Mean Platelet Volume 9.5 7.5-10.5 fL Immature Granulocyte % (Auto) 0.7 0-1 % Neutrophils (%) (Auto) 54.1 40.0-77.0 % Lymphocytes (%) (Auto) 28.0 21.0-51.0 % Monocytes (%) (Auto) 8.0 3.0-13.0 % Eosinophils (%) (Auto) 8.0 0.0-8.0 % Basophils (%) (Auto) 1.2 0.0-5.0 % Neutrophils # (Auto) 3.7 1.8-7.7 K/uL Lymphocytes # (Auto) 1.9 1.0-4.8 K/uL Monocytes # (Auto) 0.5 0.1-1.0 K/uL Eosinophils # (Auto) 0.54 0.00-0.70 K/uL Basophils # (Auto) 0.08 0.00-0.20 K/uL Absolute Immature Granulocyte (auto 0.05 0-1 K/uL Nucleated Red Blood Cells 0.0 0.0-0.19 % Chemistry Labs: Test 05/29/25 11:19 05/29/25 05:16 05/28/25 11:24 Range/Units Whole Blood Glucose 215 H 70-110 MG/DL Sodium Level 132 L 136-145 mmol/L Potassium Level 3.3 L 3.5-5.1 mmol/L Chloride Level 96 L 101-111 mmol/L Carbon Dioxide Level 31 21-32 mmol/L Blood Urea Nitrogen 25 H 7-18 mg/dL Creatinine 4.5 H 0.5-1.0 mg/dL Glomerular Filtration Rate Calc 12 >90 mL/min Random Glucose 193 H 70-105 mg/dL Hemoglobin A1c 6.9 H 4.0-6.0 % Estimated Average Glucose (eAG) 151 H 70-126 mg/dL Total Calcium 7.5 L 8.5-10.1 mg/dL Phosphorus Level 4.1 2.5-4.9 mg/dL Total Bilirubin 0.8 0.2-1.0 mg/dL Aspartate Amino Transf (AST/SGOT) 27 10-37 U/L Alanine Aminotransferase (ALT/SGPT) 30 12-78 U/L Alkaline Phosphatase 89 50-136 U/L Total Protein 7.1 6.0-8.3 g/dL Albumin 2.5 L 3.5-5.0 g/dL Lactic Acid Level 1.8 0.8-2.5 mmol/L Lipase 28 16-77 U/L DIAGNOSTICS / RADIOLOGY: [address] [address] IMAGING REPORT Signed PATIENT: DARÍO ELIAS MR#: [id number] : 1985 SEX: F AGE: 39 LOCATION: [facility] ORDER 1542 STATUS: ADM IN REPORT#: [id number] SERVICE 1532 REASON: Left adnexal cyst ORDERING PHYSICIAN: DYLAN COVINGTON MD PROCEDURE: PELVCOMP - US PELVIC NON-OB COMP EXAM: US PELVIC NON-OB COMP 05/28/2025 3:32 PM MDT Presented for interpretation on: 05/28/2025 3:16 PM MDT INDICATION: Left adnexal cyst LMP: LMP COMPARISON: None FINDINGS: Grayscale and color Doppler sonographic images transabdominally and transvaginally the latter to better define uterine and adnexal structures. The anteverted uterus appears normal. Uterus measures 9.2 x 4.2 x 5.9 cm..The endometrium is normal in thickness measuring 0.8 cm.. The right ovary measures 2.7 x 1.5 x 2.7 cm. The left ovary measures 2.4 x 3.0 x 2.4 cm. There is normal color-flow Doppler both ovaries with normal echotexture. The left ovary has one follicle identified measuring 1.7 x 2.0 x 1.6 cm..There is no adnexal mass. The bladder appears normal. There is no pelvic free fluid. IMPRESSION: Left ovary has a follicular cyst measuring 1.6 x 2.0 x 1.6 cm The remaining pelvic sonogram demonstrate no other abnormality.. DICTATED BY: BRITTANY SILVA MD DATE: 05/28/25 1616 ELECTRONICALLY SIGNED BY: BRITTANY SILVA MD DATE: 05/28/25 162 PATIENT: DARÍO ELIAS MR#: [id number] : 1985 SEX: F AGE: 39 LOCATION: [facility] ORDER 130 STATUS: REG REPORT#: [id number] SERVICE 1307 REASON: BILATERAL FLANK PAIN THAT RADIATES TO BILATERAL LOWER QUADRANTS ORDERING PHYSICIAN: TENNILLE BEVERLY NP PROCEDURE: ABD PEL WO - CT ABDOMEN/PELVIS W/O CONTRAST CT ABDOMEN/PELVIS W/O CONTRAST REASON: BILATERAL FLANK PAIN THAT RADIATES TO BILATERAL LOWER QUADRANTS COMPARISON: None. FINDINGS: Lung bases are clear. There are no focal liver lesions. There are normal-appearing kidneys.. Spleen and pancreas appear unremarkable. The gallbladder surgically absent with clips in the gallbladder fossa. Bowel loops appear unremarkable. There is occasional diverticulosis with no evidence of diverticulitis. This includes normal appearance of the appendix there is a small umbilical hernia. There is no evidence of free fluid or intraperitoneal air. There are no focal fluid collections. Aorta and retroperitoneum appear normal as do pelvic soft tissue structures. The anterior abdominal wall is intact. Osseous structures appear unremarkable. There is mild disc disease most the lower thoracic upper lumbar spine. The uterus is mildly deviated to the left side. There is a small left adnexal cyst measuring 2.6 cm. IMPRESSION: 1. No acute process seen a CT of abdomen and pelvis without intravenous contrast Occasional diverticulosis Left adnexal cyst. I would recommend pelvic sonogram for further correlation. CT was performed with one or more following dose reduction techniques: automated exposure control, adjustment of the mA and kv according to patient's size, or use of a iterative reconstruction technique. DICTATED BY: BRITTANY SILVA MD DATE: 05/28/25 7914 ELECTRONICALLY SIGNED BY: BRITTANY SILVA MD DATE: 05/28/25 6949 ASSESSMENT: Hypertensive urgency with noncompliance End stage renal disease Complicated UTI Uncontrolled diabetes mellitus type 2 Diabetic nephropathy. Hyperlipemia Uncontrolled hypertension History of neurogenic bladder requiring chronic Rivera catheterization History of poor visual acuity of bilateral eyes PLAN: Labs and Diagnostics/ Radiology personally reviewed and interpreted by myself and supervising physician We have reviewed dialysis and external records in detail Continue dialysis schedule Sunday 1.5 L fluid restriction Continue to monitor H&H Epogen on dialysis days, as needed Continue with the antibiotics Continue with frequent monitoring of renal function, anemia, and electrolytes Order CBC, BMP, and electrolytes in the morning May use Dilaudid 0.5 mg IV every 6 hours as needed for severe pain Monitor blood pressure adjust medication doses as needed Maintain normotensive state Strict intake, output, and daily weight should be monitored Please renally adjust medications. Avoid nephrotoxics and nonsteroidal drugs. We will continue to monitor the patient closely We have discussed with the other team physicians in detail about the care plan ATTESTATION BY PHYSICIAN I have seen and examined the patient. I reviewed the documentation, medical decision making, and treatment plan as noted by the mid-level provider above. I agree with the findings and plan of care. GISELLE VALENTIN MD, [facility] May 29, 2025 11:36
--- NOTE | 2025-05-29 15:51 | NUR ---
PATIENT IS BEING TRANSFERRED TO ROOM 324. REPORT GIVEN TO JAMISON BROWN TO RESUME CARE OF PATIENT.
--- NOTE | 2025-05-29 16:15 | NUR ---
ARRIVAL TO 324 VIA STRETCHER. A&OX4. NOTED RIGHT BKA. LEFT 5TH DIGIT AMPUTATION. F/C IN PLACE 18FR. TELE MONITOR ON, 22G TO [facility]. NO QUESTIONS OR CONCERNS AT THIS TIME.
--- NOTE | 2025-05-29 17:02 | PN ---
[facility] PROGRESS NOTE Date of Service: May 29, 2025 Time of Service: 10:15 SUBJECTIVE: My patient, a 39-year-old female with a past medical history of hypertension, type 2 diabetes mellitus, end-stage renal disease on hemodialysis, neurogenic bladder with chronic Rivera catheter placement since 2021 and prior abdominal and perineal infection status post multiple surgeries, presented with suprapubic pain that began 2 days ago and was associated with bilateral flank pain, nausea, vomiting and orange discoloration of the urine. She had a Rivera catheter since 2021 which was changed daily and was most recently removed and replaced during this admission. She started hemodialysis several months ago and currently have sessions on Tuesdays, and Saturdays. She underwent below-knee amputation in 2018 and toes amputation in 2016. Urinalysis on 05/28 showed positive leukocyte esterase, numerous WBCs, bacteria and yeast; the urine appeared turbid and light orange in color. CT abdominal pelvis without contrast on 05/28 revealed an left adnexal cyst and ultrasound confirmed a left ovarian follicular cyst. On 05/29, her labs reveal WBC 6.8, h emoglobin 12.5, creatinine improved from 6.2 to 4.5 compared to the prior day. Random glucose was elevated at 193 with hemoglobin A1c of 6.9. She is currently receiving glargine along with sliding scale insulin. She has been started on ceftriaxone 2 g IV every 24 hours and is maintained on a renal dialysis diet. Patient is oriented to time, place, person and agrees to the treatment plan. She Is vitally stable with blood pressure 134/80, heart rate 67, respiratory rate 18. She is afebrile and breathing at room air. REVIEW OF SYSTEMS CONSTITUTIONAL: Denies fevers, or night sweats. No unintentional weight loss reported. Positive for chills, malaise NEUROLOGICAL: Denies headache, amaurosis fugax, motor weakness, sensory deficit, vertigo/spinning sensation, gait abnormalities, or tremors. ENT: No hearing loss, otalgia, otorrhea, rhinitis, rhinorrhea, hoarseness, or sore throat. CARDIOVASCULAR: Denies any exertional angina, dyspnea on exertion, orthopnea, paroxysmal nocturnal dyspnea, palpitations, life-threatening arrhythmias, claudication. PULMONARY: Denies any shortness of breath, cough, phlegm/sputum, hemoptysis, pleuritic chest pain. SLEEP: Denies morning headaches, daytime somnolence or napping. Denies diff iculty falling asleep, staying asleep, waking from sleep. Denies knowledge of snoring. GASTROINTESTINAL: Positive for abdominal pain and bilateral flank pain. GENITOURINARY: Patient has a Rivera catheter attached. Urine looks light orange. ENDOCRINOLOGIC: Denies polyuria, polydipsia, polyphagia or heat/cold intolerances. HEMATOLOGIC: Denies thrombophilia/previous clots, or coagulopathy/bleeding di sorders. ONCOLOGIC: Denies personal history of malignancy. DERMATOLOGIC: Denies rashes or pruritus. PSYCHIATRIC: Denies any suicidal or homicidal ideation. Denies hallucinations. PHYSICAL EXAM GENERAL APPEARANCE: The patient is awake, alert, and oriented. NEUROLOGICAL: No focal neurological deficits. Patient has blurry vision for w hich she has scheduled an appointment. HEENT: Face is symmetric. Patient has blurry vision. NECK: Supple. No JVD. No thyromegaly. No submental, submandibular, pre-/postauricular, occipital or supraclavicular lymphadenopathy. CHEST: Normal chest expansion. No Telemetry. LUNGS: Absence of any rales, rhonchi or any wheezing. CARDIOVASCULAR: Regular. S1 and S2 normal. No appreciable rubs, murmurs or gallops. ABDOMEN: Soft, mild tenderness to palpation in the right lower quadrant, no guarding, no rebound present : Deferred. Rivera attached EXTREMITIES: Patient has a below-knee amputation as well as amputation of toes Vital Signs (last 8hr) Date Time Temp Pulse Resp B/P (MAP) Pulse Ox O2 Delivery O2 Flow Rate FiO2 05/29/25 16:00 97.9 75 17 143/76 98 Room Air 05/29/25 11:43 97.7 75 17 91/51 97 Room Air LABS: Laboratory: Test 05/29/25 15:57 05/29/25 05:16 05/28/25 19:57 05/28/25 12:30 Range/Units Whole Blood Glucose 213 H 70-110 MG/DL White Blood Count 6.8 4.8-10.8 K/uL Red Blood Count 3.95 L 4.00-5.50 MIL/uL Hemoglobin 12.5 12.0-16.0 g/dL Hematocrit 35.4 L 36-48 % Mean Corpuscular Volume 89.6 79-99 fL Mean Corpuscular Hemoglobin 31.6 27.0-33.0 pg Mean Corpuscular Hemoglobin Concent 35.3 32.0-36.0 g/dL Red Cell Distribution Width 13.6 11.0-15.5 % Platelet Count 151 130-400 K/uL Mean Platelet Volume 9.5 7.5-10.5 fL Immature Granulocyte % (Auto) 0.7 0-1 % Neutrophils (%) (Auto) 54.1 40.0-77.0 % Lymphocytes (%) (Auto) 28.0 21.0-51.0 % Monocytes (%) (Auto) 8.0 3.0-13.0 % Eosinophils (%) (Auto) 8.0 0.0-8.0 % Basophils (%) (Auto) 1.2 0.0-5.0 % Neutrophils # (Auto) 3.7 1.8-7.7 K/uL Lymphocytes # (Auto) 1.9 1.0-4.8 K/uL Monocytes # (Auto) 0.5 0.1-1.0 K/uL Eosinophils # (Auto) 0.54 0.00-0.70 K/uL Basophils # (Auto) 0.08 0.00-0.20 K/uL Absolute Immature Granulocyte (auto 0.05 0-1 K/uL Nucleated Red Blood Cells 0.0 0.0-0.19 % Sodium Level 132 L 136-145 mmol/L Potassium Level 3.3 L 3.5-5.1 mmol/L Chloride Level 96 L 101-111 mmol/L Carbon Dioxide Level 31 21-32 mmol/L Blood Urea Nitrogen 25 H 7-18 mg/dL Creatinine 4.5 H 0.5-1.0 mg/dL Glomerular Filtration Rate Calc 12 >90 mL/min Random Glucose 193 H 70-105 mg/dL Hemoglobin A1c 6.9 H 4.0-6.0 % Estimated Average Glucose (eAG) 151 H 70-126 mg/dL Total Calcium 7.5 L 8.5-10.1 mg/dL Phosphorus Level 4.1 2.5-4.9 mg/dL Total Bilirubin 0.8 0.2-1.0 mg/dL Aspartate Amino Transf (AST/SGOT) 27 10-37 U/L Alanine Aminotransferase (ALT/SGPT) 30 12-78 U/L Alkaline Phosphatase 89 50-136 U/L Total Protein 7.1 6.0-8.3 g/dL Albumin 2.5 L 3.5-5.0 g/dL Thyroid Stimulating Hormone (TSH) 4.93 #H 0.36-3.74 uIU/mL Free Thyroxine (T4) Direct 1.17 0.76-1.46 ng/dL Free Triiodothyronine (T3) pg/mL 2.79 2.18-3.98 pg/mL Hepatitis B Surface Antigen. Non-Reactive Nonreactive Hepatitis B Surface Antibody. Positive Reactive Hepatitis B Core Total Antibody. Non-Reactive Nonreactive Urine Color LIGHT-ORANGE YELLOW Urine Appearance TURBID CLEAR Urine pH 8.0 5.0-8.0 Urine Specific [place] 1.016 1.001-1.031 Urine Protein 300 H NEGATIVE mg/dL Urine Glucose (UA) NEGATIVE NEGATIVE mg/dL Urine Ketones NEGATIVE NEGATIVE mg/dL Urine Occult Blood NEGATIVE NEGATIVE Urine Nitrate NEGATIVE NEGATIVE Urine Bilirubin NEGATIVE NEGATIVE mg/dL Urine Urobilinogen 2.0 H 0.2-1.0 mg/dL Urine Leukocyte Esterase 500 H NEGATIVE Sada/uL Urine RBC 2-5 H 0-1 /HPF Urine WBC 11-25 H 0-1 /HPF Urine WBC Clumps (Auto) FEW 0-1 /HPF Urine Squamous Epithelial Cells Rare 0-2 /HPF Urine Calcium Oxalate Crystals RARE None Seen /LPF Urine Triple Phosphate Crystals MANY None Seen /LPF Urine Other Crystals (Auto) 8 None Seen /HPF Urine Bacteria MANY None Seen /HPF Urine Yeast Few H None Seen /HPF Urine HCG, Qualitative NEGATIVE NEGATIVE Test 05/28/25 11:24 Range/Units Lactic Acid Level 1.8 0.8-2.5 mmol/L Lipase 28 16-77 U/L Current Medications Medications (Trade) Dose Ordered Sig/Deanna Route PRN Reason Start Time Stop Time Status Last Admin Dose Admin Acetaminophen (TYLenol 500MG TAB) 500 mg Q6H PRN PO MILD PAIN (1-3) 05/28/25 16:00 06/27/25 15:59 Ceftriaxone Sodium (Rocephin 2gm Inj) 2 gm Q24H IVPB 05/29/25 16:00 06/08/25 15:59 05/29/25 16:29 2 GM Heparin Sodium (Porcine) (HEParin 5,000 UNIT VIAL) 5,000 unit Q12H SQ 05/29/25 21:00 06/28/25 20:59 Hydralazine HCl (APRESOLine 20MG INJ) 10 mg Q6H PRN IV ADMINISTER FOR SBP > 180 05/28/25 16:00 06/27/25 15:59 Hydromorphone HCl (DiLAUDid 0.5MG INJ) 0.2 mg Q6H PRN IVP SEVERE PAIN (7-10) 05/28/25 19:00 06/02/25 18:59 05/29/25 16:35 0.2 MG Insulin Glargine (LANtus 100 UNITS/ML 10 ML VIAL) 10 units HS SQ 05/29/25 21:00 06/28/25 20:59 Insulin Human Regular (humuLIN R 100 UNIT/ML 3ML) INSULIN SLIDING SCAL... ACHS SQ 05/28/25 16:30 06/27/25 16:29 05/29/25 16:33 3 UNIT Losartan Potassium (CozAAR 50 mg TAB) 50 mg BID PO 05/29/25 21:00 06/28/25 20:59 Ondansetron HCl (zoFRAN 4MG INJ) 4 mg Q6H PRN IVP NAUSEA/VOMITING 05/28/25 16:00 06/27/25 15:59 Sodium Chloride 1,000 ml @ 0 mls/hr ONCE IV 05/28/25 19:30 05/29/25 19:29 05/29/25 00:24 1,000 MLS/HR DIAGNOSTICS / RADIOLOGY: PATIENT: DARÍO ELIAS MR#: [id number] : 1985 SEX: F AGE: 39 LOCATION: [facility] ORDER 1542 STATUS: ADM IN REPORT#: [id number] SERVICE 1532 REASON: Left adnexal cyst ORDERING PHYSICIAN: DYLAN COVINGTON MD PROCEDURE: PELVCOMP - US PELVIC NON-OB COMP EXAM: US PELVIC NON-OB COMP 05/28/2025 3:32 PM MDT Presented for interpretation on: 05/28/2025 3:16 PM MDT INDICATION: Left adnexal cyst LMP: LMP COMPARISON: None FINDINGS: Grayscale and color Doppler sonographic images transabdominally and transvaginally the latter to better define uterine and adnexal structures. The anteverted uterus appears normal. Uterus measures 9.2 x 4.2 x 5.9 cm..The endometrium is normal in thickness measuring 0.8 cm.. The right ovary measures 2.7 x 1.5 x 2.7 cm. The left ovary measures 2.4 x 3.0 x 2.4 cm. There is normal color-flow Doppler both ovaries with normal echotexture. The left ovary has one follicle identified measuring 1.7 x 2.0 x 1.6 cm..There is no adnexal mass. The bladder appears normal. There is no pelvic free fluid. IMPRESSION: Left ovary has a follicular cyst measuring 1.6 x 2.0 x 1.6 cm The remaining pelvic sonogram demonstrate no other abnormality.. DICTATED BY: BRITTANY SILVA MD DATE: 05/28/251615 ELECTRONICALLY SIGNED BY: BRITTANY SILVA MD DATE: 05/28/25 162 PATIENT: DARÍO ELIAS MR#: [id number] : 1985 SEX: F AGE: 39 LOCATION: [facility] ORDER 1307 STATUS: [facility] REPORT#: [id number] SERVICE 1307 REASON: BILATERAL FLANK PAIN THAT RADIATES TO BILATERAL LOWER QUADRANTS ORDERING PHYSICIAN: TENNILLE BEVERLY NP PROCEDURE: ABD PEL WO - CT ABDOMEN/PELVIS W/O CONTRAST CT ABDOMEN/PELVIS W/O CONTRAST REASON: BILATERAL FLANK PAIN THAT RADIATES TO BILATERAL LOWER QUADRANTS COMPARISON: None. FINDINGS: Lung bases are clear. There are no focal liver lesions. There are normal-appearing kidneys.. Spleen and pancreas appear unremarkable. The gallbladder surgically absent with clips in the gallbladder fossa. Bowel loops appear unremarkable. There is occasional diverticulosis with no evidence of diverticulitis. This includes normal appearance of the appendix there is a small umbilical hernia. There is no evidence of free fluid or intraperitoneal air. There are no focal fluid collections. Aorta and retroperitoneum appear normal as do pelvic soft tissue structures. The anterior abdominal wall is intact. Osseous structures appear unremarkable. There is mild disc disease most the lower thoracic upper lumbar spine. The uterus is mildly deviated to the left side. There is a small left adnexal cyst measuring 2.6 cm. IMPRESSION: 1. No acute process seen a CT of abdomen and pelvis without intravenous contrast Occasional diverticulosis Left adnexal cyst. I would recommend pelvic sonogram for further correlation. CT was performed with one or more following dose reduction techniques: automated exposure control, adjustment of the mA and kv according to patient's size, or use of a iterative reconstruction technique. DICTATED BY: BRITTANY SILVA MD DATE: 05/28/25 135 ELECTRONICALLY SIGNED BY: BRITTANY SILVA MD DATE: 05/28/25 1403 ASSESSMENT: Complicated UTI POA History of neurogenic bladder status post Rivera catheter placement ESRD on dialysis Abdominal pain likely in setting of UTI Left adnexal cyst Hypertension Hyperlipidemia Diabetes mellitus type 2 PLAN: Complicated UTI - Urinalysis on 05/28 was positive for leukocyte esterase, WBCs, bacteria and yeast. - Urine culture from 05/28 came back positive for more than [id number] CFUs. - Patient has a chronic Rivera catheter placement since 2021 and changes it monthly. - Rivera catheter has been changed after admission. - Patient is maintained on Rocephin 2 g 24 q.8h. - Maintain strict glucose control. - Follow up with urine culture sensitivity and adjust antibiotic accordingly. ESRD on dialysis - Maintain compliance with hemodialysis. Patient undergoes hemodialysis session on Sunday, , Sunday. - Maintain renal dialysis diet. - Follow up with Nephrology. - Monitor electrolytes and replete accordingly. Follow up with a.m. CBC and CMP. - Avoid any nephrotoxic drugs, adjust pain medicine accordingly as well as renal dosage of antibiotic. Diabetes mellitus type 2 - Patient has poorly controlled diabetes mellitus with random glucose 193, hemoglobin A1c 6.9%. - Patient is receiving insulin glargine 10 units HS and maintained on sliding scale insulin. - Follow up with repeat measurement and maintain strict compliance. Hypertension - Continue losartan 50 mg b.i.d. according to home medicine reconciliation. - Monitor daily vitals Neurogenic bladder - Maintain patient on Rivera catheter. Measure 24 hour urine input and output. ATTESTATION BY PHYSICIAN I have seen and examined the patient. I reviewed the documentation, medical decision making, and treatment plan as noted by the resident provider above. I agree with the findings and plan of care. SHELLY HARTLEY MD, [facility]AMMAD H MD May 29, 2025 17:02
[2025-05-30] VITALS (10 sets, daily range): BP systolic 132–156; BP diastolic 74–90; PULSE 77–85; RESP 16–20; TEMP 97.5–98.5; O2SAT 97–98
[2025-05-30 06:21] LABS: NUCLEATED RED BLOOD CELLS 0.0 % (0.0-0.19); PLATELET COUNT (AUTO) 145.0 K/uL (130-400); RED BLOOD CELL COUNT(AUTO) 4.32 MIL/uL (4.00-5.50); RED CELL DISTRIBUTION WIDTH 13.4 % (11.0-15.5); WHITE BLOOD COUNT (AUTO) 7.9 K/uL (4.8-10.8)
[2025-05-30 06:49] LABS: CREATININE 6.2 mg/dL (0.5-1.0); GLOMERULAR FILTR. RATE CALC 8.0 mL/min (>90); GLUCOSE,RANDOM 163.0 mg/dL (70-105); PHOSPHORUS 5.0 mg/dL (2.5-4.9); SODIUM SERUM 135.0 mmol/L (136-145); UREA NITROGEN, BLOOD 35.0 mg/dL (7-18)
--- NOTE | 2025-05-30 08:43 | PN ---
[facility] PROGRESS NOTE Date of Service: May 30, 2025 Time of Service: 08:43 SUBJECTIVE: My patient, a 39-year-old female with a past medical history of hypertension, type 2 diabetes mellitus, end-stage renal disease on hemodialysis, neurogenic bladder with chronic Rivera catheter placement since 2021 and prior abdominal and perineal infection status post multiple surgeries, presented with suprapubic pain that began 2 days ago and was associated with bilateral flank pain, nausea, vomiting and orange discoloration of the urine. She had a Rivera catheter since 2021 which was changed daily and was most recently removed and replaced during this admission. She started hemodialysis several months ago and currently have sessions on Tuesdays, and Saturdays. She underwent below-knee amputation in 2017 and toes amputation in 2016. Urinalysis on 05/28 showed positive leukocyte esterase, numerous WBCs, bacteria and yeast; the urine appeared turbid and light orange in color. CT abdominal pelvis without contrast on 05/28 revealed an left adnexal cyst and ultrasound confirmed a left ovarian follicular cyst. On 05/29, her labs reveal WBC 6.8, h emoglobin 12.5, creatinine improved from 6.2 to 4.5 compared to the prior day. Random glucose was elevated at 193 with hemoglobin A1c of 6.9. She is currently receiving glargine along with sliding scale insulin. She has been started on ceftriaxone 2 g IV every 24 hours and is maintained on a renal dialysis diet. Patient is oriented to time, place, person and agrees to the treatment plan. She Is vitally stable with blood pressure 134/80, heart rate 67, respiratory rate 18. She is afebrile and breathing at room air. 05/30/2025: Patient was seen and examined in room 324. Urine culture today came back positive for Klebsiella oxytoca and Morganella morganii. Patient stated that her pain has improved in the suprapubic region but she still has slight backache. She is vitally stable and afebrile. WBCs are 7.9. Patient was initially being planned to discharge and get started on levofloxacin 250 mg daily for 7 days as outpatient. She had her hemodialysis session scheduled for today which could not be attempted. Therefore, She will be seen by interior design instructor tomorrow for further assessment. Rocephin has been stopped and patient is now started on p.o. levofloxacin as directed. Repeat IV access could not be obtained and patient is currently on p.o. medical therapy. She will be evaluated for midline access tomorrow by interior design instructor. REVIEW OF SYSTEMS CONSTITUTIONAL: Denies fevers, or night sweats. No unintentional weight loss reported. Reports slight ache in the flank area. NEUROLOGICAL: Denies headache, amaurosis fugax, motor weakness, sensory deficit, vertigo/spinning sensation, gait abnormalities, or tremors. Has blurry vision. ENT: No hearing loss, otalgia, otorrhea, rhinitis, rhinorrhea, hoarseness, or sore throat. CARDIOVASCULAR: Denies any exertional angina, dyspnea on exertion, orthopnea, paroxysmal nocturnal dyspnea, palpitations, life-threatening arrhythmias, claudication. PULMONARY: Denies any shortness of breath, cough, phlegm/sputum, hemoptysis, pleuritic chest pain. SLEEP: Denies morning headaches, daytime somnolence or napping. Denies difficulty falling asleep, staying asleep, waking from sleep. Denies knowledge of snoring. GASTROINTESTINAL: Positive for bilateral flank pain. GENITOURINARY: Patient has a Rivera catheter attached. ENDOCRINOLOGIC: Denies polyuria, polydipsia, polyphagia or heat/cold intolerances. HEMATOLOGIC: Denies thrombophilia/previous clots, or coagulopathy/bleeding disorders. ONCOLOGIC: Denies personal history of malignancy. DERMATOLOGIC: Denies rashes or pruritus. PSYCHIATRIC: Denies any suicidal or homicidal ideation. Denies hallucinations. PHYSICAL EXAM GENERAL APPEARANCE: The patient is awake, alert, and oriented. NEUROLOGICAL: No focal neurological deficits. Patient has blurry vision for which she has scheduled an appointment. HEENT: Face is symmetric. Patient has blurry vision. NECK: Supple. No JVD. No thyromegaly. No submental, submandibular, pre- /postauricular, occipital or supraclavicular lymphadenopathy. CHEST: Normal chest expansion. No Telemetry. LUNGS: Absence of any rales, rhonchi or any wheezing. CARDIOVASCULAR: Regular. S1 and S2 normal. No appreciable rubs, murmurs or gallops. ABDOMEN: Soft, mild tenderness to palpation in the flank area, no guarding, no rebound present : Deferred. Rivera attached EXTREMITIES: Patient has a below-knee amputation as well as amputation of toes Vital Signs (last 8hr) Date Time Temp Pulse Resp B/P (MAP) Pulse Ox O2 Delivery O2 Flow Rate FiO2 05/30/25 08:32 98.2 85 18 149/82 98 Room Air 05/30/25 04:00 97.9 77 20 152/90 98 Room Air LABS: Laboratory: Test 05/30/25 06:06 05/30/25 05:30 05/29/25 19:48 05/29/25 05:16 Range/Units White Blood Count 7.9 4.8-10.8 K/uL Red Blood Count 4.32 4.00-5.50 MIL/uL Hemoglobin 13.7 12.0-16.0 g/dL Hematocrit 38.4 36-48 % Mean Corpuscular Volume 88.9 79-99 fL Mean Corpuscular Hemoglobin 31.7 27.0-33.0 pg Mean Corpuscular Hemoglobin Concent 35.7 32.0-36.0 g/dL Red Cell Distribution Width 13.4 11.0-15.5 % Platelet Count 145 130-400 K/uL Mean Platelet Volume 9.6 7.5-10.5 fL Nucleated Red Blood Cells 0.0 0.0-0.19 % Sodium Level 135 L 136-145 mmol/L Potassium Level 4.1 3.5-5.1 mmol/L Chloride Level 98 L 101-111 mmol/L Carbon Dioxide Level 26 21-32 mmol/L Blood Urea Nitrogen 35 H 7-18 mg/dL Creatinine 6.2 H 0.5-1.0 mg/dL Glomerular Filtration Rate Calc 8 >90 mL/min Random Glucose 163 H 70-105 mg/dL Total Calcium 7.9 L 8.5-10.1 mg/dL Phosphorus Level 5.0 H 2.5-4.9 mg/dL Whole Blood Glucose 167 #H 70-110 MG/DL Bedside Glucose Comment Notified Nurse Immature Granulocyte % (Auto) 0.7 0-1 % Neutrophils (%) (Auto) 54.1 40.0-77.0 % Lymphocytes (%) (Auto) 28.0 21.0-51.0 % Monocytes (%) (Auto) 8.0 3.0-13.0 % Eosinophils (%) (Auto) 8.0 0.0-8.0 % Basophils (%) (Auto) 1.2 0.0-5.0 % Neutrophils # (Auto) 3.7 1.8-7.7 K/uL Lymphocytes # (Auto) 1.9 1.0-4.8 K/uL Monocytes # (Auto) 0.5 0.1-1.0 K/uL Eosinophils # (Auto) 0.54 0.00-0.70 K/uL Basophils # (Auto) 0.08 0.00-0.20 K/uL Absolute Immature Granulocyte (auto 0.05 0-1 K/uL Hemoglobin A1c 6.9 H 4.0-6.0 % Estimated Average Glucose (eAG) 151 H 70-126 mg/dL Total Bilirubin 0.8 0.2-1.0 mg/dL Aspartate Amino Transf (AST/SGOT) 27 10-37 U/L Alanine Aminotransferase (ALT/SGPT) 30 12-78 U/L Alkaline Phosphatase 89 50-136 U/L Total Protein 7.1 6.0-8.3 g/dL Albumin 2.5 L 3.5-5.0 g/dL Thyroid Stimulating Hormone (TSH) 4.93 #H 0.36-3.74 uIU/mL Free Thyroxine (T4) Direct 1.17 0.76-1.46 ng/dL Free Triiodothyronine (T3) pg/mL 2.79 2.18-3.98 pg/mL Test 05/28/25 19:57 05/28/25 12:30 05/28/25 11:24 Range/Units Hepatitis B Surface Antigen. Non-Reactive Nonreactive Hepatitis B Surface Antibody. Positive Reactive Hepatitis B Core Total Antibody. Non-Reactive Nonreactive Urine Color LIGHT-ORANGE YELLOW Urine Appearance TURBID CLEAR Urine pH 8.0 5.0-8.0 Urine Specific [place] 1.016 1.001-1.031 Urine Protein 300 H NEGATIVE mg/dL Urine Glucose (UA) NEGATIVE NEGATIVE mg/dL Urine Ketones NEGATIVE NEGATIVE mg/dL Urine Occult Blood NEGATIVE NEGATIVE Urine Nitrate NEGATIVE NEGATIVE Urine Bilirubin NEGATIVE NEGATIVE mg/dL Urine Urobilinogen 2.0 H 0.2-1.0 mg/dL Urine Leukocyte Esterase 500 H NEGATIVE Sada/uL Urine RBC 2-5 H 0-1 /HPF Urine WBC 11-25 H 0-1 /HPF Urine WBC Clumps (Auto) FEW 0-1 /HPF Urine Squamous Epithelial Cells Rare 0-2 /HPF Urine Calcium Oxalate Crystals RARE None Seen /LPF Urine Triple Phosphate Crystals MANY None Seen /LPF Urine Other Crystals (Auto) 8 None Seen /HPF Urine Bacteria MANY None Seen /HPF Urine Yeast Few H None Seen /HPF Urine HCG, Qualitative NEGATIVE NEGATIVE Lactic Acid Level 1.8 0.8-2.5 mmol/L Lipase 28 16-77 U/L Current Medications Medications (Trade) Dose Ordered Sig/Deanna Route PRN Reason Start Time Stop Time Status Last Admin Dose Admin Acetaminophen (TYLenol 500MG TAB) 500 mg Q6H PRN PO MILD PAIN (1-3) 05/28/25 16:00 06/27/25 15:59 Ceftriaxone Sodium (Rocephin 2gm Inj) 2 gm Q24H IVPB 05/29/25 16:00 06/08/25 15:59 05/29/25 16:29 2 GM Heparin Sodium (Porcine) (HEParin 5,000 UNIT VIAL) 5,000 unit Q12H SQ 05/29/25 21:00 06/28/25 20:59 05/30/25 08:21 5,000 UNIT Hydralazine HCl (APRESOLine 20MG INJ) 10 mg Q6H PRN IV ADMINISTER FOR SBP > 180 05/28/25 16:00 06/27/25 15:59 Hydromorphone HCl (DiLAUDid 0.5MG INJ) 0.2 mg Q6H PRN IVP SEVERE PAIN (7-10) 05/28/25 19:00 06/02/25 18:59 05/30/25 05:59 0.2 MG Insulin Glargine (LANtus 100 UNITS/ML 10 ML VIAL) 10 units HS SQ 05/29/25 21:00 06/28/25 20:59 05/29/25 20:57 10 UNITS Insulin Human Regular (humuLIN R 100 UNIT/ML 3ML) INSULIN SLIDING SCAL... ACHS SQ 05/28/25 16:30 06/27/25 16:29 05/29/25 20:57 7 UNIT Losartan Potassium (CozAAR 50 mg TAB) 50 mg BID PO 05/29/25 21:00 06/28/25 20:59 05/29/25 20:48 50 MG Ondansetron HCl (zoFRAN 4MG INJ) 4 mg Q6H PRN IVP NAUSEA/VOMITING 05/28/25 16:00 06/27/25 15:59 Sodium Chloride 1,000 ml @ 0 mls/hr ONCE IV 05/28/25 19:30 05/29/25 19:29 DC 05/29/25 00:24 1,000 MLS/HR DIAGNOSTICS / RADIOLOGY: PATIENT: DARÍO ELIAS MR#: [id number] : 1985 SEX: F AGE: 39 LOCATION: [facility] ORDER 1542 STATUS: ADM IN REPORT#: [id number] SERVICE 1532 REASON: Left adnexal cyst ORDERING PHYSICIAN: DYLAN COVINGTON MD PROCEDURE: PELVCOMP - US PELVIC NON-OB COMP EXAM: US PELVIC NON-OB COMP 05/28/2025 3:32 PM MDT Presented for interpretation on: 05/28/2025 3:16 PM MDT INDICATION: Left adnexal cyst LMP: LMP COMPARISON: None FINDINGS: Grayscale and color Doppler sonographic images transabdominally and transvaginally the latter to better define uterine and adnexal structures. The anteverted uterus appears normal. Uterus measures 9.2 x 4.2 x 5.9 cm..The endometrium is normal in thickness measuring 0.8 cm.. The right ovary measures 2.7 x 1.5 x 2.7 cm. The left ovary measures 2.4 x 3.0 x 2.4 cm. There is normal color-flow Doppler both ovaries with normal echotexture. The left ovary has one follicle identified measuring 1.7 x 2.0 x 1.6 cm..There is no adnexal mass. The bladder appears normal. There is no pelvic free fluid. IMPRESSION: Left ovary has a follicular cyst measuring 1.6 x 2.0 x 1.6 cm The remaining pelvic sonogram demonstrate no other abnormality.. DICTATED BY: BRITTANY SILVA MD DATE: 05/28/25 161 ELECTRONICALLY SIGNED BY: BRITTANY SILVA MD DATE: 05/28/25 1622 PATIENT: DARÍO ELIAS MR#: [id number] : 1985 SEX: F AGE: 39 LOCATION: [facility] ORDER 130 STATUS: REG ER REPORT#: [id number] SERVICE 1307 REASON: BILATERAL FLANK PAIN THAT RADIATES TO BILATERAL LOWER QUADRANTS ORDERING PHYSICIAN: TENNILLE BEVERLY NP PROCEDURE: ABD PEL WO - CT ABDOMEN/PELVIS W/O CONTRAST CT ABDOMEN/PELVIS W/O CONTRAST REASON: BILATERAL FLANK PAIN THAT RADIATES TO BILATERAL LOWER QUADRANTS COMPARISON: None. FINDINGS: Lung bases are clear. There are no focal liver lesions. There are normal-appearing kidneys.. Spleen and pancreas appear unremarkable. The gallbladder surgically absent with clips in the gallbladder fossa. Bowel loops appear unremarkable. There is occasional diverticulosis with no evidence of diverticulitis. This includes normal appearance of the appendix there is a small umbilical hernia. There is no evidence of free fluid or intraperitoneal air. There are no focal fluid collections. Aorta and retroperitoneum appear normal as do pelvic soft tissue structures. The anterior abdominal wall is intact. Osseous structures appear unremarkable. There is mild disc disease most the lower thoracic upper lumbar spine. The uterus is mildly deviated to the left side. There is a small left adnexal cyst measuring 2.6 cm. IMPRESSION: 1. No acute process seen a CT of abdomen and pelvis without intravenous contrast Occasional diverticulosis Left adnexal cyst. I would recommend pelvic sonogram for further correlation. CT was performed with one or more following dose reduction techniques: automated exposure control, adjustment of the mA and kv according to patient's size, or use of a iterative reconstruction technique. DICTATED BY: BRITTANY SILVA MD DATE: 05/28/25 1350 ELECTRONICALLY SIGNED BY: BRITTANY SILVA MD DATE: 05/28/25 1401 ASSESSMENT: Complicated UTI - positive for Klebsiella oxytoca and Morganella morganii POA History of neurogenic bladder status post Rivera catheter placement ESRD on hemodialysis (TTS) Abdominal pain likely in setting of UTI Subclinical Hypothyroidism -elevated TSH with normal free T3, POA Left ovarian follicular cyst Hypertension Hyperlipidemia Diabetes mellitus type 2 PLAN: Complicated UTI - positive for Klebsiella oxytoca and Morganella morganii - Urinalysis on 05/28 was positive for leukocyte esterase, WBCs, bacteria and yeast. - Urine culture today came back positive for Klebsiella oxytoca and Morganella morganii. - Patient has a chronic Rivera catheter placement since 2021 and changes it monthly. - Rivera catheter has been changed after admission. - Patient was initially started on Rocephin 2 g. it has been switched to levofloxacin 250 mg daily p.o. based on sensitivity urine culture results. - Maintain strict glucose control. ESRD on hemodialysis - Maintain compliance with hemodialysis. Patient undergoes hemodialysis session on Sunday, , Sunday. - Hemodialysis session could not be attempted today due to dysfunction of access. Patient will be seen by interior design instructor in the morning. - Maintain renal dialysis diet. - Monitor electrolytes and replete accordingly. Follow up with a.m. CBC and CMP. - Avoid any nephrotoxic drugs, adjust pain medicine accordingly as well as renal dosage of antibiotic. Diabetes mellitus type 2 - Patient has poorly controlled diabetes mellitus with ESRD and blurry vision. - Patient is receiving insulin glargine 15 units HS and maintained on sliding scale insulin. - Follow up with repeat measurement and maintain strict compliance. Adjust insulin glargine and sliding scale accordingly. Hypertension - Continue losartan 50 mg b.i.d. according to home medicine reconciliation. - Monitor daily vitals Neurogenic bladder - Maintain patient on Rivera catheter. Measure 24 hour urine input and output. ATTESTATION BY PHYSICIAN I have seen and examined the patient. I reviewed the documentation, medical decision making, and treatment plan as noted by the resident provider above. I agree with the findings and plan of care. SHELLY HARTLEY MD, MUHAMMAD H MD May 30, 2025 08:43
[2025-05-30] MEDS ORDERED: LEVO250T75 PO (13:49)
--- NOTE | 2025-05-30 14:17 | DS ---
Discharge Summary Hospital Course Summary: My patient, 39-year-old female, with a past medical history of hypertension type 2 diabetes mellitus, end-stage renal disease on hemodialysis, neurogenic bladder with chronic Rivera catheter placement, blurry vision, prior abdominal and perineal infection status post multiple surgeries, presented with suprapubic pain on 05/28/2025 which was associated with bilateral flank pain, nausea, vomiting and orange discoloration of the urine. She had a Rivera catheter since 2021 which was changed daily and was most recently removed and replaced during this admission. She has started undergoing hemodialysis several months ago and currently has sessions on Tuesdays, and Saturdays. Urinalysis on 05/28 showed positive leukocyte esterase, numerous WBCs, bacteria and yeast; the urine appeared turbid. CT abdominal pelvis without contrast on 05/28 revealed left adnexal cyst while ultrasound confirmed a left ovarian follicular cyst. On 05/29, labs revealed WBC 6.8, hemoglobin 12.5, creatinine improved from 6.2 to 4.5 compared to the prior day. Random glucose was elevated 193 with hemoglobin A1c 6.9. She was started on ceftriaxone 2g IV every 24 hours and was also started on glar gine with sliding scale insulin. She was maintained on a renal dialysis diet. Urine culture results from 05/28/25 came back today, revealing more than 100,000 CFU, with positive for Klebsiella oxytoca, and Morganella morganii. 06/01/2025, patient's vitals were stable with a blood pressure of 147/89. Patient will be undergoing her dialysis today at the hospital. If there are no acute events during her dialysis, Patient will be discharged with instructions to continue levofloxacin for 7 days. She has been advised to follow up with Primary care physician in 3-5 days as well as with ophthalmology for blurry vision secondary to diabetes. Thyroid function tests should be repeated in 8 weeks as an outpatient for evaluation of elevated TSH during admission. Patient has also been advised to maintain strict compliance with her hemodialysis session on scheduled days, and continue renal dialysis diet. Cut Off Saw Grader(s): Nephrology Consultation GISELLE VALENTIN MD As per recommendation: "Continue dialysis schedule Sunday. 1.5 L fluid restriction. Continue to monitor H&H. Epogen on dialysis days, as needed. Continue with the antibiotics. Continue with frequent monitoring of renal function, anemia, and el ectrolytes. Order CBC, BMP, and electrolytes in the morning. May use Dilaudid 0.5 mg IV every 6 hours as needed for severe pain. Monitor blood pressure adjust medication doses as needed. Maintain normotensive state. Strict intake, output, and daily weight should be monitored. Please renally adjust medications. Avoid nephrotoxics and nonsteroidal drugs." Procedure(s): PATIENT: DARÍO ELIAS MR#: [id number] : 1985 SEX: F AGE: 39 LOCATION: [facility] ORDER 1307 STATUS: REG ER REPORT#: [id number] SERVICE 130 REASON: BILATERAL FLANK PAIN THAT RADIATES TO BILATERAL LOWER QUADRANTS ORDERING PHYSICIAN: TENNILLE BEVERLY NP PROCEDURE: ABD PEL WO - CT ABDOMEN/PELVIS W/O CONTRAST CT ABDOMEN/PELVIS W/O CONTRAST REASON: BILATERAL FLANK PAIN THAT RADIATES TO BILATERAL LOWER QUADRANTS COMPARISON: None. FINDINGS: Lung bases are clear. There are no focal liver lesions. There are normal-appearing kidneys.. Spleen and pancreas appear unremarkable. The gallbladder surgically absent with clips in the gallbladder fossa. Bowel loops appear unremarkable. There is occasional diverticulosis with no evidence of diverticulitis. This includes normal appearance of the appendix there is a small umbilical hernia. There is no evidence of free fluid or intraperitoneal air. There are no focal fluid collections. Aorta and retroperitoneum appear normal as do pelvic soft tissue structures. The anterior abdominal wall is intact. Osseous structures appear unremarkable. There is mild disc disease most the lower thoracic upper lumbar spine. The uterus is mildly deviated to the left side. There is a small left adnexal cyst measuring 2.6 cm. IMPRESSION: 1. No acute process seen a CT of abdomen and pelvis without intravenous contrast Occasional diverticulosis Left adnexal cyst. I would recommend pelvic sonogram for further correlation. CT was performed with one or more following dose reduction techniques: automated exposure control, adjustment of the mA and kv according to patient's size, or use of a iterative reconstruction technique. DICTATED BY: BRITTANY SILVA MD DATE: 05/28/25 0320 ELECTRONICALLY SIGNED BY: BRITTANY SILVA MD DATE: 05/28/25 1756 PATIENT: DARÍO ELIAS MR#: [id number] : 1985 SEX: F AGE: 39 LOCATION: [facility] ORDER 1542 STATUS: ADM IN REPORT#: [id number] SERVICE 1532 REASON: Left adnexal cyst ORDERING PHYSICIAN: DYLAN COVINGTON MD PROCEDURE: PELVCOMP - US PELVIC NON-OB COMP EXAM: US PELVIC NON-OB COMP 05/28/2025 3:32 PM MDT Presented for interpretation on: 05/28/2025 3:16 PM MDT INDICATION: Left adnexal cyst LMP: LMP COMPARISON: None FINDINGS: Grayscale and color Doppler sonographic images transabdominally and transvaginally the latter to better define uterine and adnexal structures. The anteverted uterus appears normal. Uterus measures 9.2 x 4.2 x 5.9 cm..The endometrium is normal in thickness measuring 0.8 cm.. The right ovary measures 2.7 x 1.5 x 2.7 cm. The left ovary measures 2.4 x 3.0 x 2.4 cm. There is normal color-flow Doppler both ovaries with normal echotexture. The left ovary has one follicle identified measuring 1.7 x 2.0 x 1.6 cm..There is no adnexal mass. The bladder appears normal. There is no pelvic free fluid. IMPRESSION: Left ovary has a follicular cyst measuring 1.6 x 2.0 x 1.6 cm The remaining pelvic sonogram demonstrate no other abnormality.. DICTATED BY: BRITTANY SILVA MD DATE: 05/28/251615 ELECTRONICALLY SIGNED BY: BRITTANY SILVA MD DATE: 05/28/25 162 PATIENT: DARÍO ELIAS ACCT: [id number] LOC: [facility] U: [id number] AGE/SX: 39/F ROOM: 324 RE05/28/[address]: DYLAN COVINGTON MD : 1985 BED: 1 DIS: STATUS: ADM IN TLOC: SPEC: [id number] LINDSE[place]: 05/28/25 STATUS: SAMEER REQ: [id number] RECD: 05/29/[address]: TENNILLE BEVERLY NP SOURCE: URINE CATH ENTR: 05/29/[address] [facility] [address]: PEGGY OH MD [facility]: CATHERIZED MILVIA PITTS MD ORDERED: AERO ID & SENS Procedure Result Shira Date-Time AEROBIC ID & SENSITIVITIES Final 05/30/25-723 [facility] COLONY DESCRIPTION: DAY 1: COLONY COUNT: >100,000 CFU/ML GRAM NEGATIVE RODS IDENTIFICATION AND SENSITIVITY TO FOLLOW DAY 2: NO FURTHER WORK-UP DONE KLEBSIELLA OXYTOCA MORGANELLA MORGANII K BRANDON ThomasonIMaria ElenaCMaria Elena RX M.I.CMaria Elena RX --------- ---- --------- ---- AZTREONAM <=4 S <=4 S CEFAZOLIN >16 R CEFTAZIDIME/AVIBACTAM <=8 S <=8 S CEFTRIAXONE <=1 S GENTAMICIN <=2 S <=2 S LEVOFLOXACIN <=0.5 S <=0.5 S NITROFURANTOIN 64 I MEROPENEM <=1 S <=1 S PIPERACILLIN/TAZOBACTAM <=8 S <=8 S TRIMETHOPRIM/SUFLAMETHOXAZOLE <=2/38 S <=2/38 S Assessment/Plan: ASSESSMENT: Complicated UTI, POA History of neurogenic bladder status post Rivera catheter placement, POA ESRD on dialysis, POA Abdominal pain likely in setting of UTI, POA Left ovarian follicular cyst Hypertension Hyperlipidemia Subclinical hypothyroidism-elevated TSH, POA Diabetes mellitus type 2 Suspected diabetic retinopathy -blurry vision Discharge Instructions: Continue home medicines as prescribed. Start levofloxacin 250mg daily for complicated UTI and continue it for next 7 days. Follow up with Primary care physician in 3-5 days. Also follow up with ophthalmology for blurry vision. Repeat Thyroid function test in 8 weeks as an outpatient for evaluation of elevated TSH during admission. Continue replacing Rivera catheter as directed. Maintain strict compliance with hemodialysis sessions. Maintain renal dialysis diet and strict blood glucose level. Home Medications: Active Scripts Sulfamethoxazole/Trimethoprim (Bactrim Ds Tablet) 800 Mg-160 Mg Tablet, 1 TAB PO BID for 10 Days, #20 TAB 0 Refills Prov:WHITNEY DIAZ MD 04/14/25 Reported Medications Metoprolol Tartrate (Lopressor) 25 Mg Tab, 1 TAB PO BID 04/04/25 Pantoprazole Sodium (Pantoprazole Sodium) 40 Mg Tablet., 1 TAB PO DAILY 04/04/25 Losartan Potassium (Losartan Potassium) 50 Mg Tablet, 1 TAB PO BID 04/04/25 Atorvastatin Calcium (Atorvastatin Calcium) 20 Mg Tablet, 1 TAB PO DAILY, TAB 0 Refills 03/01/25 New Medications: Levofloxacin (Levofloxacin) 250 Mg Tablet 1 TAB PO DAILY for 7 Days, #7 TAB 0 Refills Continued Medications: Atorvastatin Calcium (Atorvastatin Calcium) 20 Mg Tablet 1 TAB PO DAILY, TAB 0 Refills Losartan Potassium (Losartan Potassium) 50 Mg Tablet 1 TAB PO BID Discontinued Medications: Metoprolol Tartrate (Lopressor) 25 Mg Tab 1 TAB PO BID Pantoprazole Sodium (Pantoprazole Sodium) 40 Mg Tablet.dr 1 TAB PO DAILY Sulfamethoxazole/Trimethoprim (Bactrim Ds Tablet) 800 Mg-160 Mg Tablet 1 TAB PO BID for 10 Days, #20 TAB 0 Refills Time spent arranging discharge: 1-30 minutes ATTESTATION BY PHYSICIAN I have seen and examined the patient. I reviewed the documentation, medical decision making, and treatment plan as noted by the resident provider above. I agree with the findings and plan of care. SHELLY HARTLEY MD, MUHAMMAD H MD May 30, 2025 14:17 OTTONIEL SHAW MD Jun 01, 2025 16:13
--- NOTE | 2025-05-30 16:46 | NUR ---
IV ACCESS ATTEMPTED IV. UNSUCCESSFUL AVANI WALKER ATTEMPTED. UNSUCCESSFUL. AVANI VAN ATTEMPTED UNSUCCESSFUL. DR. BOO AND DR. HARE. MADE AWARE. NO FURTHER ORDERS GIVEN. DR. FLEMING MADE AWARE OF NO IV ACCESS. NO FURTHER ORDERS GIVEN AT THIS ITTN.
--- NOTE | 2025-05-30 19:21 | PN ---
DIALYSIS NOTE SUBJECTIVE: The patient seen and evaluated on hemodialysis, prescription noted. OBJECTIVE: VITAL SIGNS: Blood pressure is 149/82, pulse 80. CARDIOVASCULAR: Regular. LUNGS: Coarse. IMPRESSION: End-stage renal disease. PLAN: The patient will continue with maximal ultrafiltration as blood pressure allows. She remains on antibiotics. Once the patient is discharged, the patient will follow up in the renal clinic. TID: [id number] RECEIPT: [id number]
--- NOTE | 2025-05-30 20:15 | NUR ---
MEDS SHIFT ASSESSMENT DONE, PLEASE REFER TO CHART. DUE MEDS ADMINISTERED, TOLERATED WELL. KEPT RESTED AND COMFORTABLE IN BED. CALL LIGHT WITHIN REACH. BED ALARM ACTIVATED.
--- NOTE | 2025-05-30 22:00 | NUR ---
PIV TRIED TO RE-INSERT PIV BUT FAILED. SANDRA WALKER MADE AWARE. CALLED ER NURSE TO TRY E-INSERTION AND ABLE TO INSERT G20 TO PT'S RT HAND. PT ASK FOR FOOD, PCP PROVIDED SANDWICH TO EAT. PT COMPLAINTS OF LOWER BACK PAINS. MEDICATED WITH DILAUDID IV. KEPT RESTED AND COMFORTABLE IN BED. WILL RE-ASSESS PT.
[2025-05-31] VITALS (9 sets, daily range): BP systolic 109–171; BP diastolic 63–81; PULSE 74–91; RESP 17–20; TEMP 98–98.7; O2SAT 97–100
--- NOTE | 2025-05-31 04:44 | NUR ---
PAIN PT CLAIMS OF BACK PAINS. MEDICATED WITH DILAUDID IV. KEPT RESTED AND COMFORTABLE IN BED. CALL LIGHT WITHIN REACH. WILL RE-ASSESS PT.
[2025-05-31 06:47] LABS: NUCLEATED RED BLOOD CELLS 0.0 % (0.0-0.19); PLATELET COUNT (AUTO) 138.0 K/uL (130-400); RED BLOOD CELL COUNT(AUTO) 3.31 MIL/uL (4.00-5.50); RED CELL DISTRIBUTION WIDTH 13.4 % (11.0-15.5); WHITE BLOOD COUNT (AUTO) 5.7 K/uL (4.8-10.8)
[2025-05-31 06:57] LABS: CREATININE 6.8 mg/dL (0.5-1.0); GLOMERULAR FILTR. RATE CALC 7.0 mL/min (>90); GLUCOSE,RANDOM 160.0 mg/dL (70-105); SODIUM SERUM 138.0 mmol/L (136-145); UREA NITROGEN, BLOOD 43.0 mg/dL (7-18)
--- NOTE | 2025-05-31 18:23 | PN ---
FOLLOWUP PROGRESS NOTE SUBJECTIVE: A 39-year-old female with a history of end-stage renal disease, on dialysis 3 times per week. The patient has a history of a neurogenic bladder and continues with Rivera catheter. The patient presented to the hospital with flank pain and was started on antibiotics. The patient was unable to complete her dialysis yesterday secondary to malfunctioning AV access and she is being seen as a followup visit for all of the above. REVIEW OF SYSTEMS: CONSTITUTIONAL: She is feeling weak and tired. HEENT: No change in vision. No change in hearing. CARDIOVASCULAR: There is no current chest pain or palpitations. PULMONARY: No shortness of breath. GASTROINTESTINAL: She is tolerating a diet. MUSCULOSKELETAL: Complaints of weakness. PHYSICAL EXAMINATION: VITAL SIGNS: Blood pressure is 144/76, pulse in the 80, afebrile. GENERAL: Chronically ill female, much older than appearing. HEENT: Head is atraumatic. Pupils are equal, roving to light. Oropharynx is without exudate. Nares clear. NECK: There is no JVP. There is no thyromegaly. No masses. CARDIOVASCULAR: Regular. There is no S3 or S4 gallop. LUNGS: Coarse with equal thoracic movement. ABDOMEN: Soft, nondistended, nontender. EXTREMITIES: Reveal no clubbing or cyanosis. NEUROLOGICAL: She is awake. She is alert. LABORATORY DATA: Hemoglobin 10, hematocrit 30, white count is 5000. BUN 43, creatinine 6. IMPRESSION: * Urinary tract infection. * Diabetes mellitus. * Hypertension. * End-stage renal disease with nonfunctioning AV access. PLAN: The patient remains on the antibiotics as prescribed. The patient's leukocytosis is improved. The patient does have nonfunctional AV access. We will have Interventional Radiology to perform a fistulogram with declot in the a.m. The patient can proceed with dialysis postprocedure. We will continue to follow closely. The patient with multiple questions, all of which were answered. TID: [id number] RECEIPT: [id number]
--- NOTE | 2025-05-31 18:32 | PN ---
[facility] PROGRESS NOTE Date of Service: May 31, 2025 Time of Service: 18:28 SUBJECTIVE: My patient, a 39-year-old female with a past medical history of hypertension, type 2 diabetes mellitus, end-stage renal disease on hemodialysis, neurogenic bladder with chronic Rivera catheter placement since 2021 and prior abdominal and perineal infection status post multiple surgeries, presented with suprapubic pain that began 2 days ago and was associated with bilateral flank pain, nausea, vomiting and orange discoloration of the urine. She had a Rivera catheter since 2021 which was changed daily and was most recently removed and replaced during this admission. She started hemodialysis several months ago and currently have sessions on Tuesdays, and Saturdays. She underwent below-knee amputation in 2018 and toes amputation in 2016. Urinalysis on 05/28 showed positive leukocyte esterase, numerous WBCs, bacteria and yeast; the urine appeared turbid and light orange in color. CT abdominal pelvis without contrast on 05/28 revealed an left adnexal cyst and ultrasound confirmed a left ovarian follicular cyst. On 05/29, her labs reveal WBC 6.8, h emoglobin 12.5, creatinine improved from 6.2 to 4.5 compared to the prior day. Random glucose was elevated at 193 with hemoglobin A1c of 6.9. She is currently receiving glargine along with sliding scale insulin. She has been started on ceftriaxone 2 g IV every 24 hours and is maintained on a renal dialysis diet. Patient is oriented to time, place, person and agrees to the treatment plan. She Is vitally stable with blood pressure 134/80, heart rate 67, respiratory rate 18. She is afebrile and breathing at room air. 05/30/2025: Patient was seen and examined in room 324. Urine culture today came back positive for Klebsiella oxytoca and Morganella morganii. Patient stated that her pain has improved in the suprapubic region but she still has slight backache. She is vitally stable and afebrile. WBCs are 7.9. Patient was initially being planned to discharge and get started on levofloxacin 250 mg daily for 7 days as outpatient. She had her hemodialysis session scheduled for today which could not be attempted. Therefore, She will be seen by collision repairer tomorrow for further assessment. Rocephin has been stopped and patient is now started on p.o. levofloxacin as directed. Repeat IV access could not be obtained and patient is currently on p.o. medical therapy. She will be evaluated for midline access tomorrow by collision repairer. 05/31/25: Patient was seen at bedside. Urine culture today came back positive for Klebsiella oxytoca and Morganella morganii. Patient stated that her pain has improved in the suprapubic region but she still has severe backache. She is given Dilaudid for pain control. She is vitally stable and afebrile. WBCs are 5.7. Patient was initially being planned to discharge and get started on levofloxacin 250 mg daily for 7 days as outpatient. She had her hemodialysis session scheduled for today which could not be attempted. Therefore, She will be seen by collision repairer tomorrow for further assessment. Rocephin has been stopped and patient is now started on p.o. levofloxacin as directed. Repeat IV access could not be obtained and patient is currently on p.o. medical therapy. She will be evaluated for midline access tomorrow by collision repairer. REVIEW OF SYSTEMS CONSTITUTIONAL: Denies fevers, or night sweats. No unintentional weight loss reported. Reports slight ache in the flank area. NEUROLOGICAL: Denies headache, amaurosis fugax, motor weakness, sensory deficit, vertigo/spinning sensation, gait abnormalities, or tremors. Has blurry vision. ENT: No hearing loss, otalgia, otorrhea, rhinitis, rhinorrhea, hoarseness, or sore throat. CARDIOVASCULAR: Denies any exertional angina, dyspnea on exertion, orthopnea, paroxysmal nocturnal dyspnea, palpitations, life-threatening arrhythmias, claudication. PULMONARY: Denies any shortness of breath, cough, phlegm/sputum, hemoptysis, pleuritic chest pain. SLEEP: Denies morning headaches, daytime somnolence or napping. Denies difficulty falling asleep, staying asleep, waking from sleep. Denies knowledge of snoring. GASTROINTESTINAL: Positive for bilateral flank pain. GENITOURINARY: Patient has a Rivera catheter attached. ENDOCRINOLOGIC: Denies polyuria, polydipsia, polyphagia or heat/cold intolerances. HEMATOLOGIC: Denies thrombophilia/previous clots, or coagulopathy/bleeding disorders. ONCOLOGIC: Denies personal history of malignancy. DERMATOLOGIC: Denies rashes or pruritus. PSYCHIATRIC: Denies any suicidal or homicidal ideation. Denies hallucinations. PHYSICAL EXAM GENERAL APPEARANCE: The patient is awake, alert, and oriented. NEUROLOGICAL: No focal neurological deficits. Patient has blurry vision for which she has scheduled an appointment. HEENT: Face is symmetric. Patient has blurry vision. NECK: Supple. No JVD. No thyromegaly. No submental, submandibular, pre- /postauricular, occipital or supraclavicular lymphadenopathy. CHEST: Normal chest expansion. No Telemetry. LUNGS: Absence of any rales, rhonchi or any wheezing. CARDIOVASCULAR: Regular. S1 and S2 normal. No appreciable rubs, murmurs or gallops. ABDOMEN: Soft, mild tenderness to palpation in the flank area, no guarding, no rebound present : Deferred. Rivera attached EXTREMITIES: Patient has a below-knee amputation as well as amputation of toes Vital Signs (last 8hr) Date Time Temp Pulse Resp B/P (MAP) Pulse Ox O2 Delivery O2 Flow Rate FiO2 05/31/25 13:50 98.2 82 18 149/70 98 Room Air 05/31/25 12:00 98.1 82 18 171/64 98 Room Air LABS: Laboratory: Test 05/31/25 15:44 05/31/25 06:19 05/30/25 09:42 05/30/25 06:06 Range/Units Whole Blood Glucose 160 H 70-110 MG/DL White Blood Count 5.7 4.8-10.8 K/uL Red Blood Count 3.31 L 4.00-5.50 MIL/uL Hemoglobin 10.5 #L 12.0-16.0 g/dL Hematocrit 30.0 #L 36-48 % Mean Corpuscular Volume 90.6 79-99 fL Mean Corpuscular Hemoglobin 31.7 27.0-33.0 pg Mean Corpuscular Hemoglobin Concent 35.0 32.0-36.0 g/dL Red Cell Distribution Width 13.4 11.0-15.5 % Platelet Count 138 130-400 K/uL Mean Platelet Volume 9.6 7.5-10.5 fL Nucleated Red Blood Cells 0.0 0.0-0.19 % Sodium Level 138 136-145 mmol/L Potassium Level 3.6 3.5-5.1 mmol/L Chloride Level 100 L 101-111 mmol/L Carbon Dioxide Level 29 21-32 mmol/L Blood Urea Nitrogen 43 H 7-18 mg/dL Creatinine 6.8 H 0.5-1.0 mg/dL Glomerular Filtration Rate Calc 7 >90 mL/min Random Glucose 160 H 70-105 mg/dL Total Calcium 7.5 L 8.5-10.1 mg/dL Magnesium Level 2.00 1.80-2.40 mg/dL Phosphorus Level 5.0 H 2.5-4.9 mg/dL Test 05/29/25 19:48 Range/Units Bedside Glucose Comment Notified Nurse Current Medications Medications (Trade) Dose Ordered Sig/Deanna Route PRN Reason Start Time Stop Time Status Last Admin Dose Admin Acetaminophen (TYLenol 500MG TAB) 500 mg Q6H PRN PO MILD PAIN (1-3) 05/28/25 16:00 06/27/25 15:59 Ceftriaxone Sodium (Rocephin 2gm Inj) 2 gm Q24H IVPB 05/29/25 16:00 05/30/25 16:52 DC 05/29/25 16:29 2 GM Heparin Sodium (Porcine) (HEParin 5,000 UNIT VIAL) 5,000 unit Q12H SQ 05/29/25 21:00 06/28/25 20:59 05/31/25 08:50 5,000 UNIT Hydralazine HCl (APRESOLine 20MG INJ) 10 mg Q6H PRN IV ADMINISTER FOR SBP > 180 05/28/25 16:00 06/27/25 15:59 Hydromorphone HCl (DiLAUDid 0.5MG INJ) 0.2 mg Q6H PRN IVP SEVERE PAIN (7-10) 05/28/25 19:00 06/02/25 18:59 05/31/25 12:45 0.2 MG Insulin Glargine (LANtus 100 UNITS/ML 10 ML VIAL) 10 units HS SQ 05/29/25 21:00 05/30/25 10:35 DC 05/29/25 20:57 10 UNITS Insulin Glargine (LANtus 100 UNITS/ML 10 ML VIAL) 15 units HS SQ 05/30/25 11:00 06/29/25 10:59 05/30/25 20:10 15 UNITS Insulin Human Regular (humuLIN R 100 UNIT/ML 3ML) INSULIN SLIDING SCAL... ACHS SQ 05/28/25 16:30 06/27/25 16:29 05/30/25 20:11 5 UNIT Levofloxacin (LEvaquIN 500MG TAB) 250 mg Q24H PO 05/30/25 17:00 05/30/25 16:54 DC Levofloxacin (LEvaquIN 500MG TAB) 250 mg Q48H PO 05/30/25 17:00 06/09/25 16:59 05/30/25 17:12 250 MG Losartan Potassium (CozAAR 50 mg TAB) 50 mg BID PO 05/29/25 21:00 06/28/25 20:59 05/31/25 08:47 50 MG Ondansetron HCl (zoFRAN 4MG INJ) 4 mg Q6H PRN IVP NAUSEA/VOMITING 05/28/25 16:00 06/27/25 15:59 Sodium Chloride 1,000 ml @ 0 mls/hr ONCE IV 05/28/25 19:30 05/29/25 19:29 DC 05/30/25 09:00 1,000 MLS/HR DIAGNOSTICS / RADIOLOGY: [ ] ASSESSMENT: Complicated UTI - positive for Klebsiella oxytoca and Morganella morganii POA History of neurogenic bladder status post Rivera catheter placement ESRD on hemodialysis (TTS) Abdominal pain likely in setting of UTI Subclinical Hypothyroidism -elevated TSH with normal free T3, POA Left ovarian follicular cyst Hypertension Hyperlipidemia Diabetes mellitus type 2 PLAN: Complicated UTI - positive for Klebsiella oxytoca and Morganella morganii - Urinalysis on 05/28 was positive for leukocyte esterase, WBCs, bacteria and yeast. - Urine culture today came back positive for Klebsiella oxytoca and Morganella morganii. - Patient has a chronic Rivera catheter placement since 2021 and changes it monthly. - Rivera catheter has been changed after admission. - Patient was initially started on Rocephin 2 g. it has been switched to levofloxacin 250 mg daily p.o. based on sensitivity urine culture results. - Maintain strict glucose control. ESRD on hemodialysis - Maintain compliance with hemodialysis. Patient undergoes hemodialysis session on Sunday, , Sunday. - Hemodialysis session could not be attempted today due to dysfunction of access. Patient will be seen by collision repairer in the morning. - Maintain renal dialysis diet. - Monitor electrolytes and replete accordingly. Follow up with a.m. CBC and CMP. - Avoid any nephrotoxic drugs, adjust pain medicine accordingly as well as renal dosage of antibiotic. Diabetes mellitus type 2 - Patient has poorly controlled diabetes mellitus with ESRD and blurry vision. - Patient is receiving insulin glargine 15 units HS and maintained on sliding scale insulin. - Follow up with repeat measurement and maintain strict compliance. Adjust insulin glargine and sliding scale accordingly. Hypertension - Continue losartan 50 mg b.i.d. according to home medicine reconciliation. - Monitor daily vitals Neurogenic bladder - Maintain patient on Rivera catheter. Measure 24 hour urine input and output. ATTESTATION BY PHYSICIAN I have seen and examined the patient. I reviewed the documentation, medical decision making, and treatment plan as noted by the resident provider above. I agree with the findings and plan of care. Adria Garcia MD, BHAVANI MD May 31, 2025 18:32
--- NOTE | 2025-05-31 20:10 | NUR ---
MEDS SHIFT ASSESSMENT DONE, PLEASE REFER TO CHART. PT CLAIMS OF BACK PAINS AND REQUESTING HER DILAUDID DOSE. MEDICATED WITH DILAUDID FOR PAINS AND DUE MEDS ADMINISTERED, TOLERATED WELL. KEPT RESTED AND COMFORTABLE IN BED. CALL LIGHT WITHIN REACH. INSTRUCTED TO BE NPO POST MN FOR PROCEDURE IN AM. PT VERBALIZES UNDERSTANDING. WILL RE-ASSESS PT.
[2025-06-01] VITALS (27 sets, daily range): BP systolic 125–152; BP diastolic 68–100; PULSE 67–97; RESP 16–20; TEMP 97.4–98.2; O2SAT 0–98
--- NOTE | 2025-06-01 02:43 | NUR ---
PAIN PT CALLS FOR PAIN MEDICATION. CLAIMS OF BACK PAINS. MEDICATED WITH DILAUDID IV. KEPT RESTED AND COMFORTABLE IN BED. KEPT NPO FOR PROCEDURE. WILL RE-ASSESS PT.
[2025-06-01 05:41] LABS: IMMATURE GRANULOCYTE ABSOLUTE 0.05 K/uL (0-1); NUCLEATED RED BLOOD CELLS 0.0 % (0.0-0.19); PLATELET COUNT (AUTO) 165 K/uL (130-400); RED BLOOD CELL COUNT(AUTO) 3.20 MIL/uL (4.00-5.50); RED CELL DISTRIBUTION WIDTH 13.3 % (11.0-15.5); WHITE BLOOD COUNT (AUTO) 7.2 K/uL (4.8-10.8)
[2025-06-01 05:55] LABS: INR 0.97 (0.85-1.15)
[2025-06-01 05:59] LABS: CREATININE 7.5 mg/dL (0.5-1.0); GLOMERULAR FILTR. RATE CALC 7.0 mL/min (>90); GLUCOSE,RANDOM 84.0 mg/dL (70-105); PHOSPHORUS 6.2 mg/dL (2.5-4.9); SODIUM SERUM 139.0 mmol/L (136-145); UREA NITROGEN, BLOOD 53.0 mg/dL (7-18)
--- NOTE | 2025-06-01 06:16 | NUR ---
ROUNDS PT SLEPT AT INTERVALS DURING THE SHIFT. NO DISTRESS NOTED. KEPT RESTED AND COMFORTABLE IN BED. KEPT NPO FOR PROCEDURE. FOR MORE CARE.
[2025-06-01] MEDS ORDERED: IODIXANOL 320 MG/ML 100 ML VIAL ONE (09:34)
[2025-06-01] MEDS ORDERED: NITROGLYCERIN 50MG VIAL ONE (09:34)
[2025-06-01] MEDS ORDERED: HEParin-NS 1,000 UNIT/500 ML 1,000 ML IV ONE (09:34)
[2025-06-01] MEDS ORDERED: MIDAZOLAM HCL 1 MG/ML 2ML VIAL ONE (10:09)
--- NOTE | 2025-06-01 11:15 | NUR ---
RECEIVED FROM ROUTE [facility]RIER LEFT UPPER ARM FUNCTIONAL FOR HD PROCEDURE TO [facility] DONE
--- NOTE | 2025-06-01 12:53 | PN ---
NEPHROLOGY PROGRESS NOTE Date/Time Patient Seen: Jun 01, 2025 SUBJECTIVE: This is a 39-year-old female with underlying history of hypertension, end-stage renal disease on hemodialysis Sunday, type 2 diabetes mellitus, history of neurogenic bladder with history of chronic Rivera catheter placement, prior history of abdominal and perineal infection status post multiple surgeries in [place], 2021 She presents to the emergency room via EMS complaints of bilateral flank pain, nausea and vomiting. She was admitted further evaluation management of complicated UTI. She has been started on antibiotics Urine culture was positive Dialysis unable to be done on Sunday due to clotted AV fistula S/p D clotted AV fistula She was seen in the medical floor, in no acute distress No family at the bedside Prognosis remains guarded REVIEW OF SYSTEMS: GENERAL: Positive for nausea, vomiting and chills NEUROLOGIC: Negative for any blurry vision, blind spots, double vision, facial asymmetry, dysphagia, dysarthria, hemiparesis, hemisensory deficits, vertigo, ataxia. HEENT: Negative for any head trauma, neck trauma, neck stiffness, photophobia, phonophobia, sinusitis, rhinitis. CARDIAC: Negative for any chest pain, dyspnea on exertion, paroxysmal nocturnal dyspnea, peripheral edema. PULMONARY: Negative for any shortness of breath, wheezing, COPD, or TB exposure. GASTROINTESTINAL: Negative for any abdominal pain, nausea, vomiting, bright red blood per rectum, melena. GENITOURINARY: Negative for any dysuria, hematuria, incontinence. INTEGUMENTARY: Negative for any rashes, cuts, insect bites. RHEUMATOLOGIC: Negative for any joint pains, photosensitive rashes, history of vasculitis or kidney problems. HEMATOLOGIC: Negative for any abnormal bruising, frequent infections or bleeding. Vital Signs (last 8hr) Date Time Temp Pulse Resp B/P (MAP) Pulse Ox O2 Delivery O2 Flow Rate FiO2 06/01/25 12:30 97 18 147/89 98 Room Air 06/01/25 12:00 68 18 144/84 98 Room Air 06/01/25 11:45 68 18 126/72 98 Room Air 06/01/25 11:30 69 18 132/74 96 Room Air 06/01/25 11:15 98.1 67 18 136/77 96 Room Air 06/01/25 08:00 0 Room Air* 0 21 06/01/25 07:58 97.5 78 18 142/86 95 Room Air PHYSICAL EXAM: GENERAL: Alert and oriented x 3. No acute distress. Well-nourished. EYES: EOMI. Anicteric. HENT: Moist mucous membranes. No scleral icterus. No cervical lymphadenopathy. LUNGS: Clear to auscultation bilaterally. No accessory muscle use. CARDIOVASCULAR: Regular rate and rhythm. No murmur. No JVD. ABDOMEN: Soft, non-tender and non-distended. No palpable masses. EXTREMITIES: No edema. Non-tender. SKIN: No rashes or lesions. Warm. NEUROLOGIC: No focal neurological deficits. CN II-XII grossly intact, but not individually tested. PSYCHIATRIC: Cooperative. Appropriate mood and affect. Current Medications Medications (Trade) Dose Ordered Sig/[facility] Route Start Time Stop Time Status Last Admin Dose Admin Ceftriaxone Sodium (Rocephin 2gm Inj) 2 gm Q24H IVPB 05/29/25 16:00 05/30/25 16:52 DC 05/29/25 16:29 2 GM Heparin Sodium (Porcine) (HEParin 5,000 UNIT VIAL) 5,000 unit Q12H SQ 05/29/25 21:00 06/28/25 20:59 05/31/25 20:07 5,000 UNIT Insulin Glargine (LANtus 100 UNITS/ML 10 ML VIAL) 10 units HS SQ 05/29/25 21:00 05/30/25 10:35 DC 05/29/25 20:57 10 UNITS Insulin Glargine (LANtus 100 UNITS/ML 10 ML VIAL) 15 units HS SQ 05/30/25 11:00 06/29/25 10:59 05/31/25 20:07 15 UNITS Insulin Human Regular (humuLIN R 100 UNIT/ML 3ML) INSULIN SLIDING SCAL... ACHS SQ 05/28/25 16:30 06/27/25 16:29 05/30/25 20:11 5 UNIT Levofloxacin (LEvaquIN 500MG TAB) 250 mg Q24H PO 05/30/25 17:00 05/30/25 16:54 DC Levofloxacin (LEvaquIN 500MG TAB) 250 mg Q48H PO 05/30/25 17:00 06/09/25 16:59 05/30/25 17:12 250 MG Losartan Potassium (CozAAR 50 mg TAB) 50 mg BID PO 05/29/25 21:00 06/28/25 20:59 05/31/25 20:05 50 MG Sodium Chloride 1,000 ml @ 0 mls/hr ONCE IV 05/28/25 19:30 05/29/25 19:29 DC 05/30/25 09:00 1,000 MLS/HR LABORATORY: [ ] Hematology Labs: Test 06/01/25 05:22 Range/Units White Blood Count 7.2 # 4.8-10.8 K/uL Red Blood Count 3.20 L 4.00-5.50 MIL/uL Hemoglobin 10.0 L 12.0-16.0 g/dL Hematocrit 28.6 L 36-48 % Mean Corpuscular Volume 89.4 79-99 fL Mean Corpuscular Hemoglobin 31.3 27.0-33.0 pg Mean Corpuscular Hemoglobin Concent 35.0 32.0-36.0 g/dL Red Cell Distribution Width 13.3 11.0-15.5 % Platelet Count 165 130-400 K/uL Mean Platelet Volume 9.5 7.5-10.5 fL Immature Granulocyte % (Auto) 0.7 0-1 % Neutrophils (%) (Auto) 50.9 40.0-77.0 % Lymphocytes (%) (Auto) 33.7 21.0-51.0 % Monocytes (%) (Auto) 6.0 3.0-13.0 % Eosinophils (%) (Auto) 7.5 0.0-8.0 % Basophils (%) (Auto) 1.2 0.0-5.0 % Neutrophils # (Auto) 3.7 1.8-7.7 K/uL Lymphocytes # (Auto) 2.4 1.0-4.8 K/uL Monocytes # (Auto) 0.4 0.1-1.0 K/uL Eosinophils # (Auto) 0.54 0.00-0.70 K/uL Basophils # (Auto) 0.09 0.00-0.20 K/uL Absolute Immature Granulocyte (auto 0.05 0-1 K/uL Nucleated Red Blood Cells 0.0 0.0-0.19 % Chemistry Labs: Test 06/01/25 11:49 06/01/25 05:22 Range/Units Whole Blood Glucose 92 70-110 MG/DL Sodium Level 139 136-145 mmol/L Potassium Level 3.9 3.5-5.1 mmol/L Chloride Level 101 101-111 mmol/L Carbon Dioxide Level 30 21-32 mmol/L Blood Urea Nitrogen 53 H 7-18 mg/dL Creatinine 7.5 H 0.5-1.0 mg/dL Glomerular Filtration Rate Calc 7 >90 mL/min Random Glucose 84 70-105 mg/dL Total Calcium 7.4 L 8.5-10.1 mg/dL Phosphorus Level 6.2 H 2.5-4.9 mg/dL Magnesium Level 2.10 1.80-2.40 mg/dL Coagulation Labs: Test 06/01/25 05:22 Range/Units Prothrombin Time 10.3 9.6-11.6 SEC Prothromb Time International Ratio 0.97 0.85-1.15 Activated Partial Thromboplast Time 28.5 26.3-35.5 SEC DIAGNOSTICS / RADIOLOGY: [place] [address] IMAGING REPORT Signed PATIENT: DARÍO ELIAS MR#: [id number] : 1985 SEX: F AGE: 39 LOCATION: [facility] ORDER [id number] STATUS: ADM IN REPORT#: [id number] SERVICE 1532 REASON: Left adnexal cyst ORDERING PHYSICIAN: DYLAN COVINGOTN MD PROCEDURE: PELVCOMP - US PELVIC NON-OB COMP EXAM: US PELVIC NON-OB COMP 05/28/2025 3:32 PM MDT Presented for interpretation on: 05/28/2025 3:16 PM MDT INDICATION: Left adnexal cyst LMP: LMP COMPARISON: None FINDINGS: Grayscale and color Doppler sonographic images transabdominally and transvaginally the latter to better define uterine and adnexal structures. The anteverted uterus appears normal. Uterus measures 9.2 x 4.2 x 5.9 cm..The endometrium is normal in thickness measuring 0.8 cm.. The right ovary measures 2.7 x 1.5 x 2.7 cm. The left ovary measures 2.4 x 3.0 x 2.4 cm. There is normal color-flow Doppler both ovaries with normal echotexture. The left ovary has one follicle identified measuring 1.7 x 2.0 x 1.6 cm..There is no adnexal mass. The bladder appears normal. There is no pelvic free fluid. IMPRESSION: Left ovary has a follicular cyst measuring 1.6 x 2.0 x 1.6 cm The remaining pelvic sonogram demonstrate no other abnormality.. DICTATED BY: BRITTANY SILVA MD DATE: 05/28/25 1616 ELECTRONICALLY SIGNED BY: BRITTANY SILVA MD DATE: 05/28/25 1622 PATIENT: DARÍO ELIAS MR#: [id number] : 1985 SEX: F AGE: 39 LOCATION: [facility] ORDER [id number] STATUS: [facility] REPORT#: [id number] SERVICE 1307 REASON: BILATERAL FLANK PAIN THAT RADIATES TO BILATERAL LOWER QUADRANTS ORDERING PHYSICIAN: TENNILLE BEVERLY NP PROCEDURE: ABD PEL WO - CT ABDOMEN/PELVIS W/O CONTRAST CT ABDOMEN/PELVIS W/O CONTRAST REASON: BILATERAL FLANK PAIN THAT RADIATES TO BILATERAL LOWER QUADRANTS COMPARISON: None. FINDINGS: Lung bases are clear. There are no focal liver lesions. There are normal-appearing kidneys.. Spleen and pancreas appear unremarkable. The gallbladder surgically absent with clips in the gallbladder fossa. Bowel loops appear unremarkable. There is occasional diverticulosis with no evidence of diverticulitis. This includes normal appearance of the appendix there is a small umbilical hernia. There is no evidence of free fluid or intraperitoneal air. There are no focal fluid collections. Aorta and retroperitoneum appear normal as do pelvic soft tissue structures. The anterior abdominal wall is intact. Osseous structures appear unremarkable. There is mild disc disease most the lower thoracic upper lumbar spine. The uterus is mildly deviated to the left side. There is a small left adnexal cyst measuring 2.6 cm. IMPRESSION: 1. No acute process seen a CT of abdomen and pelvis without intravenous contrast Occasional diverticulosis Left adnexal cyst. I would recommend pelvic sonogram for further correlation. CT was performed with one or more following dose reduction techniques: automated exposure control, adjustment of the mA and kv according to patient's size, or use of a iterative reconstruction technique. DICTATED BY: BRITTANY SILVA MD DATE: 05/28/25 1448 ELECTRONICALLY SIGNED BY: BRITTANY SILVA MD DATE: 05/28/25 1401 ASSESSMENT: Hypertensive urgency with noncompliance End stage renal disease Complicated UTI Uncontrolled diabetes mellitus type 2 Diabetic nephropathy. Hyperlipemia Uncontrolled hypertension History of neurogenic bladder requiring chronic Rivera catheterization History of poor visual acuity of bilateral eyes PLAN: Labs and Diagnostics/ Radiology personally reviewed and interpreted by myself and supervising physician We have reviewed dialysis and external records in detail Dialysis planned today then Continue dialysis schedule Sunday 1.5 L fluid restriction Continue to monitor H&H Epogen on dialysis days, as needed Continue with the antibiotics Continue with frequent monitoring of renal function, anemia, and electrolytes Order CBC, BMP, and electrolytes in the morning May use Dilaudid 0.5 mg IV every 6 hours as needed for severe pain Monitor blood pressure adjust medication doses as needed Maintain normotensive state Strict intake, output, and daily weight should be monitored Please renally adjust medications. Avoid nephrotoxics and nonsteroidal drugs. We will continue to monitor the patient closely We have discussed with the other team physicians in detail about the care plan ATTESTATION BY PHYSICIAN I have seen and examined the patient. I reviewed the documentation, medical decision making, and treatment plan as noted by the mid-level provider above. I agree with the findings and plan of care. GISELLE VALENTIN MD, [facility] Jun 01, 2025 12:53
--- NOTE | 2025-06-01 13:57 | PN ---
[facility] PROGRESS NOTE Date of Service: Jun 01, 2025 Time of Service: 13:57 SUBJECTIVE: My patient, a 39-year-old female with a past medical history of hypertension, type 2 diabetes mellitus, end-stage renal disease on hemodialysis, neurogenic bladder with chronic Rivera catheter placement since 2021 and prior abdominal and perineal infection status post multiple surgeries, presented with suprapubic pain that began 2 days ago and was associated with bilateral flank pain, nausea, vomiting and orange discoloration of the urine. She had a Rivera catheter since 2021 which was changed daily and was most recently removed and replaced during this admission. She started hemodialysis several months ago and currently have sessions on Tuesdays, and Saturdays. She underwent below-knee amputation in 2017 and toes amputation in 2016. Urinalysis on 05/28 showed positive leukocyte esterase, numerous WBCs, bacteria and yeast; the urine appeared turbid and light orange in color. CT abdominal pelvis without contrast on 05/28 revealed an left adnexal cyst and ultrasound confirmed a left ovarian follicular cyst. On 05/29, her labs reveal WBC 6.8, h emoglobin 12.5, creatinine improved from 6.2 to 4.5 compared to the prior day. Random glucose was elevated at 193 with hemoglobin A1c of 6.9. She is currently receiving glargine along with sliding scale insulin. She has been started on ceftriaxone 2 g IV every 24 hours and is maintained on a renal dialysis diet. Patient is oriented to time, place, person and agrees to the treatment plan. She Is vitally stable with blood pressure 134/80, heart rate 67, respiratory rate 18. She is afebrile and breathing at room air. 05/30/2025: Patient was seen and examined in room 324. Urine culture today came back positive for Klebsiella oxytoca and Morganella morganii. Patient stated that her pain has improved in the suprapubic region but she still has slight backache. She is vitally stable and afebrile. WBCs are 7.9. Patient was initially being planned to discharge and get started on levofloxacin 250 mg daily for 7 days as outpatient. She had her hemodialysis session scheduled for today which could not be attempted. Therefore, She will be seen by ski guide tomorrow for further assessment. Rocephin has been stopped and patient is now started on p.o. levofloxacin as directed. Repeat IV access could not be obtained and patient is currently on p.o. medical therapy. She will be evaluated for midline access tomorrow by ski guide. 05/31/25: Patient was seen at bedside. Urine culture today came back positive for Klebsiella oxytoca and Morganella morganii. Patient stated that her pain has improved in the suprapubic region but she still has severe backache. She is given Dilaudid for pain control. She is vitally stable and afebrile. WBCs are 5.7. Patient was initially being planned to discharge and get started on levofloxacin 250 mg daily for 7 days as outpatient. She had her hemodialysis session scheduled for today which could not be attempted. Therefore, She will be seen by ski guide tomorrow for further assessment. Rocephin has been stopped and patient is now started on p.o. levofloxacin as directed. Repeat IV access could not be obtained and patient is currently on p.o. medical therapy. She will be evaluated for midline access tomorrow by ski guide. REVIEW OF SYSTEMS CONSTITUTIONAL: Denies fevers, or night sweats. No unintentional weight loss reported. Reports slight ache in the flank area. NEUROLOGICAL: Denies headache, amaurosis fugax, motor weakness, sensory deficit, vertigo/spinning sensation, gait abnormalities, or tremors. Has blurry vision. ENT: No hearing loss, otalgia, otorrhea, rhinitis, rhinorrhea, hoarseness, or sore throat. CARDIOVASCULAR: Denies any exertional angina, dyspnea on exertion, orthopnea, paroxysmal nocturnal dyspnea, palpitations, life-threatening arrhythmias, claudication. PULMONARY: Denies any shortness of breath, cough, phlegm/sputum, hemoptysis, pleuritic chest pain. SLEEP: Denies morning headaches, daytime somnolence or napping. Denies difficulty falling asleep, staying asleep, waking from sleep. Denies knowledge of snoring. GASTROINTESTINAL: Positive for bilateral flank pain. GENITOURINARY: Patient has a Rivera catheter attached. ENDOCRINOLOGIC: Denies polyuria, polydipsia, polyphagia or heat/cold intolerances. HEMATOLOGIC: Denies thrombophilia/previous clots, or coagulopathy/bleeding disorders. ONCOLOGIC: Denies personal history of malignancy. DERMATOLOGIC: Denies rashes or pruritus. PSYCHIATRIC: Denies any suicidal or homicidal ideation. Denies hallucinations. PHYSICAL EXAM GENERAL APPEARANCE: The patient is awake, alert, and oriented. NEUROLOGICAL: No focal neurological deficits. Patient has blurry vision for which she has scheduled an appointment. HEENT: Face is symmetric. Patient has blurry vision. NECK: Supple. No JVD. No thyromegaly. No submental, submandibular, pre- /postauricular, occipital or supraclavicular lymphadenopathy. CHEST: Normal chest expansion. No Telemetry. LUNGS: Absence of any rales, rhonchi or any wheezing. CARDIOVASCULAR: Regular. S1 and S2 normal. No appreciable rubs, murmurs or gallops. ABDOMEN: Soft, mild tenderness to palpation in the flank area, no guarding, no rebound present : Deferred. Rivera attached EXTREMITIES: Patient has a below-knee amputation as well as amputation of toes Vital Signs (last 8hr) Date Time Temp Pulse Resp B/P (MAP) Pulse Ox O2 Delivery O2 Flow Rate FiO2 06/01/25 12:30 97 18 147/89 98 Room Air 06/01/25 12:00 68 18 144/84 98 Room Air 06/01/25 11:45 68 18 126/72 98 Room Air 06/01/25 11:30 69 18 132/74 96 Room Air 06/01/25 11:15 98.1 67 18 136/77 96 Room Air 06/01/25 08:00 0 Room Air* 0 21 06/01/25 07:58 97.5 78 18 142/86 95 Room Air LABS: Laboratory: Test 06/01/25 11:49 06/01/25 05:22 Range/Units Whole Blood Glucose 92 70-110 MG/DL White Blood Count 7.2 # 4.8-10.8 K/uL Red Blood Count 3.20 L 4.00-5.50 MIL/uL Hemoglobin 10.0 L 12.0-16.0 g/dL Hematocrit 28.6 L 36-48 % Mean Corpuscular Volume 89.4 79-99 fL Mean Corpuscular Hemoglobin 31.3 27.0-33.0 pg Mean Corpuscular Hemoglobin Concent 35.0 32.0-36.0 g/dL Red Cell Distribution Width 13.3 11.0-15.5 % Platelet Count 165 130-400 K/uL Mean Platelet Volume 9.5 7.5-10.5 fL Immature Granulocyte % (Auto) 0.7 0-1 % Neutrophils (%) (Auto) 50.9 40.0-77.0 % Lymphocytes (%) (Auto) 33.7 21.0-51.0 % Monocytes (%) (Auto) 6.0 3.0-13.0 % Eosinophils (%) (Auto) 7.5 0.0-8.0 % Basophils (%) (Auto) 1.2 0.0-5.0 % Neutrophils # (Auto) 3.7 1.8-7.7 K/uL Lymphocytes # (Auto) 2.4 1.0-4.8 K/uL Monocytes # (Auto) 0.4 0.1-1.0 K/uL Eosinophils # (Auto) 0.54 0.00-0.70 K/uL Basophils # (Auto) 0.09 0.00-0.20 K/uL Absolute Immature Granulocyte (auto 0.05 0-1 K/uL Nucleated Red Blood Cells 0.0 0.0-0.19 % Prothrombin Time 10.3 9.6-11.6 SEC Prothromb Time International Ratio 0.97 0.85-1.15 Activated Partial Thromboplast Time 28.5 26.3-35.5 SEC Sodium Level 139 136-145 mmol/L Potassium Level 3.9 3.5-5.1 mmol/L Chloride Level 101 101-111 mmol/L Carbon Dioxide Level 30 21-32 mmol/L Blood Urea Nitrogen 53 H 7-18 mg/dL Creatinine 7.5 H 0.5-1.0 mg/dL Glomerular Filtration Rate Calc 7 >90 mL/min Random Glucose 84 70-105 mg/dL Total Calcium 7.4 L 8.5-10.1 mg/dL Phosphorus Level 6.2 H 2.5-4.9 mg/dL Magnesium Level 2.10 1.80-2.40 mg/dL Current Medications Medications (Trade) Dose Ordered Sig/Deanna Route PRN Reason Start Time Stop Time Status Last Admin Dose Admin Acetaminophen (TYLenol 500MG TAB) 500 mg Q6H PRN PO MILD PAIN (1-3) 05/28/25 16:00 06/27/25 15:59 Ceftriaxone Sodium (Rocephin 2gm Inj) 2 gm Q24H IVPB 05/29/25 16:00 8/23/25 16:52 DC 05/29/25 16:29 2 GM Heparin Sodium (Porcine) (HEParin 5,000 UNIT VIAL) 5,000 unit Q12H SQ 05/29/25 21:00 06/28/25 20:59 05/31/25 20:07 5,000 UNIT Hydralazine HCl (APRESOLine 20MG INJ) 10 mg Q6H PRN IV ADMINISTER FOR SBP > 180 05/28/25 16:00 06/27/25 15:59 Hydromorphone HCl (DiLAUDid 0.5MG INJ) 0.2 mg Q6H PRN IVP SEVERE PAIN (7-10) 05/28/25 19:00 06/02/25 18:59 06/01/25 02:43 0.2 MG Insulin Glargine (LANtus 100 UNITS/ML 10 ML VIAL) 10 units HS SQ 05/29/25 21:00 05/30/25 10:35 DC 05/29/25 20:57 10 UNITS Insulin Glargine (LANtus 100 UNITS/ML 10 ML VIAL) 15 units HS SQ 05/30/25 11:00 06/29/25 10:59 05/31/25 20:07 15 UNITS Insulin Human Regular (humuLIN R 100 UNIT/ML 3ML) INSULIN SLIDING SCAL... ACHS SQ 05/28/25 16:30 06/27/25 16:29 05/30/25 20:11 5 UNIT Levofloxacin (LEvaquIN 500MG TAB) 250 mg Q24H PO 05/30/25 17:00 05/30/25 16:54 DC Levofloxacin (LEvaquIN 500MG TAB) 250 mg Q48H PO 05/30/25 17:00 06/09/25 16:59 05/30/25 17:12 250 MG Losartan Potassium (CozAAR 50 mg TAB) 50 mg BID PO 05/29/25 21:00 06/28/25 20:59 05/31/25 20:05 50 MG Ondansetron HCl (zoFRAN 4MG INJ) 4 mg Q6H PRN IVP NAUSEA/VOMITING 05/28/25 16:00 06/27/25 15:59 Sodium Chloride 1,000 ml @ 0 mls/hr ONCE IV 05/28/25 19:30 05/29/25 19:29 DC 05/30/25 09:00 1,000 MLS/HR DIAGNOSTICS / RADIOLOGY: [ ] ASSESSMENT: Complicated UTI - positive for Klebsiella oxytoca and Morganella morganii POA History of neurogenic bladder status post Rivera catheter placement ESRD on hemodialysis (TTS) Abdominal pain likely in setting of UTI Subclinical Hypothyroidism -elevated TSH with normal free T3, POA Left ovarian follicular cyst Hypertension Hyperlipidemia Diabetes mellitus type 2 PLAN: Complicated UTI - positive for Klebsiella oxytoca and Morganella morganii - Urinalysis on 05/28 was positive for leukocyte esterase, WBCs, bacteria and yeast. - Urine culture today came back positive for Klebsiella oxytoca and Morganella morganii. - Patient has a chronic Rivera catheter placement since 2021 and changes it monthly. - Rivera catheter has been changed after admission. - Patient was initially started on Rocephin 2 g. it has been switched to levofloxacin 250 mg daily p.o. based on sensitivity urine culture results. - Maintain strict glucose control. ESRD on hemodialysis - Maintain compliance with hemodialysis. Patient undergoes hemodialysis session on Sunday, , Sunday. - Hemodialysis session could not be attempted today due to dysfunction of access. Patient will be seen by ski guide in the morning. - Maintain renal dialysis diet. - Monitor electrolytes and replete accordingly. Follow up with a.m. CBC and CMP. - Avoid any nephrotoxic drugs, adjust pain medicine accordingly as well as renal dosage of antibiotic. Diabetes mellitus type 2 - Patient has poorly controlled diabetes mellitus with ESRD and blurry vision. - Patient is receiving insulin glargine 15 units HS and maintained on sliding scale insulin. - Follow up with repeat measurement and maintain strict compliance. Adjust insulin glargine and sliding scale accordingly. Hypertension - Continue losartan 50 mg b.i.d. according to home medicine reconciliation. - Monitor daily vitals Neurogenic bladder - Maintain patient on Rivera catheter. Measure 24 hour urine input and output. OTTONIEL SHAW MD Jun 01, 2025 13:57
--- NOTE | 2025-06-01 17:58 | NUR ---
HD: COMPLETED HD REMOVED 2L ANA [address] DR OTTONIEL SHAW RES. AWARE OK TO DC HM
--- NOTE | 2025-06-01 18:22 | DS ---
Discharge Summary Hospital Course Summary: My patient, 39-year-old female, with a past medical history of hypertension type 2 diabetes mellitus, end-stage renal disease on hemodialysis, neurogenic bladder with chronic Rivera catheter placement, blurry vision, prior abdominal and perineal infection status post multiple surgeries, presented with suprapubic pain on 05/28/2025 which was associated with bilateral flank pain, nausea, vomiting and orange discoloration of the urine. She had a Rivera catheter since 2021 which was changed daily and was most recently removed and replaced during this admission. She has started undergoing hemodialysis several months ago and currently has sessions on Tuesdays, and Saturdays. Urinalysis on 05/28 showed positive leukocyte esterase, numerous WBCs, bacteria and yeast; the urine appeared turbid. CT abdominal pelvis without contrast on 05/28 revealed left adnexal cyst while ultrasound confirmed a left ovarian follicular cyst. On 05/29, labs revealed WBC 6.8, hemoglobin 12.5, creatinine improved from 6.2 to 4.5 compared to the prior day. Random glucose was elevated 193 with hemoglobin A1c 6.9. She was started on ceftriaxone 2g IV every 24 hours and was also started on glargine with sliding scale insulin. She was maintained on a renal dialysis diet. Urine culture results from 05/28/25 came back today, revealing more than 100,000 CFU, with positive for Klebsiella oxytoca, and Morganella morganii. On 05/30/2025, discharge was planned for the patient following her scheduled dialysis. However, during the initiation of the dialysis blood clots were noticed coming into the dialysis machine and hence the dialysis was stopped. Interventional Radiology was consulted to perform fistulogram with declot. Patient underwent this procedure on 06/01/2025. 06/01/2025, patient's vitals were stable with a blood pressure of 147/89. Patient will be undergoing her dialysis today at the hospital. If there are no acute events during her dialysis, Patient will be discharged with instructions to continue levofloxacin for 7 days. She has been advised to follow up with Primary care physician in 3-5 days as well as with ophthalmology for blurry vision secondary to diabetes. Thyroid function tests should be repeated in 8 weeks as an outpatient for evaluation of elevated TSH during admission. Patient has also been advised to maintain strict compliance with her hemodialysis session on scheduled days, and continue renal dialysis diet. Clothes Separator(s): Nephrology Consultation GISELLE VAELNTIN MD As per recommendation: "Continue dialysis schedule Sunday. 1.5 L fluid restriction. Continue to monitor H&H. Epogen on dialysis days, as needed. Continue with the antibiotics. Continue with frequent monitoring of renal function, anemia, and electrolytes. Order CBC, BMP, and electrolytes in the morning. May use Dilaudid 0.5 mg IV every 6 hours as needed for severe pain. Monitor blood pressure adjust medication doses as needed. Maintain normotensive state. Strict intake, output, and daily weight should be monitored. Please renally adjust medications. Avoid nephrotoxics and nonsteroidal drugs." Procedure(s): [place] [id number] [place] [id number] IMAGING REPORT Signed PATIENT: DARÍO ELIAS MR#: [id number] : 1985 SEX: F AGE: 39 LOCATION: ED ORDER 1307 STATUS: REG REPORT#: [id number] SERVICE 1307 REASON: BILATERAL FLANK PAIN THAT RADIATES TO BILATERAL LOWER QUADRANTS ORDERING PHYSICIAN: TENNILLE BEVERLY NP PROCEDURE: ABD PEL WO - CT ABDOMEN/PELVIS W/O CONTRAST CT ABDOMEN/PELVIS W/O CONTRAST REASON: BILATERAL FLANK PAIN THAT RADIATES TO BILATERAL LOWER QUADRANTS COMPARISON: None. FINDINGS: Lung bases are clear. There are no focal liver lesions. There are normal-appearing kidneys.. Spleen and pancreas appear unremarkable. The gallbladder surgically absent with clips in the gallbladder fossa. Bowel loops appear unremarkable. There is occasional diverticulosis with no evidence of diverticulitis. This includes normal appearance of the appendix there is a small umbilical hernia. There is no evidence of free fluid or intraperitoneal air. There are no focal fluid collections. Aorta and retroperitoneum appear normal as do pelvic soft tissue structures. The anterior abdominal wall is intact. Osseous structures appear unremarkable. There is mild disc disease most the lower thoracic upper lumbar spine. The uterus is mildly deviated to the left side. There is a small left adnexal cyst measuring 2.6 cm. IMPRESSION: 1. No acute process seen a CT of abdomen and pelvis without intravenous contrast Occasional diverticulosis Left adnexal cyst. I would recommend pelvic sonogram for further correlation. CT was performed with one or more following dose reduction techniques: automated exposure control, adjustment of the mA and kv according to patient's size, or use of a iterative reconstruction technique. DICTATED BY: BRITTANY SILVA MD DATE: 05/28/25 1359 ELECTRONICALLY SIGNED BY: BRITTANY SILVA MD DATE: 05/28/25 1403 [place] [id number] [place] [id number] IMAGING REPORT Signed PATIENT: DARÍO ELIAS MR#: [id number] : 1985 SEX: F AGE: 39 LOCATION: EDHIP ORDER 1542 STATUS: ADM IN REPORT#: [id number] SERVICE 1532 REASON: Left adnexal cyst ORDERING PHYSICIAN: DYLAN COVINGTON MD PROCEDURE: PELVCOMP - US PELVIC NON-OB COMP EXAM: US PELVIC NON-OB COMP 05/28/2025 3:32 PM MDT Presented for interpretation on: 05/28/2025 3:16 PM MDT INDICATION: Left adnexal cyst LMP: LMP COMPARISON: None FINDINGS: Grayscale and color Doppler sonographic images transabdominally and transvaginally the latter to better define uterine and adnexal structures. The anteverted uterus appears normal. Uterus measures 9.2 x 4.2 x 5.9 cm..The endometrium is normal in thickness measuring 0.8 cm.. The right ovary measures 2.7 x 1.5 x 2.7 cm. The left ovary measures 2.4 x 3.0 x 2.4 cm. There is normal color-flow Doppler both ovaries with normal echotexture. The left ovary has one follicle identified measuring 1.7 x 2.0 x 1.6 cm..There is no adnexal mass. The bladder appears normal. There is no pelvic free fluid. IMPRESSION: Left ovary has a follicular cyst measuring 1.6 x 2.0 x 1.6 cm The remaining pelvic sonogram demonstrate no other abnormality.. DICTATED BY: BRITTANY SILVA MD DATE: 05/28/25 1616 ELECTRONICALLY SIGNED BY: BRITTANY SILVA MD DATE: 05/28/25 3945 Assessment/Plan: ASSESSMENT: Complicated UTI - positive for Klebsiella oxytoca and Morganella morganii POA History of neurogenic bladder status post Rivera catheter placement ESRD on hemodialysis (TTS) Abdominal pain likely in setting of UTI Subclinical Hypothyroidism -elevated TSH with normal free T3, POA Left ovarian follicular cyst Hypertension Hyperlipidemia Diabetes mellitus type 2 Discharge Instructions: Continue home medicines as prescribed. Start levofloxacin 250mg daily for complicated UTI and continue it for next 7 days. Follow up with Primary care physician in 3-5 days. Also follow up with ophtha lmology for blurry vision. Repeat Thyroid function test in 8 weeks as an outpatient for evaluation of elevated TSH during admission. Continue replacing Rivera catheter as directed. Maintain strict compliance with hemodialysis sessions. Maintain renal dialysis diet and strict blood glucose level. Home Medications: Active Scripts Sulfamethoxazole/Trimethoprim (Bactrim Ds Tablet) 800 Mg-160 Mg Tablet, 1 TAB PO BID for 10 Days, #20 TAB 0 Refills Prov:WHITNEY DIAZ MD 04/14/25 Reported Medications Metoprolol Tartrate (Lopressor) 25 Mg Tab, 1 TAB PO BID 04/04/25 Pantoprazole Sodium (Pantoprazole Sodium) 40 Mg Tablet.dr, 1 TAB PO DAILY 04/04/25 Losartan Potassium (Losartan Potassium) 50 Mg Tablet, 1 TAB PO BID 04/04/25 Atorvastatin Calcium (Atorvastatin Calcium) 20 Mg Tablet, 1 TAB PO DAILY, TAB 0 Refills 03/01/25 New Medications: Levofloxacin (Levofloxacin) 250 Mg Tablet 1 TAB PO DAILY for 7 Days, #7 TAB 0 Refills Continued Medications: Atorvastatin Calcium (Atorvastatin Calcium) 20 Mg Tablet 1 TAB PO DAILY, TAB 0 Refills Losartan Potassium (Losartan Potassium) 50 Mg Tablet 1 TAB PO BID Discontinued Medications: Metoprolol Tartrate (Lopressor) 25 Mg Tab 1 TAB PO BID Pantoprazole Sodium (Pantoprazole Sodium) 40 Mg Tablet. 1 TAB PO DAILY Sulfamethoxazole/Trimethoprim (Bactrim Ds Tablet) 800 Mg-160 Mg Tablet 1 TAB PO BID for 10 Days, #20 TAB 0 Refills Time spent arranging discharge: 1-30 minutes ATTESTATION BY PHYSICIAN I have seen and examined the patient. I reviewed the documentation, medical decision making, and treatment plan as noted by the resident provider above. I agree with the findings and plan of care. Adria Garcia MD, HEMA MD Jun 01, 2025 18:22
--- NOTE | 2025-06-01 20:27 | PN ---
NEPHROLOGY NOTE SUBJECTIVE: The patient has been seen for dialysis, seen several times. No fever, chills, or rigors. No cough, expectoration, or hemoptysis. No abdominal pain, no nausea or vomiting. No chest pain, no orthopnea or PND. Other systemic review is unchanged. No other associated findings. No other aggravating or relieving factors. The patient is weak. PHYSICAL EXAMINATION: GENERAL: Pale, no other distress or deformities, lying in bed. VITAL SIGNS: Blood pressure is 118/70, respiratory rate is 18, afebrile. HEENT: Head is atraumatic, normocephalic. Pupils are round and reactive. Sclerae are anicteric. Conjunctivae not pale. Oral mucosa is not dry. NECK: Supple. No masses or bruits. Thyroid is palpable. Neck has no bruits. LABORATORY DATA: We have reviewed the labs in detail and old records were reviewed. PROBLEMS: Renal failure, anemia, clotted access. PLAN: Declotting done. Continued monitoring. Follow up on renal function. Follow up on electrolytes. Intake, output, weight will be monitored. The patient was evaluated and seen for dialysis and seen several times. Overall, prognosis remained guarded. The patient has recent clotted access. Thank you for this patient. Patient was seen several times on dialysis and before dialysis also she has missed dialysis on Sunday please see the previous need note for the day TID: [id number] RECEIPT: [id number] MTDJorge
[2025-06-02] VITALS (20 sets, daily range): BP systolic 103–179; BP diastolic 66–101; PULSE 82–94; RESP 16–20; TEMP 97.6–98.5; O2SAT 0
--- NOTE | 2025-06-02 03:38 | OP ---
DATE OF PROCEDURE: 06/01/2025 STUDY: Fistulogram pre and post angioplasty. PROCEDURE: The left arm was prepped and draped in the usual sterile technique. Xylocaine 1% was used for local anesthetic. Under ultrasound guidance, the left arterial and venous limb of the fistula was accessed. There is focal stenosis seen at the arterial limb, there was no clot identified, therefore, declotting was not performed. Through an angiographic wire and using a 5 mm x 4 cm balloon, the arterial limb anastomosis was angioplastied. The arterial portion of the fistula was also with some stenosis, therefore, a 7 mm x 4 cm balloon catheter was used for angioplasty. Followup fistulogram demonstrated the fistula is patent with brisk flow. After obtaining hemostasis with a mattress suture, the patient tolerated the procedure well. IMPRESSION: Angioplasty of the arterial limb and arterial anastomosis of the fistula as described above. The patient tolerated the procedure well. TID: [id number] RECEIPT: [id number]
[2025-06-02 06:57] LABS: NUCLEATED RED BLOOD CELLS 0.0 % (0.0-0.19); PLATELET COUNT (AUTO) 198.0 K/uL (130-400); RED BLOOD CELL COUNT(AUTO) 3.98 MIL/uL (4.00-5.50); RED CELL DISTRIBUTION WIDTH 13.4 % (11.0-15.5); WHITE BLOOD COUNT (AUTO) 7.5 K/uL (4.8-10.8)
[2025-06-02 07:17] LABS: CREATININE 6.4 mg/dL (0.5-1.0); GLOMERULAR FILTR. RATE CALC 8.0 mL/min (>90); GLUCOSE,RANDOM 230.0 mg/dL (70-105); PHOSPHORUS 5.0 mg/dL (2.5-4.9); SODIUM SERUM 134.0 mmol/L (136-145); UREA NITROGEN, BLOOD 42.0 mg/dL (7-18)
--- NOTE | 2025-06-02 09:40 | NUR ---
PROCEDURE HD AT BED SIDE PERFORMED
[2025-06-02] MEDS: 0.9%NACL 1000ML 1,000 ML IV SCH (10:51)
--- NOTE | 2025-06-02 14:04 | NUR ---
PROCEDURE HD COMPLETED AT BED SIDE ANA WELL REMOVED 1.6L PT IS DC HM AWAITING FAMILY TRANPORT DELAY TILL 1630 CN YI INFORMED
--- NOTE | 2025-06-02 16:50 | NUR ---
DC: PT DC HOME PER MD ORDER. PT DC INSTRUCTION AND EDUCATION PROVIDED, INSTRUCTED PT TO F/U WITH PCP AND DR VALENTIN AND TO KEEP DIALYSIS [place]SERR[place] PER MD (TTS). PT STATED UNDERSTANDING. PT IV REMOVED TIP INTACT. RX SENT TO PT PHARMACY OF CHOICE.
--- NOTE | 2025-06-02 20:40 | PN ---
SUBJECTIVE: This patient has been evaluated and seen for dialysis. The patient was seen several times today. She had a clotted access before. His usual schedule is Sunday, , and Sunday. The patient has been noncompliant. No other associated findings. No other aggravating or relieving factors. No other associated findings. The patient had angioplasty, has been done on the arterial limb of the AV access. PHYSICAL EXAMINATION: GENERAL: Pale, no other distress or deformities, lying in bed. VITAL SIGNS: Blood pressure is 105/66, pulse 91, respiratory rate is 16. HEENT: Head is atraumatic, normocephalic. Pupils are round and reactive. Sclerae are anicteric. Conjunctivae not pale. Oral mucosa is not dry. NECK: Supple. No masses or bruits. Thyroid is palpable. Neck has no bruits. LUNGS: Shows equal thoracic percussion note being resonant in all areas. CARDIAC: Regular rhythm. No rub. No S3 or S4. No parasternal heave. ABDOMEN: No guarding, tenderness. Bowel sounds present. LABORATORY DATA: We have reviewed the labs in detail and old records have been reviewed and hemoglobin is 12.5. PROBLEMS: * Renal failure. * Electrolyte problem. * Neurogenic bladder. * Urinary tract infection. * Multiple other comorbidities. * Arteriovenous access, declotting done. PLAN: Continued monitoring. Follow up on renal function. Follow up electrolytes. Intake, output, weight will be monitored. Nonsteroidal drugs will be avoided. Continue dialysis support. Compliance issues discussed with the patient. The patient was evaluated and seen for dialysis and seen several times. TID: [id number] RECEIPT: [id number]
== END 2025-06-02 16:46 | disposition home or self-care (01) | DRG 444 ==
LOC: EDH 11:01 → EDHIP 11:02 → 3CH 05-29 03:46 → 3DH 05-29 16:15
PROVIDERS: ADMIT Internal Medicine; ATTEND Internal Medicine
PROC: 5A1D70Z Performance of Urinary Filtration, Intermittent, Less than 6 Hours Per Day (ICD-10-PCS; 2025-05-28)
PROC: 5A1D70Z Performance of Urinary Filtration, Intermittent, Less than 6 Hours Per Day (ICD-10-PCS; 2025-05-30)
PROC: B51W1ZZ Fluoroscopy of Dialysis Shunt/Fistula using Low Osmolar Contrast (ICD-10-PCS; principal; 2025-06-01)
PROC: 03WY3JZ Revision of Synthetic Substitute in Upper Artery, Percutaneous Approach (ICD-10-PCS; 2025-06-01)
PROC: 5A1D70Z Performance of Urinary Filtration, Intermittent, Less than 6 Hours Per Day (ICD-10-PCS; 2025-06-01)
PROC: 5A1D70Z Performance of Urinary Filtration, Intermittent, Less than 6 Hours Per Day (ICD-10-PCS; 2025-06-02)
DX: T83.518A Infection and inflammatory reaction due to other urinary catheter, initial encounter (principal); T82.858A Stenosis of other vascular prosthetic devices, implants and grafts, initial encounter; I12.0 Hypertensive chronic kidney disease with stage 5 chronic kidney disease or end stage renal disease; E11.319 Type 2 diabetes mellitus with unspecified diabetic retinopathy without macular edema; N18.6 End stage renal disease; E11.22 Type 2 diabetes mellitus with diabetic chronic kidney disease; T82.868A Thrombosis due to vascular prosthetic devices, implants and grafts, initial encounter; N39.0 Urinary tract infection, site not specified; E87.70 Fluid overload, unspecified; I16.0 Hypertensive urgency; N31.9 Neuromuscular dysfunction of bladder, unspecified; N83.02 Follicular cyst of left ovary; F41.9 Anxiety disorder, unspecified; E03.8 Other specified hypothyroidism; H53.8 Other visual disturbances; Z99.2 Dependence on renal dialysis; E78.00 Pure hypercholesterolemia, unspecified; Z89.422 Acquired absence of other left toe(s); Z89.511 Acquired absence of right leg below knee; Z91.199 Patient's noncompliance with other medical treatment and regimen due to unspecified reason; Z98.891 History of uterine scar from previous surgery; Z79.899 Other long term (current) drug therapy; Y83.2 Surgical operation with anastomosis, bypass or graft as the cause of abnormal reaction of the patient, or of later complication, without mention of misadventure at the time of the procedure; Y92.89 Other specified places as the place of occurrence of the external cause
CPT/HCPCS: 36415; 36902; 74176; 76856; 80048; 80053; 81001; 81025; 82948; 83036; 83605; 83690; 83735; 83970; 84100; 84439; 84443; 84481; 85025; 85027; 85610; 85730; 86704; 86706; 87040; 87086; 87186; 87340; 90935; 93005; 96365; 96366; 96375; 99156; 99157; 99285; C1725; C1769; C1894; G0378; J0696; J1171; J1644; J1815; J1938; J2250; J2405; J3010; J3490; Q9967; J0665

== ENCOUNTER 2025-07-26 14:37 | Emergency (ER) | payer MEDICAID ==
[~2025-07-26] VITALS: Ht 162.6 cm; Wt 80.3 kg
[~2025-07-26 14:37] MED LIST changes: +LEVO250T75 PO; -METO25 PO; -PANT40TA54 PO; -SULF1TAB42 PO
--- NOTE | 2025-07-26 14:49 | ERN ---
ED Note History of Present Illness Stated Complaint: RLQ PAIN Chief Complaint: Abdominal Pain Time Seen by MD: 14:39 Dictation: PATIENT IS A 39-YEAR-OLD FEMALE WITH TWO COMPLAINTS 1ST COMPLAINT IS SHE IS HAVING RIGHT LOWER QUADRANT PAIN WITH NAUSEA ONSET LAST NIGHT. SECOND COMPLAINT IS SHE HAS A CHRONIC ROMANO CATHETER HE SHE HAS HAD SINCE 2021 WHEN SHE WAS IN A COMA IN [facility] AT THE [facility]. SHE STATES SHE HAS HAD PROBLEMS WITH HER BLADDER SINCE HER COMA, IN HIS HAD A ROMANO CATHETER SINCE. SHE STATES SHE HAS A HAD CHILLS WITHOUT FEVER. Allergies: Coded Allergies: piperacillin (Verified Allergy, Intermediate, 04/04/25) tazobactam (Verified Allergy, Intermediate, 04/04/25) vancomycin (Verified Allergy, Intermediate, 04/04/25) lidocaine (Unverified Allergy, Unknown, 09/13/24) morphine (Unverified Allergy, Unknown, 05/10/22) onion (Unverified Allergy, Unknown, 05/10/22) Home Meds Active Scripts Nitrofurantoin Macrocrystal (Nitrofurantoin) 100 Mg Capsule, 1 CAP PO BID for 7 Days, #14 CAP 0 Refills Prov:TENNILLE BEVERLY 07/26/25 Levofloxacin (Levofloxacin) 250 Mg Tablet, 1 TAB PO DAILY for 7 Days, #7 TAB 0 Refills Prov:ALBER HARE MD 05/30/25 Reported Medications Losartan Potassium (Losartan Potassium) 50 Mg Tablet, 1 TAB PO BID 04/04/25 Atorvastatin Calcium (Atorvastatin Calcium) 20 Mg Tablet, 1 TAB PO DAILY, TAB 0 Refills 03/01/25 Past Medical History Past Medical History: Diabetes-Type II, High Cholesterol, Hypertension Additional Past Medical Hx: COMA, INTERNAL ABSCESSES, berta Gangrene, ESBL chronic pain syndrome Surgical History: Other, LAVA Surgical History Other: RIGHT BKA Family History: Negative Social History: Negative, Lives with family History: Not Applicable RN Note Reviewed/Agreed w/PFSH: Yes Review of System Dictation CONSTITUTIONAL: NEGATIVE EXCEPT FOR HPI HEAD/FACE: NEGATIVE EXCEPT FOR HPI EENT: NEGATIVE EXCEPT FOR HPI RESPIRATORY: NEGATIVE EXCEPT FOR HPI GASTROINTESTINAL/ABDOMINAL: NEGATIVE EXCEPT FOR HPI RIGHT LOWER QUADRANT PAIN WITH NAUSEA GENITOURINARY: NEGATIVE EXCEPT FOR HPI ROMANO CATHETER MUSCULOSKELETAL: NEGATIVE EXCEPT FOR HPI INTEGUMENTARY: NEGATIVE EXCEPT FOR HPI NEUROLOGICAL/PSYCH: NEGATIVE EXCEPT FOR HPI HEMATOLOGIC/LYMPHATIC: NEGATIVE EXCEPT FOR HPI ALL SYSTEMS NEGATIVE, EXCEPT NOTED ABOVE. 13 POINT REVIEW OF SYSTEMS ASSESSED AND ALL NEGATIVE EXCEPT FOR ABOVE. Initial Vital Sign VS Vital Signs Date Time Temp Pulse Resp B/P (MAP) Pulse Ox O2 Delivery O2 Flow Rate FiO2 07/26/25 14:39 99.1 85 16 90/56 99 Room Air 07/26/25 14:51 0 21 Physical Exam Dictation VITAL SIGNS REVIEWED GENERAL APPEARANCE: ALERT, ORIENTED X 3, NO ACUTE DISTRESS, WELL DEVELOPED, NOURISHED. OBESE HEAD AND FACE: NON-TRAUMATIC. EYES: PERRL, PINK CONJUNCTIVAS, EYELID NO TRAUMA, ANTERIOR CHAMBER WITH ARCUS SENILIS. EARS: PINNAS INTACT AND NO SIGNS OF TRAUMA OR ERYTHEMA EAR CANALS CLEAR AND NO DISCHARGE TM NO ERYTHEMA NOSE: NO DISCHARGE, NO BLEEDING. OROPHARYNX: MOUTH NORMAL, TONGUE PINK, PHARYNX CLEAR,NO ERYTHEMA, TONSILS NO EXUDATES, NO ABSCESSES NOTED, MUCOUS MEMBRANE MOIST NECK: SUPPLE, NON-TENDER, NO THYROMEGALY, NO MASSES, NO JVD, NO BRUITS BREAST:DEFERRED CHEST:NO TENDERNESS, NO CREPITUS, NO PARADOXICAL MOVEMENT, NO RETRACTIONS LUNGS:CLEAR, WELL-VENTILATED, SYMMETRIC, NO RALES, NO WHEEZING, NO RHONCHI, NO STRIDOR, GOOD BREATH SOUNDS BILATERALLY HEART: REGULAR RATE, REGULAR RHYTHM, NO MURMUR, NO GALLOPS VASCULAR: NO PERIPHERAL EDEMA, ABDOMEN: SOFT, POSITIVE BOWEL SOUNDS, NONDISTENDED, NO GUARDING, MILD RIGHT LOWER ABDOMINAL/PELVIC PAIN. RECTAL: DEFERRED GENITAL: ROMANO CATHETER IN PLACE WITH LARGE AMOUNT OF SEDIMENT IT URINE FOUL- SMELLING NEUROLOGICAL: NORMAL SPEECH, MOTOR FUNCTION INTACT, SENSORY FUNCTION INTACT MUSCULOSKELETAL: NECK NONTENDER, FULL RANGE OF MOTION, BACK NONTENDER, FULL RANGE OF MOTION, EXTREMITIES: RIGHT BKA SKIN: COLOR PINK, DRY, NO TURGOR, NO RASH, NO LACERATIONS, NO ABRASIONS, NO CONTUSIONS. LYMPHATIC: DEFERRED Results (Laboratory/Radiology) Laboratory/Radiology Laboratory Tests Test 07/26/25 15:04 07/26/25 15:06 White Blood Count 7.9 K/uL (4.8-10.8) Red Blood Count 3.52 MIL/uL (4.00-5.50) L Hemoglobin 11.1 g/dL (12.0-16.0) L Hematocrit 30.9 % (36-48) L Mean Corpuscular Volume 87.8 fL (79-99) Mean Corpuscular Hemoglobin 31.5 pg (27.0-33.0) Mean Corpuscular Hemoglobin Concent 35.9 g/dL (32.0-36.0) Red Cell Distribution Width 12.4 % (11.0-15.5) Platelet Count 138 K/uL (130-400) Mean Platelet Volume 9.4 fL (7.5-10.5) Immature Granulocyte % (Auto) 0.5 % (0-1) Neutrophils (%) (Auto) 55.0 % (40.0-77.0) Lymphocytes (%) (Auto) 21.6 % (21.0-51.0) Monocytes (%) (Auto) 5.1 % (3.0-13.0) Eosinophils (%) (Auto) 16.7 % (0.0-8.0) H Basophils (%) (Auto) 1.1 % (0.0-5.0) Neutrophils # (Auto) 4.4 K/uL (1.8-7.7) Lymphocytes # (Auto) 1.7 K/uL (1.0-4.8) Monocytes # (Auto) 0.4 K/uL (0.1-1.0) Eosinophils # (Auto) 1.32 K/uL (0.00-0.70) H Basophils # (Auto) 0.09 K/uL (0.00-0.20) Absolute Immature Granulocyte (auto 0.04 K/uL (0-1) Nucleated Red Blood Cells 0.0 % (0.0-0.19) White Cell Morphology Comment See comments Sodium Level 140 mmol/L (136-145) Potassium Level 3.6 mmol/L (3.5-5.1) Chloride Level 102 mmol/L (101-111) Carbon Dioxide Level 27 mmol/L (21-32) Blood Urea Nitrogen 33 mg/dL (7-18) H Creatinine 7.4 mg/dL (0.5-1.0) H Glomerular Filtration Rate Calc 7 mL/min (>90) Random Glucose 151 mg/dL (70-105) H Lactic Acid Level 1.2 mmol/L (0.8-2.5) Total Calcium 7.5 mg/dL (8.5-10.1) L Lipase 36 U/L (16-77) Urine Color LIGHT-ORANGE (YELLOW) Urine Appearance TURBID (CLEAR) Urine pH 7.5 (5.0-8.0) Urine Specific [place] 1.013 (1.001-1.031) Urine Protein 300 mg/dL (NEGATIVE) H Urine Glucose (UA) NEGATIVE mg/dL (NEGATIVE) Urine Ketones NEGATIVE mg/dL (NEGATIVE) Urine Occult Blood NEGATIVE (NEGATIVE) Urine Nitrate NEGATIVE (NEGATIVE) Urine Bilirubin NEGATIVE mg/dL (NEGATIVE) Urine Urobilinogen 6 mg/dL (0.2-1.0) H Urine Leukocyte Esterase 500 Sada/uL (NEGATIVE) H Urine RBC 2-5 /HPF (0-1) H Urine WBC 11-25 /HPF (0-1) H Urine Squamous Epithelial Cells RARE /HPF (0-2) Urine Other Crystals (Auto) 6 /HPF (None Seen) Urine Bacteria MANY /HPF (None Seen) Urine Other Casts 20 /LPF (None Seen) Urine HCG, Qualitative NEGATIVE (NEGATIVE) 1700/ULTRASOUND RIGHT LOWER QUADRANT NEGATIVE Labs Reviewed?: Yes ED Course ED Course Orders Procedure Category Date Status Time Blood Cult SERAFIN 07/26/25 In Process 14:42 Lactic Acid LAB 07/26/25 Complete 14:42 Nurse Driven Romano ARMANDO 07/26/25 Complete Removal Pro 14:42 Cbc With Differential LAB 07/26/25 Complete 14:42 ,Urine Test LAB 07/26/25 Complete 14:42 Urinalysis Profile LAB 07/26/25 Complete 14:42 0.9%Nacl 1000ml (Ns PHA 07/26/25 Complete 1000ml) 15:00 Lipase LAB 07/26/25 Complete 14:42 Basic Metabolic Panel LAB 07/26/25 Complete 14:42 Us Pelvic Non-Ob Comp US 07/26/25 Resulted 14:44 Culture Urine SERAFIN 07/26/25 In Process 15:24 Acetaminophen 500mg PHA 07/26/25 Complete Tab (Tylenol 500mg T 16:30 Clonidine Hcl 0.3 Mg PHA 07/26/25 Complete Tablet (Catapres 0. 17:00 Current Medications Medications (Trade) Dose Ordered Sig/Deanna Route PRN Reason Start Time Stop Time Status Last Admin Dose Admin Acetaminophen (TYLenol 500MG TAB) 1,000 mg ONCE ONCE PO 07/26/25 16:30 07/26/25 16:31 DC 07/26/25 16:37 Clonidine HCl (CATApres 0.3 MG TAB) 0.3 mg ONCE ONCE PO 07/26/25 17:00 07/26/25 17:01 DC 07/26/25 16:41 Sodium Chloride 1,000 ml @ 0 mls/hr ONCE ONCE IV 07/26/25 15:00 07/26/25 14:57 DC Vital Signs Date Time Temp Pulse Resp B/P (MAP) Pulse Ox O2 Delivery O2 Flow Rate FiO2 07/26/25 16:45 98.1 79 16 206/104 99 Room Air* 0 21 07/26/25 16:41 79 206/104 07/26/25 14:51 98.4 84 12 184/83 100 Room Air* 0 21 07/26/25 14:39 99.1 85 16 90/56 99 Room Air 1700/PATIENT GIVEN CLONIDINE 0.3 AFTER BLOOD PRESSURE 206/114. SHE IS NOW DOWN TO 184/83. DISCHARGED HOME WITH THE REMAINDER OF EXAM INTACT ULTRASOUND OF HER RIGHT LOWER QUADRANT PELVIC IS NEGATIVE Medical Decision Making MDM MDM: DIFFERENTIAL DIAGNOSIS: ACS/AMI/ROMANO CATHETER/UTI/APPENDICITIS/ADNEXAL PAIN/ELECTROLYTE IMBALANCE/DEHYDRATION/UNCONTROLLED HYPERTENSION/FLUID OVERLOAD RATIONALE: TESTS CONSIDERED AND ORDERED SECONDARY TO SHARED DECISION MAKING INCLUDE: LABS PREVIOUS OUTSIDE RECORDS REVIEWED: OLD ER VISITS. RISK OF COMPLICATION AND/OR MORBIDITY OR MORTALITY OF PATIENT MANAGEMENT: NONE MEDICATIONS-PER MEDICATION RECONCILIATION NEED FOR HOSPITALIZATION: PATIENT DOES NOT MEET CRITERIA FOR HOSPITALIZATION. NONE NEED FOR EMERGENCY MAJOR/MINOR SURGERY: NO THERE ARE NO SOCIAL CONCERNS WITH THIS PATIENT. PRESCRIPTION DRUG RIGHT YOUR HAS A ALL AUGMENTIN PRESCRIPTIONS WILL INCLUDE SYMPTOMATIC CARE PATIENT'S PRIOR EXTERNAL MEDICAL RECORDS FROM OTHER ER VISITS WERE REVIEWED BY ME INDICATED. PRIOR TESTING AND RESULTS FROM PREVIOUS VISITS WERE REVIEWED. PRIOR TESTS WERE TAKEN INTO ACCOUNT WITH MEDICAL DECISION MAKING AND RESOURCE UTILIZATION, INDEPENDENT HISTORIAN/HISTORIANS WERE USED TO OBTAIN COMPLETE MEDICAL HISTORY. I INDEPENDENTLY INTERPRETED THE TEST THAT WERE PERFORMED, RESULTS WERE REVIEWED BY ME AND CONSIDERED FINDINGS ON RADIOLOGY IF ORDERED. MEDICAL MANAGEMENT AND EXAMINATION INTERPRETATION DISCUSSIONS WERE HAD BY ME WITH OTHER QUALIFIED HEALTHCARE PROFESSIONALS INDICATED FOR THE PATIENT'S CARE. DX & DISP Disposition: Discharge Departure Impression: Primary Impression: Pelvic pain in female Additional Impressions: Romano catheter in place, UTI (urinary tract infection), Anemia of chronic kidney failure, Diabetes mellitus with hyperglycemia, Hypertension, ESRD (end stage renal disease) on dialysis Condition: Stable Scripts Nitrofurantoin Macrocrystal (Nitrofurantoin) 100 Mg Capsule 1 CAP PO BID for 7 Days, #14 CAP 0 Refills Prov: TENNILLE BEVERLY 07/26/25 Additional Instructions: FOLLOW-UP WITH PRIMARY CARE PROVIDER IN 1 TO 2 DAYS. TAKE MEDICATIONS DIRECTED HERE IN THE EMERGENCY ROOM. OKAY TO CONTINUE HOME MEDICATIONS UNLESS OTHERWISE DISCUSSED DURING YOUR VISIT IN THE EMERGENCY ROOM TODAY. RETURN TO YOUR NEAREST EMERGENCY ROOM IF SYMPTOMS WORSEN OR IF THERE IS NO IMPROVEMENT. CALL 911 IF YOU NEED IMMEDIATE ASSISTANCE. TAKE TYLENOL OR MOTRIN [id number] NEEDED AND IF NO CONTRAINDICATIONS ARE PRESENT. INCREASE ORAL HYDRATION. A WOUND CULTURE OR URINE CULTURE WAS ORDERED HERE IN THE EMERGENCY ROOM DEPARTMENT PLEASE FOLLOW-UP WITH PRIMARY CARE PROVIDER AND ADVISE THEM TO GET REPEAT PORTS FROM OUR FACILITY. IF YOU HAD ANY LOS WRAP/SPLINTS THAT WERE APPLIED HERE, PLEASE DO NOT REMOVE THEM UNTIL YOU SEE YOUR PRIMARY CARE OR SPECIALTY. TAKE ANTIBIOTICS DIRECTED UNTIL GONE. CONTINUE YOUR BLOOD PRESSURE MEDICATIONS DIRECTED FROM YOUR DOCTOR. SEE YOUR PRIMARY CARE DOCTOR FOR FOLLOW UP IN THE NEXT 1-2 DAYS. Referrals: MILVIA PITTS MD (PCP) Time of Disposition: 17:05 I have reviewed the case, and I agree with, Diagnosis and Plan TENNILLE BEVERLY Jul 26, 2025 14:49 RULA HENNESSY DO Jul 26, 2025 19:22
[2025-07-26] MEDS ORDERED: 0.9%NACL 1000ML 1,000 ML IV ONE (15:00)
[2025-07-26 15:16] LABS: IMMATURE GRANULOCYTE ABSOLUTE 0.04 K/uL (0-1); NUCLEATED RED BLOOD CELLS 0.0 % (0.0-0.19); PLATELET COUNT (AUTO) 138 K/uL (130-400); RED BLOOD CELL COUNT(AUTO) 3.52 MIL/uL (4.00-5.50); RED CELL DISTRIBUTION WIDTH 12.4 % (11.0-15.5); WHITE BLOOD COUNT (AUTO) 7.9 K/uL (4.8-10.8)
[2025-07-26 15:22] LABS: APPEARANCE,URINE TURBID (CLEAR); GLUCOSE, URINE (UA) NEGATIVE (NEGATIVE); LEUKOCYTE ESTERASE ,URINE 500 Leu/uL (NEGATIVE); NITRATE,URINE NEGATIVE (NEGATIVE); OCCULT BLOOD,URINE NEGATIVE (NEGATIVE)
[2025-07-26 15:23] LABS: ADD UA MICROSCOPIC YES
[2025-07-26 15:26] LABS: HCG,QUALITATIVE URINE NEGATIVE (NEGATIVE); OTHER CASTS, URINE 20 /LPF (None Seen); SQUAMOUS EPITHELIAL CELL,UR RARE /HPF (0-2); UNCLASSIFIED CRYSTAL 6 /HPF (None Seen)
[2025-07-26 15:27] LABS: CREATININE 7.4 mg/dL (0.5-1.0); GLOMERULAR FILTR. RATE CALC 7.0 mL/min (>90); GLUCOSE,RANDOM 151.0 mg/dL (70-105); SODIUM SERUM 140.0 mmol/L (136-145); UREA NITROGEN, BLOOD 33.0 mg/dL (7-18)
[2025-07-26 16:45] VITALS: BP 206/104; PULSE 79; RESP 16; TEMP 98.1; O2SAT 99
[2025-07-26] MEDS ORDERED: NITR100C PO (17:06)
[2025-07-26 17:11] VITALS: TEMP 98.1
--- NOTE | 2025-07-26 17:16 | HMCIMG ---
EXAM: US Pelvis, Complete. CLINICAL HISTORY: hx of pelvic pain TECHNIQUE: Transabdominal pelvic ultrasound (complete) with image documentation. COMPARISON: 05/28/25. FINDINGS: ENDOMETRIUM: Normal thickness, measures 7.0 mm. UTERUS/CERVIX: The uterus appears within normal limits, measures 9.2 x 4.1 x 6 cm. No uterine fibroid or other mass evident. RIGHT OVARY: There appears to be normal Doppler flow on transabdominal images, measuring 3.2x 1.7 x 2.2 cm. No abnormal mass. LEFT OVARY: Obscured by bowel gas. FREE FLUID: No free fluid. Incidentally noted decompressed bladder secondary to Rivera catheter. IMPRESSION: 1. No acute pelvic pathology. 2. Left ovary obscured by overlying bowel gas. /[place]
== END 2025-07-26 17:26 | disposition home or self-care (01) ==
LOC: EDH 14:37
DX: R10.21 Pelvic and perineal pain right side (principal); D63.1 Anemia in chronic kidney disease; I12.0 Hypertensive chronic kidney disease with stage 5 chronic kidney disease or end stage renal disease; E11.22 Type 2 diabetes mellitus with diabetic chronic kidney disease; N18.6 End stage renal disease; E11.65 Type 2 diabetes mellitus with hyperglycemia; N39.0 Urinary tract infection, site not specified; E78.00 Pure hypercholesterolemia, unspecified; G89.4 Chronic pain syndrome; Z88.1 Allergy status to other antibiotic agents; Z88.0 Allergy status to penicillin; Z88.5 Allergy status to narcotic agent; Z91.018 Allergy to other foods; Z79.899 Other long term (current) drug therapy; Z99.2 Dependence on renal dialysis; Z89.511 Acquired absence of right leg below knee
CPT/HCPCS: 36415; 76856; 80048; 81001; 81025; 83605; 83690; 85025; 87040; 87086; 87186; 99284

== ENCOUNTER 2025-08-03 23:09 | Emergency (ER) | payer MEDICAID ==
[~2025-08-03] VITALS: Ht 162.6 cm; Wt 79.4 kg
[~2025-08-03 23:09] MED LIST changes: +NITR100C PO
[2025-08-03 23:57] LABS: IMMATURE GRANULOCYTE ABSOLUTE 0.03 K/uL (0-1); NUCLEATED RED BLOOD CELLS 0.0 % (0.0-0.19); PLATELET COUNT (AUTO) 168 K/uL (130-400); RED BLOOD CELL COUNT(AUTO) 3.92 MIL/uL (4.00-5.50); RED CELL DISTRIBUTION WIDTH 12.3 % (11.0-15.5); WHITE BLOOD COUNT (AUTO) 8.2 K/uL (4.8-10.8)
--- NOTE | 2025-08-04 00:02 | EKG ---
[facility] Test Date: 2025-08-03 Test Time: 23:56:02 Pat Name: DARÍO ELIAS Department: ED Room: Gender: F Map Clerk: [id number] : 1985 Requested By: PAL CHILDS Order Number: [id number] Reading MD: Chaitanya Parker Measurements Intervals Egan Rate: 86 P: 44 MN: 154 QRS: 11 QRSD: 93 T: 30 QT: 403 QTc: 483 Interpretive Statements Sinus rhythm Poor R wave progression Compared to ECG 05/28/2025 11:22:34 Myocardial infarct finding now present Poor R-wave progression no longer present Electronically Signed On 08-04-2025 18:04:43 CDT by Chaitanya Parker Please click the below link to view image of tracing.
[2025-08-04 00:08] LABS: GLOMERULAR FILTR. RATE CALC 6.0 mL/min (>90); GLUCOSE,RANDOM 195.0 mg/dL (70-105); SODIUM SERUM 138.0 mmol/L (136-145); UREA NITROGEN, BLOOD 36.0 mg/dL (7-18)
[2025-08-04 00:10] LABS: CREATININE 8.2 mg/dL (0.5-1.0)
--- NOTE | 2025-08-04 00:37 | ERN ---
ED Note History of Present Illness Stated Complaint: PAIN TO ROMANO CATH SITE AND LOWER BACK Chief Complaint: Urinary Catheter Problems Time Seen by MD: 23:14 Time Seen by Midlevel: 23:14 Dictation: The patient is a 39-year-old female with history of ESRD on HD TTS, DM, HTN, chronic romano who presents to the emergency department with complains of discomfort to Romano cath site which was relieved after exchange. Patient also reports bilateral flank pain. Allergies: Coded Allergies: piperacillin (Verified Allergy, Intermediate, 04/04/25) tazobactam (Verified Allergy, Intermediate, 04/04/25) vancomycin (Verified Allergy, Intermediate, 04/04/25) lidocaine (Unverified Allergy, Unknown, 09/13/24) morphine (Unverified Allergy, Unknown, 05/10/22) onion (Unverified Allergy, Unknown, 05/10/22) Home Meds Active Scripts Nitrofurantoin Macrocrystal (Nitrofurantoin) 100 Mg Capsule, 1 CAP PO BID for 7 Days, #14 CAP 0 Refills Prov:TENNILLE BEVERLY 07/26/25 Levofloxacin (Levofloxacin) 250 Mg Tablet, 1 TAB PO DAILY for 7 Days, #7 TAB 0 Refills Prov:ALBER HARE MD 05/30/25 Reported Medications Losartan Potassium (Losartan Potassium) 50 Mg Tablet, 1 TAB PO BID 04/04/25 Atorvastatin Calcium (Atorvastatin Calcium) 20 Mg Tablet, 1 TAB PO DAILY, TAB 0 Refills 03/01/25 Past Medical History Past Medical History: Diabetes-Type II, High Cholesterol, Hypertension, Renal Failure Additional Past Medical Hx: COMA, INTERNAL ABSCESSES, berta Gangrene, ESBL chronic pain syndrome,GEOFF Surgical History: Other, LAVA Surgical History Other: RIGHT BKA Family History: Negative Social History: Negative, Lives with family History: Not Applicable RN Note Reviewed/Agreed w/PFSH: Yes Review of System Dictation Constitutional: Negative for fever,chills, and weight loss Eyes: Negative for injury, pain,redness, and discharge ENT: Negative for injury,pain or swelling Cardiovascular: Negative for chest pain, palpitations, and edema Respiratory: Negative for shortness of breath, cough, and wheezing, Abdomen/GI: Negative for abdominal pain, nausea, vomiting, diarrhea, and constipation Back: Negative for injury and pain positive for bilateral flank pain : Negative for injury, bleeding and discharge MS/Extremity: Negative for injury and deformity Skin: Negative for rash, and discoloration Neuro: Negative for headache, weakness, numbness, tingling, and seizure Psych: Negative for suicide ideation, homicidal ideation, and hallucinations Initial Vital Sign VS Vital Signs Date Time Temp Pulse Resp B/P (MAP) Pulse Ox O2 Delivery O2 Flow Rate FiO2 08/03/25 23:10 98.1 95 18 227/112 99 Room Air 0 08/03/25 23:30 21 Physical Exam Dictation Vital Signs reviewed General Appearance: Alert, oriented x 3, no acute distress, well developed, nou rished. Head and Face: non-traumatic. Eyes: PERRL, pink conjunctivas, eyelid no trauma, anterior chamber with arcus senilis. Ears: Pinnas intact and no signs of trauma or erythema ear canals clear and no discharge TM no erythema Nose: No discharge, no bleeding. Oropharynx: Mouth normal, tongue pink. pharynx clear,no erythema, tonsils no exudates, no abscesses noted, mucous mem brane moist Neck: Supple, non-tender, no thyromegaly, no masses, no JVD, no bruits Breast:Deferred Chest:No tenderness, no crepitus, no paradoxical movement, no retractions Lungs:Clear, well-ventilated, symmetric, no rales, no wheezing, no rhonchi, no stridor, good breath sounds bilaterally Heart: Regular rate, regular rhythm, no murmur, no gallops Vascular: no peripheral edema, Abdomen: Soft, positive bowel sounds, nondistended, no guarding, nontender, no rebound, no masses no hepatomegaly, no splenomegaly, no Katz's sign, no hernias. Rectal: Deferred Genital: Deferred Neurological: Normal speech, motor function intact, sensory function intact Musculoskeletal: Neck nontender, full range of motion, back nontender, full range of motion, Extremities: nontender, full range of motion Skin: Color pink, dry, no turgor, no rash, no lacerations, no abrasions, no contusions. Lymphatic: Deferred Results (Laboratory/Radiology) Laboratory/Radiology Laboratory Tests Test 08/03/25 23:48 08/04/25 01:06 White Blood Count 8.2 K/uL (4.8-10.8) Red Blood Count 3.92 MIL/uL (4.00-5.50) L Hemoglobin 12.2 g/dL (12.0-16.0) Hematocrit 35.6 % (36-48) L Mean Corpuscular Volume 90.8 fL (79-99) Mean Corpuscular Hemoglobin 31.1 pg (27.0-33.0) Mean Corpuscular Hemoglobin Concent 34.3 g/dL (32.0-36.0) Red Cell Distribution Width 12.3 % (11.0-15.5) Platelet Count 168 K/uL (130-400) Mean Platelet Volume 9.2 fL (7.5-10.5) Immature Granulocyte % (Auto) 0.4 % (0-1) Neutrophils (%) (Auto) 51.8 % (40.0-77.0) Lymphocytes (%) (Auto) 26.1 % (21.0-51.0) Monocytes (%) (Auto) 5.8 % (3.0-13.0) Eosinophils (%) (Auto) 14.6 % (0.0-8.0) H Basophils (%) (Auto) 1.3 % (0.0-5.0) Neutrophils # (Auto) 4.3 K/uL (1.8-7.7) Lymphocytes # (Auto) 2.1 K/uL (1.0-4.8) Monocytes # (Auto) 0.5 K/uL (0.1-1.0) Eosinophils # (Auto) 1.20 K/uL (0.00-0.70) H Basophils # (Auto) 0.11 K/uL (0.00-0.20) Absolute Immature Granulocyte (auto 0.03 K/uL (0-1) Nucleated Red Blood Cells 0.0 % (0.0-0.19) Sodium Level 138 mmol/L (136-145) Potassium Level 3.8 mmol/L (3.5-5.1) Chloride Level 101 mmol/L (101-111) Carbon Dioxide Level 24 mmol/L (21-32) Blood Urea Nitrogen 36 mg/dL (7-18) H Creatinine 8.2 mg/dL (0.5-1.0) *H Glomerular Filtration Rate Calc 6 mL/min (>90) Random Glucose 195 mg/dL (70-105) H Total Calcium 7.0 mg/dL (8.5-10.1) L Serum Test, Qualitative NEGATIVE (NEGATIVE) Urine Color LIGHT-YELLOW (YELLOW) Urine Appearance CLEAR (CLEAR) Urine pH 8.0 (5.0-8.0) Urine Specific [place] 1.014 (1.001-1.031) Urine Protein 300 mg/dL (NEGATIVE) H Urine Glucose (UA) 500 mg/dL (NEGATIVE) H Urine Ketones NEGATIVE mg/dL (NEGATIVE) Urine Occult Blood SMALL (NEGATIVE) H Urine Nitrate NEGATIVE (NEGATIVE) Urine Bilirubin NEGATIVE mg/dL (NEGATIVE) Urine Urobilinogen 0.2 mg/dL (0.2-1.0) Urine Leukocyte Esterase NEGATIVE Sada/uL Urine RBC 6-10 /HPF (0-1) H Urine WBC 6-10 /HPF (0-1) H Urine Squamous Epithelial Cells RARE /HPF (0-2) Urine Bacteria RARE /HPF (None Seen) Urine Opiates Screen NEGATIVE (NEGATIVE) Urine Barbiturates Screen NEGATIVE (NEGATIVE) Urine Phencyclidine Screen NEGATIVE (NEGATIVE) Urine Amphetamines Screen NEGATIVE (NEGATIVE) Urine Benzodiazepines Screen NEGATIVE (NEGATIVE) Urine Cocaine Screen NEGATIVE (NEGATIVE) Urine Marijuana (THC) Screen NEGATIVE (NEGATIVE) Labs Reviewed?: Yes EKG: (+) rhythm EKG Comment: Date:08/03/2025 Time:2356 Ventricular rate:86 [place] interval:154 QRS duration:93 QT/QTc:403/483 EKG interpretation: Sinus rhythm Reviewed by ED Attending no STEMI ED Course ED Course Orders Procedure Category Date Status Time Cbc With Differential LAB 08/03/25 Complete 23:42 12 Lead Ekg Tracing- EKG 08/03/25 Complete Technical 23:42 Basic Metabolic Panel LAB 08/03/25 Complete 23:42 Hydralazine 20mg Inj PHA 08/04/25 Complete (Apresoline 20mg In 00:00 Urinalysis Profile LAB 08/03/25 Complete 23:42 Testing, LAB 08/03/25 Complete Serum Hcg 23:42 Acetaminophen 500mg PHA 08/04/25 Complete Tab (Tylenol 500mg T 00:00 Drug Screen Urine LAB 08/04/25 Complete 00:18 Hydromorphone 0.5mg PHA 08/04/25 Complete Syg (Dilaudid 0.5mg 01:00 Culture Urine SERAFIN 08/04/25 In Process 01:22 Current Medications Medications (Trade) Dose Ordered Sig/Deanna Route PRN Reason Start Time Stop Time Status Last Admin Dose Admin Acetaminophen (TYLenol 500MG TAB) 1,000 mg ONCE ONCE PO 08/04/25 00:00 08/04/25 00:01 DC 08/03/25 23:56 Hydralazine HCl (APRESOLine 20MG INJ) 20 mg ONCE ONCE IV 08/04/25 00:00 08/04/25 00:01 DC 08/03/25 23:56 Hydromorphone HCl (DiLAUDid 0.5MG INJ) 0.2 mg ONCE ONCE IVP 08/04/25 01:00 08/04/25 01:01 DC 08/04/25 00:59 Vital Signs Date Time Temp Pulse Resp B/P (MAP) Pulse Ox O2 Delivery O2 Flow Rate FiO2 08/04/25 01:27 98.1 98 20 168/83 99 Room Air* 0 21 08/04/25 00:23 98.1 99 20 156/89 99 Room Air* 0 21 08/03/25 23:56 92 211/119 08/03/25 23:30 98.1 92 20 220/109 99 Room Air* 0 21 08/03/25 23:10 98.1 95 18 227/112 99 Room Air 0 Medical Decision Making MDM The patient is a 39-year-old female with history of ESRD on HD TTS, DM, HTN, chronic romano who presents to the emergency department with complains of discomfort to Romano cath site which was relieved after exchange. Patient also reports bilateral flank pain. CBC showed no leukocytosis, no anemia, chemistry showed creatinine of 8.2, normal potassium, urinalysis negative for leukocyte esterase or nitrites. Patient monthly to the ER to have Romano exchanged. Reports symptoms improved after Romano with a exchange. Patient with no fever, no leukocytosis. Patient's blood pressure improved after medication administration. Is due for dialysis in the morning. Patient who was in no acute distress, stable vital signs. We will be discharged to follow up with PCP. Differential diagnosis: UTI, pyelonephritis, hypertensive urgency Need for hospitalization: Patient does not meet criteria for hospitalization. There are no social concerns with this patient. DX & DISP Disposition: Discharge Departure Impression: Primary Impression: Encounter for assessment of Romano catheter Additional Impression: ESRD (end stage renal disease) on dialysis Condition: Stable Additional Instructions: FOLLOW-UP WITH PRIMARY CARE PROVIDER IN 1 TO 2 DAYS. TAKE MEDICATIONS D IRECTED HERE IN THE EMERGENCY ROOM. OKAY TO CONTINUE HOME MEDICATIONS UNLESS OTHERWISE DISCUSSED DURING YOUR VISIT IN THE EMERGENCY ROOM TODAY. RETURN TO YOUR NEAREST EMERGENCY ROOM IF SYMPTOMS WORSEN OR IF THERE IS NO IMPROVEMENT. CALL 911 IF YOU NEED IMMEDIATE ASSISTANCE. TAKE TYLENOL [id number] NEEDED AND IF NO CONTRAINDICATIONS ARE PRESENT. INCREASE ORAL HYDRATION. A WOUND CULTURE OR URINE CULTURE WAS ORDERED HERE IN THE EMERGENCY ROOM DEPARTMENT PLEASE FOLLOW-UP WITH PRIMARY CARE PROVIDER AND ADVISE THEM TO GET REPEAT PORTS FROM OUR FACILITY. IF YOU HAD ANY LOS WRAP/SPLINTS THAT WERE APPLIED HERE, PLEASE DO NOT REMOVE THEM UNTIL YOU SEE YOUR PRIMARY CARE OR SPECIALTY. Referrals: MILVIA PITTS MD (PCP) Time of Disposition: 01:31 I have reviewed the case, and I agree with, Diagnosis and Plan I performed a substantive portion of the visit. I have reviewed and personally made and approve the management plan that is documented in the notes by myself with MELINDA/resident. I acknowledged full responsibility for the patient's management plan. PAL CHILDS Aug 04, 2025 00:37 RULA HENNESSY DO Aug 04, 2025 02:50
[2025-08-04 01:18] LABS: APPEARANCE,URINE CLEAR (CLEAR); GLUCOSE, URINE (UA) 500 mg/dL (NEGATIVE); LEUKOCYTE ESTERASE ,URINE NEGATIVE Leu/uL (NEGATIVE); NITRATE,URINE NEGATIVE (NEGATIVE); OCCULT BLOOD,URINE SMALL (NEGATIVE)
[2025-08-04 01:19] LABS: ADD UA MICROSCOPIC YES
[2025-08-04 01:21] LABS: SQUAMOUS EPITHELIAL CELL,UR RARE /HPF (0-2)
[2025-08-04 01:26] LABS: AMPHET/METH SCREEN,URINE NEGATIVE (NEGATIVE); BARBITURATE SCREEN, URINE NEGATIVE (NEGATIVE); CANNABINOID SCREEN,URINE NEGATIVE (NEGATIVE); COCAINE SCREEN,URINE NEGATIVE (NEGATIVE)
[2025-08-04 03:27] VITALS: BP 148/78; PULSE 95; RESP 20; TEMP 98.1; O2SAT 99
== END 2025-08-04 03:28 | disposition home or self-care (01) ==
LOC: EDH 23:09
DX: T83.84XA Pain due to genitourinary prosthetic devices, implants and grafts, initial encounter (principal); Z79.899 Other long term (current) drug therapy; I12.0 Hypertensive chronic kidney disease with stage 5 chronic kidney disease or end stage renal disease; E11.22 Type 2 diabetes mellitus with diabetic chronic kidney disease; N18.6 End stage renal disease; E78.00 Pure hypercholesterolemia, unspecified; G89.4 Chronic pain syndrome; Z88.0 Allergy status to penicillin; Z88.1 Allergy status to other antibiotic agents; Z88.5 Allergy status to narcotic agent; Z88.4 Allergy status to anesthetic agent; Z91.018 Allergy to other foods; Z89.511 Acquired absence of right leg below knee; Z99.2 Dependence on renal dialysis; Y84.6 Urinary catheterization as the cause of abnormal reaction of the patient, or of later complication, without mention of misadventure at the time of the procedure
CPT/HCPCS: 99285; 96374; 80048; 80305; 84703; 85025; 87086; 81001; 36415; 93005; 96375; 51702; J1171; J0360

== ENCOUNTER 2025-08-20 04:43 | Emergency (ER) | payer MEDICAID ==
[~2025-08-20] VITALS: Ht 162.6 cm; Wt 78.0 kg
[~2025-08-20 04:43] MED LIST changes: +sevELAMer HCL 800 MG TAB PO
--- NOTE | 2025-08-20 04:50 | ERN ---
General Chief Complaint: Urinary Catheter Problems Stated Complaint: ROMANO ISSUES Time Seen by MD: 04:47 History of Present Illness Initial Comments 40-year-old female recently discharged from [facility] for further catheter change. Patient states that she was discharged with a Romano catheter however has not had any urine output from the catheter since 1:00 p.m. today. She is complaining of lower abdominal pain and is hoping to get urinary catheter replaced Allergies: Coded Allergies: piperacillin (Verified Allergy, Intermediate, 04/04/25) tazobactam (Verified Allergy, Intermediate, 04/04/25) vancomycin (Verified Allergy, Intermediate, 04/04/25) lidocaine (Unverified Allergy, Unknown, 09/13/24) morphine (Unverified Allergy, Unknown, 05/10/22) onion (Unverified Allergy, Unknown, 05/10/22) Home Meds Active Scripts [sevELAMer HCL 800 MG TAB] 800 MG/TAB TABLET No Conflict Check, 1600 MG PO TIDMEALS, #60 1 Refill Prov:ALBERTO JAQUEZ MOTTLER OPERATOR 08/19/25 Nitrofurantoin Macrocrystal (Nitrofurantoin) 100 Mg Capsule, 1 CAP PO BID for 7 Days, #14 CAP 0 Refills Prov:TENNILLE BEVERLY MOTTLER OPERATOR 07/26/25 Levofloxacin (Levofloxacin) 250 Mg Tablet, 1 TAB PO DAILY for 7 Days, #7 TAB 0 Refills Prov:ALBER HARE MD 05/30/25 Reported Medications Losartan Potassium (Losartan Potassium) 50 Mg Tablet, 1 TAB PO BID 04/04/25 Atorvastatin Calcium (Atorvastatin Calcium) 20 Mg Tablet, 1 TAB PO DAILY, TAB 0 Refills 03/01/25 Past Medical History Past Medical History: Diabetes-Type II, High Cholesterol, Hypertension, Renal Failure Medical History Other: COMA, INTERNAL ABSCESSES, berta Gangrene, ESBL chronic pain syndrome,GEOFF Past Surgical History: Other, LAVA Surgical History Other: RIGHT BKA Family History Family History: Negative Social History Social History: Negative, Lives with family Female( History) History: Not Applicable Genitourinary: (+) pain Review of Systems: was completed, & the rest were negative. Physical Exam Physical Exam Dictation GENERAL APPEARANCE NAD, activity normal for age, well developed/ well nourished, no cyanosis, pallor, or diaphoresis. EYES lids/conjunctiva normal. EARS/NOSE/THROAT Mucous membranes moist, nares normal, lips/teeth normal uvula midline without oral pharyngeal erythema, exudate or swelling TMs normal bilaterally. No lymphangitis/lymphedema. HEAD/NECK normocephalic atraumatic, no facial trauma, neck is supple. RESPIRATORY respiratory effort normal, speaks in full sentences, no tripod position, no accessory muscle use. Lungs clear to auscultation without rhonchi, wheezes, rales CARDIAC Regular rate and rhythm, no edema. ABDOMINAL Soft, ND/NT. No evidence of fluid wave. No pulsatile masses on exam, rebound tenderness, Katz sign or pain over Mcburney's point. MUSCLES/EXTREMITIES No abnormal range of motion, no swelling. SKIN Warm, pink and dry. No rashes, dermatoses, petechiae or lesions. NEUROLOGICAL Speech is clear and appropriate. Normal level of consciousness. Gait and coordination are normal. 5/5 strength in all extremities. PSYCH Normal mood and affect. Judgement/competence is appropriate MDM 40-year-old female here for Romano catheter change. We will replace at see if this current output from it. Likely discharge home. ED Course Orders Procedure Category Date Status Time Nurse Driven Romano ARMANDO 08/20/25 In Process Removal Pro 04:50 Hydralazine 20mg Inj PHA 08/20/25 Complete (Apresoline 20mg In 05:30 Current Medications Medications (Trade) Dose Ordered Sig/Deanna Route PRN Reason Start Time Stop Time Status Last Admin Dose Admin Hydralazine HCl (APRESOLine 20MG INJ) 20 mg ONCE ONCE IM 08/20/25 05:30 08/20/25 05:31 DC Vital Signs Date Time Temp Pulse Resp B/P (MAP) Pulse Ox O2 Delivery O2 Flow Rate FiO2 08/20/25 05:32 98.1 100 18 191/101 100 Room Air* 0 21 08/20/25 04:44 98.1 105 20 193/115 98 Room Air 0 DX & DISP Disposition: Discharge Departure Impression: Primary Impression: Urinary catheter (Romano) change required Additional Impressions: Urinary catheter complication, Urinary catheter insertion/adjustment/removal Condition: Stable Referrals: MILVIA PITTS MD (PCP) ISLEA HANCOCK MD Aug 20, 2025 04:50
--- NOTE | 2025-08-20 05:02 | NUR ---
PT CARE ASSUMED AT THIS TIME
--- NOTE | 2025-08-20 06:11 | NUR ---
ED MD HANCOCK MADE AWARE OF BP AFTER MEDICATION. PT CLEARED FOR DISCHARGE.
--- NOTE | 2025-08-20 06:35 | NUR ---
[facility] CALLED FOR TRANSPORT BACK HOME, DISCHARGE PENDING EMS
--- NOTE | 2025-08-20 07:11 | NUR ---
REPORT GIVEN TO JODY VARMA AT THIS TIME
[2025-08-20 07:30] VITALS: BP 121/71; PULSE 100; RESP 15; TEMP 98.6; O2SAT 97
== END 2025-08-20 10:03 | disposition home or self-care (01) ==
LOC: EDH 04:43
DX: T83.091A Other mechanical complication of indwelling urethral catheter, initial encounter (principal); E11.9 Type 2 diabetes mellitus without complications; E78.00 Pure hypercholesterolemia, unspecified; I10 Essential (primary) hypertension; G89.4 Chronic pain syndrome; Z88.1 Allergy status to other antibiotic agents; Z88.5 Allergy status to narcotic agent; Z88.0 Allergy status to penicillin; Z91.018 Allergy to other foods; Z79.899 Other long term (current) drug therapy; Z89.511 Acquired absence of right leg below knee; Y84.8 Other medical procedures as the cause of abnormal reaction of the patient, or of later complication, without mention of misadventure at the time of the procedure; Y92.89 Other specified places as the place of occurrence of the external cause
CPT/HCPCS: 99285; 96374; 51702; J0360

== ENCOUNTER 2025-09-07 22:26 | Emergency (ER) | payer MEDICAID ==
[~2025-09-07] VITALS: Ht 162.6 cm; Wt 78.5 kg
--- NOTE | 2025-09-07 22:42 | ERN ---
General Chief Complaint: Urinary Catheter Problems Stated Complaint: muir catheter malfunction Time Seen by MD: 22:30 History of Present Illness Initial Comments 40-year-old female history of ESRD on hemodialysis Sunday follow up byDr Fernandez here for urinary catheter problem. States that the urinary catheter is leaking and she would like a change. She does produce urine and would like to have the catheter change. No fever no cough no shortness a breath. No nausea vomiting diarrhea. No abdominal pain or chest pain. As per EMS patient's blood pressure was elevated. She takes blood pressure medications though she does not know the name of them. She states that she ran out of her blood pressure medications yesterday. Allergies: Coded Allergies: piperacillin (Verified Allergy, Intermediate, 04/04/25) tazobactam (Verified Allergy, Intermediate, 04/04/25) vancomycin (Verified Allergy, Intermediate, 04/04/25) lidocaine (Unverified Allergy, Unknown, 09/13/24) morphine (Unverified Allergy, Unknown, 05/10/22) onion (Unverified Allergy, Unknown, 05/10/22) Home Meds Active Scripts [sevELAMer HCL 800 MG TAB] 800 MG/TAB TABLET No Conflict Check, 1600 MG PO TIDMEALS, #60 1 Refill Prov:ALBERTO JAQUEZ LOGGING CREW SUPERVISOR 08/19/25 Reported Medications Insulin Glargine,Hum.rec.anlog (Lantus Solostar) 100 Unit/Ml (3 Ml) Insuln.pen, 12 UNIT SQ HS for 30 Days, #5 ML 0 Refills 08/29/25 Losartan Potassium (Losartan Potassium) 50 Mg Tablet, 1 TAB PO BID 04/04/25 Past Medical History Past Medical History: Diabetes-Type II, High Cholesterol, Hypertension, Renal Failure Medical History Other: COMA, INTERNAL ABSCESSES, berta Gangrene, ESBL chronic pain syndrome,GEOFF Past Surgical History: Other, LAVA Surgical History Other: RIGHT BKA Family History Family History: Negative Social History Social History: Negative, Lives with family Female( History) History: Not Applicable Review of Systems: was completed, & the rest were negative. Physical Exam Physical Exam Dictation GENERAL APPEARANCE NAD, activity normal for age, well developed/ well nourished, no cyanosis, pallor, or diaphoresis. EYES lids/conjunctiva normal. EARS/NOSE/THROAT Mucous membranes moist, nares normal, lips/teeth normal uvula midline without oral pharyngeal erythema, exudate or swelling TMs normal bilaterally. No lymphangitis/lymphedema. HEAD/NECK normocephalic atraumatic, no facial trauma, neck is supple. RESPIRATORY respiratory effort normal, speaks in full sentences, no tripod position, no accessory muscle use. Lungs clear to auscultation without rhonchi, wheezes, rales CARDIAC Regular rate and rhythm, no edema. ABDOMINAL Soft, ND/NT. No evidence of fluid wave. No pulsatile masses on exam, rebound tenderness, Katz sign or pain over Mcburney's point. MUSCLES/EXTREMITIES No abnormal range of motion, no swelling. SKIN Warm, pink and dry. No rashes, dermatoses, petechiae or lesions. NEUROLOGICAL Speech is clear and appropriate. Normal level of consciousness. Gait and coordination are normal. 5/5 strength in all extremities. PSYCH Normal mood and affect. Judgement/competence is appropriate MDM 40-year-old female here for urinary catheter exchange. We will change the cath eter and discharge the patient home. ED Course Orders Procedure Category Date Status Time Nurse Driven Muir ARMANDO 09/07/25 In Process Removal Pro 22:54 Labetalol Hcl 100 Mg PHA 09/07/25 Complete Tablet (Trandate 10 23:30 Current Medications Medications (Trade) Dose Ordered Sig/Deanna Route PRN Reason Start Time Stop Time Status Last Admin Dose Admin Labetalol HCl (TRANdate 100 MG TABLET) 100 mg ONCE ONCE PO 09/07/25 23:30 09/07/25 23:31 DC Vital Signs Date Time Temp Pulse Resp B/P (MAP) Pulse Ox O2 Delivery O2 Flow Rate FiO2 09/07/25 23:06 88 16 200/113 100 Room Air* 0 21 09/07/25 22:44 98.4 86 18 192/102 97 Room Air DX & DISP Disposition: Discharge Departure Impression: Primary Impression: Urinary catheter (Muir) change required Additional Impression: Uncontrolled hypertension Condition: Stable Referrals: MILVIA PITTS MD (PCP) ISELA HANCOCK MD Sep 07, 2025 22:42
--- NOTE | 2025-09-08 00:37 | NUR ---
PATIENT WAITING ON EMS TRANSFER HOME.
--- NOTE | 2025-09-08 01:18 | NUR ---
STILL WAITING ON EMS TRANSFER, CALLED [facility], SHE IS STILL PENDING TO BE PICKED UP.
[2025-09-08 02:41] VITALS: BP 169/76; PULSE 82; RESP 18; TEMP 98.3; O2SAT 98
--- NOTE | 2025-09-08 02:41 | NUR ---
[facility] PRESENT TO TRANSPORT PATIENT HOME.
== END 2025-09-08 02:42 | disposition home or self-care (01) ==
LOC: EDH 22:26
DX: T83.038A Leakage of other urinary catheter, initial encounter (principal); E11.22 Type 2 diabetes mellitus with diabetic chronic kidney disease; E78.00 Pure hypercholesterolemia, unspecified; I12.0 Hypertensive chronic kidney disease with stage 5 chronic kidney disease or end stage renal disease; N18.6 End stage renal disease; Z79.899 Other long term (current) drug therapy; Z88.0 Allergy status to penicillin; Z88.1 Allergy status to other antibiotic agents; Z88.5 Allergy status to narcotic agent; Z89.511 Acquired absence of right leg below knee; Z99.2 Dependence on renal dialysis; Y84.6 Urinary catheterization as the cause of abnormal reaction of the patient, or of later complication, without mention of misadventure at the time of the procedure
CPT/HCPCS: 51702; 99284